=== PATIENT | male | born 1945 | race Caucasian/White ===

== ENCOUNTER → 2023-02-01 13:41 | Outpatient (REF) | payer MEDICARE, OTHER, SELFPAY | LOC: WOUND 13:41 | PROVIDERS: ATTENDING PHYSICIAN Surgery; REFERRING PHYSICIAN Family Medicine | DX: S81.812A Laceration without foreign body, left lower leg, initial encounter (principal); L97.222 Non-pressure chronic ulcer of left calf with fat layer exposed; D72.119 Hypereosinophilic syndrome [HES], unspecified; Z79.52 Long term (current) use of systemic steroids; I87.2 Venous insufficiency (chronic) (peripheral); I73.9 Peripheral vascular disease, unspecified; I42.9 Cardiomyopathy, unspecified; M30.1 Polyarteritis with lung involvement [Churg-Strauss]; Z95.810 Presence of automatic (implantable) cardiac defibrillator; Z86.79 Personal history of other diseases of the circulatory system; X58.XXXA Exposure to other specified factors, initial encounter | CPT/HCPCS: 11042; 99204 ==

== ENCOUNTER → 2023-03-16 14:41 | Outpatient (REF) | payer MEDICARE, OTHER, SELFPAY | LOC: WOUND 14:41 | PROVIDERS: ATTENDING PHYSICIAN Surgery; REFERRING PHYSICIAN Family Medicine | DX: L97.222 Non-pressure chronic ulcer of left calf with fat layer exposed (principal); I87.2 Venous insufficiency (chronic) (peripheral); I73.9 Peripheral vascular disease, unspecified; S81.812S Laceration without foreign body, left lower leg, sequela; X58.XXXS Exposure to other specified factors, sequela | CPT/HCPCS: 11042 ==

== ENCOUNTER → 2024-07-17 11:00 | Outpatient (REF) | payer MEDICARE, OTHER, SELFPAY | LOC: RCS 11:00 | PROVIDERS: ATTENDING PHYSICIAN Internal Medicine Interventional Cardiology; FAMILY PHYSICIAN Family Medicine | DX: I42.9 Cardiomyopathy, unspecified (principal) | CPT/HCPCS: 93306 ==

== ENCOUNTER → 2024-10-22 12:07 | Outpatient (REF) | payer MEDICARE, OTHER, SELFPAY | LOC: HWRAD 12:07 | PROVIDERS: ATTENDING PHYSICIAN Physician Assistant | DX: R05.1 Acute cough (principal); R06.02 Shortness of breath | CPT/HCPCS: 71046 ==

== ENCOUNTER 2024-10-24 20:45 | Emergency (ER) | payer MEDICARE, OTHER, SELFPAY ==
[2024-10-24 20:48] VITALS: BP 154/99
[2024-10-24 22:51] VITALS: BP 144/78; BMI 22.0
--- NOTE | 2024-10-24 23:59 | ED.GENMED ---
History of Present Illness
General
Chief Complaint: Head Injury
Source: patient
Time Seen by Provider: 10/24/24 23:48
History of Present Illness
History of Present Illness:
Note:
CHIEF COMPLAINT(S)
Fall with subsequent head laceration.
HISTORY OF PRESENT ILLNESS
The patient is a 79-year-old male who presented after a fall. The incident occurred when the patient stood up from a dinner table at a social gathering and began to move his chair. He reports feeling his right leg start to give way, which led to the
fall. He did not experience any loss of consciousness but describes the event as happening very quickly, causing him to fall backwards and sustain a head laceration. The patient consumed a small amount of wine two hours prior to the incident but
reports no other similar episodes or persistent leg weakness. After the fall, the patient noted that his legs, particularly the right one, were momentarily not functioning properly.
There was no significant previous history of leg weakness or neurological symptoms that the patient associates with this event.
SOCIAL HISTORY
The patient consumed a small amount of wine approximately two hours before the fall at a social gathering.
REVIEW OF SYSTEMS
- Neurological: No loss of consciousness, temporary weakness of the right leg post-fall.
Past History
Past History
ED Past Medical History: Asthma, HTN, Hyperthyroidism and Other (Pneumonia, Hypereosinophilia)
ED Past Surgical History: Cardiac, Tonsilectomy and Other
Social History
Tobacco: Non-smoker
Alcohol: Occasional
Drug: None
Personal:
Living: with family
Phy Exam
Physical Exam
Physical Exam:
GENERAL: Alert , in no apparent distress
EYE: conjunctiva clear
NECK: Supple, no significant adenopathy.
ENT: o/p clr, mmm.
CARDIAC: Regular rate and rhythm
LUNGS: Clear breath sounds bilaterally, no acute respiratory distress, no wheezes/rales/rhonchi
NEUROLOGICAL: Alert and oriented
SKIN: Warm and dry, 8 mm superficial laceration to the left parietal scalp without any active bleeding
MUSCULOSKELETAL: well perfused.
PSYCH: Normal and appropriate interaction.
Scores
Heart Failure Risk
Heart Failure Risk Score: Not Applicable
Heart Score for Chest Pain Patients
STEMI patient?: Not applicable
Withdrawal Assessment of Alcohol
Withdrawal Assessment Completed?: Not applicable
Course
Orders/Labs/Results
Orders:
Orders
10/24/24 20:50
CT Cervical Spine W/o Iv Contr Urgent
Comment:
Reason For Exam: fall
CT Head W/o Iv Contrast Urgent
Comment:
Reason For Exam: fall
Vital Signs
Initial and Last Documented VS:
Initial Vital Signs
Temp Pulse Resp BP Pulse Ox
98.1 F 78 20 154/99 98
10/24/24 20:48 10/24/24 20:48 10/24/24 20:48 10/24/24 20:48 10/24/24 20:48
Last Documented Vital Signs
Temp Pulse Resp BP Pulse Ox
98 F 80 18 148/88 98
10/24/24 22:51 10/25/24 00:45 10/25/24 00:45 10/25/24 00:45 10/25/24 00:45
Procedures
Laceration Closure
Left Scalp:
Status of Wound: clean
Size of Wound in cm: 0.8
Description of Wound Edges: sharp
Preparation: cleaned with saline
Type of Closure: single layer closure
Skin Closure Material: skin corinna
Number of sutures: 1
MDM/Problems Addressed
Differential Diagnosis Includes:
The Differential Diagnosis includes, in no particular order, and is not limited to:
- Orthostatic hypotension
- Simple mechanical fall
- Peripheral neuropathy
- Alcohol-related imbalance
- Muscle weakness or fatigue
MDM/Problems Addressed:
Patient presenting the ER following mechanical slip and fall resulting in head injury, alcohol consumed prior to the fall. CT of the head and cervical spine ordered and ultimately negative for any acute pathologies. Laceration was repaired as
above. Staple removal in 5 days. Patient aware of return precautions but otherwise stable for discharge home.
*Radiology
Radiology exam reviewed: radiology read reviewed
*Pulse Oximetry
SaO2: 98
Oxygen Mode of Delivery: Room air
*Critical Care Note
Total Time (30-74mins, 75-104mins- exclusive of procedures): Not Applicable
ED Attending Note
-
Portions of this chart may have been created with voice recognition software.� Occasional wrong word or��sound alike� substitutions may have occurred due to the inherent limitations of voice recognition software.
Discharge Plan
Departure
Patient Disposition: Home (Routine Discharge)
Date of Disposition: 10/24/24
Time of Disposition: 23:59
Patient with high blood pressure during this ER visit?: Yes
Discharge Problem:
Accidental fall, Laceration of scalp
Instructions: Laceration Repair With [facility] (DC)
Prescriptions:
No Action
aspirin 81 MG tablet,delayed release (DR/EC)
1 tab PO DAILY
prednisone 5 MG tablet
5 mg PO DAILY
methotrexate sodium 2.5 MG tablet
22.5 mg PO WE
losartan 25 MG tablet
12.5 mg PO HS
folic acid 1 MG tablet
1 mg PO SUMOTUTHFRSA
Patient Comments:
EVERY DAY EXCEPT TUESDAY
montelukast 10 MG tablet
10 mg PO QPM
metoprolol succinate 25 MG tablet extended release 24 hr
25 mg PO HS
budesonide-formoterol [Symbicort] 1 PUFF HFA aerosol inhaler
2 puff inhalation R BID
atorvastatin 10 mg Tablet
10 mg PO DAILY
multivitamin
1 tab PO DAILY
calcium 600 mg Capsule
600 mg PO DAILY
cholecalciferol (vitamin D3) [Vitamin D3] 50 mcg (2,000 unit) Tablet
50 mcg PO DAILY
Referrals:
Rosalio Lugo PA [Family Provider, Family Practice]
Activity Restrictions/Additional Instructions:
Staple removal in 5 days
Interventions
Interventions:
*Risk Screen - Suicide Last Done: 10/25/24 00:46
*General Assessment Last Done: 10/25/24 00:46
*Neglect/Abuse Screening Last Done: 10/24/24 20:48
*ED- Fall Risk Assessment Last Done: 10/25/24 00:46
*ED COVID-19 Vaccine History Last Done: 10/25/24 00:46
*Nursing Disposition Last Done: 10/25/24 00:46
ED- Neurological Assessment Last Done: 10/24/24 22:51
ED-Skin Assessment Last Done: 10/24/24 22:51
Discharge Date and Time
Discharge Date/Time: 10/25/24 00:47
Print Language: ITALIAN
[2024-10-25 00:45] VITALS: BP 148/88
== END 2024-10-25 00:47 | disposition home or self-care (01) ==
LOC: EMR 20:45
PROVIDERS: EMERGENCY PHYSICIAN Emergency Medicine; FAMILY PHYSICIAN Physician Assistant
DX: S01.01XA Laceration without foreign body of scalp, initial encounter (principal); W01.0XXA Fall on same level from slipping, tripping and stumbling without subsequent striking against object, initial encounter; J45.909 Unspecified asthma, uncomplicated; I10 Essential (primary) hypertension; E05.90 Thyrotoxicosis, unspecified without thyrotoxic crisis or storm
CPT/HCPCS: 99284; 12001; 70450; 72125

== ENCOUNTER → 2024-10-30 17:31 | Outpatient (REF) | payer MEDICARE, OTHER, SELFPAY | LOC: RAD 17:31 | PROVIDERS: ATTENDING PHYSICIAN Family Medicine | DX: R29.898 Other symptoms and signs involving the musculoskeletal system (principal) | CPT/HCPCS: 72131 ==

== ENCOUNTER → 2025-01-15 12:45 | Outpatient (REF) | payer MEDICARE, OTHER, SELFPAY ==
--- NOTE | 2025-01-15 13:52 | CARDSERVLU ---
Echocardiogram with [facility] completed after protocol screening completed. Allergies verified.
Patent IV site: __new start 1st attempt 22P RAC___
IV site flushed with 0.9% NaCl pre and post administration.
Diluted bolus method utilized to enhance visualization of ventricular mckeon.
Total volume given: _5.5___ mL
site dcd at completion of test.
Patient tolerated all procedures well without complications.
== END ==
LOC: RCS 12:45
PROVIDERS: ATTENDING PHYSICIAN Internal Medicine Interventional Cardiology; FAMILY PHYSICIAN Family Medicine
DX: I42.9 Cardiomyopathy, unspecified (principal)
CPT/HCPCS: 93306; Q9950

== ENCOUNTER 2025-03-04 04:22 | Inpatient (IN) | payer MEDICARE, OTHER, SELFPAY ==
[2025-03-04] VITALS (19 sets, daily range): BP systolic 85–149; BP diastolic 58–135; BMI 23.5; BMI 23.2
--- NOTE | 2025-03-04 01:50 | EDRN ---
Pt has burning under his sternum on both sides which started after covid/flu vaccines on February 11 described as mild and only side effect he had. Three days later pt had an echo with contrast and says he was not supposed to feel anything when
contrast was administered. 36 hours later pt woke with stronger burning in his chest than he has ever felt before. Pt saw Dr Stephens after his echo and he did not feel pt was having a raction to the iv contrast. Pt works out at the [employer] 4 days per
week. Burning increased after spinning or lifting for few weeks. Pt says he was taking his ballot to the drop box and he parked down the hill about 3 blocks and while walking up the hill, the burning got worse. By third block, pt had to stop for
few minutes and lean on a car. This happened a week ago Tuesday. Pt saw Dr Valdez the day before and discussed burning in his chest. Pt sat on a bench for 20 minutes and sensation went away. Pt called Dr Mahajan office thinking it was a problem
with his lungs. Dr Mahajan told pt on Tuesday that it is most likely angina, not his lungs. Dr Stephens was texted on and a nurse called pt back on Tuesday after speaking with Dr Stephens. Pt informed he has an appt with a PA this coming
Tuesday. A Rx was sent in for metoprolol 50mg BID rather than 25mg BID as well as sl ntg tablets. Pt was putting away dishes around [id number] and he felt the burning in his chest more so he sat down and it took awhile to go away. Pt took 1st
ntg and it calmed the pain within minutes. Pt went upstairs and went to sleep for about 1.5 hours. One hour ago, pt went into the bathroom to urinate and on his way back to bed 'it kicked it off again.' Pt took another ntg which eased the burning
and pt decided to come to the ED for evaluation. Pt can feel 'a very low level' burning in his chest while talking with this RN. 'I can ignore it for the most part. It's there, waiting to happen again.' No sob now, pt had sob with burning. No
n/v, fever/chills/cough, weakness, dizziness, headache. Burning sometimes radiates across upper back between shoulder blades and b/l upper arms.
[2025-03-04 02:06] LABS: Hematocrit 39.0 % (39.0-52.0); Hemoglobin 12.6 g/dL (13.0-18.0); Mean Corp Hgb Conc. 32.3 g/dL (33.0-37.0); Mean Corpuscular Volume 105.1 fL (80.0-94.0); Nucleated Red Blood Cells % 0 % (-); Platelet Count 258 10^3/uL (130-400); Red Cell Dist. Width 13.8 % (11.5-14.5)
[2025-03-04 02:23] LABS: ALT (SGPT) 45 U/L (0-50); AST (SGOT) 47 U/L (17-59); Albumin 3.9 g/dl (3.5-5.0); Alkaline Phosphatase 44 U/L (38-126); Blood Urea Nitrogen 23 mg/dl (9-20); Calcium 9.0 mg/dl (8.4-10.2); Carbon Dioxide 25 mmol/L (22-30); Chloride 108 mmol/L (98-107); Estimated Creatinine Clearance 87 ml/min; Glucose 97 mg/dl (70-99); Potassium 4.7 mmol/L (3.5-5.1); Sodium 139 mmol/L (135-145); Total Protein 6.3 g/dl (6.3-8.2); eGFR > 60.00
--- NOTE | 2025-03-04 02:29 | EDRN ---
Pt clarified he was on metoprolol 25mg daily and the Rx that was sent to his pharmacy was for metoprolol 50mg BID. Pt has been monitoring his bp and HR and took 50mg daily for 2 days. Pt decreased it to 25mg because he felt his bp and HR were
going too low. Pt took 25mg metoprolol yesterday morning and a second one prior to coming to the ED this morning.
[2025-03-04 02:35] LABS: Troponin I 0.127 ng/ml
--- NOTE | 2025-03-04 02:36 | EDRN ---
Dr Mooney informed pt's troponin = 0.127 while at pt bedside
--- NOTE | 2025-03-04 02:56 | EDRN ---
Pharmacy called to verify heparin order.
[2025-03-04] MEDS: LOW STRENGTH ASPIRIN 324 MG PO (02:57)
[2025-03-04] MEDS: NITROSTAT (SUBLINGUAL) 0.4 MG SL ×5 (03:01→15:18)
[2025-03-04] MEDS: HEPARIN 4000 UNITS IV (03:02)
[2025-03-04] MEDS: HEPARIN 25000 UNITS/250 ML IV ×2 (03:03→21:27)
[2025-03-04 03:09] LABS: APTT 26.7 Sec (23.4-35.0)
--- NOTE | 2025-03-04 03:12 | EDRN ---
Pt is pain free after 1 sl ntg. Instructed pt to call if burning in his chest returns.
--- NOTE | 2025-03-04 03:27 | ED.GENMED ---
History of Present Illness
General
Chief Complaint: Cardiac Symptoms
Source: patient and spouse
Exam Limitations: none
Time Seen by Provider: 03/04/25 02:17
Nursing documentation reviewed up to this point in time: agreed with
History of Present Illness
History of Present Illness:
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 He presents tonight with complaints of a burning sensation in the chest. The burning is described as
symmetrical and located centrally underneath the sternum. The patient reports that it does not radiate to the sides, neck, or left arm but has occasionally radiated to the area between the shoulder blades.
The symptoms began around one month ago, primarily experiencing this sensation during physical exertion, such as working out at the [employer] or climbing hills, necessitating pauses due to the burning. Patient initially attributing it possibly to lung
issues due to absence of cough or other respiratory symptoms, the patient consulted with pulmonology specialists who was concern for cardiac issue. He did call his fretted instrument repairer, Dr. Stephens last week and has an appointment scheduled for this week.
After contact with fretted instrument repairer, metoprolol dose was increased from 25 mg once daily to 50 mg twice daily. Patient has been sporadically compliant with 50 mg metoprolol as his blood pressure has been running low 90s to low 100s over the past few
days.. He was also prescribed nitroglycerin sublingual tablets.
He developed an episode of substernal chest burning tonight after doing the dishes. He took a sublingual nitroglycerin and chest pain resolved within 3 to 4 minutes.
He had an additional episode of chest pain after getting up and going to the bathroom and then returning to bed. He took another dose of sublingual nitroglycerin with relief within 4 to 5 minutes.
Chest pain episodes have been recurring more frequently and now with only minimal activity prompting ED visit.
He does have history of cardiomyopathy, has AICD in place. EF reportedly 40 to 45%. He does not have prior history of CAD.
He denies associated symptoms such as sweating, nausea, or palpitations but admits to minor persistent soreness in the chest.
Past History
Past History
ED Past Medical History: Asthma, HTN, Hypercholesterolemia, Hyperthyroidism and Other (Pneumonia, Hypereosinophilia)
ED Past Surgical History: Cardiac (AICD), Tonsilectomy and Other
Social History
Tobacco: Non-smoker
Alcohol: Occasional
Drug: None
Personal:
Living: with family
Employment: Retired
Family History
Family History: Other (Noncontributory)
Phy Exam
Physical Exam
Physical Exam:
GENERAL: 80-year-old gentleman appears his stated age, bright and alert, pleasant, appears in no acute distress. is accompanying.
EYE: anicteric
NECK: Supple, nontender, no meningismus, no significant adenopathy.
ENT: oral mucosa is moist. No rhinorrhea.
CARDIAC: Regular rate and rhythm. no murmur.
LUNGS: Clear breath sounds bilaterally, no acute respiratory distress, no wheezes/rales/rhonchi
ABDOMEN: Soft, nondistended, without focal tenderness, normoactive BS.
NEUROLOGICAL: Alert and oriented x3, no focal neuro deficits.
SKIN: Warm and dry, normal color, skin intact. No rash.
MUSCULOSKELETAL: No clubbing or cyanosis. Trace edema bilateral ankles right greater than left. Patient states this is chronic and unchanged. Peripheral pulses are full and equal b/l. No palpable tenderness.
PSYCH: Normal and appropriate interaction.
Scores
Heart Score for Chest Pain Patients
STEMI patient?: No
History: Highly Suspicious
ECG: Significant ST-Depression
Age: >/= 65 years
Risk Factors: 1 or 2 Risk Factors
Troponin: >/= 3 x Normal Limit
Heart Score for Chest Pain Patients: 9
Heart Score Risk: 72.7 % MACE over next 6 weeks
Course
Orders/Labs/Results
Orders:
Orders
03/04/25 01:32
ECG [Electrocardiogram (*1)] Urgent
Reason for Study: Angina, Unstable
03/04/25 01:33
EKG- Treatment ONCE
03/04/25 01:45
PTT Urgent
03/04/25 01:47
Cardiac Monitoring- Treatment ONCE
IV Insert/Care/Rem.- Treatment PRN
O2 Therapy [RESP] Urgent
Titrate/Wean O2 to maintain O2 sat greater than (%): 90
Special Instructions: Maintain sats >/=90%
Pulse Ox/spot Check [RESP] Urgent
Quantity: 1
Special Instructions: ON ROOM AIR
03/04/25 01:49
Complete Blood Count/With Diff Urgent
Comprehensive Metabolic Panel Urgent
Troponin I Urgent
03/04/25 02:50
Aspirin Chewable [Low Strength Aspirin] 324 mg PO NOW STA
Heparin 4,000 units IV NOW STA
Nitroglycerin Sublingual [Nitrostat (Sublingual)] 0.4 mg SL NOW STA
Nitroglycerin Sublingual [Nitrostat (Sublingual)] 0.4 mg SL [id number] PRN
03/04/25 02:[address] Non Medication Order As Directed
Physician Order: PTT 6 hours after initial start of Heparin infusion
Above order entered?: Yes
03/04/25 02:54
Heparin 16231 Units/250 ml 25,000 units in 250 ml .ROUTE .STK-MED
03/04/25 03:00
Heparin 61778 Units/250 ml 25,000 units in 250 ml IV PER PROTOCOL
Weight to be used for heparin protocol in kilograms (kg):: 72
Protocol:: Cardiac Tx/Acute Coronary
PTT Goal Range to be used:: PTT 73 to 111 seconds
Order type:: Initial
INITIAL Infusion Dose (UNITS/KG/hr) & then follow protocol:: 12 units/kg/hr
Infusion Dose in UNITS/hr & then follow protocol (UNITS/hr):: 850
INFUSION RATE in mL/hr & then follow protocol (mL/hr):: 8.5
PTT less than or equal to 64 seconds:: Increase rate by 200 units/hr (+ 2 mL/hr)
PTT 64.1 to 72.9 seconds:: Increase rate by 100 units/hr (+ 1 mL/hr)
PTT 73 to 111 seconds:: Target Range. No change in rate.
PTT 111.1 to 130.9 seconds:: Decrease rate by 100 units/hr (- 1 mL/hr)
PTT 131 to 199.9 seconds:: HOLD for 1 hr. Then decrease rate by 200 units/hr (- 2 mL/hr)
PTT greater than or equal to 200 seconds:: HOLD for 2 hrs & Notify Provider. Then decrease by 200 units/hr (-
2 mL/hr)
Lab follow-up:: Each change, PTT q6h until 2 consecutive are therapeutic. Then PTT
daily.
03/04/25 03:46
Electrocardiogram (*1) Urgent
Reason for Study: Chest Pain
EKG- Treatment ONCE
03/04/25 03:56
Troponin I Urgent
03/04/25 03:59
Nitroglycerin Ointment [Nitro-Bid] 1 inch TOPICAL NOW STA
03/04/25 04:03
Admit/Transfer Patient As Directed
Co-Sign Provider:
Level of Care: Inpatient admission
Assign to:: Telemetry
Physician / Group: Jordan
Diagnosis: NSTEMI
Reason for Telemetry: Chest Pain syndromes
Date to Stop Telemetry: 03/06/25
Time to Stop Telemetry: 11:00
Reason for Hospitalization: NSTEMI
Expected length of stay greater than two midnights?: Yes
ELOS- Estimated Length of Stay in days: 2
I certify the patient meets the requirements for IP care: Yes
PRN Pain Medication Management As Directed
May give lesser potent ordered pain med per pt: Yes
preference::
Protocol:: Medication orders for pain may be administered in a
manner that supports deferring to patient preference
when the pt is:
- Requesting an ordered lesser potent pain medication.
Least to most potent pain medications are defined
as: acetaminophen < NSAID < tramadol < opioids
(morphine, oxycodone, hydromorphone).
- Requesting a lesser dose of the same medication IF
ORDERED.
- Requesting a less intrusive route of administration
if both routes are prescribed by the provider (PO <
IV).
03/04/25 04:05
Code Status As Directed
Resuscitation Status: Full Code
03/04/25 09:00
PTT Routine
03/06/25 11:00
DC Protocol for Telemetry ONCE
Abnormal Lab Results
03/04/25
01:49
RBC 3.71 L 10^6/uL
(4.70-6.10)
Hgb 12.6 L g/dL
(13.0-18.0)
MCV 105.1 H fL
(80.0-94.0)
MCH 34.0 H pg
(27.0-31.0)
MCHC 32.3 L g/dL
(33.0-37.0)
Absolute Monos (auto) 1.0 H 10^3/uL
(0.1-0.6)
Lymphocytes % 18.1 L %
(20.5-51.1)
Monocytes % 10.5 H %
(1.7-9.3)
Chloride 108 H mmol/L
(98-107)
BUN 23 H mg/dl
(9-20)
Troponin I 0.127 H* ng/ml
03/04/25 01:49
03/04/25 01:49
Vital Signs
Initial and Last Documented VS:
Initial Vital Signs
Pulse Resp BP Pulse Ox
86 19 130/81 98
03/04/25 02:00 03/04/25 02:00 03/04/25 02:00 03/04/25 02:00
Last Documented Vital Signs
Pulse Resp BP Pulse Ox
77 14 108/73 95
03/04/25 04:00 03/04/25 04:00 03/04/25 04:00 03/04/25 04:00
MDM/Problems Addressed
Differential Diagnosis Includes:
The Differential Diagnosis includes, in no particular order and is not limited to:
- Coronary artery disease
- Myocardial ischemia
- Gastroesophageal reflux disease
- Pulmonary embolism
- Aortic dissection
- Pericarditis
- Myocarditis
- Costochondritis
- Angina pectoris
- Churg-Lemuel syndrome-related cardiac involvement
MDM/Problems Addressed:
Intermittent exertional chest pain over the past month, worsening over the past week with onset of chest pain at rest tonight.
Initially reported chest pain-free but now notes perhaps very mild, questionable ache.
EKG shows normal sinus rhythm with deep T wave inversions anterolaterally which is new compared to previous EKG 2022.
Thus I have significant concern for unstable angina.
Will give 324 mg chewable aspirin. Will give a nitroglycerin sublingual here and will initiate IV heparin bolus and drip.
Will plan to admit to hospitalist service with consult to cardiology.
Chronic conditions affecting care:
Churg-Lemuel eosinophilia
Hypertension
Hyperlipidemia
Cardiomyopathy
Chronic conditions affecting care: Cardiomyopathy and Asthma (Churg-Lemuel)
*Pulse Oximetry
SaO2: 94
Oxygen Mode of Delivery: Room air
Patient hypoxic: no
*EKG
Interpreted by ED Provider?: Yes
Interpretation: abnormal
Comparison EKG: changes noted (Anterolateral ischemia new compared to previous EKG 2022)
Rate: normal
Rhythm: sinus and PVC's
[place]: left axis deviation
Interval: normal QT interval
QRS Pattern: normal QRS
Ischemia: ST depression (Flipped T waves anterolaterally, new compared to previous)
*Microscopist Interpretation
Rate: normal
Interpretation: normal
Rhythm: sinus
*Critical Care Note
Total Time (30-74mins, 75-104mins- exclusive of procedures): 30
comment:
Critical care statement: A total of 30 minutes of critical care time was provided for this patient. This includes management of unstable vital signs, evaluation of the patient at bedside, reviewing the patient's pertinent medical records, discussion
with consultants, review of old EKGs and review of pertinent medical records. This time with separate from time utilized to perform the aforementioned documented procedures
Update Note
Update Note:
04:00
Patient is chest pain-free after 1 sublingual nitroglycerin
Will initiate Nitropaste.
Repeat EKG overall similar to the first EKG. T wave inversions anterolaterally persist. He continues to have no ST segment elevation.
Repeat troponin is pending.
Plan as above
ED Attending Note
-
Portions of this chart may have been created with voice recognition software.� Occasional wrong word or��sound alike� substitutions may have occurred due to the inherent limitations of voice recognition software.
Discharge Plan
Departure
Patient Disposition: Admit
Date of Disposition: 03/04/25
Time of Disposition: 03:45
Admit to: IVU
Admit to doctor: Alina
Presentation/result/management discussed w/ accepting MD/DO: Hospitalist
Condition: Serious
Discharge Problem:
Angina pectoris, unstable, Non-ST elevated myocardial infarction (non-STEMI)
Interventions
Interventions:
*Risk Screen - Suicide Last Done: 03/04/25 01:35
*General Assessment Last Done: 03/04/25 01:47
*Neglect/Abuse Screening Last Done: 03/04/25 01:35
*ED- Fall Risk Assessment Last Done: 03/04/25 03:11
*ED COVID-19 Vaccine History Last Done: 03/04/25 01:47
*ED Influenza Vaccine History Last Done: 03/04/25 01:47
ED- Pulmonary Assessment Last Done: 03/04/25 02:24
ED- Cardiac Assessment Last Done: 03/04/25 02:24
--- NOTE | 2025-03-04 03:45 | HPS.HSE ---
Family Physician
-
Family Physician: Josh Valdez
Chief Complaint
-
Exertional chest pain
History of Present Illness
This is a 80-year-old male who has past medical history significant for hypereosinophilic syndrome, nonischemic cardiomyopathy (2 prior coronary angiogram several years ago without obstruction), ventricular tachycardia status post ICD, hypothyroid,
presented to the emergency department with worsening chest pain over the last 1 month.
Patient reports that he has been having intermittent chest pain for about a month. He stated that he exercise about 4 times a week and he has chest pain when he is on the exercise bike or at the end of [employer] [facility]. He started noticing
more frequent episodes that is interrupting his exercise set such that about 10 days ago until he stopped exercising due to this chest discomfort. He reports he had a burning sensation midsternally without any radiation and no associated nausea
vomiting or diaphoresis. He denies any shortness of breath. Initially thought this pain was from a pulmonary disease and he did see the associate professor of musicology recently. It was felt not to be pulmonary in etiology. Patient made an appointment with his
first breaker feeder. He also was supposed to start on increased dose of metoprolol as well as as needed nitroglycerin. Due to slightly lowering of his blood pressure the patient has not been consistent with the increased dose metoprolol. Today had
multiple episodes of exertional pain with mild activity. He states he felt substernal chest pain while doing the dishes in the evening. He took a dose of sublingual nitroglycerin and the pain resolved. He had another episode when he walked to the
bathroom and came back to sit down again he took a dose of nitroglycerin and the pain resolved. He states his pain is minimal at this time. He denies feeling dizzy or lightheaded. He denies any palpitations. He denies lightheadedness or
dizziness. No device/defibrillator activation. He denies any nausea or vomiting. He denies any recent episodes of diarrhea melena or hematochezia.
In the emergency department he was afebrile, blood pressure was 93/60 with a pulse rate of 83 and he was satting 94% on room air. ECG shows a sinus rhythm with rate of 91, occasional PVCs, T wave inversions in leads V3 through 6. Initial troponin
was 0.127. ICD interrogated without any abnormal findings.
CBC was unremarkable. Electrolytes BUN/creatinine were all in normal range.
Recent echocardiogram January: basal and mid inferior, distal septal, and mid anteroseptal akinesis. Mild left ventricular hypertrophy. Estimated ejection fraction 40-45% by Cardoza's Method of Disc.
Medical History
Past Medical History
Past Medical History: Reports Arrhythmia (Ventricular tachycardia status post ICD), CHF (Nonischemic cardiomyopathy suspect secondary to inflammatory process.) and Other (Hypereosinophilic syndrome, show Lemuel syndrome,)
Additional Past Medical History:
Migraine headaches
Past Surgical History: Reports Other (Inguinal hernia repair in childhood, cataract surgery bilaterally, ICD implantation.)
Social History
Tobacco: Non-smoker
Alcohol: None
Drug: None
Living: With Family
Family History
Family History: Not pertinent
Allergies / Home Medications
Allergies reflects when Allergies were last updated in [facility].
Home Medications with original date entered in [facility]
Allergy/Medication List:
Allergies
Allergy/AdvReac Type Severity Reaction Status Date / Time
amlodipine (From Norvas) Allergy edema Verified 10/24/24 20:47
levofloxacin Allergy Rash Verified 03/04/25 01:49
Penicillins Allergy GI upset, Verified 03/04/25 01:49
vomiting
Quinolones Allergy Rash Verified 03/04/25 01:49
Sulfa (Sulfonamide Allergy Hives, rash Verified 03/04/25 01:49
Antibiotics)
sulfasalazine Allergy Hives, rash Verified 03/04/25 01:49
Home Medications
aspirin 81 mg tablet,delayed release 1 tab PO DAILY 11/07/10
budesonide-formoterol HFA 80 mcg-4.5 mcg/actuation aerosol inhaler (Symbicort) 2 puff inhalation R BID 10/26/19
folic acid 1 mg tablet 1 mg PO SUMOTUTHFRSA 10/26/19
losartan 25 mg tablet 12.5 mg PO HS 10/26/19
methotrexate sodium 2.5 mg tablet 22.5 mg PO WE 10/26/19
metoprolol succinate 25 mg tablet,extended release 24 hr 25 mg PO DAILY 10/26/19
montelukast 10 mg tablet 10 mg PO QPM 10/26/19
prednisone 5 mg tablet 7 mg PO DAILY 10/26/19
atorvastatin 10 mg tablet 10 mg PO DAILY 04/18/23
calcium 600 mg capsule 600 mg PO DAILY 04/18/23
cholecalciferol (vitamin D3) 50 mcg (2,000 unit) tablet (Vitamin D3) 50 mcg PO DAILY 04/18/23
multivitamin 1 tab PO DAILY 04/18/23
Review of Systems
-
Constitutional: Reports No Symptoms
EENT: Reports No Symptoms
Respiratory: Reports No Symptoms
Cardiac: Reports Chest Pain
Abdomen/GI: Reports No Symptoms
: Reports No Symptoms
Musculoskeletal: Reports No Symptoms
Skin: Reports No Symptoms
Neurological: Reports No Symptoms
Endocrine: Reports No Symptoms
Hematologic/Lymphatic: Reports No Symptoms
Psych: Reports No Symptoms
Physical Exam
Vital Signs
Vital Signs
Pulse Resp BP Pulse Ox
83 15 95/63 94
03/04/25 03:05 03/04/25 03:05 03/04/25 03:06 03/04/25 03:29
Physical Exam
General: Well Developed, Well Nourished and No Apparent Distress
HEENT: NormoCephalic, Moist mucous membranes and Atraumatic
Respiratory: Clear
Cardiac: S1/S2 and Regular Rhythm; No Murmur or Rub
GI: Soft, Non Tender, Non Distended and Normal Bowel Sounds; No Organomegaly
Rectal: Deferred by Provider
Musculoskeletal: No Clubbing, No Cyanosis and No Edema
Skin: No Rash
Neuro: Nonfocal/grossly intact
Laboratory Results
-
03/04/25 01:49
03/04/25 01:49
Laboratory Results
APTT 26.7 Sec (23.4-35.0) 03/04/25 01:45
Total Bilirubin 0.5 mg/dl (0.2-1.3) 03/04/25 01:49
AST 47 U/L (17-59) 03/04/25 01:49
ALT 45 U/L (0-50) 03/04/25 01:49
Alkaline Phosphatase 44 U/L (38-126) 03/04/25 01:49
Troponin I 0.127 ng/ml H* 03/04/25 01:49
Data Reviewed
-
Medical Tests (Nuc Med, Echo, EKG etc): Image Personally Visualized and interpreted
Lab Data: Labs Reviewed by me
Old Records: Reviewed
Impression/Plan
-
IMPRESSION:
80-year-old history of nonischemic cardiomyopathy, hypereosinophilic syndrome presents to the emergency department with exertional chest pain over last 1 month and now having worsening chest pain with minimal exertion. ECG shows T wave inversions
in lateral leads, troponin was 0.127. Recent echo in January showing global hypokinesis and a EF of around 40% which is similar to prior. Patient mentioned that he may have had some additional findings on a echo with contrast report not
available here. No events on ICD.
PLAN:
NSTEMI -patient with exertional angina likely now has unstable angina. Currently without chest pain.
-Admit to telemetry
-Initial troponin 0.127, trend for now
-Status post aspirin 324
-Started on heparin drip
-sl-ntg as needed chest pain
-ECG with recurrent chest pain
-Antiemetics as needed
- Continue atorvastatin
- Continue metoprolol at 25 mg daily for now, increase as BP tolerates
- Losartan 12.5 with hold parameters
- Await and new crescendo angina and NSTEMI, will get echocardiogram
� Cardiology consulted to [facility]
Luisg-Lemuel
- Continue montelukast
- Continue prednisone
- Continue methotrexate per home regimen
- Continue Symbicort
DVT prophylaxis�on heparin drip
CODE STATUS�full code
[2025-03-04] MEDS: NITRO-BID 1 INCH TOPICAL (04:07)
[2025-03-04 04:32] LABS: Troponin I 0.127 ng/ml
--- NOTE | 2025-03-04 07:58 | W.PN.HOSP.TC ---
Today's Communication/Plan
-
LH cath with cardio
ivu
heparin drip
sl ntg
Assessment / Plan
Assessment / Plan
80-year-old male with past medical history of ventricular tachycardia status post ICD 2010, cardiomyopathy with mildly reduced EF, peripheral arterial disease (mid right SFA occlusion and probable high-grade distal SFA stenosis), hypereosinophilic
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 He presented in the ER with progressively worsening exertional chest burning for the past 4 weeks and noticed
episodes of chest pain at rest.
#Chest pain
# Elevated and uptrending troponin
- s/p aspirin 324 in er currently on heparin drip ; SL nitroglycerin as needed for pain; if continues to have pain might need nitro drip
- N.p.o. for left heart cath today and transfer to IVU per cardiology
- Continue aspirin 81 daily, statin, beta-ankit
- Goal LDL less than 55
- Echo today with ef of 25-30% and LV thrombus
# H/o nonsustained VT
- Status post ICD in 2010
- Continue beta-ankit
-goal k >4, mag >2
# h/o Cardiomyopathy
- Continue Toprol, losartan (with hold parameters)
- Appears euvolemic on exam
- Has not required diuretic
- uptitrate GDMT defer to cardio
# hypereosinophilic syndrome
#Churg�Lemuel
-chronically on methotrexate and prednisone.
#PAD
- Continue aspirin, statin.
DVT ppx: heparin drip
Full code
Anticipated Discharge: > 48 hours
Subjective/Interval History
-
Date of Service: March 04, 2025
afvss. Experienced 1 episode of chest pain 4/10, burning in nature, middle of the chest. Denies any radiation to the jaw or the arm or towards the abdomen. Denies any nausea or vomiting.
Objective Data
-
Labs:
Laboratory Results
03/04/25 03/04/25 03/04/25
01:45 01:49 09:00
WBC 9.1
Hgb 12.6 L
Hct 39.0
Plt Count 258
APTT 26.7 Pending
Sodium 139
Potassium 4.7
Chloride 108 H
Carbon Dioxide 25
BUN 23 H
Creatinine 0.7
Glucose 97
Calcium 9.0
Total Bilirubin 0.5
AST 47
ALT 45
Alkaline Phosphatase 44
Vital Signs:
Vital Signs
Temp Pulse Resp BP Pulse Ox
97.5 F 71 14 107/65 95
03/04/25 07:00 03/04/25 07:00 03/04/25 07:00 03/04/25 07:00 03/04/25 07:00
Review of Systems
-
History Source: Patient
Respiratory: Denies Trouble Breathing
Cardiac: Reports Chest Pain; Denies Palpitations or Syncope
Abdomen/GI: Denies Abdominal Pain
Physical Exam
-
General: No Apparent Distress and Conversant
HEENT: Normocephalic
Respiratory: Clear to Auscultation
Cardiac: Regular Rhythm and S1/S2; Negative Murmur, Rub, JVD or Carotid Bruits
GI: Soft and Nontender
Skin: Warm
Neuro: Awake, Alert and Oriented
Psych: Calm
Data Reviewed
-
Labs: Labs Reviewed by me, Discussed with Physician and Discussed with Patient
[2025-03-04] MEDS: SYMBICORT 80/4.5 MCG INHALER 2 PUFF INH ×2 (08:11→20:31)
[2025-03-04 08:12] LABS: Glucose - Point of Care 76 mg/dl (70-99)
[2025-03-04 09:21] LABS: APTT 65.0 Sec (23.4-35.0)
[2025-03-04 09:28] LABS: C-Reactive Protein 7.40 mg/L (0.0-10.00)
[2025-03-04 09:31] LABS: Troponin I 0.212 ng/ml
--- NOTE | 2025-03-04 09:32 | CON.CAR ---
Addendum entered and electronically signed by Kostas Wilkerson MD 03/04/25 18:25:
80-year-old man admitted with progressive exertional chest discomfort over the last few weeks, typically is fit and goes to the gym.
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
Current meds: IV heparin, aspirin 81 mg a day, atorvastatin 10 mg a day, folate, losartan 12.5 mg at bedtime, methotrexate 22.5 mg weekly, Toprol ER 25 mg a day, prednisone 5 mg a day and 2 mg a day
130/79, pulse 80, respiratory rate 14, afebrile -head neck exam unremarkable, lungs are clear, regular rate and rhythm without obvious murmurs or gallops, extremities without clubbing cyanosis or edema
Echo: 01/15/25: EF 40-45%, akinesis of the basal to mid inferior wall distal septal and mid anteroseptal, aortic sclerosis with trace AI, mild MR, trace TR
Echo today: EF 25-30%, 2.14 x 1.4 cm left ventricular apical thrombus
Cardiac catheterization April 2011: EF 42%, luminal irregularities only
ECG sinus rhythm, early transition anterolateral T wave inversions left atrial enlargement, possible septal AZ
Hemoglobin 12.6, platelets 258, BUN and creatinine 23 and 0.7, potassium 4.7, Troponin 2.12
Impression:
ACS
Suspected ischemic on nonischemic cardiomyopathy with drop in EF over the last month from 40-45% to 25-30%
Large left ventricular apical thrombus
History of VT/Medtronic single-chamber ICD 2010
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
History of spinal stenosis
History of hyperthyroidism
Other diagnoses as below. Reviewed in detail and agree, unless otherwise specified.
Plan:
Patient presents with evidence of acute coronary syndrome, new severe LV dysfunction with a drop in EF (hopefully hibernating myocardium) and a left ventricular apical thrombus.
Continue heparin for now.
Patient will need cardiac catheterization.
Discussed with patient and . Risks benefits reviewed. They agree to proceed.
Original Note:
Consultation
Consultation Request
Date/Time Consultation Requested: 03/04/2025, 06 15
Date/Time Consultation Performed: 03/04/2025, 09 55
Requesting Provider:
Performing Provider: CARLOS ALBERTO Stephens for Dr. Wilkerson
Reason for Consultation: Chest pain
Medical History
-
Chief Complaint: CP
History of Present Illness:
80-year-old male with past medical history of ventricular tachycardia status post ICD 2010, cardiomyopathy with mildly reduced EF, peripheral arterial disease (mid right SFA occlusion and probable high-grade distal SFA stenosis), hypereosinophilic
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 Piero Garcia at [facility] and chronically on methotrexate and prednisone.
He presents to the ER today with progressively worsening exertional chest burning for the past 2 to 3 weeks. He regularly exercises at the gym, doing weight training and spinning classes. At the end of his workout he began developing chest burning
which began occurring with less exertion. He has not gone to the gym in the past 10 days. A few days ago he was walking to the [employer] in [place] and had to stop multiple times on his walk due to chest burning. Burning resolved after 20
minutes. Burning is substernal but twice radiated to his shoulder blades and down his arms. He has associated dyspnea on exertion. He called the office last week reporting increasing symptoms and was advised to increase metoprolol from 25 mg
daily to 50 mg twice daily and was also given a prescription for sublingual nitroglycerin. He was scheduled for an appointment later this week. His blood pressure was in the 90s/ so he decided to only take metoprolol 25 mg twice daily. On day of
presentation having chest burning with minimal activity around house, walking room to room, pain relieved with 1 sublingual nitroglycerin.
In addition, he reports developing chest burning after getting the COVID and flu vaccine on 01/12/2025. Symptoms resolved but reoccurred on 01/15/2025 after he had an echocardiogram done. Burning subsequently reoccurred with exertion as above. Echo
01/15/2025 showed EF 40 to 45% with basal and mid inferior, distal septal, and mid anterior septal akinesis, no significant change compared to Echo 07/17/2024.
Past medical history:
History of mild cardiomyopathy
Ventricular tachycardia
ICD 2010, Medtronic single-chamber
Hyper eosinophilia syndrome
Churg-Lemuel syndrome
Spinal stenosis
Hyperthyroid storm
Migraines
ER workup:
Troponin 0.127�0 0.127�0.212
NA 139, K4.7, BUN/creatinine 23/0.7, LFTs within normal limits, hemoglobin 12.6
EKG: Normal sinus rhythm anterior lateral ST-T wave abnormalities, no change compared to last EKG at office visit 01/28/2025
ICD interrogated in ED, single-chamber Medtronic ICD VVI 40, 10 episodes nonsustained VT, most recent 02/10/2025, episodes less than 1 second
OptiVol fluid index low/stable
Patient was started on heparin drip.
He rec'd 1 SL NTG w/ relief of pain this am prior to going down for echo, and currently complaining of 3/10 chest pain with additional SL NTG administered.
Past Medical History
Past Medical History: Other (as above)
Past Surgical History: Other (ICD 04/18, inguinal hernia repair as a child, wisdom teeth age 29, bilateral cataract surgery with stents placed 2020)
Social History
Tobacco: Non-Smoker
Alcohol: Occasional (1 glass of wine daily)
Drug: None
Personal:
Living: With Family
Family History
Family History: Other (Father CAD, mother cancer)
Allergies / Home Medications
Allergy/AdvReac Type Severity Reaction Status Date / Time
amlodipine (From [facility]) Allergy edema Verified 10/24/24 20:47
levofloxacin Allergy Rash Verified 03/04/25 01:49
Penicillins Allergy GI upset, Verified 03/04/25 01:49
vomiting
Quinolones Allergy Rash Verified 03/04/25 01:49
Sulfa (Sulfonamide Allergy Hives, rash Verified 03/04/25 01:49
Antibiotics)
sulfasalazine Allergy Hives, rash Verified 03/04/25 01:49
�Medication �Instructions �Recorded �Confirmed �Type
aspirin 81 mg tablet,delayed 1 tab PO DAILY 11/07/10 03/04/25 History
release
budesonide-formoterol HFA 80 2 puff inhalation R BID 10/26/19 03/04/25 History
mcg-4.5 mcg/actuation aerosol
inhaler (Symbicort)
folic acid 1 mg tablet 1 mg PO SUMOTUTHFRSA 10/26/19 03/04/25 History
losartan 25 mg tablet 12.5 mg PO HS 10/26/19 03/04/25 History
methotrexate sodium 2.5 mg tablet 22.5 mg PO WE 10/26/19 03/04/25 History
metoprolol succinate 25 mg 25 mg PO DAILY 10/26/19 03/04/25 History
tablet,extended release 24 hr
montelukast 10 mg tablet 10 mg PO QPM 10/26/19 03/04/25 History
prednisone 5 mg tablet 7 mg PO DAILY 10/26/19 03/04/25 History
atorvastatin 10 mg tablet 10 mg PO DAILY 04/18/23 03/04/25 History
calcium 600 mg capsule 600 mg PO DAILY 04/18/23 03/04/25 History
cholecalciferol (vitamin D3) 50 50 mcg PO DAILY 04/18/23 03/04/25 History
mcg (2,000 unit) tablet (Vitamin
D3)
multivitamin 1 tab PO DAILY 04/18/23 03/04/25 History
Review of Systems
-
History Source: Patient
All other systems: Negative unless noted
Physical Exam
Vital Signs
Temp Pulse Resp BP Pulse Ox
97.5 F 70 14 107/65 96
03/04/25 07:00 03/04/25 08:18 03/04/25 08:18 03/04/25 09:06 03/04/25 08:18
Lab Results
03/04/25 01:49
03/04/25 01:49
Troponin I Cancelled 03/04/25 09:15
GEN: No distress, awake, Ox3
HEENT: supple, anicteric, mmm
LUNGS: CTA, no wheezes/rales
CV: RRR, no murmur, no rub
ABD: soft, BS+, NT/ND
EXT: No edema
NEURO: Gross non-focal
SKIN: No rash
Impression / Plan
-
PCP: Josh Valdez
Primary computer typesetter: Dr. Stephens
Impression:
Exertional chest burning
Elevated troponin
History of mild cardiomyopathy
Ventricular tachycardia
ICD 2010, Medtronic single-chamber
PAD, mid right SFA occlusion and probable high-grade distal SFA stenosis
Hyper eosinophilia syndrome
Churg-Lemuel syndrome
Spinal stenosis
Hyperthyroid storm
Migraines
Pancreatic cysts
Previous cardiovascular studies:
TTE: 01/15/2025: EF 40 to 45%, stage II diastolic dysfunction, basal and mid inferior, distal septal, and mid anterior septal akinesis, RV normal size and function
TTE 07/17/2024: EF 38% by Cardoza's method, 45% by visual estimation, global hypokinesis, normal RV size and function
Cardiac cath 04/16/2011: Luminal irregularities in LAD, circumflex, RCA. LAD has some calcium, EF 42%
Plan:
80-year-old male with PMH VT s/p ICD 2010, cardiomyopathy with mildly reduced EF, peripheral arterial disease (mid right SFA occlusion and probable high-grade distal SFA stenosis), hypereosinophilic syndrome most consistent with
Churg�Lemuel/eosinophilic granulomatosis with polyangeitis, presents with 2 to 3-week history of worsening exertional chest burning during exercise at gym, causing him to stop exercise and limit activity, now getting chest burning with minimal
activity, walking room to room in house, relieved with 1 sublingual nitro. Outpatient metoprolol recently uptitrated with no improvement in symptoms. Presents to ED today after needing to take sublingual nitroglycerin multiple times at home.
Troponin mildly elevated and uptrending 0.127�0 0.127�0.212. EKG with anterior lateral ST-T wave abnormality, unchanged from recent outpatient EKG. ICD interrogated and no recent arrhythmias. Patient started on heparin drip and administered
aspirin. Has received 2 doses of sublingual nitroglycerin this morning with relief of symptoms.
1. Chest burning
-Troponin mildly elevated and uptrending
-N.p.o. for left heart cath today
- Continue heparin drip
- May need nitro drip if symptoms not relieved with sublingual NTG
-transfer to IVU
-Status post aspirin 324 mg
- Continue aspirin 81 daily, statin, beta-ankit
- Goal LDL less than 55
- Echo today,concerning for LV thrombus, continue heparin drip
- Telemetry personally reviewed: Normal sinus rhythm 60s to 70s, occasional PVC
2. h/o Cardiomyopathy
- Continue Toprol, losartan (with hold parameters)
- Appears euvolemic on exam
-Has not required diuretic
-I/O, daily wts
-echo repeated today
- consider uptitrate GDMT
3. History of nonsustained VT
- Status post ICD in 2010
- Short runs of NSVT detected on remote ICD interrogation, episodes less than 1 second
- Continue beta-ankit
- Keep K greater than 4, mag greater than 2
4. 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
- followed by Dr. Piero Garcia at [facility]
-chronically on methotrexate and prednisone.
5. PAD
- Peripheral vascular study in 2022 concern for mid right SFA occlusion and probable high-grade distal SFA stenosis.
- Patient had been exercising in outpatient setting without significant claudication symptoms, no calf pain limiting his functional capacity
- Previously saw Dr. Rosas
- Continue aspirin, statin.
discussed with nursing
Data Reviewed
-
EKG: Tracing Personally Visualized and interpreted
Labs: Labs Reviewed by me
Old Records: Reviewed
[2025-03-04 10:12] LABS: Hepatitis C Antibody Negative (Negative)
[2025-03-04] MEDS: DELTASONE 5 MG PO (10:12)
[2025-03-04] MEDS: LIPITOR 10 MG PO (10:12)
[2025-03-04] MEDS: DELTASONE 2 MG PO (10:12)
[2025-03-04] MEDS: TOPROL XL 25 MG PO (10:12)
[2025-03-04] MEDS: FOLVITE 1 MG PO (10:17)
[2025-03-04 13:23] LABS: Troponin I 0.225 ng/ml
--- NOTE | 2025-03-04 15:52 | PTCARENOTE ---
Report given to [employer]. Heparin gtt stopped. Patient sent to [facility] [employer] via stretcher. Patient will not return to this room. All personal belongings sent with patient's .
--- NOTE | 2025-03-04 15:57 | CM ---
poolroom/poolhall manager reviewed patient's chart and met with patient and patient lives with spouse in a 2 story home with 2 steps to enter, patient is independent with adl's and ambulation, no dme, home with spouse when stable, no needs.
PCP: Dr. Valdez
Pharmacy: [facility] in [place]
--- NOTE | 2025-03-04 16:22 | ITS.CL.CATH ---
Outpatient Coding Specialist - Catheterization
Cardiac Catheterization
Procedure Report:
LEFT HEART CATHETERIZATION
Date of Procedure: March 04, 2025
Referring: Dr. Kostas Stephens
PROCEDURES:
1. Coronary angiography (An LV apical thrombus could not be excluded on recent echocardiogram. No left ventricular gram was performed)
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 He is chronically followed by
Dr. Piero Garcia at the [facility] and is chronically maintained on oral prednisone and methotrexate. His prednisone was decreased but his eosinophilic count spiked and his prednisone was increased back to 10 mg. He has a
history of ventricular tachycardia and underwent ICD placement in October 2019. He is physically quite active at baseline going to the [facility] at least 4 times per week and doing spinning classes for 25 minutes. Over the past several weeks he
experienced exertional dyspnea and chest tightness which he attributed to underlying pulmonary issues. His symptoms progressed and he was admitted and subsequently ruled in for small non-ST segment elevation myocardial infarction. He is now
referred for coronary angiography
ACCESS: Right radial artery, 6 Algerian sheath
HEMODYNAMICS : (mmHg)
AO (s/d) : 108/61, 79
LV (s/d) : Not done
CORONARY FINDINGS
DOMINANCE: Right
LEFT MAIN: There is a ruptured plaque in the distal left main extending to the ostium of the circumflex and LAD. 90% distal left main stenosis.
LEFT ANTERIOR DESCENDING: Hazy eccentric 90% ostial LAD stenosis. The LAD is heavily calcified and the remainder of the vessel has luminal irregularities but no focal obstructive high-grade stenosis.
CIRCUMFLEX: The circumflex has a 90% ostial stenosis and supplies a moderate size OM1 and small OM 2
RIGHT CORONARY ARTERY: The right coronary artery is a medium caliber dominant vessel with mild noncritical ostial narrowing and diffuse luminal irregularities but no focal obstructive stenosis
VENTRICULOGRAPHY: Not done given possible apical thrombus
SEDATION: 19 minutes of procedural sedation was utilized. An independent medical health researcher was present to assist with and help manage the patient's level of consciousness and physiologic status.
RADIATION SUMMARY: Fluoro Time (min): 2.1, Dose (mGy): 223.5, DAP (Gy.cm2) : 13.6
Closure Device: TR band
CONCLUSIONS
1. Ruptured plaque in the distal left main extending to involve the ostium of the LAD and circumflex
2. LV dysfunction by echocardiogram
RECOMMENDATIONS
1. Consult CT surgery to consider CABG
2. Will need to discuss immunosuppression plan with Dr. Garcia at [facility]
Copy to: Dr. Kostas Stephens, Dr. Piero Garcia, [facility]
--- NOTE | 2025-03-04 17:26 | CONSULT.CT ---
Addendum entered and electronically signed by Kristian Wallace MD 03/05/25 09:33:
CARDIAC SURGERY ATTENDING:
It was my pleasure to meet with Mr. Ortega Hunter at his bedside this morning. His son, Maximiliano Hunter, who is a nurse practitioner was present via telephone during our conversations. I have reviewed his medical history and available imaging.
Given his significant left main and ostial LAD/LCx disease, he will benefit from surgical coronary revascularization. I anticipate ALEXIS to LAD, GSV to OM, and potential GSV to diagonal. I recommended concurrent exclusion of his left atrial
appendage. Complicating his procedure are his history of eosinophilic granulomatosis with polyangiitis on chronic steroid and immunosuppressive therapy, his significantly reduced LVEF at 25 to 30%, and his LV thrombus. This LV thrombus precludes
use of periprocedural VAD therapy with exception of IABP. Fortunately, he has no significant valvular heart disease.
I had a long conversation with Mr. Hunter and his son. We reviewed his pathology, discussed the proposed operative interventions, reviewed the periprocedural risks (including, but not limited to, , stroke, ND, arrhythmia, PNA, LARA/F,
bleeding, infection, and wound healing issues; elevated risk of stroke given LV thrombus and elevated risk of healing difficulties given chronic steroid use), discussed the expected in-hospital postprocedural course, and reviewed the expected
outpatient recovery. All questions were answered to the best of my abilities. The patient is agreeable to proceed. I have tentatively scheduled him for surgery tomorrow 03/06/2025.
The patient was told to call if he had any further questions or concerns.
Thank you for the opportunity to participate in the care of this kind patient.
Kristian Wallace MD
[phone]
Original Note:
Consultation
-
Date/Time Consultation Requested: 03/04/25
Date/Time Consultation Performed: 03/04/25
Requesting Provider: Kostas Stephens MD
Performing Provider: Paula CARCAMO for Kristian Wallace MD
Reason for Consultation: CABG evaluation
Patient History
Physicians
Family Physician: Josh Valdez
Outpatient Nursing Clinical Director: Kostas Stephens
Inpatient Nursing Clinical Director: [facility]
History of Present Illness
80-year-old male with complex past medical history including Churg�Lemuel/eosinophilic granulomatosis with polyangeitis, followed by Dr. Piero Garcia at [facility] (methotrexate and prednisone), ventricular tachycardia status post MDT ICD (2010)-never
shocked, non-ischemic cardiomyopathy (EF 40-45%), peripheral arterial disease (mid right SFA occlusion and probable high-grade distal SFA stenosis). Patient was admitted to [facility] ER 03/04/25 with progressively worsening exertional midsternal chest
burning for the past 2 to 3 weeks that progressed further last night to occurring after washing dishes. Took a NTG with relief. Chest burning occurred again after going to the bathroom and patient decided to seek further medical attention. He
reported symptoms to cardiology office last week and was advised to increase metoprolol from 25 mg daily to 50 mg twice daily and was also given a prescription for sublingual nitroglycerin. He was scheduled for an appointment later this week.
Patient ruled in for NSTEMI (troponin I 0.225) and was taken to the catheterization lab. Left main/multivessel coronary disease was identified. A TTE reported a decrease in LV function to 25-30% with LV thrombus. CT surgery was consulted for CABG
evaluation. Patient is currently pain-free sitting in bed.
Past Medical History
Past Medical History: Arrhythmias (VT s/p MDT ICD (2010)), HTN, Hypercholesterolemia, Hyperthyroidism and Other (Churg-Lemuel syndrome eosinophilic granulomatosis w/ polyangeitis f/b Dr Garcia @ [facility]) on MXT/steroid, NICM, PAD (mid R SFA occ & prob
high grade dSFA stenosis), spinal stenosis, amaurosis fugax (remote), ocular migraine )
Past Surgical History
Past Surgical History: Other (B/L cat ext, inguinal hernia repair, basal skin cancer removal)
Family History
Family Medical History: Other (son s/p aortic root replacement d/t genetic conditon)
Social History
Alcohol: Daily (1 glass wine daily)
Drug: None
Tobacco: Non-Smoker
Personal:
Living: With Spouse
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
Allergies
Allergy/AdvReac Type Severity Reaction Status Date / Time
amlodipine (From [facility]) Allergy edema Verified 10/24/24 20:47
levofloxacin Allergy Rash Verified 03/04/25 01:49
Penicillins Allergy GI upset, Verified 03/04/25 01:49
vomiting
Quinolones Allergy Rash Verified 03/04/25 01:49
Sulfa (Sulfonamide Allergy Hives, rash Verified 03/04/25 01:49
Antibiotics)
sulfasalazine Allergy Hives, rash Verified 03/04/25 01:49
Home Medications
�Medication �Instructions �Recorded �Confirmed �Type
aspirin 81 mg tablet,delayed 1 tab PO DAILY 11/07/10 03/04/25 History
release
budesonide-formoterol HFA 80 2 puff inhalation R BID 10/26/19 03/04/25 History
mcg-4.5 mcg/actuation aerosol
inhaler (Symbicort)
folic acid 1 mg tablet 1 mg PO SUMOTUTHFRSA 10/26/19 03/04/25 History
losartan 25 mg tablet 12.5 mg PO HS 10/26/19 03/04/25 History
methotrexate sodium 2.5 mg tablet 22.5 mg PO WE 10/26/19 03/04/25 History
metoprolol succinate 25 mg 25 mg PO DAILY 10/26/19 03/04/25 History
tablet,extended release 24 hr
montelukast 10 mg tablet 10 mg PO QPM 10/26/19 03/04/25 History
prednisone 5 mg tablet 7 mg PO DAILY 10/26/19 03/04/25 History
atorvastatin 10 mg tablet 10 mg PO DAILY 04/18/23 03/04/25 History
calcium 600 mg capsule 600 mg PO DAILY 04/18/23 03/04/25 History
cholecalciferol (vitamin D3) 50 50 mcg PO DAILY 04/18/23 03/04/25 History
mcg (2,000 unit) tablet (Vitamin
D3)
multivitamin 1 tab PO DAILY 04/18/23 03/04/25 History
Review of Systems
-
History Source: Patient
General: Reports No Symptoms
HEENT: Reports No Symptoms
Respiratory: Reports No Symptoms
Cardiac: Reports No Symptoms
Abdomen/GI: Reports No Symptoms
: Reports No Symptoms
Musculoskeletal: Reports No Symptoms
Skin: Reports No Symptoms
Neurological: Reports No Symptoms
Vascular: Reports No Symptoms
Physical Exam
Vital Signs
Temp 97.9 F 03/04/25 15:17
Temp route: Oral 03/04/25 15:17
Pulse 71 03/04/25 16:33
Rhythm: Normal sinus rhythm 03/04/25 08:00
With- Bundle Branch Block Confi 03/04/25 08:00
Resp Rate 12 03/04/25 15:17
Blood pressure 124/78 03/04/25 15:23
Blood pressure extremity used: Left upper arm 03/04/25 15:17
Position: Lying 03/04/25 15:17
MAP (cuff-Estevan Monitor) 79 03/04/25 06:01
SaO2 98 03/04/25 15:17
Oxygen Mode of Delivery Room air 03/04/25 15:17
Acceptable pain level during hospitalization? 0 03/04/25 01:35
Can the patient verbally communicate their pain? Yes 03/04/25 16:37
Pain scale ratin 03/04/25 16:37
Actual Weight 71.214 kg 03/04/25 16:37
Body Mass Index (BMI) 23.2 03/04/25 16:37
Labs
03/04/25 01:49
03/04/25 01:49
APTT 65.0 Sec (23.4-35.0) H 03/04/25 08:56
Troponin I 0.225 ng/ml H* 03/04/25 12:44
Kiy-I-Objrjdohctk Pept 3830 pg/ml 03/04/25 08:14
Diagnostic Studies
Left Heart Cath 03/04/25 Dr. Stephens (R radial):
LEFT MAIN: There is a ruptured plaque in the distal left main extending to the ostium of the circumflex and LAD. 90% distal left main stenosis.
LEFT ANTERIOR DESCENDING: Hazy eccentric 90% ostial LAD stenosis. The LAD is heavily calcified and the remainder of the vessel has luminal irregularities but no focal obstructive high-grade stenosis.
CIRCUMFLEX: The circumflex has a 90% ostial stenosis and supplies a moderate size OM1 and small OM 2
RIGHT CORONARY ARTERY: The right coronary artery is a medium caliber dominant vessel with mild noncritical ostial narrowing and diffuse luminal irregularities but no focal obstructive stenosis
TTE 03/04/25:
1. Dilated left ventricle with LAD distribution akinesis and hypokinesis of the remaining mckeon, ejection fraction 25-30% by visual estimate and 29% by Cardoza's method. 2.14 x 1.4 cm inferoapical LV thrombus present.
2. Mitral annular calcification with mitral leaflet thickening.
3. Aortic sclerosis without stenosis.
4. Normal right heart, pulmonary artery systolic pressure is 44 mmHg.
5. An echo in January 2025 was notable for an EF of 40-45% with akinesis in the LAD distribution. No left ventricular apical thrombus was seen. The RV was normal, the atria were normal, there was aortic sclerosis with trace aortic regurgitation.
There was MAC with mild mitral regurgitation, the pulmonary artery systolic pressure was 26 mmHg.
Exam
General: Well Developed, Well Nourished and No Apparent Distress
HEENT: Normocephalic, Moist Mucous Membranes and PERRLA
Neck: Trachea Midline
Respiratory: Clear
Cardiac: S1/S2 and Regular Rhythm
GI: Soft, Non Tender, Non Distended and Normal Bowel Sounds
Rectal: Deferred by Provider
Skin: Warm and Dry
Neuro: AO x 3, No Motor Deficits and Nonfocal/Grossly Intact
Extremities: Pulses (+1/4 DP B/L) and Other (R radial TR band intact-no bleeding/hematoma)
Lymph: No Lymphadenopathy
Psych: Calm
Assessment / Plan
-
72-year-old male admitted with NSTEMI and left main/ multivessel coronary disease with acute HF R EF (25-30%) and LV thrombus
- Preop diagnostic testing ordered
- STS risk score to be calculated after testing completed
- Losartan placed on hold in preparation for surgery
- Need to notify [employer] rep to deactivate defibrillator function during surgery
- chronic steroid therapy>discuss need for yris-op stress dose steroid
Data Reviewed
-
EKG: Report Reviewed by me and Discussed with Physician
Exchange Floor Manager: Report Reviewed by me and Discussed with Physician
Echo: Report Reviewed by me and Discussed with Physician
Radiology: Report Reviewed by me and Discussed with Physician
Labs: Labs Reviewed by me and Discussed with Physician
[2025-03-04] MEDS: SINGULAIR 10 MG PO (18:07)
--- NOTE | 2025-03-04 19:51 | PTCARENOTE ---
~[id number]: Received patient from CCL. R radial TR band in place, site CDI. IAOx4, NSR PVCs on tele 70s, SBP 120s-130s, RA satting 93-97%. Patient c/o 05/18 substernal burning CP, providers are aware. Air taken out of band per protocol. TR band
removed by 1830, site CDI and dressed with 2x2 and tegaderm. All needs met at this time, call gutierrez within reach. Handoff report given to nightshift RN.
[2025-03-05] VITALS (25 sets, daily range): BP systolic 83–145; BP diastolic 52–94; BMI 22.7
[2025-03-05] MEDS: NITROSTAT (SUBLINGUAL) 0.4 MG SL ×3 (00:10→09:27)
[2025-03-05] MEDS: TYLENOL 650 MG PO ×2 (01:56→23:54)
--- NOTE | 2025-03-05 02:26 | PTCARENOTE ---
Addendum entered by Rafaela Steinberg RN 03/05/25 03:49:
pt converted back to NSR with HR 70
Addendum entered by Rafaela Steinberg RN 03/05/25 02:35:
Pt alarming AFib on monitor with HR 110-140 BPM. EKG confirmed AFIB. FOOD MOBILE DRIVER made aware. Labs ordered
Original Note:
Pt c/o mid CP 07/16. Nitro SL x 1 given. Pain reduced to 05/18.
[2025-03-05 04:11] LABS: Hematocrit 35.0 % (39.0-52.0); Hemoglobin 11.7 g/dL (13.0-18.0); Mean Corp Hgb Conc. 33.4 g/dL (33.0-37.0); Mean Corpuscular Volume 102.9 fL (80.0-94.0); Platelet Count 241 10^3/uL (130-400); Red Cell Dist. Width 14.0 % (11.5-14.5)
[2025-03-05 04:22] LABS: INR 1.04; PT 13.9 Sec (11.4-14.6)
[2025-03-05 04:23] LABS: APTT 41.3 Sec (23.4-35.0)
[2025-03-05 04:29] LABS: Magnesium 2.1 mg/dl (1.6-2.3)
[2025-03-05 04:31] LABS: ALT (SGPT) 36 U/L (0-50); AST (SGOT) 31 U/L (17-59); Albumin 3.2 g/dl (3.5-5.0); Alkaline Phosphatase 40 U/L (38-126); Blood Urea Nitrogen 18 mg/dl (9-20); Calcium 8.2 mg/dl (8.4-10.2); Carbon Dioxide 22 mmol/L (22-30); Chloride 108 mmol/L (98-107); Estimated Creatinine Clearance 86 ml/min; Glucose 79 mg/dl (70-99); HDL Cholesterol 66 mg/dl; LDL Cholesterol, Calculated 42 mg/dl; Potassium 4.1 mmol/L (3.5-5.1); Sodium 137 mmol/L (135-145); Total Protein 5.4 g/dl (6.3-8.2); Very Low Density Lipoprotein 7 mg/dl (0-30); eGFR > 60.00
[2025-03-05] MEDS: SYMBICORT 80/4.5 MCG INHALER INH (08:13)
[2025-03-05] MEDS: DELTASONE 2 MG PO (09:01)
[2025-03-05] MEDS: TOPROL XL 25 MG PO (09:02)
[2025-03-05] MEDS: DELTASONE 5 MG PO (09:02)
[2025-03-05] MEDS: LIPITOR 10 MG PO (09:02)
[2025-03-05] MEDS: ASPIR LOW (ENTERIC COATED) 81 MG PO (09:02)
[2025-03-05 09:04] LABS: Glycohemoglobin (HgbA1c) 5.5 % (4.0-5.9)
[2025-03-05] MEDS: FOLVITE 1 MG PO (09:04)
--- NOTE | 2025-03-05 09:48 | W.PN.CARDCBS ---
Addendum entered and electronically signed by Abhinav Samuels DO 03/05/25 10:46:
I saw and examined the patient.
The Coordinator Cardiopulmonary Services's note was reviewed and I agree with the note.
Comment:
Plan:
Cp improved with SL nitro and pt transitioned to IV Nitro titrate for pain control
Cont ASA
Cont IV Heparin
Cont Toprol and statin
CT surgical input appreciated.
Reviewed cath with pt
Pt is for CABG in AM
Eventual consideration for transition to oral anticoagulation with thrombus and brief AFib
Discussed with family at bedside.
Original Note:
Today's Communication / Plan
-
Chest pain improved status post sublingual nitro x 1
Initiate IV nitro at 10
Continue aspirin, IV heparin, statin, Toprol
CABG in a.m.
Eventual transition to DOAC given PAF and LV thrombus
Eventual GDMT
Impression / Plan
-
PCP: Josh Valdez
Primary copy operator: Dr. Stephens
Impression:
Exertional chest burning
NSTEMI
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
Inferoapical LV thrombus by echo 03/04
Ischemic cardiomyopathy, EF 25 to 30%
History of mild cardiomyopathy
Ventricular tachycardia
ICD 2010, [employer] single-chamber
Paroxysmal atrial fibrillation, new diagnosis this admission
PAD, mid right SFA occlusion and probable high-grade distal SFA stenosis
Hyper eosinophilia syndrome, on chronic steroid therapy
Churg-Lemuel syndrome
Spinal stenosis
Hyperthyroid storm
Migraines
Pancreatic cysts
Previous cardiovascular studies:
TTE: 01/15/2025: EF 40 to 45%, stage II diastolic dysfunction, basal and mid inferior, distal septal, and mid anterior septal akinesis, RV normal size and function
TTE 07/17/2024: EF 38% by Cardoza's method, 45% by visual estimation, global hypokinesis, normal RV size and function
Cardiac cath 04/16/2011: Luminal irregularities in LAD, circumflex, RCA. LAD has some calcium, EF 42%
Echo 03/04/2025: EF 25 to 30%, dilated LV with LAD distribution akinesis and hypokinesis of remaining mckeon, inferoapical LV thrombus present, MAC, aortic sclerosis, normal right heart
Plan:
-patient presented with Chest burning and ruled in for NSTEMI with peak trop 0.225.
-s/p cardiac cath 03/04 with ruptured plaque in distal left main extending to ostium of LAD and circumflex
-with CP intermittently overnight and this AM. Received sublingual nitro with some resultant transient hypotension. Complained of 4 out of 10 chest pain/burning this a.m. urgent EKG completed and reviewed by me at bedside: stable with
anterolateral ST inversions/depressions. Improved with sublingual nitro x 1. Blood pressure stable
-Will start low-dose IV nitro @10 and uptitrate as able
-Continue IV heparin
-plan for CABG in AM. CT surgery following
-chest CT with mild COPD.
-continue asa, statin, toprol.
-Echo with EF 25 to 30% and evidence of LV thrombus. will need eventual OAC
-Eventual GDMT as able
-proBNP 3830. LVEDP/RHC not completed on cath 03/04. will likely require post op diuresis
-also with ~1 hour of afib on review of tele overnight. spontaneously converted to SR and remains in SR at this time. if with recurrence, would initiate amio pre op. will need eventual OAC
-He also has history of NSVT status post ICD in 2010. With occasional PVCs and ventricular bigeminy on review of telemetry overnight. Follow electrolytes
-He is chronically on methotrexate and prednisone for hypereosinophilic syndrome followed by Dr. Piero Garcia at [facility]
-Peripheral vascular study in 2022 concern for mid right SFA occlusion and probable high-grade distal SFA stenosis. Previously saw Dr. Rosas
-d/w nursing
PREADMIT DATA:
80-year-old male with PMH VT s/p ICD 2010, cardiomyopathy with mildly reduced EF, peripheral arterial disease (mid right SFA occlusion and probable high-grade distal SFA stenosis), hypereosinophilic syndrome most consistent with
Churg�Lemuel/eosinophilic granulomatosis with polyangeitis, presents with 2 to 3-week history of worsening exertional chest burning during exercise at gym, causing him to stop exercise and limit activity, now getting chest burning with minimal
activity, walking room to room in house, relieved with 1 sublingual nitro. Outpatient metoprolol recently uptitrated with no improvement in symptoms. Presents to ED today after needing to take sublingual nitroglycerin multiple times at home.
Troponin mildly elevated and uptrending 0.127�0 0.127�0.212. EKG with anterior lateral ST-T wave abnormality, unchanged from recent outpatient EKG. ICD interrogated and no recent arrhythmias. Patient started on heparin drip and administered
aspirin. Has received 2 doses of sublingual nitroglycerin this morning with relief of symptoms.
Progress Note - Cooky Machine Operator
Subjective
Date of Service: March 05, 2025
reports 08/16 CP. improved s/p SL nitro x1
Objective
Labs:
03/05/25 03:34
03/05/25 03:34
Labs
Hgb 11.7 g/dL (13.0-18.0) L 03/05/25 03:34
Hct 35.0 % (39.0-52.0) L 03/05/25 03:34
Plt Count 241 10^3/uL (130-400) 03/05/25 03:34
PT 13.9 Sec (11.4-14.6) 03/05/25 03:34
PT Cancelled 03/05/25 03:34
INR 1.04 03/05/25 03:34
INR Cancelled 03/05/25 03:34
APTT 41.3 Sec (23.4-35.0) H 03/05/25 03:34
Sodium 137 mmol/L (135-145) 03/05/25 03:34
Potassium 4.1 mmol/L (3.5-5.1) 03/05/25 03:34
BUN 18 mg/dl (9-20) 03/05/25 03:34
Creatinine 0.7 mg/dL (0.7-1.3) 03/05/25 03:34
Glucose 79 mg/dl (70-99) 03/05/25 03:34
Troponins
03/04/25 03/04/25 03/04/25
01:49 03:56 08:14
Troponin I 0.127 H* 0.127 H* 0.212 H* D
03/04/25 03/04/25 03/04/25
09:15 12:44 15:15
Troponin I Cancelled 0.225 H* Cancelled
03/04/25
18:15
Troponin I Cancelled
Vital Signs and I&O:
Vital Signs
Temp Pulse Resp BP Pulse Ox
97.7 F 85 18 125/84 95
03/05/25 07:57 03/05/25 09:02 03/05/25 07:57 03/05/25 09:32 03/05/25 08:30
Vital Signs
Temp Pulse Resp BP Pulse Ox
97.7 F 85 18 125/84 95
03/05/25 07:57 03/05/25 09:02 03/05/25 07:57 03/05/25 09:32 03/05/25 08:30
Physical Exam
Physical Exam
GEN: No distress, awake, alert, oriented x3
HEENT: supple, anicteric, mmm, EOMI
LUNGS: CTA bilaterally, no wheezes/rales
CV: Reg, S1/S2, no murmur
ABD: soft, BS+, NT/ND
EXT: No cyanosis, clubbing, edema
NEURO: Gross non-focal
SKIN: Warm, pink, dry. No rash. Right wrist site clean dry and intact
--- NOTE | 2025-03-05 10:17 | W.PN.HOSP.TC ---
Today's Communication/Plan
-
N.p.o. at midnight for CABG
Continue heparin drip, aspirin, statin, beta-ankit
Hold ARB perioperatively
Consider stress dose steroids
Telemetry
Assessment / Plan
Assessment / Plan
#NSTEMI
#Obstructive CAD
#Dyslipidemia
-[facility] on 03/04 with ruptured plaque of the LM and ostial LAD; CT surgery consulted and planning for CABG
-Status post full dose aspirin and initiation of heparin drip; started on IV nitroglycerin drip for anginal symptoms
-Atorvastatin dose was increased to high intensity upon discovery of obstructive CAD; reduced LVEF as below on TTE
-Has remained hemodynamically adequate, no signs of circulatory shock; stable on low-level O2 for comfort
Plan
-Continue aspirin 81 mg daily and heparin drip
-Continue with high intensity statin with LDL goal <70
-Continue with beta-ankit with goal heart rate near 70/min
-Continue with nitroglycerin drip supportively for angina
-N.p.o. at midnight for CABG on 03/06/2025
-Consider stress dose steroids perioperatively
-Holding ARB postoperatively for prevention of vasoplegia
-Continue on telemetry
#Cardiomyopathy
-Multifactorial; has history of NICM likely associated with inflammatory disease though new LM/LAD lesion here
-Likely initially nonischemic however has developed ischemic component due to findings above
-Echocardiogram yesterday with LVEF 25 to 30%; CABG being planned as above for ischemic disease
-Current GDMT: Metoprolol XL, losartan (on hold); not on standing loop diuretic
Plan
-Continue GDMT, plan to resume losartan postoperatively, consider SGLT2i
-Monitor I's and O's and daily weights
-Consider Lasix if needed
#LV thrombus
-Likely associated with dilated CM and LV stasis
-TTE yesterday showed significantly sized LV thrombus
-Remains on IV heparin drip as above, plan DOAC after surgical procedure
-Monitor neurologic status
#H/O nonsustained VT s/p AICD
-Status post ICD in 2010; remains on beta-blockade
-Electrolyte goals k >4, mag >2
#Hypereosinophilic syndrome
#Churg�Lemuel
-Suspect complicated by pulmonary processes associated with eosinophilia; Home regimen includes Symbicort
-Also on chronic immunosuppressive regimen including MTX 22.5 mg every Tuesday and prednisone 7 mg daily
-Consideration for stress dose steroid perioperatively
#PAD
-No known obstructive lesions, no history of stents or angioplasty
-Home regimen includes aspirin and now high intensity statin
Diet: Low-cholesterol, n.p.o. at midnight
DVT ppx: heparin drip
Full code
Discussed with CT surgery and cardiology
Anticipated Discharge: > 48 hours
Subjective/Interval History
-
Date of Service: March 05, 2025
Seen and examined at the bedside. No acute events reported overnight. AFVSS this morning
Left heart cath yesterday showed left main/ostial LAD plaque rupture. Assessed by CT surgery who is planning for CABG x 2 on 03/06. Was started on nitroglycerin drip due to anginal symptoms
Feels better this morning. Labs are stable at this time.
Objective Data
-
Labs:
Laboratory Results
03/04/25 03/05/25 03/05/25
21:56 03:34 03:34
WBC 10.5
Hgb 11.7 L
Hct 35.0 L
Plt Count 241
PT Cancelled 13.9
INR Cancelled
APTT Cancelled
Sodium
Potassium
Chloride
Carbon Dioxide
BUN
Creatinine
Glucose
Calcium
Total Bilirubin
AST
ALT
Alkaline Phosphatase
03/05/25 03/05/25
03:34 10:30
WBC
Hgb
Hct
Plt Count
PT
INR 1.04
APTT 41.3 H Pending
Sodium 137
Potassium 4.1
Chloride 108 H
Carbon Dioxide 22
BUN 18
Creatinine 0.7
Glucose 79
Calcium 8.2 L
Total Bilirubin 0.6
AST 31
ALT 36
Alkaline Phosphatase 40
Vital Signs:
Vital Signs
Temp Pulse Resp BP Pulse Ox
97.7 F 85 18 125/84 95
03/05/25 07:57 03/05/25 09:02 03/05/25 07:57 03/05/25 09:32 03/05/25 08:30
Review of Systems
-
History Source: Patient
All other systems: Reviewed and negative
Physical Exam
-
General: Well Developed, Well Nourished and No Apparent Distress
HEENT: Normocephalic, Atraumatic, Moist Mucous Membranes and Anicteric
Respiratory: Clear to Auscultation and Non Labored Respirations; Negative Accessory Resp Muscle Use
Cardiac: Regular Rhythm and S1/S2; Negative Murmur, Rub, JVD or Gallop
GI: Soft, Nontender, Nondistended and Normal Bowel Sounds
Musculoskeletal: No Clubbing, No Cyanosis and No Edema
Skin: Warm and Dry; Negative Rash
Neuro: AO x 3, Nonfocal/Grossly Intact and Central Nerve's Intact; Negative Tremors
Psych: Calm
Data Reviewed
-
Labs: Labs Reviewed by me, Discussed with Physician, Discussed with Nurse and Discussed with Patient
--- NOTE | 2025-03-05 12:09 | W.PN.UPDATE ---
Update Note
Progress Note Update
Procedure Type:�Isolated CABG
Perioperative Outcome Estimate %
Operative Mortality 10%
Morbidity & Mortality 19.3%
Stroke 1.47%
Renal Failure 3.3%
Reoperation 4.52%
Prolonged Ventilation 12.2%
Deep Sternal Wound Infection 0.204%
Long Hospital Stay (>14 days) 20.9%
Short Hospital Stay (<6 days)* 14.6%
Clinical Summary
Planned Surgery: Isolated CABG, Urgent, First cardiovascular surgery
Demographics: 80 year old, male, 69.6kg, 175cm, BMI: 22.7 kg/m�
Lab Values: Creatinine: 0.7 mg/dL, Hematocrit: 35%, WBC Count: 10.5 10�/�L, Platelet Count: 543260 cells/�L
PreOp Medications: Steroids <=24 hrs
Substance Abuse: Never smoker, Alcohol use: <=1 drink/week
Risk Factors / Comorbidities: Immunocompromised
Vascular RF: Peripheral Artery Disease
Cardiac Status: Chronic heart failure, NYHA Class I, Ejection Fraction = 25%
Coronary Artery Disease: 3 vessels diseased, Left Main Stenosis >=50%, Proximal LAD Stenosis >=70%, Non-ST Elevation UT, UT: 1 to 7 Days
Valve Disease: Trivial/Trace AR, Mild MR, Trivial/Trace TR
Arrhythmia: Recent A-fib, Paroxysmal, Remote V. Tach / V. Fib
[2025-03-05 12:32] LABS: APTT 71.8 Sec (23.4-35.0)
--- NOTE | 2025-03-05 12:40 | PTCARENOTE ---
received patient this am at change of shift. monitor shows NSR with PVC's. IV heparin @ 1150 units/hr without difficulties. right radial dsg. D/I, distal pulse palpable. Dr. Wallace in talking to patient for OHS in am.
after Dr. Wallace left around 926, patient called out and c/o chest pain 4 out of 10 center of chest, nonradiating. 1 SLNTG given with a BP 122/84, HR 87. EKG was also obtained and Gail CHILD was in room and aware of EKG and chest pain. at
that time I started IV nitroglycerin drip at 5mcg/min or 0.8cc/hr. BP has remained in 125/84, chest pain free. patient c/o feeling very tired and worn out. patients color is ashen samano. at bedside. U/S of carotids and U/S mapping completed.
CVPA aware.
--- NOTE | 2025-03-05 12:46 | PTCARENOTE ---
patient had to have BM, bed sood given in bed, successful.
[2025-03-05] MEDS: HEPARIN 25000 UNITS/250 ML IV (15:56)
--- NOTE | 2025-03-05 16:43 | CM ---
spoke to pt and in room, we discussed preop CABG teaching including sternal and driving restrictions. he is prev indep, lives with his in a 2 story home with 2 steps to enter. no dme's. he has the ct surgery book. he is agreeable to a f/u
visit from the ct transitional care nurse after dc. plan is for CABG tomorrow am. cm role explained and all questions answered.
--- NOTE | 2025-03-05 16:51 | PTCARENOTE ---
I thought patient moved bowels when I walked into the room but just gas. patient would like to have BM before surgery tomorrow, TT Vanita MEIER and she ordered Dulcolax for patient.
[2025-03-05] MEDS: SINGULAIR 10 MG PO (17:01)
[2025-03-05] MEDS: DULCOLAX 5 MG PO (17:01)
--- NOTE | 2025-03-05 17:21 | PTCARENOTE ---
[employer] rep just turned off ICD.
[2025-03-05 18:22] LABS: APTT 87.9 Sec (23.4-35.0)
--- NOTE | 2025-03-05 19:18 | PTCARENOTE ---
transfer to CVICU, report given
--- NOTE | 2025-03-05 19:30 | PTCARENOTE ---
assumed care of patient @ 1900. received pt laying in bed, Aox3. VSS on 2L o2. Heparin and nitro infusing per orders. Family at bedside. will clip and wash later tonight. call gutierrez within reach .
[2025-03-05] MEDS: SYMBICORT 80/4.5 MCG INHALER 2 PUFF INH (19:34)
--- NOTE | 2025-03-05 21:00 | PTCARENOTE ---
pt washed with CHG soap and water, surgically clipped.
[2025-03-06] VITALS (18 sets, daily range): BP systolic 86–168; BP diastolic 54–109; BMI 22.6
[2025-03-06 01:54] LABS: Hematocrit 37.3 % (39.0-52.0); Hemoglobin 12.6 g/dL (13.0-18.0); Mean Corp Hgb Conc. 33.8 g/dL (33.0-37.0); Mean Corpuscular Volume 102.8 fL (80.0-94.0); Nucleated Red Blood Cells % 0 % (-); Platelet Count 240 10^3/uL (130-400); Red Cell Dist. Width 13.9 % (11.5-14.5)
[2025-03-06 02:01] LABS: APTT 87.5 Sec (23.4-35.0)
[2025-03-06 02:16] LABS: Blood Urea Nitrogen 19 mg/dl (9-20); Calcium 8.7 mg/dl (8.4-10.2); Carbon Dioxide 25 mmol/L (22-30); Chloride 105 mmol/L (98-107); Estimated Creatinine Clearance 75 ml/min; Glucose 98 mg/dl (70-99); Magnesium 2.1 mg/dl (1.6-2.3); Potassium 4.1 mmol/L (3.5-5.1); Sodium 133 mmol/L (135-145); eGFR > 60.00
[2025-03-06 02:24] LABS: Troponin I 0.162 ng/ml
[2025-03-06] MEDS: LOPRESSOR 25 MG PO (05:37)
[2025-03-06] MEDS: PROTONIX 40 MG PO (05:37)
[2025-03-06] MEDS: MAGNESIUM OXIDE 400 MG PO (05:38)
[2025-03-06] MEDS: BACTROBAN 2% OINTMENT 1 APPLIC NASAL ×2 (05:39→20:13)
--- NOTE | 2025-03-06 05:55 | PTCARENOTE ---
pt has been npo since midnight. washed with CHG wipes, preop meds and teaching given. awaiting CVOR
--- NOTE | 2025-03-06 06:57 | W.CVOR.SURPR ---
CVOR Surgeon Immed Pre Op
-
I have examined this patient prior to performance of the scheduled procedure.
The patient's condition is unchanged from the time of the dictated/written History and
Physical and the patient is able to undergo the scheduled procedure.
[2025-03-06] MEDS: SYMBICORT 80/4.5 MCG INHALER INH (07:38)
[2025-03-06 08:12] LABS: ACT+ - POC 140 Seconds (82-134)
[2025-03-06 08:17] LABS: Urine Character Clear (Clear)
[2025-03-06 09:35] LABS: B.E. - POC -2.0 mmol/L; Glucose - POC 84 mg/dl (70-99); HCO3 - POC 23 mmol/L (21-28); Hematocrit - POC 29 % PCV (42-52); Hemodilution- POC No; Hemoglobin Calculated - POC 9.7; Ionized Calcium - POC 1.12 mmol/L (1.15-1.33); Lactate - POC 0.75 mmol/L (0.36-0.75); O2 Saturation %Calculated-POC 99.8 % (94-98); PCO2 - POC 37 mmHg (35-48); PO2 - POC 212 mmHg (83-108); Potassium - POC 3.3 mmol/L (3.5-5.1); Sodium - POC 140 mmol/L (136-145); Specimen Type - POC Arterial; pH - POC 7.39 (7.35-7.45)
[2025-03-06 10:12] LABS: ACT+ - POC 458 Seconds (82-134)
[2025-03-06 10:38] LABS: ACT+ - POC 536 Seconds (82-134)
[2025-03-06] MEDS: DELTASONE PO ×2 (10:47)
[2025-03-06] MEDS: LIPITOR PO (10:47)
[2025-03-06] MEDS: ASPIR LOW (ENTERIC COATED) PO (10:47)
[2025-03-06] MEDS: TOPROL XL PO (10:47)
[2025-03-06 11:00] LABS: B.E. - POC -0.2 mmol/L; Glucose - POC 91 mg/dl (70-99); HCO3 - POC 26 mmol/L (21-28); Hematocrit - POC 29 % PCV (42-52); Hemodilution- POC Yes; Hemoglobin Calculated - POC 10.0; Ionized Calcium - POC 1.00 mmol/L (1.15-1.33); Lactate - POC 0.53 mmol/L (0.36-0.75); O2 Saturation %Calculated-POC 100.0 % (94-98); PCO2 - POC 47 mmHg (35-48); PO2 - POC 409 mmHg (83-108); Potassium - POC 4.8 mmol/L (3.5-5.1); Sodium - POC 139 mmol/L (136-145); Specimen Type - POC Arterial; pH - POC 7.35 (7.35-7.45)
[2025-03-06 11:24] LABS: ACT+ - POC 702 Seconds (82-134)
[2025-03-06 11:44] LABS: B.E. - POC -0.4 mmol/L; Glucose - POC 120 mg/dl (70-99); HCO3 - POC 25 mmol/L (21-28); Hematocrit - POC 30 % PCV (42-52); Hemodilution- POC Yes; Hemoglobin Calculated - POC 10.3; Ionized Calcium - POC 1.03 mmol/L (1.15-1.33); Lactate - POC 0.76 mmol/L (0.36-0.75); O2 Saturation %Calculated-POC 99.9 % (94-98); PCO2 - POC 41 mmHg (35-48); PO2 - POC 335 mmHg (83-108); Potassium - POC 4.8 mmol/L (3.5-5.1); Sodium - POC 138 mmol/L (136-145); Specimen Type - POC Arterial; pH - POC 7.38 (7.35-7.45)
[2025-03-06] MEDS: ANCEF 10 IV ×2 (11:45)
[2025-03-06 11:54] LABS: ACT+ - POC 533 Seconds (82-134)
[2025-03-06 12:26] LABS: B.E. - POC -1.3 mmol/L; Glucose - POC 127 mg/dl (70-99); HCO3 - POC 24 mmol/L (21-28); Hematocrit - POC 30 % PCV (42-52); Hemodilution- POC Yes; Hemoglobin Calculated - POC 10.1; Ionized Calcium - POC 1.05 mmol/L (1.15-1.33); Lactate - POC 1.39 mmol/L (0.36-0.75); O2 Saturation %Calculated-POC 99.9 % (94-98); PCO2 - POC 42 mmHg (35-48); PO2 - POC 358 mmHg (83-108); Potassium - POC 4.6 mmol/L (3.5-5.1); Sodium - POC 141 mmol/L (136-145); Specimen Type - POC Arterial; pH - POC 7.37 (7.35-7.45)
[2025-03-06 12:31] LABS: ACT+ - POC 126 Seconds (82-134)
[2025-03-06 13:06] LABS: B.E. - POC -1.4 mmol/L; Glucose - POC 112 mg/dl (70-99); HCO3 - POC 23 mmol/L (21-28); Hematocrit - POC 25 % PCV (42-52); Hemodilution- POC Yes; Hemoglobin Calculated - POC 8.5; Ionized Calcium - POC 1.24 mmol/L (1.15-1.33); Lactate - POC 1.10 mmol/L (0.36-0.75); O2 Saturation %Calculated-POC 99.9 % (94-98); PCO2 - POC 37 mmHg (35-48); PO2 - POC 295 mmHg (83-108); Potassium - POC 3.8 mmol/L (3.5-5.1); Sodium - POC 140 mmol/L (136-145); Specimen Type - POC Arterial; pH - POC 7.40 (7.35-7.45)
--- NOTE | 2025-03-06 13:13 | W.IMMPOSTOP ---
Surgical Immed Post Op Note
-
CARDIAC SURGERY OPERATIVE NOTE:
Preoperative Dx:
LM & MVCAD
Reduced LVEF (25-30%)
Moderate MR under intraoperative JOHN assessment
LV apical thrombus
Postoperative Dx:
Same
MR improved to [id number]
Procedure:
1) Median sternotomy
2) Takedown of ALEXIS
3) Endoscopic harvest/prep of RLE GSV
4) CABG x 3 (ALEXIS to LAD, GSV to D2, GSV to OM)
5) ELAA (40mm AtriClip)
Surgeon:
Kristian Wallace M.D.
Assistants:
Rosana Armstrong P.A.-C; first calender worker throughout, cdbxoc-uquv-farm sternotomy closure.
Nettie Whalen.Maggie.; endoscopic harvest/prep of RLE GSV, exposure of OM graft, [id number]-mtsl-[id number] sternotomy closure
Anesthesia:
Emile Durbin M.D. and Preeti JamesN.A.
Perfusion:
Levy DaleC.P.; XC: 71min, CPB: 112min
Findings:
ALEXIS was healthy conduit w/ slightly high bifurcation w/ similar and reasonable sized bifurcation branches, very brisk blood flow; ELD 2.25mm
GSV was healthy conduit w/ normal mckeon and ELD 3.5mm
LAD was visible on the epicardial surface. It was profoundly calcified throughout its mid-segment. Spot amenable to bypass at proximal apical segment; ELD 2.50mm
D2 was visible on the epicardial surface. Scattered calcifications. ELD 2.50mm
OM was visible on the epicardial surface. Scant calcifications. ELD 2.75mm
SHERRY w/ 'chicken-wing' morphology - successfully occluded at base w/ 40mm AtriClip
MR improved to [id number]-uk-vrbo postoperatively, apical thrombus unchanged postoperatively, SHERRY confirmed exclused, LVEF 30-35%
Implants:
40mm AtriClip; LOT [id number]
Bipolar V-wire x 1; monopolar A-wires x 2
CT x 4 (B/L pleural, inferior mediastinal, superior mediastinal)
Sternal wires x 8
Sternal 'X' plate w/ 8 - 14mm screws
Sternal 'Square' plate w/ 4 - 10mm screws
Transfusions:
None
Complications:
None
Condition:
73 sinus (-0.2/0.0); 93/58, 39/22, CVP 14, 100%; CO/CI: 3.2/1.8
GTTS: levophed 8, dobutamine 5, precedex 0.5, insulin 0.5
Stable/guarded to CVICU
[2025-03-06] MEDS: TYLENOL PO ×2 (13:25→23:08)
[2025-03-06] MEDS: NSS 500 IV (13:25)
--- NOTE | 2025-03-06 13:43 | W.PN.CARDCBS ---
Addendum entered and electronically signed by Abhinav Samuels DO 03/07/25 01:40:
I saw and examined the patient 03/06/2025 at 14:45.
The Road Supervisor Of [employer]'s note was reviewed and I agree with the note.
Comment:
Plan:
Cont post op care
Wean vent per protocol
Wean IV pressors as bp will allow
Remains in sinus
Eventual transition to anticoagulation given prior AFib and LV thrombus
Discussed with nursing
Original Note:
Today's Communication / Plan
-
continue post op care
in SR
Impression / Plan
-
PCP: Josh Valdez
Primary complaint adjuster: Dr. Stephens
Impression:
Exertional chest burning
NSTEMI
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
s/p CABG x3 ALEXIS to LAD, GSV to D2, GSV to OM, ELAA 03/06/25
Inferoapical LV thrombus by echo 03/04
Ischemic cardiomyopathy, EF 25 to 30%
History of mild cardiomyopathy
Ventricular tachycardia
ICD 2010, Medtronic single-chamber
Paroxysmal atrial fibrillation, new diagnosis this admission
PAD, mid right SFA occlusion and probable high-grade distal SFA stenosis
Hyper eosinophilia syndrome, on chronic steroid therapy
Churg-Lemuel syndrome
Spinal stenosis
Hyperthyroid storm
Migraines
Pancreatic cysts
Previous cardiovascular studies:
TTE: 01/15/2025: EF 40 to 45%, stage II diastolic dysfunction, basal and mid inferior, distal septal, and mid anterior septal akinesis, RV normal size and function
TTE 07/17/2024: EF 38% by Cardoza's method, 45% by visual estimation, global hypokinesis, normal RV size and function
Cardiac cath 04/16/2011: Luminal irregularities in LAD, circumflex, RCA. LAD has some calcium, EF 42%
Echo 03/04/2025: EF 25 to 30%, dilated LV with LAD distribution akinesis and hypokinesis of remaining mckeon, inferoapical LV thrombus present, MAC, aortic sclerosis, normal right heart
Plan:
-patient presented with Chest burning and ruled in for NSTEMI with peak trop 0.225. s/p cardiac cath 03/04 with ruptured plaque in distal left main extending to ostium of LAD and circumflex
-s/p CABG x3 ALEXIS to LAD, GSV to D2, GSV to OM, ELAA 03/06/25
-intubated, sedated
-on levo@9, dobut@5. wean as able
-SR with PVCs and anterolateral T wave inversion, stable/improving compared to prior
-He also has history of NSVT status post ICD in 2010. Follow electrolytes post op
-for asa, plavix at this time. would transition to mono-antiplatelet with DOAC given LV thrombus and PAF noted preop.
-echo this admission with EF 25-30%. EF slightly improved to 30-35% with improvement in MR to trace-mild. GDMT of ICM as able. will need 90 day post op echo to reeval EF.
-proBNP 3830. LVEDP/RHC not completed on cath 03/04. will likely require post op diuresis
-He is chronically on methotrexate and prednisone for hypereosinophilic syndrome followed by Dr. Piero Garcia at [facility]
-Peripheral vascular study in 2022 concern for mid right SFA occlusion and probable high-grade distal SFA stenosis. Previously saw Dr. Rosas
-d/w nursing
PREADMIT DATA:
80-year-old male with PMH VT s/p ICD 2010, cardiomyopathy with mildly reduced EF, peripheral arterial disease (mid right SFA occlusion and probable high-grade distal SFA stenosis), hypereosinophilic syndrome most consistent with
Churg�Lemuel/eosinophilic granulomatosis with polyangeitis, presents with 2 to 3-week history of worsening exertional chest burning during exercise at gym, causing him to stop exercise and limit activity, now getting chest burning with minimal
activity, walking room to room in house, relieved with 1 sublingual nitro. Outpatient metoprolol recently uptitrated with no improvement in symptoms. Presents to ED today after needing to take sublingual nitroglycerin multiple times at home.
Troponin mildly elevated and uptrending 0.127�0 0.127�0.212. EKG with anterior lateral ST-T wave abnormality, unchanged from recent outpatient EKG. ICD interrogated and no recent arrhythmias. Patient started on heparin drip and administered
aspirin. Has received 2 doses of sublingual nitroglycerin this morning with relief of symptoms.
Progress Note - Data Governance Consultant
Subjective
Date of Service: March 06, 2025
intubated, sedated
Objective
Labs:
Labs
Hgb 12.6 g/dL (13.0-18.0) L 03/06/25 01:37
Hct 37.3 % (39.0-52.0) L 03/06/25 01:37
Plt Count 240 10^3/uL (130-400) 03/06/25 01:37
PT 13.9 Sec (11.4-14.6) 03/05/25 03:34
PT Cancelled 03/05/25 03:34
INR 1.04 03/05/25 03:34
INR Cancelled 03/05/25 03:34
APTT 87.5 Sec (23.4-35.0) H 03/06/25 01:37
Sodium 133 mmol/L (135-145) L 03/06/25 01:37
Potassium 4.1 mmol/L (3.5-5.1) 03/06/25 01:37
BUN 19 mg/dl (9-20) 03/06/25 01:37
Creatinine 0.8 mg/dL (0.7-1.3) 03/06/25 01:37
Glucose 98 mg/dl (70-99) 03/06/25 01:37
Troponins
03/04/25 03/04/25 03/04/25
01:49 03:56 08:14
Troponin I 0.127 H* 0.127 H* 0.212 H* D
03/04/25 03/04/25 03/04/25
09:15 12:44 15:15
Troponin I Cancelled 0.225 H* Cancelled
03/04/25 03/06/25
18:15 01:37
Troponin I Cancelled 0.162 H*
Vital Signs and I&O:
Vital Signs
Temp Pulse Resp BP Pulse Ox
97.6 F 73 16 134/79 96
03/06/25 05:53 03/06/25 05:53 03/06/25 05:53 03/05/25 22:00 03/06/25 05:53
Vital Signs
Temp Pulse Resp BP Pulse Ox
97.6 F 73 16 134/79 96
03/06/25 05:53 03/06/25 05:53 03/06/25 05:53 03/05/25 22:00 03/06/25 05:53
Intake & Output
03/04/25 03/05/25 03/06/25 03/07/25
07:59 07:59 07:59 07:59
Intake Total 1107.6 / 1107.6
Output Total 800 / 800
Balance 307.6 / 307.6
Physical Exam
Physical Exam
GEN: No distress, intubated. on robinson hugger
HEENT: supple, mmm
LUNGS: CTA B/L, no wheezes
CV: Reg, S1/S2, no murmur
ABD: soft, NT/ND
EXT: No cyanosis, clubbing, edema
NEURO: Gross non-focal
SKIN: Warm, pink, dry. No rash. Sternotomy dressing c/d/i. CTs in place.
--- NOTE | 2025-03-06 13:52 | CON.INTV ---
Consultation
Consultation Request
Date/Time Consultation Requested: 03/06
Date/Time Consultation Performed: 03/06
Reason for Consultation: Critical care
Medical History
-
History of Present Illness:
History obtained from the chart and reviewing inpatient outpatient records as patient is currently intubated and sedated. 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
asthma, cardiomyopathy with ICD. Per outpatient records, patient had been complaining of burning in the chest recently that resolves with rest. He had stopped exercising for this reason and started noticing burning with simple ambulation. He does
have a history of cardiomyopathy, EF 40% per echocardiogram January 2025. He was also supposed to undergo endoscopic pancreatic ultrasound at [facility] which was delayed for cardiac workup. He was found to have left main disease and currently is
status post CABG 03/06/2025. We are asked to help from critical care standpoint
.
PMH: Churg-Lemuel versus hypereosinophilic syndrome on chronic immunosuppression methotrexate/steroids followed at [facility] ([facility]), asthma, nonischemic cardiomyopathy with ventricular tachycardia, ICD, history of hyperthyroid storm, history of
pneumonia. History of sinus surgery, cataract surgery, inguinal hernia repair, ICD implant
Past Medical History
Past Medical History: None (See above)
Past Surgical History: None ( see above)
Social History
Tobacco: Non-smoker
Alcohol: Occasional
Drug: None
Living: With Family
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
Family History
Family History: Other (Son with history of rare genetic immunodeficiency syndrome called APDS type II followed at [facility]. Father from coronary disease/heart disease. Mother from breast cancer. 1 sister healthy)
Allergies / Home Medications
Allergies
Allergy/AdvReac Type Severity Reaction Status Date / Time
amlodipine (From [facility]) Allergy edema Verified 10/24/24 20:47
levofloxacin Allergy Rash Verified 03/04/25 01:49
Penicillins Allergy GI upset, Verified 03/04/25 01:49
vomiting
Quinolones Allergy Rash Verified 03/04/25 01:49
Sulfa (Sulfonamide Allergy Hives, rash Verified 03/04/25 01:49
Antibiotics)
sulfasalazine Allergy Hives, rash Verified 03/04/25 01:49
Home Medications
�Medication �Instructions �Recorded �Confirmed �Last Taken �Type
aspirin 81 mg tablet,delayed 1 tab PO DAILY Blood Clot 11/07/10 03/04/25 03/03/25 History
release Prevention/Tx
budesonide-formoterol HFA 80 2 puff inhalation R BID 10/26/19 03/04/25 03/03/25 History
mcg-4.5 mcg/actuation aerosol Lung/Breathing Issues
inhaler (Symbicort)
folic acid 1 mg tablet 1 mg PO SUMOTUTHFRSA Supplement 10/26/19 03/04/25 03/03/25 History
losartan 25 mg tablet 12.5 mg PO HS Blood Pressure 10/26/19 03/04/25 03/03/25 History
methotrexate sodium 2.5 mg tablet 22.5 mg PO WE Autoimmune Disorder 10/26/19 03/04/25 03/03/25 History
metoprolol succinate 25 mg 25 mg PO DAILY Heart 10/26/19 03/04/25 03/03/25 History
tablet,extended release 24 hr Disease/Condition
montelukast 10 mg tablet 10 mg PO QPM Allergies 10/26/19 03/04/25 03/03/25 History
prednisone 5 mg tablet 7 mg PO DAILY Anti-Inflammatory 10/26/19 03/04/25 03/03/25 History
atorvastatin 10 mg tablet 10 mg PO DAILY High Cholesterol 04/18/23 03/04/25 03/03/25 History
calcium 600 mg capsule 600 mg PO DAILY Supplement 04/18/23 03/04/25 03/03/25 History
cholecalciferol (vitamin D3) 50 50 mcg PO DAILY Supplement 04/18/23 03/04/25 03/03/25 History
mcg (2,000 unit) tablet (Vitamin
D3)
multivitamin 1 tab PO DAILY 04/18/23 03/04/25 03/03/25 History
Review of Systems
-
All other systems: Negative unless noted
Vitals / Labs / Diagnostic Testing
Vital Signs
Temp Pulse Resp BP Pulse Ox
97.6 F 73 16 134/79 96
03/06/25 05:53 03/06/25 05:53 03/06/25 05:53 03/05/25 22:00 03/06/25 05:53
Laboratory Results
03/05/25 03/06/25
18:01 01:37
APTT 87.9 H 87.5 H
Diagnostic Testing:
Physical Exam
-
HEENT: Normocephalic and Other (Right IJ, A-line, chest tube)
Cardiovascular: S1/S2, Regular Rhythm, Murmur (n), Rub (n), Peripheral Edema (n) and Other (Right lower extremity bandage)
Respiratory: Wheeze (n), Rales (n), Rhonchi (n) and Non-Labored Respirations
GI: Soft and Non Distended
Neurology: Other (Sedated, intubated)
Skin: Good Color
General: Comfortable
Assessment
-
80-year-old male with history of not on ischemic cardiomyopathy, ventricular tachycardia with ICD in place presents with chest burning which has been progressive, found to have left main disease per cardiac catheterization, EF 40% on recent
echocardiogram, now status post CABG 03/06/2025
S/p CABG x 3, 03/06/25
Multivessel coronary disease with left main involvement per catheterization 03/04/2025
Ischemic cardiomyopathy, EF 25%
History of cardiomyopathy in the past
Postoperative anemia
History of VT, ICD 2010
Atrial fibrillation, new onset February 2025
Conditions present prior to admission
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
Chronic immunosuppression (steroids/methotrexate), followed at [facility]
Moderate persistent asthma
FEV1 65%, DLCO 62%
History of vascular disease, SFA occlusion
History of hyperthyroid storm
History of pancreatic cyst, awaiting ERCP at [facility]
Plan/recommendations
At this time, patient is critically ill but stable
Has not required blood products, currently on norepinephrine at 6
Remains on volume-cycled ventilation, airway pressures adequate
Awaiting postoperative chest x-ray
CT chest from 03/04 reviewed reveals mild chronic airways disease per my review
Moving forward
Continue with management per CT surgery
Anticipate extubation later today
No wheezing on exam. Airway pressures adequate
Once extubated, will empirically start nebulized budesonide and albuterol/ipratropium
Can resume outpatient Symbicort at time of discharge
Patient on chronic methotrexate at 22.5 mg a week, prednisone 7 mg a day
Okay to resume prednisone at discretion of CT surgery
Would hold methotrexate for now, unless discussion with [facility] physician as requested otherwise
I do not think 1 week of being off methotrexate with steroids on board will have any deleterious effect
Worried about healing process at this time
This will be reviewed with CT surgery
Follow hemoglobin
Chest tube output minimal at this time
Follow blood sugars
It is noted that EF is 25%, was 40% earlier this year
Cardiology following
Reviewed with critical care nursing
TCCT 35 min
[2025-03-06 13:57] LABS: Glucose - Point of Care 136 mg/dl (70-99)
[2025-03-06 14:06] LABS: B.E. -2.9 mmol/L; HCO3 23.2 mmol/L (21-28); O2 Saturation % 97.9 % (94-98); PCO2 45 mmHg (35-48); PO2 89 mmHg (83-108); Potassium 4.0 mMOL/L (3.5-5.1); Sodium 137 mMOL/L (136-145)
[2025-03-06 14:14] LABS: Hematocrit 29.9 % (39.0-52.0); Hemoglobin 9.9 g/dL (13.0-18.0); Platelet Count 135 10^3/uL (130-400)
[2025-03-06] MEDS: LR 250 ML IV ×2 (14:15→16:30)
[2025-03-06 14:16] LABS: INR 1.36; PT 17.3 Sec (11.4-14.6)
[2025-03-06 14:17] LABS: APTT 33.2 Sec (23.4-35.0)
[2025-03-06 14:19] LABS: Blood Urea Nitrogen 17 mg/dl (9-20); Estimated Creatinine Clearance 85 ml/min; Glucose 136 mg/dl (70-99); Magnesium 2.7 mg/dl (1.6-2.3)
--- NOTE | 2025-03-06 14:32 | PTCARENOTE ---
Pt arrived to CVICU at 1345. Pt is intubated and sedated with #8 ET tube at 23cm. Vent set to SIMV FiO2 40%, rate 12, pressure support 5, PEEP 5, TV 560. Pulse oximetry 98%. Pt currently SR with PVC's. HR 74. BP 100/56 MAP 71, PA 37/18, CVP 7, CO
3.12, CI 1.70, SVR 1589. Epicardial AV wires in place, currently off. Mediastinal chest tubes x2 and left/right pleural chest tubes in place to -20 suctions, no sign of air leak or crepitus. Bowel sounds hypoactive. Rosas catheter in place draining
yellow urine, Rosas care completed. Midsternal incision with post-surgical dressing in place. Right groin puncture intact, JUAQUIN. Right leg with GEMA wrap in place bloody drainage noted reinforced with gauze CT SERGEI, Vanita, lisa. Right IJ cordis in
place with swan at 41cm. Left radial [place] intact. Pt currently on Levo 6mcg/min, Dobutamine 5mcg/kg/min, Precedex 0.5mcg/kg/hr, and Insulin 3 units/hr. Pt received 250mL LR bolus shortly after arrival to CVICU, initially SBP 88, CVP 2, arrived with
Levo at 9mcg/min.
--- NOTE | 2025-03-06 15:00 | PTCARENOTE ---
Reviewed ABG with CT SERGEI, Vanita. Respiratory increased RR on vent from 12 to 16. iCal 1.13, calcium replaced.
[2025-03-06] MEDS: CALCIUM GLUCONATE 100 IV (15:02)
[2025-03-06] MEDS: NEURONTIN PO (15:05)
[2025-03-06] MEDS: PACERONE PO (15:05)
[2025-03-06 15:16] LABS: Glucose - Point of Care 126 mg/dl (70-99)
[2025-03-06 16:07] LABS: Glucose - Point of Care 146 mg/dl (70-99)
[2025-03-06 16:26] LABS: B.E. -4.9 mmol/L; HCO3 19.5 mmol/L (21-28); O2 Saturation % 99.7 % (94-98); PCO2 33 mmHg (35-48); PO2 128 mmHg (83-108)
[2025-03-06] MEDS: SODIUM BICARBONATE 50 MEQ IV (16:53)
[2025-03-06] MEDS: CALCIUM CHLORIDE 10% SYRINGE 500 MG IV (16:57)
--- NOTE | 2025-03-06 17:00 | PTCARENOTE ---
Levo gtt continues to be titrated up as high as 11mcg/min. Additional 250mL LR bolus given. Repeat ABG reviewed with CT SERGEI, Vanita. 1amp sodium bicarb administered. Following bicarb SBP 50's, half amp calcium push given. BP recovered to 124/62 MAP
81.
[2025-03-06 17:05] LABS: Glucose - Point of Care 129 mg/dl (70-99)
[2025-03-06] MEDS: LEVOPHED 250 IV (17:13)
[2025-03-06] MEDS: SINGULAIR PO (17:17)
[2025-03-06 17:41] LABS: Hematocrit 29.0 % (39.0-52.0); Hemoglobin 9.9 g/dL (13.0-18.0); Platelet Count 150 10^3/uL (130-400)
[2025-03-06] MEDS: ASPIRIN 300 MG RECTAL (17:53)
[2025-03-06 18:09] LABS: Glucose - Point of Care 97 mg/dl (70-99)
--- NOTE | 2025-03-06 18:35 | PTCARENOTE ---
Pt placed on CPAP at 1830, tolerating well at this time. Pulse oximetry 99%. Pt currently SR with PVCs, HR 84. BP 113/59 MAP 74, PA 34/18, CVP 10, CO 3.29, CI 1.79, SVR 1483. Pt remains on Levo 7mcg/min, Dobutamine 5mcg/kg/min, and Insulin. Rectal
aspirin given per order. Pt turned, no dumping noted in chest tubes.
[2025-03-06 19:07] LABS: B.E. 0 mmol/L; HCO3 23.6 mmol/L (21-28); O2 Saturation % 99.9 % (94-98); PCO2 34 mmHg (35-48); PO2 152 mmHg (83-108)
--- NOTE | 2025-03-06 19:25 | PTCARENOTE ---
Assumed care of patient at 1900. Patient found resting in bed and intubated at time of assessment. Patient alert, responds appropriately to questions, and moves all extremities. Lung sounds are loud and clear bilaterally. Patient has 8.0 ETT sitting
23cm on the lip currently on CPAP. saO2 98% on 40% FiO2. Patient has CTx4: 2xmeds draining to one atrium and R/L pleural draining to another. Heart sounds are audible, there is a slight rub present on auscultation, patient is SR BBB PACS and PVCs on
the monitor. Patient has A+V wires not currently on. Normal palpable radial pulses, R DP and L PT present with doppler. No observable edema. Hypoactive BS and Rosas draining clear yellow. There is a sternal incision with aquacell dressing CDI, R
groin approx with surg adhesive JUAQUIN and RLE incision with GEMA wrap and pressure dressing. R IJ cordis with swan @41cm R FA 20G, and L AC 20G, and L kimmie. Patient on the following gtts: Dobut@5, Levo@6, Cordis/VIP KVO.
[2025-03-06] MEDS: SYMBICORT 80/4.5 MCG INHALER 2 PUFF INH (19:31)
[2025-03-06] MEDS: OFIRMEV 100 IV (19:32)
--- NOTE | 2025-03-06 19:35 | RESPNOTE ---
pt extubated @ 1927 per MD order, pt suctioned prior to extubation, pt extubated without incident, placed on 6LNC, pt able to vocalize, no stridor present
--- NOTE | 2025-03-06 20:00 | PTCARENOTE ---
Patient's ABG post CPAP trial good. CT PA affirmed extubation. Patient extubated without complication at 1927 and placed on 6L via NC saO2 99%. Patient answers all orientation questions appropriately. Call gutierrez within reach.
[2025-03-06 20:08] LABS: Glucose - Point of Care 74 mg/dl (70-99)
[2025-03-06] MEDS: ANCEF 5 IV (20:12)
[2025-03-06] MEDS: SENOKOT PO (20:13)
[2025-03-06 20:14] LABS: B.E. 0 mmol/L; HCO3 23.6 mmol/L (21-28); O2 Saturation % 99.9 % (94-98); PCO2 34 mmHg (35-48); PO2 152 mmHg (83-108); Potassium 4.2 mMOL/L (3.5-5.1); Sodium 137 mMOL/L (136-145)
[2025-03-06] MEDS: DILAUDID 0.5 MG IV (20:37)
[2025-03-06 21:07] LABS: Glucose - Point of Care 108 mg/dl (70-99)
[2025-03-06 22:05] LABS: Glucose - Point of Care 121 mg/dl (70-99)
[2025-03-06 23:07] LABS: Glucose - Point of Care 108 mg/dl (70-99)
[2025-03-06] MEDS: NEURONTIN 100 MG PO (23:08)
[2025-03-06] MEDS: PACERONE 200 MG PO (23:08)
[2025-03-07] VITALS (39 sets, daily range): BP systolic 78–125; BP diastolic 53–79; BMI 23.4
--- NOTE | 2025-03-07 | PTCARENOTE ---
Patient reassessed. Remains SR with BBB PVCs, PACs. Pain management with Ofirmev and later dilaudid 0.5. Levo tapered to 2mcg as patient's blood pressure has improved. Call gutierrez within reach.
[2025-03-07 00:03] LABS: Glucose - Point of Care 110 mg/dl (70-99)
[2025-03-07] MEDS: CARDENE 200 IV (01:16)
[2025-03-07] MEDS: LR 250 ML IV ×2 (02:00→18:47)
[2025-03-07 02:11] LABS: Glucose - Point of Care 94 mg/dl (70-99)
[2025-03-07] MEDS: ROXICODONE 5 MG PO ×3 (03:16→15:40)
[2025-03-07] MEDS: ANCEF 5 IV ×2 (03:31→12:02)
[2025-03-07 03:39] LABS: Hematocrit 28.6 % (39.0-52.0); Hemoglobin 9.3 g/dL (13.0-18.0); Mean Corp Hgb Conc. 32.5 g/dL (33.0-37.0); Mean Corpuscular Volume 102.9 fL (80.0-94.0); Platelet Count 147 10^3/uL (130-400); Red Cell Dist. Width 13.8 % (11.5-14.5)
--- NOTE | 2025-03-07 04:05 | W.PN.CT ---
Today's Communication / Plan
-
-pod #1
-no significant issues overnight
-CI 2.23, mVO2 59.2. Drips: Dobut 5, Insulin
-CT outputs: 2 meds 80/160, 2 pleur 70/190 in 12/24 hrs
-sbp <110 overnight - liberate today to 90-130
-wean off Dobut as tolerated
-repleted Ca
-got 750 LR postop
-hold BB while on Dobutamine
-restart chronic Prednisone
-? iv Heparin for LV thrombus
-encourage IS, OOB
Assessment / Plan
-
- LM & MVCAD- s/p CABG x 3 (ALEXIS to LAD, GSV to D2, GSV to OM); ELAA (40mm AtriClip) by Dr. Wallace on 03/06/25, pod #1
- Moderate MR under intraoperative JOHN assessment--MR improved to [id number] postop
- LV apical thrombus
- NSTEMI
- Ischemic cardiomyopathy, Reduced LVEF (25-30%)
- Hx of VT - s/p MDT ICD 2010
- HTN/HLD
- PAD (mid R SFA occ and prob high grade distal SFA stenosis
- Churg-Lemuel syndrome
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
- Spinal stenosis
- Hyperthyroidism
- Hx inguinal hernia repair
- Hx amauroses fugax
- b/l cataract repair
- Acute postop blood loss anemia
- Acute postop atelectasis
- Acute postop hypovolemia with subsequent hypervolemia
- Suspected acute postop pericarditis/+ rub
Discussed patient care with: Nursing and Care Team
Subjective
-
Date of Service: March 07, 2025
Objective Data
-
Lab Results
03/07/25 03:29
PT 17.3 Sec (11.4-14.6) H 03/06/25 13:53
INR 1.36 03/06/25 13:53
APTT 33.2 Sec (23.4-35.0) 03/06/25 13:53
Vital Signs
Vital Signs
Temp Pulse Resp BP Pulse Ox
98.4 F 79 21 85/53 96
03/07/25 03:00 03/07/25 03:30 03/07/25 03:30 03/07/25 03:00 03/07/25 03:30
CT Intake/Output/Weight
03/06/25 03/06/25 03/07/25
06:59 18:59 06:59
Intake Total 480 / 1107.6 883.3 / 1748.3 865.0 / 1748.3
Output Total 510 / 950 440 / 950
Balance 480 / 307.6 373.3 / 798.3 425.0 / 798.3
SaO2: 96
Physical Exam
-
General: Awake and AOx3
Cardiovascular: Regular rate & rhythm, No Murmurs and Rub
Respiratory: Decreased Breath Sounds
Sternum: Stable
Incision: Clean, Dry and Intact
Extremities: No Edema (R DP is Dopplerable, R PT is not Dopplerable; L DP )
Abdomen: soft, nontender, nondistended, + decreased bowel sounds
Data Reviewed
-
Lab Results: Results Reviewed
Medications: Active Meds Reviewed
Chest X-Ray: Report Reviewed and Image Reviewed
ECG: Report Reviewed and Image Reviewed
[2025-03-07 04:08] LABS: Blood Urea Nitrogen 22 mg/dl (9-20); Calcium 8.3 mg/dl (8.4-10.2); Carbon Dioxide 22 mmol/L (22-30); Chloride 109 mmol/L (98-107); Estimated Creatinine Clearance 75 ml/min; Glucose 98 mg/dl (70-99); Magnesium 2.3 mg/dl (1.6-2.3); Potassium 4.3 mmol/L (3.5-5.1); Sodium 135 mmol/L (135-145); eGFR > 60.00
[2025-03-07 04:15] LABS: Glucose - Point of Care 104 mg/dl (70-99)
[2025-03-07] MEDS: CALCIUM GLUCONATE 100 IV (04:22)
[2025-03-07] MEDS: DILAUDID 0.25 MG IV (05:02)
--- NOTE | 2025-03-07 05:33 | PTCARENOTE ---
Patient reassessed. AM labs obtained. Ca repleted. Started on cardene as SBP became greater than 110. Currently on 5 mcg. O2 tapered to 2L but decreasing sats following increase in cardene O2 increased again to 4L currently saO2 96%. AM hygiene care
provided. Per CT PA patient to remain in bed and lined. Given Marilyn and 0.25 dilaudid for pain. Remains SR on the monitor less ectopi observed this morning. Call gutierrez within reach.
[2025-03-07] MEDS: TYLENOL 975 MG PO ×3 (06:09→22:05)
[2025-03-07 06:24] LABS: Glucose - Point of Care 120 mg/dl (70-99)
--- NOTE | 2025-03-07 08:05 | W.PN.INTV ---
Today's Communication / Plan
Recommendations
Start DuoNebs, budesonide in place of Symbicort
Continue prednisone 7 mg
Would hold methotrexate, consider not getting until 03/20, to optimize healing
Heparin therapy noted
Assessment
-
80-year-old male with history of not on ischemic cardiomyopathy, ventricular tachycardia with ICD in place presents with chest burning which has been progressive, found to have left main disease per cardiac catheterization, EF 40% on recent
echocardiogram, now status post CABG 03/06/2025
S/p CABG x 3, 03/06/25
Multivessel coronary disease with left main involvement per catheterization 03/04/2025
Ischemic cardiomyopathy, EF 25%
History of cardiomyopathy in the past
Postoperative anemia
History of VT, ICD 2010
Atrial fibrillation, new onset February 2025
Conditions present prior to admission
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
Chronic immunosuppression (steroids/methotrexate), followed at [facility]
Moderate persistent asthma
FEV1 65%, DLCO 62%
History of vascular disease, SFA occlusion
History of hyperthyroid storm
History of pancreatic cyst, awaiting ERCP at [facility]
Plan/recommendations
At this time, patient appears to be comfortable
He is without respiratory complaints
Remains on dobutamine and insulin drip
Chest x-ray with decreased lung volumes right side, chronic appearing
Moving forward
Continue with management per CT surgery
No wheezing on exam.
Start nebulized budesonide and albuterol/ipratropium
Can resume outpatient Symbicort at time of discharge
Patient on chronic methotrexate at 22.5 mg a week, prednisone 7 mg a day
Okay to resume prednisone at discretion of CT surgery
Would hold methotrexate for now, unless discussion with [facility] physician as requested otherwise
Next pending dose 03/13. Would consider holding this dose and not restarting methotrexate till 03/20
Symptoms primarily are sinus
Worried about optimal healing process at this time
This will be reviewed with CT surgery
Follow hemoglobin
Chest tube output minimal at this time
Follow blood sugars
It is noted that EF is 25%, was 40% earlier this year
Heparin therapy for possible thrombus
Cardiology following
Reviewed with critical care nursing
Updated at bedside
TCCT 31 min
Subjective Dataa
Subjective Data
Date of Service:
Date of Service: March 07, 2025
Subjective:
Patient overall doing well. Appears to be in very good spirits. Denies shortness of breath, nausea, abdominal pain. is at bedside
Objective Data
Data Reviewed
Vital Signs / I&O / Oxygen:
Vital Signs
Temp Pulse Resp BP Pulse Ox
98.7 F 84 20 96/59 97
03/07/25 07:00 03/07/25 07:00 03/07/25 07:00 03/07/25 07:00 03/07/25 07:00
Intake and Output
03/06/25 03/07/25 03/08/25
06:59 06:59 06:59
Intake Total 1107.6 / 1107.6 1948.5 / 1975.0 26.5 / 26.5
Output Total 800 / 800 1140 / 1230 90 / 90
Balance 307.6 / 307.6 808.5 / 745.0 -63.5 / -63.5
SaO2 [CPAP] 99
SaO2 [SIMV] 98
SaO2 97
Nasal Cannula flow liters per 4
minute
Physical Exam
General: Comfortable and Other (IJ, chest tube)
HEENT: Normocephalic and Anicteric
Cardiovascular: S1-S2, Regular Rhythm, Murmur (n), Rub (n) and Peripheral Edema (Lower extremity bandage)
Respiratory: Wheeze (n), Crackles (n), Rhonchi (n) and Non-Labored Respirations
GI: Soft, Non Distended and Non Tender
Neurology: Awake, Alert and No Motor Deficits (Moves all extremities)
Skin: Cyanosis (n) and Rash (n)
Labs/Micro/Reports
Lab Data
03/07/25 03:29
03/07/25 03:29
Laboratory Results
03/06/25 03/06/25 03/06/25
13:53 16:20 19:02
PT 17.3 H
INR 1.36
APTT 33.2
pH 7.32 L 7.38 7.45
pCO2 45 33 L
pO2 89 128 H
HCO3 23.2 19.5 L
O2 Delivery Level
03/06/25 03/06/25 03/06/25
19:02 19:02 19:02
PT
INR
APTT
pH 7.45
pCO2 34 L 34 L
pO2 152 H 152 H
HCO3 23.6
O2 Delivery Level
03/06/25 03/06/25
19:02 19:02
PT
INR
APTT
pH
pCO2
pO2
HCO3 23.6
O2 Delivery Level Not Reportable
[2025-03-07 08:14] LABS: Glucose - Point of Care 96 mg/dl (70-99)
[2025-03-07] MEDS: SYMBICORT 80/4.5 MCG INHALER 2 PUFF INH (08:16)
[2025-03-07] MEDS: NEURONTIN 100 MG PO ×3 (08:24→22:05)
[2025-03-07] MEDS: PLAVIX 75 MG PO (08:24)
[2025-03-07] MEDS: MUCINEX 600 MG PO ×2 (08:25→20:06)
[2025-03-07] MEDS: DELTASONE 2 MG PO (08:25)
[2025-03-07] MEDS: DELTASONE 5 MG PO (08:25)
[2025-03-07] MEDS: MAGNESIUM OXIDE 400 MG PO ×2 (08:25→20:06)
[2025-03-07] MEDS: VITAMIN C 500 MG PO (08:25)
[2025-03-07] MEDS: PACERONE 200 MG PO ×3 (08:25→22:05)
[2025-03-07] MEDS: LIPITOR 40 MG PO (08:25)
[2025-03-07] MEDS: PROTONIX 40 MG PO (08:25)
[2025-03-07] MEDS: LOW STRENGTH ASPIRIN 81 MG PO (08:25)
[2025-03-07] MEDS: SENOKOT 8.6 MG PO ×2 (08:25→20:06)
[2025-03-07] MEDS: FEOSOL 325 MG PO (08:25)
--- NOTE | 2025-03-07 08:25 | W.PN.ANS.POP ---
Anesthesia Post Operative
- Anesthesia Post Op Note
Vital Signs Stable-See Nursing Note: Yes (dobutamine gtt maintained)
Airway Patent: Yes
Adequate Pain Control: Yes
Change in Mental Status: No
Current Postoperative Nausea & Vomiting: No
Anesthesia Complications: No
General Anesthetic Recall: No
Unplanned Admission: No
Post Op Hydration Adequate: Yes
[2025-03-07] MEDS: BACTROBAN 2% OINTMENT 1 APPLIC NASAL ×2 (08:26→20:07)
[2025-03-07] MEDS: FLEXERIL 5 MG PO (08:38)
[2025-03-07] MEDS: FOLVITE 1 MG PO (08:38)
--- NOTE | 2025-03-07 08:45 | PTCARENOTE ---
Assumed care of patient at 0700. Pt is awake, alert, and oriented. Pt with complaints of midsternal incision pain, PRN Roxicodone and Flexeril administered per order. Pt remains SR with HR 91. BP 117/51 MAP 69. PA 38/16, CVP 8, CO 5.32, CI 2.89, SVR
977. Epicardial AV wires in place. Pulse oximetry 96% on 2L nasal cannula. Mediastinal chest tubes x2 and left/right pleural chest tubes in place to -20, no sign of air leak or crepitus. Bowel sounds hypoactive, tolerating PO medications. Rosas
catheter remains in place draining yellow urine, Rosas care completed. Midsternal incision post-surgical dressing in place. Right groin puncture approximated and CASING SPLITTER. Right leg incision with GEMA wrap in place. Right IJ cordis in place with [place]
catheter at 41cm. Left radial Dona intact. Pt remains on Dobutamine at 5mcg/kg/min. Insulin gtt continues per glycemic protocol. Pt currently resting comfortably in bed with at bedside.
[2025-03-07] MEDS: CORDARONE 103 MG IV ×2 (09:30→10:48)
[2025-03-07] MEDS: CORDARONE 259 MG IV ×2 (09:30→17:13)
[2025-03-07 10:01] LABS: Glucose - Point of Care 131 mg/dl (70-99)
--- NOTE | 2025-03-07 10:51 | W.PN.UPDATE ---
Update Note
Progress Note Update
Large JOSE dressing applied to right leg for wound healing.
No issues, seal check confirmed.
Patients present at bedside for application and understands how to check device.
[2025-03-07] MEDS: ZOFRAN 4 MG IV (11:58)
[2025-03-07 12:17] LABS: Glucose - Point of Care 156 mg/dl (70-99)
--- NOTE | 2025-03-07 12:30 | PTCARENOTE ---
0902 pt in Afib with HR 140's-160's. CT SERGEI,Vanita, aware. Amio bolus x2 given and Amio gtt started per order. SBP 80's, Levo gtt restarted. Attempted to get pt OOB with PT/OT. Assisted pt to side of bed, pt became dizzy BP 74/46 MAP 55. Pt assisted
back to laying in bed. Pt now back in bed. Remains on Levo, currently at 5mcg/min. Dobutamine 3mcg/kg/min. BP 107/50 MAP 63. PA 37/16, CVP 9, CO 4.27, CI 2.32, SVR 974.
--- NOTE | 2025-03-07 12:40 | W.PN.CARDCBS ---
Addendum entered and electronically signed by Piero Esquivel MD 03/07/25 16:16:
I saw and examined the patient.
The [employer]'s note was reviewed and I agree with the note.
Comment: Briefly, 80-year-old man who presented with NSTEMI and found to have multivessel CAD by cath 03/04/2025 and subsequently underwent CABGx3 and SHERRY clip 03/06/25. IntraOp JOHN with severely reduced left ventricular systolic function, EF
20-25% and LV thrombus.
Patient seen on morning rounds and was resting comfortably in the CVICU, no cardiac complaints at the time of my evaluation
Currently requiring Levophed and dobutamine for inotrope and pressor support which limits guideline directed medical therapy
Would eventually add back home metoprolol and losartan when able
Appears euvolemic on exam and filling pressures are reasonable based on invasive hemodynamics
Unfortunately went into rapid atrial fibrillation this morning around 9 AM
Agree with continuing amiodarone drip for rate control of A-fib
Currently on IV heparin. Would favor Eliquis/Plavix at the time of discharge.
Discussed with nursing and family at bedside
Original Note:
Today's Communication / Plan
-
in afib. continue IV amio per protocol in addition to po amio/BB
start IV heparin when ok per CT surgery. eventual antiplatelet+DOAC
wean supp O2
wean pressors
continue post op care
Impression / Plan
-
PCP: Josh Valdez
Primary composition roofer: Dr. Stephens
Impression:
Exertional chest burning
NSTEMI
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
s/p CABG x3 ALEXIS to LAD, GSV to D2, GSV to OM, ELAA 03/06/25
Inferoapical LV thrombus by echo 03/04
Ischemic cardiomyopathy, EF 25 to 30%
History of mild cardiomyopathy
Ventricular tachycardia
ICD 2010, Med[employer]onic single-chamber
Paroxysmal atrial fibrillation, new diagnosis this admission
PAD, mid right SFA occlusion and probable high-grade distal SFA stenosis
Hyper eosinophilia syndrome, on chronic steroid therapy
Churg-Lemuel syndrome
Spinal stenosis
Hyperthyroid storm
Migraines
Pancreatic cysts
Previous cardiovascular studies:
TTE: 01/15/2025: EF 40 to 45%, stage II diastolic dysfunction, basal and mid inferior, distal septal, and mid anterior septal akinesis, RV normal size and function
TTE 07/17/2024: EF 38% by Cardoza's method, 45% by visual estimation, global hypokinesis, normal RV size and function
Cardiac cath 04/16/2011: Luminal irregularities in LAD, circumflex, RCA. LAD has some calcium, EF 42%
Echo 03/04/2025: EF 25 to 30%, dilated LV with LAD distribution akinesis and hypokinesis of remaining mckeon, inferoapical LV thrombus present, MAC, aortic sclerosis, normal right heart
Plan:
-patient presented with Chest burning and ruled in for NSTEMI with peak trop 0.225. s/p cardiac cath 03/04 with ruptured plaque in distal left main extending to ostium of LAD and circumflex
-s/p CABG x3 ALEXIS to LAD, GSV to D2, GSV to OM, ELAA 03/06/25
-in afib. currently on IV amio @1.
-given LV thrombus and PAF, start IV heparin with eventual transition to DOAC when ok per CT surgery. currently on asa, plavix
-He also has history of NSVT status post ICD in 2010. Follow electrolytes post op
-currently on levo@5, dobut@3. wean as able
-echo this admission with EF 25-30%. EF slightly improved to 30-35% with improvement in MR to trace-mild. GDMT of ICM as able. will need 90 day post op echo to reeval EF and presence of LV thrombus.
-proBNP 3830. LVEDP/RHC not completed on cath 03/04. post op diuresis as per CT surgery
-continue post op care, OOB/IS
-He is chronically on methotrexate and prednisone for hypereosinophilic syndrome followed by Dr. Piero Garcia at [facility]
-Peripheral vascular study in 2022 concern for mid right SFA occlusion and probable high-grade distal SFA stenosis. Previously saw Dr. Rosas
-d/w nursing, CT surgery DIRECTOR OF SCIENCE
PREADMIT DATA:
80-year-old male with PMH VT s/p ICD 2010, cardiomyopathy with mildly reduced EF, peripheral arterial disease (mid right SFA occlusion and probable high-grade distal SFA stenosis), hypereosinophilic syndrome most consistent with
Churg�Lemuel/eosinophilic granulomatosis with polyangeitis, presents with 2 to 3-week history of worsening exertional chest burning during exercise at gym, causing him to stop exercise and limit activity, now getting chest burning with minimal
activity, walking room to room in house, relieved with 1 sublingual nitro. Outpatient metoprolol recently uptitrated with no improvement in symptoms. Presents to ED today after needing to take sublingual nitroglycerin multiple times at home.
Troponin mildly elevated and uptrending 0.127�0 0.127�0.212. EKG with anterior lateral ST-T wave abnormality, unchanged from recent outpatient EKG. ICD interrogated and no recent arrhythmias. Patient started on heparin drip and administered
aspirin. Has received 2 doses of sublingual nitroglycerin this morning with relief of symptoms.
Progress Note - Manager Unit
Subjective
Date of Service: March 07, 2025
reports feeling worn out and with some post op pain. reports breathing stable and no feelings of palpitations
Objective
Labs:
03/07/25 03:29
03/07/25 03:29
Labs
Hgb 9.3 g/dL (13.0-18.0) L 03/07/25 03:29
Hct 28.6 % (39.0-52.0) L 03/07/25 03:29
Plt Count 147 10^3/uL (130-400) 03/07/25 03:29
PT 17.3 Sec (11.4-14.6) H 03/06/25 13:53
INR 1.36 03/06/25 13:53
APTT 33.2 Sec (23.4-35.0) 03/06/25 13:53
Sodium 135 mmol/L (135-145) 03/07/25 03:29
Potassium 4.3 mmol/L (3.5-5.1) 03/07/25 03:29
BUN 22 mg/dl (9-20) H 03/07/25 03:29
Creatinine 0.8 mg/dL (0.7-1.3) 03/07/25 03:29
Glucose 98 mg/dl (70-99) 03/07/25 03:29
Troponins
03/04/25 03/04/25 03/04/25
12:44 15:15 18:15
Troponin I 0.225 H* Cancelled Cancelled
03/06/25
01:37
Troponin I 0.162 H*
Vital Signs and I&O:
Vital Signs
Temp Pulse Resp BP Pulse Ox
98.3 F 133 20 97/68 95
03/07/25 12:00 03/07/25 12:09 03/07/25 12:09 03/07/25 12:00 03/07/25 12:09
Vital Signs
Temp Pulse Resp BP Pulse Ox
98.3 F 133 20 97/68 95
03/07/25 12:00 03/07/25 12:09 03/07/25 12:09 03/07/25 12:00 03/07/25 12:09
Intake & Output
03/05/25 03/06/25 03/07/25 03/08/25
07:59 07:59 07:59 07:59
Intake Total 1107.6 / 1107.6 1975.0 / 2030.8 518.8 / 518.8
Output Total 800 / 800 1230 / 1270 245 / 245
Balance 307.6 / 307.6 745.0 / 760.8 273.8 / 273.8
Physical Exam
Physical Exam
GEN: No distress, awake, alert, oriented x3. on supp O2
HEENT: supple, anicteric, mmm, eomi
LUNGS: CTA anterolaterally, no wheezes
CV: Irreg irreg, S1/S2, no murmur
ABD: soft, BS+, NT/ND
EXT: No cyanosis, clubbing. trace edema of B/L LE
NEURO: Gross non-focal
SKIN: Warm, pink, dry. No rash. Sternotomy dressing c/d/i. CTs in place
[2025-03-07] MEDS: NSS IV (14:04)
[2025-03-07 14:31] LABS: Glucose - Point of Care 151 mg/dl (70-99)
[2025-03-07] MEDS: LEVOPHED 250 IV (15:24)
[2025-03-07] MEDS: DUONEB 3 ML INH ×2 (15:31→19:25)
[2025-03-07 16:20] LABS: Glucose - Point of Care 158 mg/dl (70-99)
[2025-03-07] MEDS: NOVOLOG FLEXPEN-MODERATE RESISTANCE 1 UNITS SC (16:20)
--- NOTE | 2025-03-07 16:49 | PTCARENOTE ---
Pt remains in Afib with HR 118. BP 107/48 MAP 64. PA 36/16, CVP 7, CO 4.18, CI 2.27, SVR 1148. Levo currently off. Remains on Dobutamine 3mcg/kg/min and Amio 0.5mg/min.
[2025-03-07] MEDS: SINGULAIR 10 MG PO (17:13)
[2025-03-07] MEDS: HEPARIN 25000 UNITS/250 ML IV (17:32)
[2025-03-07 17:47] LABS: APTT 31.6 Sec (23.4-35.0)
[2025-03-07] MEDS: PULMICORT 0.5 MG INH (19:24)
--- NOTE | 2025-03-07 20:00 | PTCARENOTE ---
Assumed care of patient at 1900. Patient found resting in bed at time of assessment. Patient is AOx4, follows commands appropriately, moves all extremities. Lung sounds are diminished in the bases, respirations are shallow, saO2 93% on 2L. Patient
has CTx4: 2xmeds draining to one atrium and R/L pleural draining to another red sanguineous. Heart sounds are audible, irregular apical rate, patient is afib on the monitor, A+V wires are present, but not currently on. Patient has normal palpable
radial pulses, R DP present with doppler, and L PT present with doppler. There is trace R pedal edema present. Patient has active BS throughout all four quadrants and moore draining clear yellow urine. Patient has sternal incision with aquacell
dressing CDI, R groin puncture approx with surg adhesive JUAQUIN, RLE incision with JOSE drain and GEMA wrap CDI. Patient has R IJ cordis with swan@41cm and R FA 20G PIV as well as L AC PIV. Patient is on dobut@3, Cordis/VIP KVO, heparin@500 units, and
amio@0.5. VSS. Call gutierrez within reach.
[2025-03-08] VITALS (32 sets, daily range): BP systolic 80–141; BP diastolic 42–91; PULSE 115–120; O2SAT 93; BMI 24.3
--- NOTE | 2025-03-08 | PTCARENOTE ---
Patient reassessed. Remains in afib on the monitor HR 110s. Restarted on Levo@2 due to hypotension. Otherwise patient's VSS. Call gutierrez within reach.
[2025-03-08 00:33] LABS: APTT 40.1 Sec (23.4-35.0)
[2025-03-08] MEDS: CORDARONE 103 MG IV ×2 (03:41→14:03)
[2025-03-08 03:50] LABS: Hematocrit 26.4 % (39.0-52.0); Hemoglobin 8.8 g/dL (13.0-18.0); Mean Corp Hgb Conc. 33.3 g/dL (33.0-37.0); Mean Corpuscular Volume 101.5 fL (80.0-94.0); Platelet Count 151 10^3/uL (130-400); Red Cell Dist. Width 14.3 % (11.5-14.5)
[2025-03-08 04:14] LABS: Blood Urea Nitrogen 28 mg/dl (9-20); Calcium 8.3 mg/dl (8.4-10.2); Carbon Dioxide 23 mmol/L (22-30); Chloride 104 mmol/L (98-107); Estimated Creatinine Clearance 68 ml/min; Glucose 151 mg/dl (70-99); Magnesium 2.4 mg/dl (1.6-2.3); Potassium 4.7 mmol/L (3.5-5.1); Sodium 130 mmol/L (135-145); eGFR > 60.00
[2025-03-08] MEDS: TYLENOL 975 MG PO ×3 (06:04→22:33)
[2025-03-08] MEDS: ROXICODONE 5 MG PO (06:43)
--- NOTE | 2025-03-08 07:07 | PTCARENOTE ---
Patient reassessed. Remains Afib on the monitor. Additional amio bolus administered. AM hygiene care provided. AM labs obtained. Low MVO2 CT PA aware CI>2. Attempted to get patient oob while sitting on side of bed patient became lightheaded, dizzy
low BP returned to bed for now. Marilyn 5 administered for pain.
[2025-03-08] MEDS: PULMICORT 0.5 MG INH ×2 (07:18→20:22)
[2025-03-08] MEDS: DUONEB 3 ML INH (07:18)
--- NOTE | 2025-03-08 07:30 | PTCARENOTE ---
Assumed care of patient from shift boss RN. AAO x 3. A fib on monitor. Epicardial wires insulated per order. RT IJ cordis with swan at 47 cm. Lt radial A line transducing. Lines leveled, recalibrated and flushed. Medications infusing on
handoff as follows: Dobutamine, Heparin, Amiodarone. See flow sheet for totals/titrations. 2 L NC 97%. IS to 750 . Chest tubes x 4 to - 20 cm suction. No air leak or crepitus noted. Abdomen soft and non tender. Rosas draining clear yellow
urine. Trace pedal edema appreciated. Rt Leg Claudia drain intact with Lam wrap present. Doppler pulses audible. Plan for day discussed.
[2025-03-08 07:38] LABS: APTT 37.6 Sec (23.4-35.0)
--- NOTE | 2025-03-08 07:45 | W.PN.INTV ---
Today's Communication / Plan
Recommendations
Continue with weaning dobutamine as able. Cardiac index 4.51
Orthostasis noted with transfer to chair
If orthostasis continues, consider stress dose steroids
Incentive spirometry, pain control
Assessment
-
80-year-old male with history of not on ischemic cardiomyopathy, ventricular tachycardia with ICD in place presents with chest burning which has been progressive, found to have left main disease per cardiac catheterization, EF 40% on recent
echocardiogram, now status post CABG 03/06/2025
S/p CABG x 3, 03/06/25
Multivessel coronary disease with left main involvement per catheterization 03/04/2025
Ischemic cardiomyopathy, EF 25%
History of cardiomyopathy in the past
Postoperative anemia
History of VT, ICD 2010
Atrial fibrillation, new onset February 2025
Conditions present prior to admission
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
Chronic immunosuppression (steroids/methotrexate), followed at [facility]
Moderate persistent asthma
FEV1 65%, DLCO 62%
History of vascular disease, SFA occlusion
History of hyperthyroid storm
History of pancreatic cyst, awaiting ERCP at [facility]
Plan/recommendations
At this time, patient appears to be comfortable
He is without respiratory complaints
Remains on dobutamine, heparin, norepinephrine, amiodarone
Chest x-ray with decreased lung volumes right side, chronic appearing
Mild orthostasis upon transfer to chair
Moving forward
Continue with management per CT surgery
No wheezing on exam.
Start nebulized budesonide and albuterol/ipratropium
Can resume outpatient Symbicort at time of discharge
Patient on chronic methotrexate at 22.5 mg a week, prednisone 7 mg a day
Keep an eye on orthostasis as may require short course of stress dose steroids. Follow
Would hold methotrexate for now, unless discussion with [facility] physician as requested otherwise
Next pending dose 03/13. Would consider holding this dose and not restarting methotrexate till 03/20
Symptoms primarily are sinus
Worried about optimal healing process at this time
This will be reviewed with CT surgery
Follow hemoglobin
Chest tube output minimal at this time
Follow blood sugars
It is noted that EF is 25%, was 40% earlier this year
Heparin therapy for possible thrombus
Cardiology following
Reviewed with critical care nursing
TCCT 31 min
Subjective Dataa
Subjective Data
Date of Service:
Date of Service: March 08, 2025
Subjective:
Observed patient's transfer from bed to chair, presyncopal with low blood pressure. Complaining of dyspnea but tolerated well. Denies cough, significant pain, denies nausea. Conversant. Remains critically ill on dobutamine, heparin and
norepinephrine, amiodarone. Persistent atrial fibrillation with tachycardia noted
Objective Data
Data Reviewed
Vital Signs / I&O / Oxygen:
Vital Signs
Temp Pulse Resp BP Pulse Ox
97.7 F 108 15 105/69 92
03/08/25 06:00 03/08/25 07:21 03/08/25 07:21 03/08/25 06:34 03/08/25 07:21
Intake and Output
03/07/25 03/08/25 03/09/25
06:59 06:59 06:59
Intake Total 1948.5 / 1975.0 1824.8 / 1824.8
Output Total 1140 / 1230 930 / 930
Balance 808.5 / 745.0 894.8 / 894.8
SaO2 [CPAP] 99
SaO2 [SIMV] 98
SaO2 92
Nasal Cannula flow liters per 2
minute
Physical Exam
General: Comfortable and Other (IJ, chest tube)
HEENT: Normocephalic and Anicteric
Cardiovascular: S1-S2, Regular Rhythm, Murmur (n), Rub (n) and Peripheral Edema (Lower extremity bandage)
Respiratory: Wheeze (n), Crackles (n), Rhonchi (n) and Non-Labored Respirations
GI: Soft, Non Distended and Non Tender
Neurology: Awake, Alert and No Motor Deficits (Moves all extremities)
Skin: Cyanosis (n) and Rash (n)
Labs/Micro/Reports
Lab Data
03/08/25 03:22
03/08/25 03:22
Laboratory Results
03/07/25 03/08/25
17:28 00:11
APTT 31.6 40.1 H
--- NOTE | 2025-03-08 08:24 | W.PN.CT ---
Today's Communication / Plan
-
-pod #2
-was hypotensive, symptomatic this am while trying to get out of bed
-drips Dobut 3, Heparin 500 units/hr for LV thrombus, Levo between off and 2, Amio 0.5
-CI 2.45, CO 4.51, SVR 1046. mVO2 was 41.9 (? accuracy)
-CT outputs: 2 meds 65/155, 2 pleur / in 12/24 hrs
-remains in a-fib with RVR since yesterday 03/07 despite multiple Amio boluses and drip
-wean Dobut as tolerated
-? Midodrine for orthostasis and gentle diuresis
-Na trended down - 130 today
-Hg trended down from 9.3 to 8.8 today - follow
-maintain pw, Cordis
-encourage IS, OOB
Assessment / Plan
-
- LM & MVCAD- s/p CABG x 3 (ALEXIS to LAD, GSV to D2, GSV to OM); ELAA (40mm AtriClip) by Dr. Wallace on 03/06/25, pod #2
- Moderate MR under intraoperative JOHN assessment--MR improved to [id number] postop
- LV apical thrombus
- NSTEMI
- Ischemic cardiomyopathy, Reduced LVEF (25-30%)
- Hx of VT - s/p MDT ICD 2010
- HTN/HLD
- PAD (mid R SFA occ and prob high grade distal SFA stenosis
- Churg-Lemuel syndrome
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
- Spinal stenosis
- Hyperthyroidism
- Hx inguinal hernia repair
- Hx amauroses fugax
- b/l cataract repair
- Acute postop blood loss anemia
- Acute postop atelectasis
- Acute postop hypovolemia with subsequent hypervolemia
- Suspected acute postop pericarditis/+ rub
- Acute postop a-fib with RVR 03/07
Discussed patient care with: Nursing and Care Team
Subjective
-
Date of Service: March 08, 2025
Objective Data
-
Lab Results
03/08/25 03:22
03/08/25 03:22
PT 17.3 Sec (11.4-14.6) H 03/06/25 13:53
INR 1.36 03/06/25 13:53
APTT 37.6 Sec (23.4-35.0) H 03/08/25 06:48
Vital Signs
Vital Signs
Temp Pulse Resp BP Pulse Ox
97.7 F 119 15 105/69 98
03/08/25 07:00 03/08/25 07:45 03/08/25 07:21 03/08/25 06:34 03/08/25 07:45
CT Intake/Output/Weight
03/07/25 03/08/25 03/08/25
18:59 06:59 18:59
Intake Total 991.0 / 1824.8 833.8 / 1824.8
Output Total 540 / 930 390 / 930
Balance 451.0 / 894.8 443.8 / 894.8
SaO2: 98
Physical Exam
-
General: Awake and AOx3
Cardiovascular: Regular rate & rhythm, No Murmurs and Rub
Respiratory: Decreased Breath Sounds
Sternum: Stable
Incision: Clean, Dry and Intact
Abdomen: soft, nontender, nondistended, + decreased bowel sounds
Extremities: No Edema (R DP is Dopplerable, R PT is not Dopplerable; L DP is Dopplerable, L DP is not Dopplerable)
Data Reviewed
-
Lab Results: Results Reviewed
Medications: Active Meds Reviewed
Chest X-Ray: Report Reviewed and Image Reviewed
ECG: Report Reviewed and Image Reviewed
[2025-03-08] MEDS: MUCINEX 600 MG PO ×2 (08:29→20:48)
[2025-03-08] MEDS: PLAVIX 75 MG PO (08:29)
[2025-03-08] MEDS: DELTASONE 2 MG PO (08:30)
[2025-03-08] MEDS: PACERONE 200 MG PO (08:30)
[2025-03-08] MEDS: PROTONIX 40 MG PO (08:30)
[2025-03-08] MEDS: MAGNESIUM OXIDE 400 MG PO (08:30)
[2025-03-08] MEDS: BACTROBAN 2% OINTMENT 1 APPLIC NASAL ×2 (08:30→20:48)
[2025-03-08] MEDS: NEURONTIN 100 MG PO ×2 (08:30→22:33)
[2025-03-08] MEDS: VITAMIN C 500 MG PO (08:30)
[2025-03-08] MEDS: LOW STRENGTH ASPIRIN 81 MG PO (08:30)
[2025-03-08] MEDS: FEOSOL 325 MG PO (08:30)
[2025-03-08] MEDS: FOLVITE 1 MG PO (08:30)
[2025-03-08] MEDS: LIPITOR 40 MG PO (08:30)
[2025-03-08] MEDS: DELTASONE 5 MG PO (08:30)
[2025-03-08] MEDS: SENOKOT PO (08:31)
[2025-03-08] MEDS: NOVOLOG FLEXPEN-MODERATE RESISTANCE SC ×3 (10:01→16:29)
--- NOTE | 2025-03-08 10:02 | PTCARENOTE ---
Chest tubes x 4 removed per order. Pt tolerated w/o issue. Epicardial wires insulated. Assist x 2 oob to chair. Initial dizziness subsided w/o intervention. VSS in chair.
[2025-03-08] MEDS: DUONEB INH (11:01)
[2025-03-08] MEDS: ZOFRAN 4 MG IV (11:21)
--- NOTE | 2025-03-08 11:48 | W.PN.CARDCBS ---
Addendum entered and electronically signed by Pepe Vasquez MD 03/08/25 12:22:
I saw and examined the patient.
The Industrial Chemist's note was reviewed and I agree with the note.
Comment:
GEN: No distress, awake, Ox3
HEENT: supple, anicteric, mmm
LUNGS: bilat rhonchi
CV: Irreg, S1/S2, no murmur
ABD: soft, BS+, NT/ND
EXT: No edema
NEURO: Gross non-focal
SKIN: No rash
plan:
Remains in A-fib with modestly elevated rates. Continue IV amiodarone and IV heparin. He also has a known LV thrombus.
Would increase oral amiodarone to 400 mg p.o. 3 times daily.
Remains on dobutamine. Continue to slowly wean. Follow-up PA pressure and cardiac index
Agree with Lasix x 1 today and reassess
Hemoglobin at 8.8
Creatinine 0.9
Original Note:
Today's Communication / Plan
-
Continue postop care
Continue IV heparin, IV Amio
Eventual GDMT of cardiomyopathy as able
Impression / Plan
-
PCP: Josh Valdez
Primary mail opener: Dr. Stephens
Impression:
Exertional chest burning
NSTEMI
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
s/p CABG x3 ALEXIS to LAD, GSV to D2, GSV to OM, ELAA 03/06/25
Inferoapical LV thrombus by echo 03/04
Ischemic cardiomyopathy, EF 25 to 30%
History of mild cardiomyopathy
Ventricular tachycardia
ICD 2010, Med[employer]onic single-chamber
Paroxysmal atrial fibrillation, new diagnosis this admission
PAD, mid right SFA occlusion and probable high-grade distal SFA stenosis
Hyper eosinophilia syndrome, on chronic steroid therapy
Churg-Lemuel syndrome
Spinal stenosis
Hyperthyroid storm
Migraines
Pancreatic cysts
Previous cardiovascular studies:
TTE: 01/15/2025: EF 40 to 45%, stage II diastolic dysfunction, basal and mid inferior, distal septal, and mid anterior septal akinesis, RV normal size and function
TTE 07/17/2024: EF 38% by Cadroza's method, 45% by visual estimation, global hypokinesis, normal RV size and function
Cardiac cath 04/16/2011: Luminal irregularities in LAD, circumflex, RCA. LAD has some calcium, EF 42%
Echo 03/04/2025: EF 25 to 30%, dilated LV with LAD distribution akinesis and hypokinesis of remaining mckeon, inferoapical LV thrombus present, MAC, aortic sclerosis, normal right heart
Plan:
-patient presented with Chest burning and ruled in for NSTEMI with peak trop 0.225. s/p cardiac cath 03/04 with ruptured plaque in distal left main extending to ostium of LAD and circumflex
-s/p CABG x3 ALEXIS to LAD, GSV to D2, GSV to OM, ELAA 03/06/25
- Remains in A-fib with heart rates in 110s. Currently on IV Amio at 0.5.
- Given LV thrombus and PAF, presently on aspirin, Plavix, IV heparin. Eventual transition to mono antiplatelet + DOAC when okay per CT surgery
-He also has history of NSVT status post right sided ICD in 2010. Follow electrolytes post op
-currently on dobut@2. wean as able
-echo this admission with EF 25-30%. EF slightly improved to 30-35% with improvement in MR to trace-mild. GDMT of ICM as able. will need 90 day post op echo to reeval EF and presence of LV thrombus.
-proBNP 3830. LVEDP/RHC not completed on cath 03/04. post op diuresis as per CT surgery
-continue post op care, OOB/IS
-He is chronically on methotrexate and prednisone for hypereosinophilic syndrome followed by Dr. Piero Garcia at [facility]
-Peripheral vascular study in 2022 concern for mid right SFA occlusion and probable high-grade distal SFA stenosis. Previously saw Dr. Rosas
-d/w nursing, CT surgery DENTAL THERAPIST
PREADMIT DATA:
80-year-old male with PMH VT s/p ICD 2010, cardiomyopathy with mildly reduced EF, peripheral arterial disease (mid right SFA occlusion and probable high-grade distal SFA stenosis), hypereosinophilic syndrome most consistent with
Churg�Lemuel/eosinophilic granulomatosis with polyangeitis, presents with 2 to 3-week history of worsening exertional chest burning during exercise at gym, causing him to stop exercise and limit activity, now getting chest burning with minimal
activity, walking room to room in house, relieved with 1 sublingual nitro. Outpatient metoprolol recently uptitrated with no improvement in symptoms. Presents to ED today after needing to take sublingual nitroglycerin multiple times at home.
Troponin mildly elevated and uptrending 0.127�0 0.127�0.212. EKG with anterior lateral ST-T wave abnormality, unchanged from recent outpatient EKG. ICD interrogated and no recent arrhythmias. Patient started on heparin drip and administered
aspirin. Has received 2 doses of sublingual nitroglycerin this morning with relief of symptoms.
Progress Note - Tool And Die Repairer
Subjective
Date of Service: March 08, 2025
Reports some nausea limiting his appetite, however otherwise feels he is doing well
Objective
Labs:
03/08/25 03:22
03/08/25 03:22
Labs
Hgb 8.8 g/dL (13.0-18.0) L 03/08/25 03:22
Hct 26.4 % (39.0-52.0) L 03/08/25 03:22
Plt Count 151 10^3/uL (130-400) 03/08/25 03:22
PT 17.3 Sec (11.4-14.6) H 03/06/25 13:53
INR 1.36 03/06/25 13:53
APTT 37.6 Sec (23.4-35.0) H 03/08/25 06:48
Sodium 130 mmol/L (135-145) L 03/08/25 03:22
Potassium 4.7 mmol/L (3.5-5.1) 03/08/25 03:22
BUN 28 mg/dl (9-20) H 03/08/25 03:22
Creatinine 0.9 mg/dL (0.7-1.3) 03/08/25 03:22
Glucose 151 mg/dl (70-99) H 03/08/25 03:22
Troponins
03/06/25
01:37
Troponin I 0.162 H*
Vital Signs and I&O:
Vital Signs
Temp Pulse Resp BP Pulse Ox
98.0 F 116 18 110/72 94
03/08/25 11:11 03/08/25 11:11 03/08/25 11:11 03/08/25 09:00 03/08/25 11:11
Vital Signs
Temp Pulse Resp BP Pulse Ox
98.0 F 116 18 110/72 94
03/08/25 11:11 03/08/25 11:11 03/08/25 11:11 03/08/25 09:00 03/08/25 11:11
Intake & Output
03/06/25 03/07/25 03/08/25 03/09/25
07:59 07:59 07:59 07:59
Intake Total 1107.6 / 1107.6 1975.0 / 2030.8 1798.3 / 1873.2 674.4 / 674.4
Output Total 800 / 800 1230 / 1270 840 / 890 150 / 150
Balance 307.6 / 307.6 745.0 / 760.8 958.3 / 983.2 524.4 / 524.4
Physical Exam
Physical Exam
GEN: No distress, awake, alert, oriented x3. on supp O2. sitting in chair
HEENT: supple, anicteric, mmm, eomi
LUNGS: CTA B/L, no wheezes
CV: Irreg irreg, S1/S2, no murmur
ABD: soft, BS+, NT/ND
EXT: No cyanosis, clubbing. trace edema of B/L LE
NEURO: Gross non-focal
SKIN: Warm, pink, dry. No rash. Sternotomy dressing c/d/i.
--- NOTE | 2025-03-08 12:12 | PTCARENOTE ---
Tolerating sitting up in the chair. VSS. C/o intermittent nausea. Zofran administered. Weaned to Room air 94%. Assessment otherwise unchanged from prior.
[2025-03-08] MEDS: LASIX 40 MG IV (12:45)
[2025-03-08] MEDS: CORDARONE 259 MG IV (12:46)
[2025-03-08] MEDS: NSS 500 IV (14:03)
[2025-03-08] MEDS: FLEXERIL 5 MG PO (14:23)
[2025-03-08 14:38] LABS: APTT 37.5 Sec (23.4-35.0)
--- NOTE | 2025-03-08 16:09 | PTCARENOTE ---
While RN in drawling labs pt with multiple complaints/questions. Pt with increased gas pains, simethecone ordered. and administered. Pt states also at 4 am this morning that he heard his AICD make the '[facility] siren ' noise. CT SECURITY OPERATIONS CENTER ANALYST in to
talk to patient, and pt informed that device liability claims representative had been in post op to turn device back on. Pt settled into bed. Meds administered. VSS. Assessment otherwise unchanged from prior.
[2025-03-08] MEDS: NEURONTIN PO (16:29)
[2025-03-08] MEDS: PACERONE 400 MG PO ×2 (17:26→22:33)
[2025-03-08] MEDS: SINGULAIR 10 MG PO (17:27)
--- NOTE | 2025-03-08 20:00 | PTCARENOTE ---
Assumed care of patient at 1900. Oriented, neuro intact, moving all extremities, [place]. Afib with PVC's on CM, rates 100's-110's, epicardial wires insulated, pulses via Doppler, +1-2 R pedal edema and + edema to LEs, heart tones audible, irregular.
Lungs dim at the bases, RA, difficult to obtain SpO2. Abdomen SNT, gas pain, passing flatus/belching encouraged to alleviate discomfort, simethicone administered, pt given Zofran. Rosas draining small amounts of clear yellow urine. All surgical
sites stable as listed in the work list. RIJ Cordis with Jermaine @ 41, L radial art line, PIVx2; all applicable lines leveled, zeroed, and calibrated. On Dobut, Amio, and Heparin. Pt transferred BIB with asst x2, no dizziness noted. New PIV placed and
leaking line removed. POC discussed with patient, in agreement, assessment of needs ongoing.
[2025-03-08] MEDS: MAGNESIUM OXIDE PO (20:45)
[2025-03-08] MEDS: SENOKOT 8.6 MG PO (20:48)
[2025-03-08] MEDS: MYLICON 80 MG PO (20:48)
[2025-03-08] MEDS: REGLAN 10 MG IV (20:55)
[2025-03-08 22:24] LABS: B.E. -1.9 mmol/L; HCO3 21.7 mmol/L (21-28); O2 Saturation % 98.0 % (94-98); PCO2 32 mmHg (35-48); PO2 88 mmHg (83-108); Potassium 4.4 mMOL/L (3.5-5.1)
[2025-03-08 22:39] LABS: APTT 56.5 Sec (23.4-35.0)
[2025-03-08] MEDS: CALCIUM GLUCONATE 100 IV (23:45)
[2025-03-09] VITALS (23 sets, daily range): BP systolic 88–132; BP diastolic 52–90; PULSE 93–118; O2SAT 97; BMI 23.9
--- NOTE | 2025-03-09 | PTCARENOTE ---
ABG and PTT drawn and sent. See work list. Calcium gluconate given, VSS, afebrile, attempting to sleep between care, no significant changes.
[2025-03-09] MEDS: DOBUTREX 250 IV (00:12)
[2025-03-09] MEDS: CORDARONE 259 MG IV (00:39)
[2025-03-09] MEDS: FLEXERIL 5 MG PO ×2 (00:41→10:42)
--- NOTE | 2025-03-09 04:30 | PTCARENOTE ---
Patient sleeping between care. Initially was c/o discomfort and when RN entered the room to administer pain medication, patient was asleep. Patient remained asleep. Upon awakening, discomfort was alleviated by repositioning. Assessment of needs
ongoing.
[2025-03-09 04:49] LABS: Hematocrit 25.0 % (39.0-52.0); Hemoglobin 8.1 g/dL (13.0-18.0); Mean Corp Hgb Conc. 32.4 g/dL (33.0-37.0); Mean Corpuscular Volume 103.7 fL (80.0-94.0); Platelet Count 143 10^3/uL (130-400); Red Cell Dist. Width 14.2 % (11.5-14.5)
[2025-03-09 04:59] LABS: APTT 64.2 Sec (23.4-35.0)
[2025-03-09 05:13] LABS: Blood Urea Nitrogen 30 mg/dl (9-20); Calcium 8.3 mg/dl (8.4-10.2); Carbon Dioxide 25 mmol/L (22-30); Chloride 102 mmol/L (98-107); Estimated Creatinine Clearance 68 ml/min; Glucose 118 mg/dl (70-99); Magnesium 2.2 mg/dl (1.6-2.3); Potassium 4.3 mmol/L (3.5-5.1); Sodium 128 mmol/L (135-145); eGFR > 60.00
--- NOTE | 2025-03-09 05:57 | W.PN.CT ---
Today's Communication / Plan
-
-pod #3
-c/o abdominal bloating and nausea. Decrease narcotics. Started Reglan. Check Abd XRY
-repleted Ca last night, BP improved
-drips Dobut 2, Heparin 650 units/hr for LV thrombus and afib, Amio 0.5
-CI 2.5, CO 4.6, mVO2 62.7
-remains in a-fib with RVR since yesterday 03/07 despite multiple Amio boluses and drip. po Amio was increased to 400 tid on 03/08 per Cardiology
-wean Dobut by 1 daily per AT
-Midodrine started 03/08 for orthostasis
-diuresed with 40 iv Lasix on 03/08- UO 800. Wt is up 11 lbs. Consider bid Lasix if BP tolerates
-Na trended down - 128 today (130 on 03/08)
-Hg trended down - 8.1 today - follow
-maintain pw, Cordis
-encourage IS, OOB
Assessment / Plan
-
- LM & MVCAD- s/p CABG x 3 (ALEXIS to LAD, GSV to D2, GSV to OM); ELAA (40mm AtriClip) by Dr. Wallace on 03/06/25, pod #3
- Moderate MR under intraoperative JOHN assessment--MR improved to [id number] postop
- LV apical thrombus
- NSTEMI
- Ischemic cardiomyopathy, Reduced LVEF (25-30%)
- Hx of VT - s/p MDT ICD 2010
- HTN/HLD
- PAD (mid R SFA occ and prob high grade distal SFA stenosis
- Churg-Lemuel syndrome
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
- Spinal stenosis
- Hyperthyroidism
- Hx inguinal hernia repair
- Hx amauroses fugax
- b/l cataract repair
- Acute postop blood loss anemia
- Acute postop atelectasis
- Acute postop hypovolemia with subsequent hypervolemia
- Suspected acute postop pericarditis/+ rub
- Acute postop a-fib with RVR 03/07
Discussed patient care with: Nursing and Care Team
Subjective
-
Date of Service: March 09, 2025
Objective Data
-
PT 17.3 Sec (11.4-14.6) H 03/06/25 13:53
INR 1.36 03/06/25 13:53
APTT 56.5 Sec (23.4-35.0) H 03/08/25 22:18
Vital Signs
Vital Signs
Temp Pulse Resp BP Pulse Ox
98.6 F 119 28 134/86 91
03/08/25 23:00 03/08/25 23:30 03/08/25 23:30 03/08/25 23:00 03/08/25 23:00
CT Intake/Output/Weight
03/08/25 03/08/25 03/09/25
06:59 18:59 06:59
Intake Total 833.8 / 1824.8 1198.2 / 1487.2 289.0 / 1487.2
Output Total 390 / 930 800 / 940 140 / 940
Balance 443.8 / 894.8 398.2 / 547.2 149.0 / 547.2
SaO2: 91
Physical Exam
-
General: Awake and AOx3
Cardiovascular: Irregular rate & rhythm, No Murmurs and No Rub
Respiratory: Rales (at bases. No wheeze) and Decreased Breath Sounds
Sternum: Stable
Incision: Clean, Dry and Intact
Extremities: No Edema
Abdomen: distended, soft, nontender, decreased bowel sounds
Data Reviewed
-
Lab Results: Results Reviewed
Medications: Active Meds Reviewed
Chest X-Ray: Report Reviewed and Image Reviewed
ECG: Report Reviewed and Image Reviewed
[2025-03-09] MEDS: TYLENOL 975 MG PO ×3 (06:21→21:25)
--- NOTE | 2025-03-09 07:07 | W.PN.INTV ---
Today's Communication / Plan
Recommendations
Dobutamine continues to be weaned
Maintain on prednisone
Hold methotrexate as below
Follow closely for need for stress dose steroids, improving overall
Assessment
-
80-year-old male with history of not on ischemic cardiomyopathy, ventricular tachycardia with ICD in place presents with chest burning which has been progressive, found to have left main disease per cardiac catheterization, EF 40% on recent
echocardiogram, now status post CABG 03/06/2025
S/p CABG x 3, 03/06/25
Multivessel coronary disease with left main involvement per catheterization 03/04/2025
Ischemic cardiomyopathy, EF 25%
History of cardiomyopathy in the past
Postoperative anemia
History of VT, ICD 2010
Atrial fibrillation, new onset February 2025
Conditions present prior to admission
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
Chronic immunosuppression (steroids/methotrexate), followed at [facility]
Moderate persistent asthma
FEV1 65%, DLCO 62%
History of vascular disease, SFA occlusion
History of hyperthyroid storm
History of pancreatic cyst, awaiting ERCP at [facility]
Plan/recommendations
At this time, patient appears to be comfortable
He is without respiratory complaints
Remains on dobutamine, heparin, amiodarone
Chest x-ray with decreased lung volumes right side, chronic appearing
Symptoms with transfer to chair improved
Abdominal imaging unremarkable
Mild bloating noted
Moving forward
Continue with management per CT surgery
No wheezing on exam.
Continue nebulized budesonide, DuoNebs can be pursued as needed
Can resume outpatient Symbicort at time of discharge
Patient on chronic methotrexate at 22.5 mg a week, prednisone 7 mg a day
Keep an eye on orthostasis as may require short course of stress dose steroids. Follow
Would hold methotrexate for now, unless discussion with [facility] physician as requested otherwise
Next pending dose 03/13. Would consider holding this dose and not restarting methotrexate till 03/20
Symptoms primarily are sinus
Worried about optimal healing process at this time
This will be reviewed with CT surgery
Follow hemoglobin
Follow blood sugars
It is noted that EF is 25%, was 40% earlier this year
Heparin therapy for possible thrombus
Cardiology following
Reviewed with critical care nursing
Subjective Dataa
Subjective Data
Date of Service:
Date of Service: March 09, 2025
Subjective:
Patient less symptomatic today upon transfer from bed to chair. Primary complaint is bloating, mild nausea but denies emesis. Denies cough
Objective Data
Data Reviewed
Vital Signs / I&O / Oxygen:
Vital Signs
Temp Pulse Resp BP Pulse Ox
98.8 F 115 24 99/72 90
03/09/25 07:00 03/09/25 07:02 03/09/25 07:02 03/09/25 07:02 03/09/25 04:00
Intake and Output
03/08/25 03/09/25 03/10/25
06:59 06:59 05:59
Intake Total 1824.8 / 1824.8 1877.8 / 2123.6 245.8 / 245.8
Output Total 930 / 930 1245 / 1265 20 / 20
Balance 894.8 / 894.8 632.8 / 858.6 225.8 / 225.8
SaO2 [CPAP] 99
SaO2 [SIMV] 98
SaO2 90
Nasal Cannula flow liters per 2
minute
Physical Exam
General: Comfortable and Other (IJ)
HEENT: Normocephalic and Anicteric
Cardiovascular: S1-S2, Regular Rhythm, Murmur (n), Rub (n) and Peripheral Edema (Lower extremity bandage)
Respiratory: Wheeze (n), Crackles (n), Rhonchi (n) and Non-Labored Respirations
GI: Soft, Non Distended and Non Tender
Neurology: Awake, Alert and No Motor Deficits (Moves all extremities)
Skin: Cyanosis (n) and Rash (n)
Labs/Micro/Reports
Lab Data
03/09/25 04:26
03/09/25 04:26
Laboratory Results
03/08/25 03/08/25 03/08/25
06:48 14:11 22:18
APTT 37.6 H 37.5 H 56.5 H
pH 7.44
pCO2 32 L
pO2 88
HCO3 21.7
O2 Delivery Level
03/09/25
04:26
APTT 64.2 H
pH
pCO2
pO2
HCO3
O2 Delivery Level
[2025-03-09] MEDS: DELTASONE 5 MG PO (07:53)
[2025-03-09] MEDS: PLAVIX 75 MG PO (07:53)
[2025-03-09] MEDS: DELTASONE 2 MG PO (07:53)
[2025-03-09] MEDS: SENOKOT 8.6 MG PO ×2 (07:53→20:09)
[2025-03-09] MEDS: FEOSOL 325 MG PO (07:53)
[2025-03-09] MEDS: BACTROBAN 2% OINTMENT 1 APPLIC NASAL ×2 (07:53→20:09)
[2025-03-09] MEDS: REGLAN 10 MG PO ×4 (07:53→21:25)
[2025-03-09] MEDS: VITAMIN C 500 MG PO (07:53)
[2025-03-09] MEDS: MAGNESIUM OXIDE 400 MG PO ×2 (07:53→20:09)
[2025-03-09] MEDS: PACERONE 400 MG PO ×3 (07:53→21:25)
[2025-03-09] MEDS: LOW STRENGTH ASPIRIN 81 MG PO (07:53)
[2025-03-09] MEDS: PROTONIX 40 MG PO (07:53)
[2025-03-09] MEDS: LIPITOR 40 MG PO (07:54)
[2025-03-09] MEDS: FOLVITE 1 MG PO (07:54)
[2025-03-09] MEDS: HEPARIN 25000 UNITS/250 ML IV (07:54)
[2025-03-09] MEDS: MUCINEX 600 MG PO ×2 (08:02→20:09)
[2025-03-09] MEDS: NEURONTIN PO ×3 (08:02→21:28)
--- NOTE | 2025-03-09 08:30 | PTCARENOTE ---
Assumed care of patient from concrete form setter and finisher RN. LULUO x 3, States he did not sleep well. A fib on monitor 120's. Rt IJ cordis with swan at 41cm. Lt radial A line transducing. Lines leveled, recalibrated, and flushed. 2 L NC 96%. IS 1000. Abdomen
round, non tender, passing flatus, bowel sounds hypoactive. Rosas maintained, yumiko urine appreciated. Surgical sites, c,d,i. Pulses via doppler. Drips infusing at handoff as follows: Heparin, dobutamine, Amiodarone. Plan for day discussed.
[2025-03-09] MEDS: PULMICORT 0.5 MG INH ×2 (08:38→19:09)
[2025-03-09] MEDS: NOVOLOG FLEXPEN-MODERATE RESISTANCE SC (08:40)
[2025-03-09 11:03] LABS: APTT 54.6 Sec (23.4-35.0)
[2025-03-09] MEDS: KLOR-CON 20 MEQ PO (11:54)
[2025-03-09] MEDS: LASIX 40 MG IV (11:54)
--- NOTE | 2025-03-09 12:57 | PTCARENOTE ---
tolerated sitting up in chair x 5 hours, attempted to have a BM on BSC and passed a lot of flatus. Attempting to nap. 40 IV lasix administered. VSS Assessment otherwise unchanged from prior
[2025-03-09] MEDS: NSS 500 IV (14:12)
--- NOTE | 2025-03-09 14:16 | W.PN.CARDCBS ---
Today's Communication / Plan
-
Continue amiodarone and anticoagulation
Continue hemodynamic support
Impression / Plan
-
PCP: Josh Valdez
Primary wood products manufacturer: Dr. Stephens
Impression:
Exertional chest burning
NSTEMI
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
s/p CABG x3 ALEXIS to LAD, GSV to D2, GSV to OM, ELAA 03/06/25
Inferoapical LV thrombus by echo 03/04
Ischemic cardiomyopathy, EF 25 to 30%
History of mild cardiomyopathy
Ventricular tachycardia
ICD 2010, Med[employer]onic single-chamber
Paroxysmal atrial fibrillation, new diagnosis this admission
PAD, mid right SFA occlusion and probable high-grade distal SFA stenosis
Hyper eosinophilia syndrome, on chronic steroid therapy
Churg-Lemuel syndrome
Spinal stenosis
Hyperthyroid storm
Migraines
Pancreatic cysts
Previous cardiovascular studies:
TTE: 01/15/2025: EF 40 to 45%, stage II diastolic dysfunction, basal and mid inferior, distal septal, and mid anterior septal akinesis, RV normal size and function
TTE 07/17/2024: EF 38% by Cardoza's method, 45% by visual estimation, global hypokinesis, normal RV size and function
Cardiac cath 04/16/2011: Luminal irregularities in LAD, circumflex, RCA. LAD has some calcium, EF 42%
Echo 03/04/2025: EF 25 to 30%, dilated LV with LAD distribution akinesis and hypokinesis of remaining mckeon, inferoapical LV thrombus present, MAC, aortic sclerosis, normal right heart
Plan:
Presented with NSTEMI with peak trop 0.225. s/p cardiac cath 03/04 with ruptured plaque in distal left main extending to ostium of LAD and circumflex
s/p CABG x3 ALEXIS to LAD, GSV to D2, GSV to OM, ELAA 03/06/25
Atrial fibrillation is a new diagnosis this admission.
Rates rapid at times
Maintain amiodarone, oral amiodarone increased on 3124 to 400 mg 3 times daily and also remains on IV amiodarone at present.
On IV heparin, continue
Known left ventricular thrombus.
Maintain IV heparin with eventual transition to a DOAC when okay with CT surgery
He did present with non-ST segment elevation myocardial infarction and in addition to this has known left ventricular thrombus as well as atrial fibrillation.
Maintain aspirin, Plavix, heparin. Eventual transition to mono antiplatelet + DOAC when okay per CT surgery
He has heart failure with reduced ejection fraction.
On low-dose dobutamine.
Echo this admission with EF 25-30%. EF slightly improved to 30-35% with improvement in MR to trace-mild.
GDMT of ICM as able. will need 90 day post op echo to reeval EF and presence of LV thrombus.
History of ventricular tachycardia. He does have ICD in place. There have been no sustained ventricular arrhythmias postop.
He is chronically immunocompromised, on methotrexate and prednisone for hypereosinophilic syndrome followed by Dr. Piero Garcia at [facility]
Peripheral vascular study in 2022 concern for mid right SFA occlusion and probable high-grade distal SFA stenosis. Previously saw Dr. Rosas
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
PREADMIT DATA:
80-year-old male with PMH VT s/p ICD 2010, cardiomyopathy with mildly reduced EF, peripheral arterial disease (mid right SFA occlusion and probable high-grade distal SFA stenosis), hypereosinophilic syndrome most consistent with
Churg�Lemuel/eosinophilic granulomatosis with polyangeitis, presents with 2 to 3-week history of worsening exertional chest burning during exercise at gym, causing him to stop exercise and limit activity, now getting chest burning with minimal
activity, walking room to room in house, relieved with 1 sublingual nitro. Outpatient metoprolol recently uptitrated with no improvement in symptoms. Presents to ED today after needing to take sublingual nitroglycerin multiple times at home.
Troponin mildly elevated and uptrending 0.127�0 0.127�0.212. EKG with anterior lateral ST-T wave abnormality, unchanged from recent outpatient EKG. ICD interrogated and no recent arrhythmias. Patient started on heparin drip and administered
aspirin. Has received 2 doses of sublingual nitroglycerin this morning with relief of symptoms.
Progress Note - Portable Machine Cutter
Subjective
Date of Service: March 09, 2025
He is up out of bed and into a chair. No chest pain or shortness of breath. No dizziness.
Objective
Labs:
03/09/25 04:26
03/09/25 04:26
Labs
Hgb 8.1 g/dL (13.0-18.0) L 03/09/25 04:26
Hct 25.0 % (39.0-52.0) L 03/09/25 04:26
Plt Count 143 10^3/uL (130-400) 03/09/25 04:26
PT 17.3 Sec (11.4-14.6) H 03/06/25 13:53
INR 1.36 03/06/25 13:53
APTT 54.6 Sec (23.4-35.0) H 03/09/25 10:39
Sodium 128 mmol/L (135-145) L 03/09/25 04:26
Potassium 4.3 mmol/L (3.5-5.1) 03/09/25 04:26
BUN 30 mg/dl (9-20) H 03/09/25 04:26
Creatinine 0.9 mg/dL (0.7-1.3) 03/09/25 04:26
Glucose 118 mg/dl (70-99) H 03/09/25 04:26
Vital Signs and I&O:
Vital Signs
Temp Pulse Resp BP Pulse Ox
98.3 F 116 21 119/77 92
03/09/25 13:59 03/09/25 13:59 03/09/25 13:59 03/09/25 12:00 03/09/25 13:59
Vital Signs
Temp Pulse Resp BP Pulse Ox
98.3 F 116 21 119/77 92
03/09/25 13:59 03/09/25 13:59 03/09/25 13:59 03/09/25 12:00 03/09/25 13:59
Intake & Output
03/07/25 03/08/25 03/09/25 03/10/25
06:59 06:59 06:59 05:59
Intake Total 1948.5 / 1975.0 1824.8 / 1824.8 1877.8 / 2123.6 1037.7 / 1037.7
Output Total 1140 / 1230 930 / 930 1245 / 1265 310 / 310
Balance 808.5 / 745.0 894.8 / 894.8 632.8 / 858.6 727.7 / 727.7
Physical Exam
Physical Exam
Elderly gentleman.
Sitting in a chair.
[place] catheter at right IJ
Heart is irregularly irregular and tachycardic with normal S1 and S2, no S3 no S4 there is a grad 1/6 apical holosystolic murmur, PMI is laterally and inferiorly displaced.
Lungs with decreased inspiratory effort, reduced breath sounds at both bases. No wheezes
Extremities with trace pretibial edema bilaterally
[2025-03-09] MEDS: ULTRAM 25 MG PO (14:18)
--- NOTE | 2025-03-09 14:36 | PTCARENOTE ---
Pt uncomfortable laying in bed. Attempt to reposition without benefit. Pts family at bedside Daughter 'who is a surgeon' requesting dilaudid. Daughter informed of units pain regimen and attempt to limit narcotic usage. This emphasised by pts
continued complaint of 'seeing writing when I close my eyes' Discussed options and then discussed with CT PA. Tramadol dose ordered, when in to administer it Pts daughter stated that she was opposed to tramadol d/t possible side effects....
Attempt to give education of usage of tramadol in cvicu and offered to have CT PA in to discuss pain management with her but she declined. Tylenol and tramadol administered and pt assisted to chair. Will monitor. Family encouraged to let patient
sleep
--- NOTE | 2025-03-09 16:25 | PTCARENOTE ---
States Tramadol helped with pain. Still remains unable to nap. Repositioned by RN, Lights dimmed. Will allow to rest for a while. VSS. Assessment othrwise unchanged from prior.
[2025-03-09] MEDS: SINGULAIR 10 MG PO (16:56)
[2025-03-09 18:07] LABS: APTT 36.6 Sec (23.4-35.0)
--- NOTE | 2025-03-09 20:00 | PTCARENOTE ---
Resumed care of patient at 1900. AOx3, moving all extremities, [place]. Afib with PVC's on CM, rates 110's-120's, epicardial AV wires insulated, pulses via Doppler, +1 R pedal edema, trace LE edema, heart tones audible, irregular apical pulse. Lungs dim
at the bases, 2LNC. Abdomen SNT, no nausea complaints at this time. Rosas draining clear yellow urine. All surgical sites stable as listed in the work list. RIApple Cordis with Jermaine @ 41, L radial art line, PIVx2; all applicable lines leveled, zeroed,
and calibrated. On Dobut and Heparin. Pt transferred BIB with asst x2. POC discussed with patient, in agreement, assessment of needs ongoing.
[2025-03-10] VITALS (23 sets, daily range): BP systolic 100–132; BP diastolic 69–103; PULSE 122; O2SAT 98; BMI 24.1
--- NOTE | 2025-03-10 00:05 | PTCARENOTE ---
Assessment unchanged. Patient having difficulty sleeping. Assisted to reposition. CO/CI/SVR improved with no intervention. Call gutierrez within reach, assessment of needs ongoing.
--- NOTE | 2025-03-10 01:05 | W.PN.CT ---
Today's Communication / Plan
-
-pod #4
-drips Dobutamine 1, Heparin gtt units/hr for LV thrombus and afib, Amio 0.5. Dobutamine now off this morning
-CI 2.48, CO 4.56, mVO2 pending (drawn on 1 mcg of dobutamine)
-remains in a-fib with RVR. PO amio increased
-midodrine held
-continue prednisone, atorvastatin, asa, Plavix, iron supplement, PPI, amio, heparin gtt
-maintain pw, Cordis
-encourage IS, OOB
Assessment / Plan
-
- LM & MVCAD- s/p CABG x 3 (ALEXIS to LAD, GSV to D2, GSV to OM); ELAA (40mm AtriClip) by Dr. Wallace on 03/06/25, pod #4
- Moderate MR under intraoperative JOHN assessment--MR improved to [id number] postop
- LV apical thrombus
- NSTEMI
- Ischemic cardiomyopathy, Reduced LVEF (25-30%)
- Hx of VT - s/p MDT ICD 2010
- HTN/HLD
- PAD (mid R SFA occ and prob high grade distal SFA stenosis
- Churg-Lemuel syndrome
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
- Spinal stenosis
- Hyperthyroidism
- Hx inguinal hernia repair
- Hx amauroses fugax
- b/l cataract repair
- Acute postop blood loss anemia
- Acute postop atelectasis
- Acute postop hypovolemia with subsequent hypervolemia
- Suspected acute postop pericarditis/+ rub
- Acute postop a-fib with RVR 03/07
Subjective
-
Date of Service: March 10, 2025
Objective Data
-
PT 17.3 Sec (11.4-14.6) H 03/06/25 13:53
INR 1.36 03/06/25 13:53
APTT 36.6 Sec (23.4-35.0) H 03/09/25 17:36
Vital Signs
Vital Signs
Temp Pulse Resp BP Pulse Ox
98.2 F 116 32 108/70 97
03/10/25 00:00 03/10/25 00:00 03/10/25 00:00 03/10/25 00:00 03/10/25 00:00
CT Intake/Output/Weight
03/09/25 03/09/25 03/10/25
06:59 18:59 05:59
Intake Total 679.6 / 2123.6 1530.5 / 1851.1 320.6 / 1851.1
Output Total 445 / 1265 1120 / 1365 245 / 1365
Balance 234.6 / 858.6 410.5 / 486.1 75.6 / 486.1
SaO2: 97
Physical Exam
-
General: Awake and Oriented
Cardiovascular: Irregular rate & rhythm, No Murmurs and No Rub
Respiratory: Clear, Equal and Decreased Breath Sounds
Sternum: Stable
Incision: Clean, Dry and Intact
Extremities: Edema +1
Data Reviewed
-
Lab Results: Results Reviewed
Medications: Active Meds Reviewed
Chest X-Ray: Report Reviewed
ECG: Report Reviewed
[2025-03-10] MEDS: MELATONIN 5 MG PO (01:50)
[2025-03-10 01:51] LABS: APTT 50.8 Sec (23.4-35.0)
--- NOTE | 2025-03-10 04:17 | PTCARENOTE ---
Patient unable to sleep throughout the night. Melatonin administered, repositioning, temperature adjusted, therapeutic communication; pt requested to get OOB to the chair. Assisted x2 to the chair without issue. Patient's own reading material placed
within reach. Call gutierrez within reach. Assessment of needs ongoing.
[2025-03-10 06:01] LABS: Hematocrit 26.4 % (39.0-52.0); Hemoglobin 8.7 g/dL (13.0-18.0); Mean Corp Hgb Conc. 33.0 g/dL (33.0-37.0); Mean Corpuscular Volume 102.7 fL (80.0-94.0); Platelet Count 163 10^3/uL (130-400); Red Cell Dist. Width 14.1 % (11.5-14.5)
[2025-03-10] MEDS: TYLENOL 975 MG PO ×2 (06:24→21:10)
[2025-03-10 06:27] LABS: APTT 54.1 Sec (23.4-35.0)
[2025-03-10 06:31] LABS: Blood Urea Nitrogen 30 mg/dl (9-20); Calcium 8.3 mg/dl (8.4-10.2); Carbon Dioxide 25 mmol/L (22-30); Chloride 101 mmol/L (98-107); Estimated Creatinine Clearance 87 ml/min; Glucose 101 mg/dl (70-99); Magnesium 2.2 mg/dl (1.6-2.3); Potassium 4.2 mmol/L (3.5-5.1); Sodium 128 mmol/L (135-145); eGFR > 60.00
--- NOTE | 2025-03-10 06:38 | W.PN.INTV ---
Today's Communication / Plan
Recommendations
Dobutamine has been weaned off
Remains on heparin for thrombus and amiodarone
Remains on prednisone 7 mg
Once transferred to telemetry, we will sign off. Please call with questions
Assessment
-
80-year-old male with history of not on ischemic cardiomyopathy, ventricular tachycardia with ICD in place presents with chest burning which has been progressive, found to have left main disease per cardiac catheterization, EF 40% on recent
echocardiogram, now status post CABG 03/06/2025
S/p CABG x 3, 03/06/25
Multivessel coronary disease with left main involvement per catheterization 03/04/2025
Ischemic cardiomyopathy, EF 25%
History of cardiomyopathy in the past
Postoperative anemia
History of VT, ICD 2010
Atrial fibrillation, new onset February 2025
Insomnia
Conditions present prior to admission
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
Chronic immunosuppression (steroids/methotrexate), followed at [facility]
Moderate persistent asthma
FEV1 65%, DLCO 62%
History of vascular disease, SFA occlusion
History of hyperthyroid storm
History of pancreatic cyst, awaiting ERCP at [facility]
Plan/recommendations
At this time, patient appears to be comfortable
He is without respiratory complaints
Remains on heparin, amiodarone. Dobutamine has been weaned off
Chest x-ray with decreased lung volumes right side, chronic appearing as of 03/09
Symptoms with transfer to chair improved
Abdominal imaging unremarkable
Denies abdominal symptoms at this time
Primary complaint is insomnia
Moving forward
Continue with management per CT surgery
No wheezing on exam.
Continue nebulized budesonide, DuoNebs can be pursued as needed
Can resume outpatient Symbicort at time of discharge
Patient on chronic methotrexate at 22.5 mg a week, prednisone 7 mg a day
Keep an eye on orthostasis as may require short course of stress dose steroids. Follow
Would hold methotrexate for now, unless discussion with [facility] physician as requested otherwise
Next pending dose 03/13. Would consider holding this dose and not restarting methotrexate till 03/20
Symptoms primarily are sinus
Worried about optimal healing process at this time
This was reviewed with CT surgery
Follow hemoglobin
Follow blood sugars
It is noted that EF is 25%, was 40% earlier this year
Heparin therapy for possible thrombus
Cardiology following
Reviewed with critical care nursing
Once transferred to telemetry, we will sign off. Please call with questions
Subjective Dataa
Subjective Data
Date of Service:
Date of Service: March 10, 2025
Subjective:
Primary complaint is insomnia, fatigue. Denies shortness of breath. Has mild cough. Denies sinus issues. at bedside. Patient feels better when sitting in the chair
Objective Data
Data Reviewed
Vital Signs / I&O / Oxygen:
Vital Signs
Temp Pulse Resp BP Pulse Ox
97.9 F 124 33 120/83 93
03/10/25 05:00 03/10/25 05:45 03/10/25 05:45 03/10/25 05:00 03/10/25 02:00
Intake and Output
03/08/25 03/09/25 03/10/25
06:59 06:59 05:59
Intake Total 1824.8 / 1824.8 1877.8 / 2123.6 2062.7 / 2062.7
Output Total 930 / 930 1245 / 1265 1575 / 1575
Balance 894.8 / 894.8 632.8 / 858.6 487.7 / 487.7
SaO2 [CPAP] 99
SaO2 [SIMV] 98
SaO2 93
Nasal Cannula flow liters per 2
minute
Physical Exam
General: Comfortable and Other (IJ)
HEENT: Normocephalic and Anicteric
Cardiovascular: S1-S2, Regular Rhythm, Murmur (n), Rub (n) and Peripheral Edema (Lower extremity bandage)
Respiratory: Wheeze (n), Crackles (n), Rhonchi (n) and Non-Labored Respirations
GI: Soft, Non Distended and Non Tender
Neurology: Awake, Alert and No Motor Deficits (Moves all extremities)
Skin: Cyanosis (n) and Rash (n)
Labs/Micro/Reports
Lab Data
03/10/25 05:50
03/10/25 05:50
Laboratory Results
03/09/25 03/09/25 03/10/25
10:39 17:36 01:31 EST
APTT 54.6 H 36.6 H 50.8 H
[2025-03-10] MEDS: PULMICORT 0.5 MG INH ×2 (07:18→20:25)
[2025-03-10] MEDS: DUONEB 3 ML INH ×2 (07:19→20:25)
--- NOTE | 2025-03-10 08:00 | PTCARENOTE ---
Assumed care of patient from shift supervisor melting RN. Upon assessment during rounds Pts AICD started alarming audibly . Pt states that this happens when the device isnt working. CT PA notified. A fib on monitor. AV wires insulated. RT IJ with swan at
41 cm, LT radial A line transducing. Lines leveled, recalibrated and flushed. Heparin infusing per order. Abdomen soft and non tender, appetite good. Pt and expressing frustration with pt inability to sleep at night despite intervention per
staff. Will discuss with MD when rounding. Rt lower leg dressing with drainage noted. Will monitor and change if necessary. Plan for day discussed. Will follow
[2025-03-10] MEDS: PLAVIX 75 MG PO (08:05)
[2025-03-10] MEDS: PROTONIX 40 MG PO (08:05)
[2025-03-10] MEDS: SENOKOT 8.6 MG PO ×2 (08:05→20:18)
[2025-03-10] MEDS: BACTROBAN 2% OINTMENT 1 APPLIC NASAL (08:05)
[2025-03-10] MEDS: LOW STRENGTH ASPIRIN 81 MG PO (08:05)
[2025-03-10] MEDS: REGLAN 10 MG PO ×4 (08:06→21:10)
[2025-03-10] MEDS: MUCINEX 600 MG PO ×2 (08:06→20:18)
[2025-03-10] MEDS: VITAMIN C 500 MG PO (08:06)
[2025-03-10] MEDS: DELTASONE 2 MG PO (08:06)
[2025-03-10] MEDS: PACERONE 400 MG PO ×3 (08:06→21:09)
[2025-03-10] MEDS: DELTASONE 5 MG PO (08:06)
[2025-03-10] MEDS: FOLVITE 1 MG PO (08:06)
[2025-03-10] MEDS: MAGNESIUM OXIDE 400 MG PO ×2 (08:06→20:18)
[2025-03-10] MEDS: LIPITOR 40 MG PO (08:06)
[2025-03-10] MEDS: FEOSOL 325 MG PO (08:06)
[2025-03-10] MEDS: NEURONTIN PO ×2 (08:07→15:48)
[2025-03-10] MEDS: LIDOCAINE 4% PATCH 1 PATCH TOPICAL (08:10)
[2025-03-10] MEDS: LASIX 40 MG IV (11:20)
[2025-03-10] MEDS: KCL 20 MEQ PO (11:20)
--- NOTE | 2025-03-10 12:34 | PTCARENOTE ---
Rt IJ swan removed per PA order, Followed by LT radial A line. manual pressure held x 10 minutes, hemostasis achieved w/o issue. Rosas cath removed. instructed on time and amount. VSS. Ambulated with rolling walker to Bathroom, able to have a
small bm. and voided small amount in toilet.
[2025-03-10] MEDS: NSS IV (15:46)
[2025-03-10] MEDS: TYLENOL PO (15:47)
[2025-03-10] MEDS: SINGULAIR 10 MG PO (16:07)
[2025-03-10] MEDS: HEPARIN 25000 UNITS/250 ML IV (16:08)
--- NOTE | 2025-03-10 17:05 | PTCARENOTE ---
Ambulated using rolling walker with minimal assist x 3 to bathroom. Able to void w/o issue . Yellow urine. RT JOSE dressing intact. VSS. Sitting in chair. Napping intermittently.
[2025-03-10] MEDS: NSS 500 IV (20:18)
[2025-03-10] MEDS: TOPROL XL 12.5 MG PO (20:18)
--- NOTE | 2025-03-10 21:00 | PTCARENOTE ---
Assumed care of pt from ena AVERY. Pt AAOx4. CASH. 1x assist w/ rolling walker. A-fib on the tele monitor. HR 100-120s. A/V wires insulated. BP stable. B/L radial pulses palpable. B/L PT pulses present via doppler. +1 LE / pedal edema present. Pt
on 2L NC. POX 97%. Frequent, productive, harsh cough. Lung sounds diminished in the bases. Deep breathing and IS encouraged. Abdomen round. +BSx4. Pt denies nausea/belly pain at this time. Voiding w/o issue. All surgical sites stable. R LE w/ JOSE
dressing intact. Old drainage present. Right IJ cordis and PIVx2 intact. Pt denies pain at this time. Assisted from the bed to the chair. Heparin infusing as ordered. See worklist for full nursing assessment and interventions. Call gutierrez within
reach.
[2025-03-10] MEDS: DESYREL 25 MG PO (21:10)
[2025-03-10] MEDS: NEURONTIN 100 MG PO (21:10)
--- NOTE | 2025-03-10 23:33 | PTCARENOTE ---
No change in assessment. A-fib on the tele monitor. Occasionally sinus tach. HR 110's. BP stable. POX 92% on 2 L NC. All surgical sites stable. Repositioned in bed. No pain at this time. Heparin infusing. Call gutierrez within reach.
[2025-03-11] VITALS (11 sets, daily range): BP systolic 76–146; BP diastolic 41–97; PULSE 116; O2SAT 98; BMI 23.9
[2025-03-11 03:35] LABS: APTT 44.0 Sec (23.4-35.0)
--- NOTE | 2025-03-11 03:36 | PTCARENOTE ---
No acute changes in assessment. A-fib on tele monitor. HR 110's. BP stable. 97% on 2L NC. Productive cough. OOB w/ walker and assistx1 to chair. No c/o pain at this time. Labs drawn and sent. Heparin infusing. Call gutierrez within reach.
[2025-03-11 03:39] LABS: Hematocrit 25.1 % (39.0-52.0); Hemoglobin 8.5 g/dL (13.0-18.0); Mean Corp Hgb Conc. 33.9 g/dL (33.0-37.0); Mean Corpuscular Volume 100.4 fL (80.0-94.0); Platelet Count 208 10^3/uL (130-400); Red Cell Dist. Width 13.9 % (11.5-14.5)
[2025-03-11 03:46] LABS: Blood Urea Nitrogen 33 mg/dl (9-20); Calcium 7.7 mg/dl (8.4-10.2); Carbon Dioxide 26 mmol/L (22-30); Chloride 99 mmol/L (98-107); Estimated Creatinine Clearance 76 ml/min; Glucose 96 mg/dl (70-99); Magnesium 2.4 mg/dl (1.6-2.3); Potassium 4.4 mmol/L (3.5-5.1); Sodium 128 mmol/L (135-145); eGFR > 60.00
--- NOTE | 2025-03-11 05:33 | W.PN.CT ---
Today's Communication / Plan
-
-pod #5
-Dobutamine off yesterday, amio gtt stopped. Lopressor 12.5 mg started
-remains in a-fib with RVR. PO amio increased
-midodrine held
-continue prednisone, atorvastatin, asa, Plavix, iron supplement, PPI, amio, heparin gtt
-maintain pw, Cordis
-encourage IS, OOB
Assessment / Plan
-
- LM & MVCAD- s/p CABG x 3 (ALEXIS to LAD, GSV to D2, GSV to OM); ELAA (40mm AtriClip) by Dr. Wallace on 03/06/25, pod #5
- Moderate MR under intraoperative JOHN assessment--MR improved to [id number] postop
- LV apical thrombus
- NSTEMI
- Ischemic cardiomyopathy, Reduced LVEF (25-30%)
- Hx of VT - s/p MDT ICD 2010
- HTN/HLD
- PAD (mid R SFA occ and prob high grade distal SFA stenosis
- Churg-Lemuel syndrome
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
- Spinal stenosis
- Hyperthyroidism
- Hx inguinal hernia repair
- Hx amauroses fugax
- b/l cataract repair
- Acute postop blood loss anemia
- Acute postop atelectasis
- Acute postop hypovolemia with subsequent hypervolemia
- Suspected acute postop pericarditis/+ rub
- Acute postop a-fib with RVR 03/07
Subjective
-
Date of Service: March 11, 2025
Objective Data
-
Lab Results
03/11/25 03:10
03/11/25 03:10
PT 17.3 Sec (11.4-14.6) H 03/06/25 13:53
INR 1.36 03/06/25 13:53
APTT 44.0 Sec (23.4-35.0) H 03/11/25 03:10
Vital Signs
Vital Signs
Temp Pulse Resp BP Pulse Ox
97.9 F 120 20 111/76 97
03/11/25 03:01 03/11/25 04:00 03/11/25 03:01 03/11/25 03:01 03/11/25 03:01
CT Intake/Output/Weight
03/10/25 03/10/25 03/11/25
05:59 18:59 06:59
Intake Total 532.2 / 2062.7 472.5 / 1060.0 587.5 / 1060.0
Output Total 455 / 1575 175 / 325 150 / 325
Balance 77.2 / 487.7 297.5 / 735.0 437.5 / 735.0
SaO2: 97
Physical Exam
-
General: Awake and Oriented
Cardiovascular: Regular rate & rhythm and No Murmurs
Respiratory: Clear and Equal
Sternum: Stable
Incision: Clean, Dry and Intact
Extremities: No Edema
Data Reviewed
-
Lab Results: Results Reviewed
Medications: Active Meds Reviewed
Chest X-Ray: Report Reviewed
ECG: Report Reviewed
[2025-03-11] MEDS: TYLENOL 975 MG PO ×3 (06:21→22:50)
--- NOTE | 2025-03-11 07:36 | W.PN.INTV ---
Today's Communication / Plan
Recommendations
Inotropes weaned
Amiodarone stopped
Atrial fibrillation rate controlled
Heparin drip continues
Transfer to telemetry-salt maker will sign off-call pulmonary if respiratory issues arise
Outpatient pulmonary follow-up
Assessment
-
80-year-old male with history of not on ischemic cardiomyopathy, ventricular tachycardia with ICD in place presents with chest burning which has been progressive, found to have left main disease per cardiac catheterization, EF 40% on recent
echocardiogram, now status post CABG 03/06/2025
S/p CABG x 3, 03/06/25
Multivessel coronary disease with left main involvement per catheterization 03/04/2025
Ischemic cardiomyopathy, EF 25%
History of cardiomyopathy in the past
Postoperative anemia
History of VT, ICD 2010
Atrial fibrillation, new onset February 2025
Insomnia
Conditions present prior to admission:
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
Chronic immunosuppression (steroids/methotrexate), followed at [facility]
Moderate persistent asthma
FEV1 65%, DLCO 62%
History of vascular disease, SFA occlusion
History of hyperthyroid storm
History of pancreatic cyst, awaiting ERCP at [facility]
Plan
Respiratory status stable-tolerated extubation-wean FiO2
Incentive spirometry
Increase activity
Aspiration precautions
Continue nebulized budesonide, DuoNebs can be pursued as needed
Can resume outpatient Symbicort at time of discharge
Continue to monitor chest tube output
Follow hemoglobin
Continue to follow platelet count and coags
Transfuse blood product as needed
CT surgery following chest tubes as well
Patient on chronic methotrexate at 22.5 mg a week, prednisone 7 mg a day
Keep an eye on orthostasis as may require short course of stress dose steroids. Follow
Would hold methotrexate for now, unless discussion with [facility] physician as requested otherwise
Next pending dose 03/13/25.
Would consider holding this dose and not restarting methotrexate till 03/20
Follow hemoglobin
Follow blood sugars
It is noted that EF is 25%, was 40% earlier this year
Heparin therapy for possible thrombus
Cardiology following
Early nutrition
Early mobilization
DVT prophylaxis
Reviewed with critical care nursing
Dr. Mahajan updated at the bedside 03/11/2025
Outpatient pulmonary [id number]. Szekely
Patient will be transferred to telemetry-salt maker will sign off-call pulmonary with respiratory issues
Subjective Dataa
Subjective Data
Date of Service:
Date of Service: March 11, 2025
Chief Complaint: Wire Technician Follow Up and Pulmonary Follow Up
Subjective:
Feels better, has dyspnea on exertion, pain controlled, no shortness of breath, mucus, or abdominal pain, slept better
Review of Systems
General: Other (Per HPI)
Objective Data
Data Reviewed
Vital Signs / I&O / Oxygen:
Vital Signs
Temp Pulse Resp BP Pulse Ox
97.9 F 120 20 111/76 97
03/11/25 03:01 03/11/25 06:15 03/11/25 03:01 03/11/25 03:01 03/11/25 05:33
Intake and Output
03/10/25 03/11/25 03/12/25
05:59 06:59 06:59
Intake Total 2062.7 / 2062.7 1095.0 / 1095.0
Output Total 1575 / 1575 325 / 325
Balance 487.7 / 487.7 770.0 / 770.0
SaO2 [CPAP] 99
SaO2 [SIMV] 98
SaO2 97
Nasal Cannula flow liters per 2
minute
Physical Exam
General: Respiratory Distress (n), Comfortable and Other (IJ)
HEENT: Normocephalic and Anicteric
Cardiovascular: Regular Rhythm, Murmur (n), Rub (n) and Peripheral Edema (Lower extremity bandage)
Respiratory: Wheeze (n), Crackles (n), Rhonchi (n) and Non-Labored Respirations
GI: Soft, Non Distended and Non Tender
Neurology: Awake, Alert and No Motor Deficits (Moves all extremities)
Skin: Warm, Good Color, Cyanosis (n), Jaundice (n) and Rash (n)
Labs/Micro/Reports
Lab Data
03/11/25 03:10
03/11/25 03:10
Laboratory Results
03/11/25
03:10
APTT 44.0 H
[2025-03-11] MEDS: PULMICORT 0.5 MG INH ×2 (07:57→20:34)
[2025-03-11] MEDS: LIPITOR 40 MG PO (08:39)
[2025-03-11] MEDS: REGLAN 10 MG PO ×3 (08:39→22:51)
[2025-03-11] MEDS: NEURONTIN 100 MG PO ×3 (08:40→22:51)
[2025-03-11] MEDS: VITAMIN C 500 MG PO (08:40)
[2025-03-11] MEDS: DELTASONE 5 MG PO (08:40)
[2025-03-11] MEDS: LOW STRENGTH ASPIRIN 81 MG PO (08:40)
[2025-03-11] MEDS: MUCINEX 600 MG PO ×2 (08:40→20:05)
[2025-03-11] MEDS: PLAVIX 75 MG PO (08:40)
[2025-03-11] MEDS: SENOKOT 8.6 MG PO ×2 (08:40→20:05)
[2025-03-11] MEDS: TOPROL XL 12.5 MG PO ×2 (08:40→20:05)
[2025-03-11] MEDS: PROTONIX 40 MG PO (08:40)
[2025-03-11] MEDS: PACERONE 400 MG PO ×3 (08:40→22:50)
[2025-03-11] MEDS: FEOSOL 325 MG PO (08:40)
[2025-03-11] MEDS: DELTASONE 2 MG PO (08:40)
[2025-03-11] MEDS: LIDOCAINE 4% PATCH 1 PATCH TOPICAL (08:41)
[2025-03-11] MEDS: MAGNESIUM OXIDE PO (08:41)
[2025-03-11] MEDS: FOLVITE 1 MG PO (08:43)
--- NOTE | 2025-03-11 09:37 | PTCARENOTE ---
Patient received from power and recovery shift engineer RN; AAOx3, responds spontaneously to RN and follows commands; TAZLINA; VSS; Afib with PVC's on monitor; AICD present; Epicardial AV wires insulated; +1 B/L LE edema; B/L PT pulses present with doppler and +2 radial
pulses; Shallow respirations; Strong, harsh cough with garcia, thick sputum; Lungs diminished at B/L bases; SpO2 95-97% on RA; Poor appetite; Patient urinating in urinal and bathroom; Surgical incisions intact; RIJ Cordis with KVO and heparin infusing;
PIVx2 present; See nursing documentation for further information
[2025-03-11] MEDS: FARXIGA 10 MG PO (10:48)
[2025-03-11] MEDS: LASIX 40 MG IV ×2 (10:48→16:25)
[2025-03-11 10:50] LABS: APTT 56.1 Sec (23.4-35.0)
--- NOTE | 2025-03-11 11:25 | W.PN.CARDCBS ---
Today's Communication / Plan
-
Device rep to interrogate ICD
Rate control strategy plan for atrial fibrillation. Continue IV heparin with eventual transition to NOAC plus Plavix
Diuresis able
Goal-directed medical therapy as able; may need to resume midodrine
Impression / Plan
-
PCP: Josh Valdez
Primary tie inspector: Dr. Stephens
Impression:
Exertional chest burning
NSTEMI
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
s/p CABG x3 ALEXIS to LAD, GSV to D2, GSV to OM, ELAA 03/06/25
Inferoapical LV thrombus by echo 03/04
Ischemic cardiomyopathy, EF 25 to 30%
History of mild cardiomyopathy
Ventricular tachycardia
ICD 2010, Medtronic single-chamber
Paroxysmal atrial fibrillation, new diagnosis this admission
PAD, mid right SFA occlusion and probable high-grade distal SFA stenosis
Hyper eosinophilia syndrome, on chronic steroid therapy
Churg-Lemuel syndrome
Spinal stenosis
Hyperthyroid storm
Migraines
Pancreatic cysts
Previous cardiovascular studies:
TTE: 01/15/2025: EF 40 to 45%, stage II diastolic dysfunction, basal and mid inferior, distal septal, and mid anterior septal akinesis, RV normal size and function
TTE 07/17/2024: EF 38% by Cardoza's method, 45% by visual estimation, global hypokinesis, normal RV size and function
Cardiac cath 04/16/2011: Luminal irregularities in LAD, circumflex, RCA. LAD has some calcium, EF 42%
Echo 03/04/2025: EF 25 to 30%, dilated LV with LAD distribution akinesis and hypokinesis of remaining mckeon, inferoapical LV thrombus present, MAC, aortic sclerosis, normal right heart
Plan:
Presented with NSTEMI with peak trop 0.225 s/p cardiac cath 03/04 with ruptured plaque in distal left main extending to ostium of LAD and circumflex
s/p CABG x3 ALEXIS to LAD, GSV to D2, GSV to OM, ELAA 03/06/25
-Hemodynamically stable off inotropes and pressors
-Chest tubes discontinued per CT surgery
-Temporary pacer wire management per CT surgery. Per patient and nursing there has been audible alerts from patient's ICD; will have device rep interrogate patient signed.
- Aspirin/Plavix while on IV heparin. Eventually transitioning to Plavix with NOAC when okay with CT surgery
Atrial fibrillation is a new diagnosis this admission.
-Continue rate control strategy with amiodarone
-Continue IV heparin drip and eventual transition to NOAC when okay with CT surgery
Known left ventricular thrombus.
-Maintain IV heparin with eventual transition to a NOAC when okay with CT surgery
Heart failure with reduced ejection fraction.
-Echo this admission with EF 25-30%. EF slightly improved to 30-35% with improvement in MR to trace-mild.
-Inotropes weaned off
-GDMT of ICM as able. will need 90 day post op echo to reeval EF and presence of LV thrombus.
History of ventricular tachycardia.
-He does have ICD in place. There have been no sustained ventricular arrhythmias postop.
-Device rep to interrogate/check device
He is chronically immunocompromised, on methotrexate and prednisone for hypereosinophilic syndrome followed by Dr. Piero Garcia at [facility]
Peripheral vascular study in 2022 concern for mid right SFA occlusion and probable high-grade distal SFA stenosis. Previously saw Dr. Rosas
-d/w nursing, CT surgery CHILD DEVELOPMENT PROFESSOR
PREADMIT DATA:
80-year-old male with PMH VT s/p ICD 2010, cardiomyopathy with mildly reduced EF, peripheral arterial disease (mid right SFA occlusion and probable high-grade distal SFA stenosis), hypereosinophilic syndrome most consistent with
Churg�Lemuel/eosinophilic granulomatosis with polyangeitis, presents with 2 to 3-week history of worsening exertional chest burning during exercise at gym, causing him to stop exercise and limit activity, now getting chest burning with minimal
activity, walking room to room in house, relieved with 1 sublingual nitro. Outpatient metoprolol recently uptitrated with no improvement in symptoms. Presents to ED today after needing to take sublingual nitroglycerin multiple times at home.
Troponin mildly elevated and uptrending 0.127�0 0.127�0.212. EKG with anterior lateral ST-T wave abnormality, unchanged from recent outpatient EKG. ICD interrogated and no recent arrhythmias. Patient started on heparin drip and administered
aspirin. Has received 2 doses of sublingual nitroglycerin this morning with relief of symptoms.
Progress Note - Commercial Leasing Manager
Subjective
Date of Service: March 11, 2025
Patient seen and examined with nursing at bedside. Overnight events/chart reviewed.
Objective
Labs:
03/11/25 03:10
03/11/25 03:10
Labs
Hgb 8.5 g/dL (13.0-18.0) L 03/11/25 03:10
Hct 25.1 % (39.0-52.0) L 03/11/25 03:10
Plt Count 208 10^3/uL (130-400) D 03/11/25 03:10
PT 17.3 Sec (11.4-14.6) H 03/06/25 13:53
INR 1.36 03/06/25 13:53
APTT 56.1 Sec (23.4-35.0) H 03/11/25 10:17
Sodium 128 mmol/L (135-145) L 03/11/25 03:10
Potassium 4.4 mmol/L (3.5-5.1) 03/11/25 03:10
BUN 33 mg/dl (9-20) H 03/11/25 03:10
Creatinine 0.8 mg/dL (0.7-1.3) 03/11/25 03:10
Glucose 96 mg/dl (70-99) 03/11/25 03:10
Vital Signs and I&O:
Vital Signs
Temp Pulse Resp BP Pulse Ox
98.2 F 123 18 104/70 97
03/11/25 08:57 03/11/25 08:45 03/11/25 08:57 03/11/25 08:27 03/11/25 08:57
Vital Signs
Temp Pulse Resp BP Pulse Ox
98.2 F 123 18 104/70 97
03/11/25 08:57 03/11/25 08:45 03/11/25 08:57 03/11/25 08:27 03/11/25 08:57
Intake & Output
03/09/25 03/10/25 03/11/25 03/12/25
06:59 05:59 06:59 06:59
Intake Total 1877.8 / 2123.6 2062.7 / 2062.7 1095.0 / 1095.0 52.5 / 52.5
Output Total 1245 / 1265 1575 / 1575 325 / 325
Balance 632.8 / 858.6 487.7 / 487.7 770.0 / 770.0 52.5 / 52.5
Physical Exam
Physical Exam
80-year-old gentleman on 2 L nasal cannula.
Heart: Irregularly irregular and tachycardic with normal S1 and S2, no S3 no S4 there is a grad 1/6 apical holosystolic murmur, PMI is laterally and inferiorly displaced.
Lungs with decreased inspiratory effort, reduced breath sounds at both bases. No wheezes
Extremities: Trace edema bilaterally. Right leg with dressing and serosanguineous drainage.
[2025-03-11] MEDS: FLEXERIL 5 MG PO (11:40)
--- NOTE | 2025-03-11 12:00 | PTCARENOTE ---
IV Lasix 40 ordered and given; RIJ Cordis removed by RN at bedside; 2 view CXR completed; Patient resting comfortably in chair at this time
[2025-03-11] MEDS: REGLAN PO (14:44)
--- NOTE | 2025-03-11 15:22 | CM ---
priced meds with pts [facility] perscription plan ( ID#[id number])- he has no remaining deductible this year.
entresto $135/month--- Farxiga $114/mo---Jardiance $120/mo --- eliquis $116/mo
all are tier 3 meds.
--- NOTE | 2025-03-11 16:09 | PTCARENOTE ---
JOSE dressing changed at bedside by RENEA Mccallum due to large amount of pooled serous drainage at bottom of dressing and OJSE alarming - JOSE now working well; Patient ambulating in hallway with RN - has FORTUNE but able to tolerate walk well; Patient
still complaining of poor appetite - Ensure ordered, 1500 ml fluid restriction added, and IV Lasix ordered; Patient resting comfortably in bed at this time
[2025-03-11] MEDS: SINGULAIR 10 MG PO (16:25)
[2025-03-11 17:02] LABS: APTT 53.6 Sec (23.4-35.0)
[2025-03-11] MEDS: HEPARIN 25000 UNITS/250 ML IV (17:29)
[2025-03-11] MEDS: MAGNESIUM OXIDE 400 MG PO (20:05)
[2025-03-11] MEDS: DUONEB 3 ML INH (20:33)
[2025-03-11 23:14] LABS: B.E. -5.5 mmol/L; HCO3 17.4 mmol/L (21-28); O2 Saturation % 99.2 % (94-98); PCO2 25 mmHg (35-48); PO2 121 mmHg (83-108); Potassium 5.1 mMOL/L (3.5-5.1); Sodium 124 mMOL/L (136-145)
--- NOTE | 2025-03-11 23:33 | PTCARENOTE ---
Pt reports increased SOB. Initial POX upon arrival 96% on Ra. 2 LO2 applied per pt request due to feeling sob. RT at bedside to administer ordered breathing treatment. PT continues to feel SOB post treatment, states no improvement. Pt visibly
tachypneic with increased work of breathing. POX accuracy difficult at times. Lab work and ABG ordered. RT at bedside. Oxygen increased to 6LO2 NC. POX 95%. Lungs dec. Awaiting lab results. Pt remains sitting in chair. No other changes in assessment
noted at this time. Will continue to monitor.
[2025-03-11 23:36] LABS: Hematocrit 28.1 % (39.0-52.0); Hemoglobin 8.9 g/dL (13.0-18.0); Platelet Count 239 10^3/uL (130-400)
[2025-03-11 23:52] LABS: APTT 72.6 Sec (23.4-35.0)
[2025-03-11 23:58] LABS: Blood Urea Nitrogen 42 mg/dl (9-20); Calcium 7.7 mg/dl (8.4-10.2); Carbon Dioxide 21 mmol/L (22-30); Chloride 97 mmol/L (98-107); Estimated Creatinine Clearance 47 ml/min; Glucose 107 mg/dl (70-99); Magnesium 2.7 mg/dl (1.6-2.3); Potassium 5.1 mmol/L (3.5-5.1); Sodium 130 mmol/L (135-145); eGFR 56.23
[2025-03-12] VITALS (52 sets, daily range): BP systolic 51–199; BP diastolic 20–137; PULSE 89; BMI 23.9
[2025-03-12] MEDS: CALCIUM GLUCONATE 100 IV ×3 (00:02→20:50)
[2025-03-12] MEDS: SODIUM BICARBONATE 50 MEQ IV (00:33)
[2025-03-12] MEDS: DESYREL PO (01:21)
--- NOTE | 2025-03-12 01:22 | PTCARENOTE ---
Pt received Calcium gluconate, and Bicarb. Pt called family placed on speaker to discuss plan of care. Emotional support provided. Pt reports feeling less anxious and reports no longer feeling so SOB. Repeat CXR obtained. Heparin gtt infusing as
ordered. Pt positioned in bed per comfort. Pt remains on 6L O2 NC, POX 98%, RR 20-24. Call gutierrez in reach. Will continue to monitor.
[2025-03-12] MEDS: LEVOPHED 250 IV ×3 (03:15→15:22)
[2025-03-12 03:30] LABS: Venous Blood Gas B.E. -7.9 mmol/L (-4 to +4); Venous Blood Gas O2 Sat % 68.7 %
[2025-03-12 03:35] LABS: Hematocrit 29.0 % (39.0-52.0); Hemoglobin 9.1 g/dL (13.0-18.0); Mean Corp Hgb Conc. 31.4 g/dL (33.0-37.0); Mean Corpuscular Volume 107.0 fL (80.0-94.0); Platelet Count 223 10^3/uL (130-400); Red Cell Dist. Width 14.3 % (11.5-14.5)
[2025-03-12] MEDS: LASIX 40 MG IV (03:40)
[2025-03-12] MEDS: DOBUTREX 250 IV (03:49)
--- NOTE | 2025-03-12 04:22 | W.PN.ANS.LIN ---
Anesthesia IV & A-Line Note
- IV/Arterial Line
Right Wrist Arrow 20 (07/10)
IV Line Comments: Uneventful Procedure, Multiple Attempts
A-Line Comments: Sterile technique as per standard protocol, Uneventful procedure, Ultrasound guided insertion, Biopatch applied
A-line Insertion Start Time: 03:55
A-line Insertion Stop Time: 04:10
Comments: Good wave form and blood return
[2025-03-12 04:33] LABS: Blood Urea Nitrogen 49 mg/dl (9-20); Calcium 8.8 mg/dl (8.4-10.2); Carbon Dioxide 18 mmol/L (22-30); Chloride 97 mmol/L (98-107); Estimated Creatinine Clearance 36 ml/min; Glucose 93 mg/dl (70-99); Magnesium 2.9 mg/dl (1.6-2.3); Potassium 5.6 mmol/L (3.5-5.1); Sodium 127 mmol/L (135-145); eGFR 40.75
[2025-03-12 04:39] LABS: B.E. -7.0 mmol/L; HCO3 16.9 mmol/L (21-28); O2 Saturation % 100.0 % (94-98); PCO2 28 mmHg (35-48); PO2 165 mmHg (83-108); Potassium 5.5 mMOL/L (3.5-5.1)
[2025-03-12 04:43] LABS: O2 Therapy 6L
[2025-03-12] MEDS: SODIUM BICARBONATE 100 MEQ IV (04:56)
[2025-03-12] MEDS: ZOFRAN 4 MG IV (05:10)
[2025-03-12 05:13] LABS: Glucose - Point of Care 17 mg/dl (70-99)
[2025-03-12] MEDS: DEXTROSE 50% SYRINGE 25 GRAMS IV (05:19)
[2025-03-12] MEDS: NOVOLIN R 10 UNITS IV (05:19)
[2025-03-12 05:46] LABS: Glucose 94 mg/dl (70-99)
[2025-03-12 05:53] LABS: B.E. -0.9 mmol/L; HCO3 23.4 mmol/L (21-28); O2 Saturation % 99.5 % (94-98); PCO2 36 mmHg (35-48); PO2 128 mmHg (83-108); Potassium 5.1 mMOL/L (3.5-5.1)
[2025-03-12 06:09] LABS: APTT 54.8 Sec (23.4-35.0)
--- NOTE | 2025-03-12 06:20 | PTCARENOTE ---
Pt with continued complaints of SOB. Pt unable to sleep. BP dropping. Levophed and Dobutamine started per MD order. Repeat lab work obtained. Results reviewed, orders obtained, see JUL. Anesthesia at bedside to place [place] for accurate BP
measurements. Bedside finger stick glucose inaccurate, glucose levels obtained via lab draw. Pt given 40mg IV lasix with no urine output, Bladder scanned for 57ml. Male external pure wick in place. Pt with moist productive cough, sputum sent for
culture. pt remains afebrile. HR in the 90's in Afib on the monitor. Cool extremities, pox difficult to obtain, spot checking, POX 95% on 6LO2 NC. Serial ABG's obtained. Warm blankets provided. pt exhausted and now resting. Niraj Castillo PA-C at
bedside t/o the night to monitor pt and in constant communication with Dr. Wallace. All orders followed as directed. Will continue to monitor closely.
--- NOTE | 2025-03-12 07:06 | W.PN.UPDATE ---
Update Note
Progress Note Update
CARDIAC SURGERY ATTENDING:
Mr. Ortega Hunter is well-known to me. He is currently POD#6 s/p CABG x 3 (ALEXIS to LAD, GSV to D2, GSV to OM) ELAA. Yesterday he was doing quite well and ambulating in hallway. Over the evening last evening he decompensated with worsening
shortness of breath, lactemia (peak 11.3, down to 4.3 this morning), and essentially no urine output. I reinstituted inotrope therapy and administered 40 mg of IV Lasix. His hemodynamics improved slightly with reinstitution of dobutamine, but he
had essentially no response to the intravenous Lasix. I believe this decompensation is secondary to postoperative mobilization of his interstitial volume with resultant worsening MR (known volume sensitive MR). It is my hope that with
pharmacologic support and successful diuresis he will continue to improve.
N: Intact
CV: Heart rate 98, AF, on heparin drip. Blood pressure 94/47 on dobutamine at 5, Levophed at 8. Hold beta-blockers. Obtain stat echo this morning. Patient with known cardiomyopathy with LVEF 25%, inferoapical LV thrombus. Status post prior AICD
placed in 2010... UPDATE: echo completed at bedside this AM. LVEF ~30%, inferoapical thrombus unchanged, no significant pericardial effusions, worsened MR (moderate) - official read pending
P: On 6 L O2 via nasal cannula, pulse oximetry is not registering. Last blood gas from 03/12/2025 at 0545 hrs.: 7.4 2/36/128/20 3.4/-0.9/99.5. Chest x-ray with right basilar effusion, will arrange for interventional radiology to evaluate for R
thoracentesis. Encourage IS, OOB, chest PT
GI: Keep n.p.o. this morning, previously tolerating p.o.
: Patient with anuria despite Lasix. Creatinine up to 1.7 (1.3, 0.8, 0.7 previously). Consult nephrology. Place Rosas. Start Bumex drip.
HEME: Hemoglobin stable at 9.1, platelets 223
ID: Significant increase in white blood cell count to 17K from 9.5K. Leigh-culture. Start empiric antibiotics.
ENDO: Blood sugar 94
FEN: Potassium 5.6, treated; calcium 7.7, replaced repeat, 8.8, magnesium 2.9
DISPO: ICU, full code
Family updated
Kristian Wallace M.D.
[phone]
[2025-03-12] MEDS: PULMICORT 0.5 MG INH ×2 (07:20→19:47)
[2025-03-12] MEDS: DUONEB 3 ML INH ×2 (07:21→19:47)
[2025-03-12 08:08] LABS: B.E. -0.8 mmol/L; HCO3 23.2 mmol/L (21-28); O2 Saturation % 99.8 % (94-98); PCO2 35 mmHg (35-48); PO2 141 mmHg (83-108); Potassium 4.4 mMOL/L (3.5-5.1)
[2025-03-12] MEDS: BUMEX 100 IV ×2 (08:08→15:02)
[2025-03-12 08:11] LABS: Urine Character Clear (Clear)
[2025-03-12 08:37] LABS: Urine Squamous Cell 0-2 /LPF (Few)
[2025-03-12] MEDS: LIDOCAINE 4% PATCH 1 PATCH TOPICAL (08:46)
[2025-03-12] MEDS: TYLENOL 975 MG PO ×3 (08:46→22:22)
[2025-03-12] MEDS: PACERONE 400 MG PO ×3 (08:47→22:23)
[2025-03-12] MEDS: FEOSOL 325 MG PO (08:47)
[2025-03-12] MEDS: DELTASONE 2 MG PO (08:47)
[2025-03-12] MEDS: PROTONIX 40 MG PO (08:47)
[2025-03-12] MEDS: MUCINEX 600 MG PO ×2 (08:47→20:37)
[2025-03-12] MEDS: VITAMIN C 500 MG PO (08:47)
[2025-03-12] MEDS: DELTASONE 5 MG PO (08:47)
[2025-03-12] MEDS: NEURONTIN 100 MG PO ×3 (08:47→22:23)
[2025-03-12] MEDS: LOW STRENGTH ASPIRIN 81 MG PO (08:47)
[2025-03-12] MEDS: SENOKOT 8.6 MG PO ×2 (08:47→20:37)
[2025-03-12] MEDS: MAGNESIUM OXIDE 400 MG PO ×2 (08:47→20:37)
[2025-03-12] MEDS: LIPITOR 40 MG PO (08:47)
[2025-03-12] MEDS: REGLAN 10 MG PO ×3 (08:47→22:22)
[2025-03-12] MEDS: PLAVIX 75 MG PO (08:48)
--- NOTE | 2025-03-12 09:40 | PTCARENOTE ---
Pt received from cook night RN. Pt is oriented x3 and appropriate, he has not slept well this past week, between assessments he is taking cat naps. This is an improvement bc overnight he was too SOB to get any rest. He currently feels much less SOB
but still appears uncomfortable with his shoulders rising with each breath. R radial A line in place, zeroed and flushed, correlating well with NIBP. Existing R chest AICD in place, AV epicardial wires insulated. AFib on tele with rates in the
100's. +2 LE and +3 pedal edema. Fingers and toes are cool and cyanotic. Rosas placed for critical I&O's and bumex gtt started at 2mg/hr. Pt is putting out about 50mls/hr currently. He was able to eat a small breakfast this AM. Hypoactive bowels. R
groin puncture site intact. R calf JOSE with dressing saturated. IV sites intact. Heparin, dobutamine and norepi currently infusing.
[2025-03-12] MEDS: HEPARIN 25000 UNITS/250 ML IV (10:19)
[2025-03-12] MEDS: MAXIPIME 1000 MG IV ×2 (10:20→17:33)
[2025-03-12] MEDS: STERILE WATER FOR INJECTION 10 ML IV ×2 (10:20→17:33)
[2025-03-12 11:36] LABS: Glucose - Point of Care 145 mg/dl (70-99)
[2025-03-12 12:08] LABS: APTT 95.6 Sec (23.4-35.0)
[2025-03-12 12:42] LABS: Albumin 2.8 g/dl (3.5-5.0); Alkaline Phosphatase 143 U/L (38-126); Blood Urea Nitrogen 57 mg/dl (9-20); Calcium 8.3 mg/dl (8.4-10.2); Carbon Dioxide 24 mmol/L (22-30); Chloride 94 mmol/L (98-107); Estimated Creatinine Clearance 30 ml/min; Glucose 143 mg/dl (70-99); Potassium 4.7 mmol/L (3.5-5.1); Sodium 123 mmol/L (135-145); Total Protein 4.9 g/dl (6.3-8.2); eGFR 33.53
[2025-03-12 13:15] LABS: ALT (SGPT) 3027 U/L (0-50); AST (SGOT) 5371 U/L (17-59)
--- NOTE | 2025-03-12 13:18 | W.PN.CARDCBS ---
Today's Communication / Plan
-
On inotrope support
On IV diuretic drip
Rate controlling atrial fibrillation with amiodarone
Creatinine is somewhat worse today
Prognosis is guarded
Impression / Plan
-
PCP: Josh Valdez
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 Stephens
Impression:
Exertional chest burning
NSTEMI
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
s/p CABG x3 ALEXIS to LAD, GSV to D2, GSV to OM, ELAA 03/06/25
Inferoapical LV thrombus by echo 03/04
Ischemic cardiomyopathy, EF 25 to 30%
History of mild cardiomyopathy
Ventricular tachycardia
ICD 2010, Medtronic single-chamber
Paroxysmal atrial fibrillation, new diagnosis this admission
PAD, mid right SFA occlusion and probable high-grade distal SFA stenosis
Hyper eosinophilia syndrome, on chronic steroid therapy
Churg-Lemuel syndrome
Spinal stenosis
Hyperthyroid storm
Migraines
Pancreatic cysts
Previous cardiovascular studies:
TTE: 01/15/2025: EF 40 to 45%, stage II diastolic dysfunction, basal and mid inferior, distal septal, and mid anterior septal akinesis, RV normal size and function
TTE 07/17/2024: EF 38% by Cardoza's method, 45% by visual estimation, global hypokinesis, normal RV size and function
Cardiac cath 04/16/2011: Luminal irregularities in LAD, circumflex, RCA. LAD has some calcium, EF 42%
Echo 03/04/2025: EF 25 to 30%, dilated LV with LAD distribution akinesis and hypokinesis of remaining mckeon, inferoapical LV thrombus present, MAC, aortic sclerosis, normal right heart
Plan:
Presented with NSTEMI with peak trop 0.225 s/p cardiac cath 03/04 with ruptured plaque in distal left main extending to ostium of LAD and circumflex
s/p CABG x3 ALEXIS to LAD, GSV to D2, GSV to OM, ELAA 03/06/25
- We will see how he does over time on inotrope therapy and Bumex drip. His creatinine is up to 2.0 today and will have to follow closely.
-Chest tubes discontinued per CT surgery
- Aspirin/Plavix while on IV heparin. Eventually transitioning to Plavix with NOAC when okay with CT surgery
Atrial fibrillation is a new diagnosis this admission.
-Continue rate control strategy with amiodarone
-Continue IV heparin drip and eventual transition to NOAC when okay with CT surgery
Known left ventricular thrombus.
-Maintain IV heparin with eventual transition to a NOAC when okay with CT surgery
Heart failure with reduced ejection fraction.
-Echo this admission with EF 25-30%. EF slightly improved to 30-35% with improvement in MR to trace-mild.
- Now on dobutamine and Bumex drip. Could consider repeat right heart catheterization if volume status is difficult to manage
-GDMT of ICM as able. will need 90 day post op echo to reeval EF and presence of LV thrombus.
History of ventricular tachycardia.
-He does have ICD in place. There have been no sustained ventricular arrhythmias postop.
He is chronically immunocompromised, on methotrexate and prednisone for hypereosinophilic syndrome followed by Dr. Piero Garcia at [facility]
Peripheral vascular study in 2022 concern for mid right SFA occlusion and probable high-grade distal SFA stenosis. Previously saw Dr. Rosas
-d/w nursing, CT surgery RN CLINICAL TRIALS
Progress Note - Income Auditor
Subjective
Date of Service: March 12, 2025
Creatinine worse today
Requiring inotrope and Bumex drip
Objective
Labs:
03/12/25 03:22
Labs
Hgb 9.1 g/dL (13.0-18.0) L 03/12/25 03:22
Hct 29.0 % (39.0-52.0) L 03/12/25 03:22
Plt Count 223 10^3/uL (130-400) 03/12/25 03:22
PT 17.3 Sec (11.4-14.6) H 03/06/25 13:53
INR 1.36 03/06/25 13:53
APTT 95.6 Sec (23.4-35.0) H 03/12/25 11:25
Sodium 123 mmol/L (135-145) L 03/12/25 11:
Potassium 4.7 mmol/L (3.5-5.1) 03/12/25 11:
BUN 57 mg/dl (9-20) H 03/12/25 11:
Creatinine 2.0 mg/dL (0.7-1.3) H 03/12/25:
Glucose 143 mg/dl (70-99) H 03/12/25 11:
Vital Signs and I&O:
Vital Signs
Temp Pulse Resp BP Pulse Ox
99.9 F 106 18 97/46 99
03/12/25 08:00 03/12/25 08:30 03/12/25 07:23 03/12/25 09:00 03/12/25 09:36
Vital Signs
Temp Pulse Resp BP Pulse Ox
99.9 F 106 18 97/46 99
03/12/25 08:00 03/12/25 08:30 03/12/25 07:23 03/12/25 09:00 03/12/25 09:36
Intake & Output
03/10/25 03/11/25 03/12/25 03/13/25
05:59 06:59 06:59 06:59
Intake Total 2.7 / 2062.7 1095.0 / 1095.0 1470.8 / 1470.8 754.0 / 754.0
Output Total 1575 / 1575 325 / 325 290 / 290
Balance 487.7 / 487.7 770.0 / 770.0 1470.8 / 1470.8 464.0 / 464.0
Physical Exam
Physical Exam
����Physical Exam
���������������������General:�He appears ill
���������������������������Neck:��supple. no meningeal signs. normal psoterior pharynx
������������������������
���������������������������Heart:��s1/s2 irregularly irregular rhythm
��������������������������Lungs: ��Diminished bilaterally
����������������������Abdomen:�normal bowel sounds. not tender. no CVAT
��������������������������Neuro:�He is arousable but not completely oriented
������������������������������Skin: ��no rash
�����������������������Psychiatric:�well kept. interactive and cooperative
�����������������������Extremities:��no edema. no calf tenderness. negative homans. good distal pulses
��
�
[2025-03-12] MEDS: NSS IV (13:52)
[2025-03-12] MEDS: REGLAN PO (14:55)
--- NOTE | 2025-03-12 15:04 | W.CON.NEPH ---
Consultation
-
Date/Time Consultation Requested: March 12, 2025 9 AM
Date/Time Consultation Performed: March 12, 2020 5:10 AM
Requesting Provider: Kristian Wallace
Performing Provider: Dr. Scott
Reason for Consultation: Acute kidney injury
Medical History
-
Chief Complaint: Acute kidney injury
History of Present Illness:
80-year-old male with complex past medical history including Churg�Lemuel/eosinophilic granulomatosis with polyangeitis, followed by Dr. Piero Garcia at [facility] (methotrexate and prednisone), ventricular tachycardia status post MDT ICD
(2010)-non-ischemic cardiomyopathy (EF 40-45%), peripheral arterial disease (mid right SFA occlusion and probable high-grade distal SFA stenosis). Patient was admitted to [facility] ER 03/04/25 with progressively worsening exertional midsternal chest
burning for the past 2 to 3 weeks that progressed further last night to occurring after washing dishes. Took a NTG with relief. . Patient ruled in for NSTEMI (troponin I 0.225) and was taken to the catheterization lab. Left main/multivessel
coronary disease was identified. A TTE reported a decrease in LV function to 25-30% with LV thrombus. CT surgery and ultimately underwent coronary artery bypass graft on March 06, 2025. Patient was relatively stable until last night he became
short of breath decreased urine output worsening kidney function. He was placed on a Bumex drip with improved urine output he is on inotropic support. He is rate controlled on amiodarone.
Renal consultation for acute kidney injury
Past Medical History
complex past medical history including Churg�Lemuel/eosinophilic granulomatosis with polyangeitis, followed by Dr. Piero Garcia at [facility] (methotrexate and prednisone), ventricular tachycardia status post MDT ICD (2010)-never shocked, non-ischemic
cardiomyopathy (EF 40-45%), peripheral arterial disease (mid right SFA occlusion and probable high-grade distal SFA stenosis).
Social History
Tobacco: Non-Smoker
Alcohol: None
Family History
Family History: Not Pertinent
Allergies / Home Medications
Allergy/AdvReac Type Severity Reaction Status Date / Time
amlodipine (From [facility]) Allergy edema Verified 10/24/24 20:47
levofloxacin Allergy Rash Verified 03/04/25 01:49
Penicillins Allergy GI upset, Verified 03/04/25 01:49
vomiting
Quinolones Allergy Rash Verified 03/04/25 01:49
Sulfa (Sulfonamide Allergy Hives, rash Verified 03/04/25 01:49
Antibiotics)
sulfasalazine Allergy Hives, rash Verified 03/04/25 01:49
�Medication �Instructions �Recorded �Confirmed �Type
aspirin 81 mg tablet,delayed 1 tab PO DAILY Blood Clot 11/07/10 03/04/25 History
release Prevention/Tx
budesonide-formoterol HFA 80 2 puff inhalation R BID 10/26/19 03/04/25 History
mcg-4.5 mcg/actuation aerosol Lung/Breathing Issues
inhaler (Symbicort)
folic acid 1 mg tablet 1 mg PO SUMOTUTHFRSA Supplement 10/26/19 03/04/25 History
losartan 25 mg tablet 12.5 mg PO HS Blood Pressure 10/26/19 03/04/25 History
methotrexate sodium 2.5 mg tablet 22.5 mg PO WE Autoimmune Disorder 10/26/19 03/04/25 History
metoprolol succinate 25 mg 25 mg PO DAILY Heart 10/26/19 03/04/25 History
tablet,extended release 24 hr Disease/Condition
montelukast 10 mg tablet 10 mg PO QPM Allergies 10/26/19 03/04/25 History
prednisone 5 mg tablet 7 mg PO DAILY Anti-Inflammatory 10/26/19 03/04/25 History
atorvastatin 10 mg tablet 10 mg PO DAILY High Cholesterol 04/18/23 03/04/25 History
calcium 600 mg capsule 600 mg PO DAILY Supplement 04/18/23 03/04/25 History
cholecalciferol (vitamin D3) 50 50 mcg PO DAILY Supplement 04/18/23 03/04/25 History
mcg (2,000 unit) tablet (Vitamin
D3)
multivitamin 1 tab PO DAILY Supplement 04/18/23 03/04/25 History
Review of Systems
-
Mild shortness of breath no chest pain
All other systems: Negative unless noted
Physical Exam
Vital Signs
Vital Signs
Temp Pulse Resp BP Pulse Ox
99.9 F 106 18 126/70 99
03/12/25 13:52 03/12/25 13:30 03/12/25 07:23 03/12/25 13:30 03/12/25 09:36
Lab Results
WBC 17.0 10^3/uL (4.8-10.8) H 03/12/25 03:22
RBC 2.71 10^6/uL (4.70-6.10) L 03/12/25 03:22
Hgb 9.1 g/dL (13.0-18.0) L 03/12/25 03:22
Hct 29.0 % (39.0-52.0) L 03/12/25 03:22
Plt Count 223 10^3/uL (130-400) 03/12/25 03:22
eGFR 33.53 03/12/25 11:25
Rrm-F-Xbhhbgqnzjz Pept 3830 pg/ml 03/04/25 08:14
Albumin 2.8 g/dl (3.5-5.0) L 03/12/25 11:25
Albumin Cancelled 03/12/25 11:25
Physical Exam
General no acute distress
HEENT no cephalic atraumatic extraocular muscle intact no scleral icterus no JVD neck supple
lungs coarse breath sounds
heart regular S1-S2 positive with ectopy
abdomen soft nontender positive bowel sounds
extremities + edema pulses present bilateral
Neurologically nonfocal alert and oriented x 3
Skin no lesions no abrasions no petechiae
Psych normal affect no bizarre behavior
Data Reviewed
-
Radiology: Image Personally Visualized and interpreted
Labs: Labs Reviewed by me, Discussed with Physician, Discussed with Nurse and Discussed with Patient
Assessment/Plan
-
80-year-old male with complex past medical history including Churg�Lemuel/eosinophilic granulomatosis with polyangeitis, followed by Dr. Piero Garcia at [facility] (methotrexate and prednisone), ventricular tachycardia status post MDT ICD
(2010)-non-ischemic cardiomyopathy (EF 40-45%), peripheral arterial disease (mid right SFA occlusion and probable high-grade distal SFA stenosis). Patient was admitted to [facility] ER 03/04/25 with progressively worsening exertional midsternal chest
burning for the past 2 to 3 weeks that progressed further last night to occurring after washing dishes. Took a NTG with relief. . Patient ruled in for NSTEMI (troponin I 0.225) and was taken to the catheterization lab. Left main/multivessel
coronary disease was identified. A TTE reported a decrease in LV function to 25-30% with LV thrombus. CT surgery and ultimately underwent coronary artery bypass graft on March 06, 2025. Patient was relatively stable until last night he became
short of breath decreased urine output worsening kidney function. He was placed on a Bumex drip with improved urine output he is on inotropic support. He is rate controlled on amiodarone.
Renal consultation for acute kidney injury/hyponatremia 127/hyperkalemia 5.6
Impression
Acute kidney injury creatinine baseline is 0.8 increased up to 1.7�2.
CHF.
Status post CABG.
Vasculopath.
Hyponatremia 127
Transaminitis
Plan.
Acuity with hyponatremia/hyperkalemia/acute kidney injury secondary to decreased effective arterial blood volume
Agree with diuretic therapy Bumex drip.
Inotropic support
Daily weight/sodium restriction
SGLT2 inhibitor on hold.
Consider albumin in the next 24 hours
Anticipate that we will need to increase the Bumex drip if no significant output with bolus this time
Prognosis guarded

33 minutes critical care
--- NOTE | 2025-03-12 16:02 | CM ---
spoke with [facility], they will accept pt when medically ready, still on 6 liters o2. will need to assess bed avail at that time.
[2025-03-12] MEDS: SINGULAIR 10 MG PO (17:32)
[2025-03-12] MEDS: FOLVITE PO (17:33)
[2025-03-12 18:31] LABS: APTT 135.3 Sec (23.4-35.0)
--- NOTE | 2025-03-12 18:34 | PTCARENOTE ---
Pt slept for 5 hours, during which his urine output steadily increased while on bumex gtt. Total output ~1300mls this shift. Norepinephrine tapered down to 4 mcgs with MAP's>65. Pt currently awake and feeling much better, he said breathing only
feels slightly labored at this point, he tells me 06/18. Repeat labs drawn at 1800. Family updated.
[2025-03-12 18:48] LABS: Blood Urea Nitrogen 59 mg/dl (9-20); Calcium 7.9 mg/dl (8.4-10.2); Carbon Dioxide 29 mmol/L (22-30); Chloride 92 mmol/L (98-107); Estimated Creatinine Clearance 32 ml/min; Glucose 120 mg/dl (70-99); Potassium 4.3 mmol/L (3.5-5.1); Sodium 124 mmol/L (135-145); eGFR 35.66
--- NOTE | 2025-03-12 20:00 | PTCARENOTE ---
Assumed care of patient at 1900. Patient found resting in bed at time of assessment. Patient is AOx4, follows commands appropriately, moves all extremities. Lung sounds are diminished in the bases, saO2 97% on 6L via NC. Heart sounds are audible,
there is an irregular apical pulse, patient is afib on the monitor. Patient has normal palpable radial pulses, R dosalis pedis available with doppler and L PT present with doppler. Patient has +1 generalized ansarca and +1 pedal edema. Patient has
active BS in all four and a moore draining clear yellow urine. 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 Patient has multiples lines: R hand
22G L hand 22G R AC and L FA PIV. Patient has a R radial kimmie and R arm PICC. There is a heparin gtt currently infusing at 1550 units/hr, Dobut@5, Levo@4 and Bumex@2. VSS.
[2025-03-12] MEDS: DESYREL 25 MG PO (22:23)
[2025-03-13] VITALS (25 sets, daily range): BP systolic 66–143; BP diastolic 44–114; PULSE 114; BMI 22.7
--- NOTE | 2025-03-13 | PTCARENOTE ---
Patient reassessed. Remains in afib on the monitor. O2 weaned to 4L. Levo remains @4. High UOP noted. Call gutierrez within reach.
[2025-03-13] MEDS: BUMEX 100 IV (01:48)
[2025-03-13] MEDS: MAXIPIME 1000 MG IV ×3 (02:55→16:47)
[2025-03-13] MEDS: STERILE WATER FOR INJECTION 10 ML IV ×3 (02:56→16:47)
--- NOTE | 2025-03-13 03:08 | PTCARENOTE ---
Assumed care of patient at 1900. Patient found resting in bed at time of assessment. Patient is AOx4, follows commands appropriately, moves all extremities. Lung sounds are diminished in the bases, saO2 97% on 6L via NC. Heart sounds are audible,
there is an irregular apical pulse, patient is afib on the monitor. Patient has normal palpable radial pulses, R dosalis pedis available with doppler and L PT present with doppler. Patient has +1 generalized ansarca and +1 pedal edema. Patient has
active BS in all four and a moore draining clear yellow urine. 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 Patient has multiples lines: R hand
22G L hand 22G R AC and L FA PIV. Patient has a R radial kimmie and R arm PICC. There is a heparin gtt currently infusing at 1550 units/hr, Dobut@5, Levo@4 and Bumex@2. VSS.
[2025-03-13 03:10] LABS: Hematocrit 23.6 % (39.0-52.0); Hemoglobin 8.3 g/dL (13.0-18.0); Mean Corp Hgb Conc. 35.2 g/dL (33.0-37.0); Mean Corpuscular Volume 97.5 fL (80.0-94.0); Platelet Count 211 10^3/uL (130-400); Red Cell Dist. Width 14.0 % (11.5-14.5)
[2025-03-13 03:25] LABS: APTT 143.1 Sec (23.4-35.0)
[2025-03-13] MEDS: HEPARIN 25000 UNITS/250 ML IV (03:26)
[2025-03-13 04:11] LABS: Albumin 2.9 g/dl (3.5-5.0); Alkaline Phosphatase 150 U/L (38-126); Blood Urea Nitrogen 58 mg/dl (9-20); Calcium 8.0 mg/dl (8.4-10.2); Carbon Dioxide 31 mmol/L (22-30); Chloride 92 mmol/L (98-107); Estimated Creatinine Clearance 32 ml/min; Glucose 108 mg/dl (70-99); Potassium 3.8 mmol/L (3.5-5.1); Sodium 126 mmol/L (135-145); Total Protein 5.1 g/dl (6.3-8.2); eGFR 35.66
[2025-03-13 04:39] LABS: ALT (SGPT) 2852 U/L (0-50); AST (SGOT) 3936 U/L (17-59)
--- NOTE | 2025-03-13 05:53 | PTCARENOTE ---
Patient reassessed. VSS. No c/o pain. AM hygiene care provided. AM labs obtained. VSS. CT wound dressing changed. Heparin titrated to 1350 per protocol.
[2025-03-13] MEDS: TYLENOL 975 MG PO ×3 (06:12→21:22)
[2025-03-13] MEDS: KLOR-CON 40 MEQ PO (06:42)
--- NOTE | 2025-03-13 07:43 | W.PN.CT ---
Today's Communication / Plan
-
-pod #7
-looks and feels much better comparing to 03/12. No further SOB
-drips: Dobut 5, Levo 3, Bumex 2, Heparin 1350
-diuresed well- UO 3185/4835 in 12/24 hrs. wt is down 4 kg in 24 hrs
-gave 40 KCL this am for K 3.8
-encourage IS, OOB
-ambulate
Assessment / Plan
-
- LM & MVCAD- s/p CABG x 3 (ALEXIS to LAD, GSV to D2, GSV to OM); ELAA (40mm AtriClip) by Dr. Wallace on 03/06/25, pod #7
- Moderate MR under intraoperative JOHN assessment--MR improved to [id number]-[id number] postop
- LV apical thrombus
- NSTEMI
- Ischemic cardiomyopathy, Reduced LVEF (25-30%)
- Hx of VT - s/p MDT ICD 2010
- HTN/HLD
- PAD (mid R SFA occ and prob high grade distal SFA stenosis
- Churg-Lemuel syndrome
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
- Spinal stenosis
- Hyperthyroidism
- Hx inguinal hernia repair
- Hx amauroses fugax
- b/l cataract repair
- Acute postop blood loss anemia
- Acute postop atelectasis
- Acute postop hypovolemia with subsequent hypervolemia
- Suspected acute postop pericarditis/+ rub
- Acute postop a-fib with RVR 03/07
- Acute postop cardiogenic shock
- LARA
- Acute postop hyponatremia
- Acute postop abnormal LFTs
Discussed patient care with: Nursing and Care Team
Subjective
-
Date of Service: March 13, 2025
Objective Data
-
Lab Results
03/13/25 02:44
PT 17.3 Sec (11.4-14.6) H 03/06/25 13:53
INR 1.36 03/06/25 13:53
APTT 143.1 Sec (23.4-35.0) H 03/13/25 02:44
Vital Signs
Vital Signs
Temp Pulse Resp BP Pulse Ox
99.1 F 124 20 121/67 93
03/13/25 04:00 03/13/25 05:30 03/13/25 04:00 03/13/25 03:00 03/13/25 04:00
CT Intake/Output/Weight
03/12/25 03/13/25 03/13/25
18:59 06:59 18:59
Intake Total 1120.0 / 2542.7 1422.7 / 2542.7
Output Total 1650 / 5585 3935 / 5585
Balance -530.0 / -3042.3 -2512.3 / -3042.3
SaO2: 93
Physical Exam
-
General: Awake and AOx3
Cardiovascular: Irregular rate & rhythm, No Murmurs and No Rub
Respiratory: Decreased Breath Sounds
Sternum: Stable
Incision: Clean, Dry and Intact
Extremities: Edema +2
Abdomen: soft, nontender, nondistended, + bowel sounds
Data Reviewed
-
Lab Results: Results Reviewed
Medications: Active Meds Reviewed
Chest X-Ray: Report Reviewed and Image Reviewed
ECG: Report Reviewed and Image Reviewed
--- NOTE | 2025-03-13 08:00 | PTCARENOTE ---
AFIB HR 115. 96% 4L nc. prod moist cough. lungs diminished. poor appetite. moore draining clear yellow urine. pulses by doppler. dobut, levo, bumex and heparin gtt infusing as ordered. All surgical sites intact. will redrqaw labs this afternoon.
will continue to monitor.
[2025-03-13] MEDS: LEVOPHED 250 IV (08:02)
[2025-03-13] MEDS: MUCINEX 600 MG PO ×2 (08:02→19:59)
[2025-03-13] MEDS: DELTASONE 2 MG PO (08:02)
[2025-03-13] MEDS: PROTONIX 40 MG PO (08:02)
[2025-03-13] MEDS: FEOSOL 325 MG PO (08:02)
[2025-03-13] MEDS: SENOKOT 8.6 MG PO ×2 (08:03→19:59)
[2025-03-13] MEDS: PACERONE 400 MG PO ×3 (08:03→21:24)
[2025-03-13] MEDS: PLAVIX 75 MG PO (08:04)
[2025-03-13] MEDS: REGLAN 10 MG PO ×4 (08:05→21:24)
[2025-03-13] MEDS: LOW STRENGTH ASPIRIN 81 MG PO (08:05)
[2025-03-13] MEDS: LIDOCAINE 4% PATCH TOPICAL (08:06)
[2025-03-13] MEDS: NEURONTIN 100 MG PO ×3 (08:06→21:22)
[2025-03-13] MEDS: LIPITOR 40 MG PO (08:06)
[2025-03-13] MEDS: MAGNESIUM OXIDE 400 MG PO ×2 (08:07→19:59)
[2025-03-13] MEDS: VITAMIN C 500 MG PO (08:07)
[2025-03-13] MEDS: DELTASONE 5 MG PO (08:07)
[2025-03-13] MEDS: PULMICORT 0.5 MG INH ×2 (08:14→20:01)
--- NOTE | 2025-03-13 11:00 | PTCARENOTE ---
oob to chair with heavy assist. became hypotensive but still tolerated transfer. remains on levo at 2mcg. weaned to 3L
--- NOTE | 2025-03-13 12:13 | CM ---
Reviewed chart. Met with Mr. and Mrs. Hunter to review discharge plans. He states he is feeling okay. He states he would like to explore acute rehab. at [facility]. at [place]. [facility] to update her.
--- NOTE | 2025-03-13 12:15 | CM ---
Reviewed chart. Met with and Mrs. Hunter to review discharge plans. He states he is feeling okay. He states [facility] [place]. Telephone call to [facility] liaison to review and give update.
Fabian need to confirm with [facility]. bed availability closer to discharge date. Medical work-up in progress. The discharge plan is to go to [facility]. at [place] when medically stable.
[2025-03-13] MEDS: NSS IV (13:27)
--- NOTE | 2025-03-13 13:30 | W.PN.NEPH.PH ---
Today's Communication / Plan
-
follow BMP
Assessment/Plan
-
80-year-old male with complex past medical history including Churg�Lemuel/eosinophilic granulomatosis with polyangeitis, followed by Dr. Piero Garcia at [facility] (methotrexate and prednisone), ventricular tachycardia status post MDT ICD
(2010)-non-ischemic cardiomyopathy (EF 40-45%), peripheral arterial disease (mid right SFA occlusion and probable high-grade distal SFA stenosis). Patient was admitted to [facility] ER 03/04/25 with progressively worsening exertional midsternal chest
burning for the past 2 to 3 weeks that progressed further last night to occurring after washing dishes. Took a NTG with relief. . Patient ruled in for NSTEMI (troponin I 0.225) and was taken to the catheterization lab. Left main/multivessel
coronary disease was identified. A TTE reported a decrease in LV function to 25-30% with LV thrombus. CT surgery and ultimately underwent coronary artery bypass graft on March 06, 2025. Patient was relatively stable until last night he became
short of breath decreased urine output worsening kidney function. He was placed on a Bumex drip with improved urine output he is on inotropic support. He is rate controlled on amiodarone.
Renal consultation for acute kidney injury/hyponatremia 127/hyperkalemia 5.6
Impression
Acute kidney injury creatinine baseline is 0.8 increased up to 1.7�2.
CHF.
Status post CABG.
Vasculopath.
Hyponatremia 127
Transaminitis
Plan.
dobutamine per CT surgery
continue to diurese with bumex gtt
follow BMP
off SGLT2i for now
-
-
Date of Service: March 13, 2025
CC / HPI / ROS
-
Chief Complaint:
hyponatremia
History of Present Illness:
LARA/Cr stable 1.9
Na up to 126
LFTs slowly decreasing
on dobutamine and bumex for decompensated HF
Review of Systems:
no CP/SOB
Labs
-
Labs:
WBC 10.5 10^3/uL (4.8-10.8) 03/13/25 02:44
RBC 2.42 10^6/uL (4.70-6.10) L 03/13/25 02:44
Hgb 8.3 g/dL (13.0-18.0) L 03/13/25 02:44
Hct 23.6 % (39.0-52.0) L 03/13/25 02:44
Plt Count 211 10^3/uL (130-400) 03/13/25 02:44
eGFR 35.66 03/13/25 02:44
Axz-F-Ieatezmrvga Pept 3830 pg/ml 03/04/25 08:14
Albumin 2.9 g/dl (3.5-5.0) L 03/13/25 02:44
Physical Exam
-
Vital Signs:
Vital Signs
Temp Pulse Resp BP Pulse Ox
98.9 F 118 18 121/67 94
03/13/25 08:00 03/13/25 08:03 03/13/25 08:00 03/13/25 03:00 03/13/25 08:00
Cardiovascular:: Regular rate and rhythm
Respiratory:: Bilateral: Coarse
Lung Excursion:: Normal
Abdomen:: Nontender and Soft
Bowel Sounds:: Normal
Extremity Edema:: +3: Bilateral:
[2025-03-13 13:33] LABS: APTT 98.9 Sec (23.4-35.0)
--- NOTE | 2025-03-13 15:13 | W.PN.CARDCBS ---
Addendum entered and electronically signed by Abhinav Samuels DO 03/13/25 15:48:
I saw and examined the patient.
The Pet Care Attendant's note was reviewed and I agree with the note.
Comment:
Plan:
Cont post op CT surgical care
IV Bumex gtt as per nephrology with good response
Wt coming down and cr slowly improving
Wean IV Dobutamine
Add Coreg once off Dobutamine
Cont GDMT as bp will allow
EF slightly improved to 30-35% with improvement in MR to trace-mild
Cont Amiodarone for rate control for AFib
Cont IV heparin
Afib treatment is limited by LV thrombus.
cannot CV given LV thrombus. on amiodarone 400mg TID however LFTs significantly elevated, but downtrending
Discussed with nursing.
Original Note:
Today's Communication / Plan
-
limited options for treatment of afib. continue rate control with amiodarone for now
continue IV heparin, asa, plavix. eventual transition to plavix, doac
add BB once weaned off dobut
GDMT as able
Impression / Plan
-
PCP: Josh Valdez
Primary controller coal or ore: Dr. Stephens
Impression:
Exertional chest burning
NSTEMI
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
s/p CABG x3 ALEXIS to LAD, GSV to D2, GSV to OM, ELAA 03/06/25
Inferoapical LV thrombus by echo 03/04
Ischemic cardiomyopathy, EF 25 to 30%
History of mild cardiomyopathy
Ventricular tachycardia
ICD 2010, Medtronic single-chamber
Paroxysmal atrial fibrillation, new diagnosis this admission
PAD, mid right SFA occlusion and probable high-grade distal SFA stenosis
Hyper eosinophilia syndrome, on chronic steroid therapy
Churg-Lemuel syndrome
Spinal stenosis
Hyperthyroid storm
Migraines
Pancreatic cysts
Previous cardiovascular studies:
TTE: 01/15/2025: EF 40 to 45%, stage II diastolic dysfunction, basal and mid inferior, distal septal, and mid anterior septal akinesis, RV normal size and function
TTE 07/17/2024: EF 38% by Cardoza's method, 45% by visual estimation, global hypokinesis, normal RV size and function
Cardiac cath 04/16/2011: Luminal irregularities in LAD, circumflex, RCA. LAD has some calcium, EF 42%
Echo 03/04/2025: EF 25 to 30%, dilated LV with LAD distribution akinesis and hypokinesis of remaining mckeon, inferoapical LV thrombus present, MAC, aortic sclerosis, normal right heart
Plan:
-Presented with NSTEMI with peak trop 0.225 s/p cardiac cath 03/04 with ruptured plaque in distal left main extending to ostium of LAD and circumflex
-s/p CABG x3 ALEXIS to LAD, GSV to D2, GSV to OM, ELAA 03/06/25
-complex case
-remains on dobut@4
-started on IV bumex gtt @2 and has had good response to this, continue. Cr stable at 1.9.
-we have limited options regarding treatment of his post op afib, HRs mostly in 110s. cannot CV given LV thrombus. on amiodarone 400mg TID however LFTs significantly elevated, but downtrending. on dobut so unable to add BB at present. dig not ideal
with renal insufficiency, however may be next best option if needed for additional HR control
-currently on IV heparin, asa, plavix. eventual transition to plavix, DOAC
-Echo this admission with EF 25-30%. EF slightly improved to 30-35% with improvement in MR to trace-mild. continue GDMT as able as patient is weaned off inotrope. will need 90 day post op echo to reeval EF and presence of LV thrombus.
-He is chronically immunocompromised, on methotrexate and prednisone for hypereosinophilic syndrome followed by Dr. Piero Garcia at [facility]
-Peripheral vascular study in 2022 concern for mid right SFA occlusion and probable high-grade distal SFA stenosis. Previously saw Dr. Rosas
-d/w nursing. d/w CT surgery DRUGLESS DOCTOR/PA. d/w patient and at bedside
Progress Note - [place]
Subjective
Date of Service: March 13, 2025
Feeling better today, however overall still remains weak
Objective
Labs:
03/13/25 02:44
Labs
Hgb 8.3 g/dL (13.0-18.0) L 03/13/25 02:44
Hct 23.6 % (39.0-52.0) L 03/13/25 02:44
Plt Count 211 10^3/uL (130-400) 03/13/25 02:44
PT 17.3 Sec (11.4-14.6) H 03/06/25 13:53
INR 1.36 03/06/25 13:53
APTT 98.9 Sec (23.4-35.0) H 03/13/25 13:07
Sodium 126 mmol/L (135-145) L 03/13/25 02:44
Potassium 3.8 mmol/L (3.5-5.1) 03/13/25 02:44
BUN 58 mg/dl (9-20) H 03/13/25 02:44
Creatinine 1.9 mg/dL (0.7-1.3) H 03/13/25 02:44
Glucose 108 mg/dl (70-99) H 03/13/25 02:44
Vital Signs and I&O:
Vital Signs
Temp Pulse Resp BP Pulse Ox
98.9 F 118 18 121/67 94
03/13/25 08:00 03/13/25 08:03 03/13/25 08:00 03/13/25 03:00 03/13/25 08:00
Vital Signs
Temp Pulse Resp BP Pulse Ox
98.9 F 118 18 121/67 94
03/13/25 08:00 03/13/25 08:03 03/13/25 08:00 03/13/25 03:00 03/13/25 08:00
Intake & Output
03/11/25 03/12/25 03/13/25 03/14/25
07:59 07:59 07:59 07:59
Intake Total 1095.0 / 1095.0 1470.8 / 2019.3 2542.7 / 2581.0 196.2 / 196.2
Output Total 325 / 325 5585 / 5960 2099 / 2099
Balance 770.0 / 770.0 1470.8 / 1979.3 -3042.3 / -3379.0 -1903.8 / -1903.8
Physical Exam
Physical Exam
GEN: No distress, awake, alert, oriented x3. Sitting in chair. On supplemental O2
HEENT: supple, anicteric, mmm, EOMI
LUNGS: Decreased BS B/L, no wheezes/rales
CV: Irreg, S1/S2, no murmur
ABD: soft, NT/ND
EXT: No cyanosis, clubbing. trace edema of B/L LE
NEURO: Gross non-focal
SKIN: Warm, pink, dry. No rash. Sternotomy dressing c/d/i
[2025-03-13 15:20] LABS: Blood Urea Nitrogen 57 mg/dl (9-20); Calcium 7.7 mg/dl (8.4-10.2); Carbon Dioxide 29 mmol/L (22-30); Chloride 92 mmol/L (98-107); Estimated Creatinine Clearance 35 ml/min; Glucose 146 mg/dl (70-99); Potassium 4.1 mmol/L (3.5-5.1); Sodium 129 mmol/L (135-145); eGFR 40.75
--- NOTE | 2025-03-13 16:00 | PTCARENOTE ---
no additional changes in assessment. levo weaned off. will continue to monitor.
[2025-03-13] MEDS: SINGULAIR 10 MG PO (16:45)
[2025-03-13 19:46] LABS: APTT 124.8 Sec (23.4-35.0)
[2025-03-13 20:22] LABS: Blood Urea Nitrogen 61 mg/dl (9-20); Calcium 7.8 mg/dl (8.4-10.2); Carbon Dioxide 31 mmol/L (22-30); Chloride 91 mmol/L (98-107); Estimated Creatinine Clearance 35 ml/min; Glucose 155 mg/dl (70-99); Potassium 4.1 mmol/L (3.5-5.1); Sodium 127 mmol/L (135-145); eGFR 40.75
[2025-03-13] MEDS: DESYREL 25 MG PO (21:23)
[2025-03-14] VITALS (30 sets, daily range): BP systolic 60–124; BP diastolic 39–104; PULSE 118; O2SAT 90; BMI 23.4; BMI 21.2
[2025-03-14] MEDS: HEPARIN 25000 UNITS/250 ML IV (01:26)
[2025-03-14] MEDS: BUMEX 100 IV (01:27)
[2025-03-14] MEDS: MAXIPIME 1000 MG IV (01:55)
[2025-03-14] MEDS: STERILE WATER FOR INJECTION 10 ML IV (01:55)
[2025-03-14 03:31] LABS: Hematocrit 25.7 % (39.0-52.0); Hemoglobin 8.8 g/dL (13.0-18.0); Mean Corp Hgb Conc. 34.2 g/dL (33.0-37.0); Mean Corpuscular Volume 96.6 fL (80.0-94.0); Platelet Count 224 10^3/uL (130-400); Red Cell Dist. Width 14.3 % (11.5-14.5)
[2025-03-14 03:42] LABS: APTT 124.8 Sec (23.4-35.0)
[2025-03-14 04:19] LABS: Albumin 3.1 g/dl (3.5-5.0); Alkaline Phosphatase 150 U/L (38-126); Blood Urea Nitrogen 58 mg/dl (9-20); Calcium 7.4 mg/dl (8.4-10.2); Carbon Dioxide 33 mmol/L (22-30); Chloride 89 mmol/L (98-107); Estimated Creatinine Clearance 37 ml/min; Glucose 104 mg/dl (70-99); Potassium 3.6 mmol/L (3.5-5.1); Sodium 127 mmol/L (135-145); Total Protein 5.4 g/dl (6.3-8.2); eGFR 43.83
[2025-03-14 04:32] LABS: ALT (SGPT) 2422 U/L (0-50); AST (SGOT) 1857 U/L (17-59)
--- NOTE | 2025-03-14 05:48 | PTCARENOTE ---
patient attempt to get OOB to chair, became hypotensive and dizzy and return to bed. BP 73/49.
[2025-03-14] MEDS: DOBUTREX 250 IV (05:55)
[2025-03-14] MEDS: TYLENOL 975 MG PO ×2 (05:58→22:09)
[2025-03-14] MEDS: PULMICORT 0.5 MG INH ×2 (07:32→19:50)
--- NOTE | 2025-03-14 08:00 | PTCARENOTE ---
resumed care of patient from prev shift. in bed at time of assessment. AAOx3. AFIB HR 120. 97% on 2L via NC. weaned to RA. +1 generalized edema. moore draining clear yellow urine. Sternal aquacell dressing CDI. RLE w/ JOSE dressing. PIVx4 patent. R
radial kimmie and R arm DL PICC. There is a heparin gtt infusing at 1550 units/hr, Dobut@3, Bumex@2. will continue to monitor
--- NOTE | 2025-03-14 08:33 | W.PN.CT ---
Today's Communication / Plan
-
-pod #8
-looks and feels better overall
-drips: Dobut 4, Bumex 2, Heparin 1250.
-continue Bumex- UO 2570/5370 in 12/24 hrs.
-repleted K today (K 3.6)
-plan is to decreased Dobut by 1 luli day
-follow Cr - 1.6 today (1.7 on 03/13)
-appreciate everyone's input
-
Assessment / Plan
-
- LM & MVCAD- s/p CABG x 3 (ALEXIS to LAD, GSV to D2, GSV to OM); ELAA (40mm AtriClip) by Dr. Wallace on 03/06/25, pod #8
- Moderate MR under intraoperative JOHN assessment--MR improved to [id number] postop
- LV apical thrombus
- NSTEMI
- Ischemic cardiomyopathy, Reduced LVEF (25-30%)
- Hx of VT - s/p MDT ICD 2010
- HTN/HLD
- PAD (mid R SFA occ and prob high grade distal SFA stenosis
- Churg-Lemuel syndrome
- Eosinophilic granulomatosis with polyangeitis- followed by Dr. Garcia @ [facility] - on steroids preop
- Spinal stenosis
- Hyperthyroidism
- Hx inguinal hernia repair
- Hx amauroses fugax
- b/l cataract repair
- Acute postop blood loss anemia
- Acute postop atelectasis
- Acute postop hypovolemia with subsequent hypervolemia
- Suspected acute postop pericarditis/+ rub
- Acute postop a-fib with RVR 03/07
- Acute postop cardiogenic shock
- LARA
- Acute postop hyponatremia
- Acute postop abnormal LFTs
Discussed patient care with: Nursing and Care Team
Subjective
-
Date of Service: March 14, 2025
Objective Data
-
Lab Results
03/14/25 02:57
03/14/25 02:57
PT 17.3 Sec (11.4-14.6) H 03/06/25 13:53
INR 1.36 03/06/25 13:53
APTT 124.8 Sec (23.4-35.0) H 03/14/25 02:57
Vital Signs
Vital Signs
Temp Pulse Resp BP Pulse Ox
99 F 116 20 99/55 99
03/14/25 02:00 03/14/25 07:33 03/14/25 07:33 03/14/25 03:29 03/14/25 07:33
CT Intake/Output/Weight
03/13/25 03/14/25 03/14/25
18:59 06:59 18:59
Intake Total 248.0 / 774.0 526.0 / 774.0
Output Total 2800 / 5370 2570 / 5370
Balance -2552.0 / -4596.0 -2044.0 / -4596.0
SaO2: 99
Physical Exam
-
General: Awake and AOx3
Cardiovascular: Irregular rate & rhythm, No Murmurs and No Rub
Respiratory: Decreased Breath Sounds
Sternum: Stable
Incision: Clean, Dry and Intac
Abdomen: soft, nontender, nondistended, + bowel soundst
Extremities: Edema +1
Data Reviewed
-
Lab Results: Results Reviewed
Medications: Active Meds Reviewed
Chest X-Ray: Report Reviewed and Image Reviewed
ECG: Report Reviewed and Image Reviewed
[2025-03-14] MEDS: REGLAN 10 MG PO ×3 (08:48→22:10)
[2025-03-14] MEDS: KLOR-CON 40 MEQ PO (08:48)
[2025-03-14] MEDS: PLAVIX 75 MG PO (09:07)
[2025-03-14] MEDS: SENOKOT 8.6 MG PO ×2 (09:07→19:42)
[2025-03-14] MEDS: LIPITOR 40 MG PO (09:08)
[2025-03-14] MEDS: VITAMIN C 500 MG PO (09:08)
[2025-03-14] MEDS: MUCINEX 600 MG PO ×2 (09:09→19:41)
[2025-03-14] MEDS: DELTASONE 2 MG PO (09:09)
[2025-03-14] MEDS: PACERONE 400 MG PO ×3 (09:10→22:08)
[2025-03-14] MEDS: PROTONIX 40 MG PO (09:10)
[2025-03-14] MEDS: FEOSOL 325 MG PO (09:11)
[2025-03-14] MEDS: MAGNESIUM OXIDE 400 MG PO ×2 (09:11→19:41)
[2025-03-14] MEDS: LOW STRENGTH ASPIRIN 81 MG PO (09:11)
[2025-03-14] MEDS: DELTASONE 5 MG PO (09:11)
[2025-03-14] MEDS: LIDOCAINE 4% PATCH TOPICAL (09:12)
[2025-03-14] MEDS: NEURONTIN PO ×2 (09:13→15:59)
--- NOTE | 2025-03-14 10:19 | W.PN.NEPH.PH ---
Today's Communication / Plan
-
continue diuresis
Assessment/Plan
-
80-year-old male with complex past medical history including Churg�Lemuel/eosinophilic granulomatosis with polyangeitis, followed by Dr. Piero Garcia at [facility] (methotrexate and prednisone), ventricular tachycardia status post MDT ICD
(2010)-non-ischemic cardiomyopathy (EF 40-45%), peripheral arterial disease (mid right SFA occlusion and probable high-grade distal SFA stenosis). Patient was admitted to [facility] ER 03/04/25 with progressively worsening exertional midsternal chest
burning for the past 2 to 3 weeks that progressed further last night to occurring after washing dishes. Took a NTG with relief. . Patient ruled in for NSTEMI (troponin I 0.225) and was taken to the catheterization lab. Left main/multivessel
coronary disease was identified. A TTE reported a decrease in LV function to 25-30% with LV thrombus. CT surgery and ultimately underwent coronary artery bypass graft on March 06, 2025. Patient was relatively stable until last night he became
short of breath decreased urine output worsening kidney function. He was placed on a Bumex drip with improved urine output he is on inotropic support. He is rate controlled on amiodarone.
Renal consultation for acute kidney injury/hyponatremia 127/hyperkalemia 5.6
Impression
Acute kidney injury creatinine baseline is 0.8 increased up to 1.7�2.
CHF.
Status post CABG.
Vasculopath.
Hyponatremia 127
Transaminitis
Plan.
dobutamine per CT surgery
continue to diurese with bumex gtt today
follow BMP
off SGLT2i for now
-
-
Date of Service: March 14, 2025
CC / HPI / ROS
-
Chief Complaint:
hyponatremia
History of Present Illness:
LARA/Cr down to 1.6
Na up to 127
LFTs slowly decreasing (still in the thousands)
on dobutamine and bumex for decompensated HF
off pressors
Review of Systems:
no CP/SOB
Labs
-
Labs:
WBC 9.4 10^3/uL (4.8-10.8) 03/14/25 02:57
RBC 2.66 10^6/uL (4.70-6.10) L 03/14/25 02:57
Hgb 8.8 g/dL (13.0-18.0) L 03/14/25 02:57
Hct 25.7 % (39.0-52.0) L 03/14/25 02:57
Plt Count 224 10^3/uL (130-400) 03/14/25 02:57
Sodium 127 mmol/L (135-145) L 03/14/25 02:57
Potassium 3.6 mmol/L (3.5-5.1) 03/14/25 02:57
Chloride 89 mmol/L (98-107) L 03/14/25 02:57
Carbon Dioxide 33 mmol/L (22-30) H 03/14/25 02:57
BUN 58 mg/dl (9-20) H 03/14/25 02:57
Creatinine 1.6 mg/dL (0.7-1.3) H 03/14/25 02:57
eGFR 43.83 03/14/25 02:57
Glucose 104 mg/dl (70-99) H 03/14/25 02:57
Calcium 7.4 mg/dl (8.4-10.2) L 03/14/25 02:57
Hpm-L-Fawgmazxjmz Pept 3830 pg/ml 03/04/25 08:14
Albumin 3.1 g/dl (3.5-5.0) L 03/14/25 02:57
Physical Exam
-
Vital Signs:
Vital Signs
Temp Pulse Resp BP Pulse Ox
98.8 F 123 18 94/74 99
03/14/25 08:00 03/14/25 09:10 03/14/25 08:00 03/14/25 08:41 03/14/25 08:41
Cardiovascular:: Regular rate and rhythm
Respiratory:: Bilateral: Coarse
Lung Excursion:: Normal
Abdomen:: Nontender and Soft
Bowel Sounds:: Normal
Extremity Edema:: +2: Bilateral:
[2025-03-14] MEDS: FOLVITE PO (10:42)
[2025-03-14 11:36] LABS: APTT 97.5 Sec (23.4-35.0)
[2025-03-14] MEDS: NSS IV (11:44)
--- NOTE | 2025-03-14 12:00 | PTCARENOTE ---
hypotensive and dizzy upon transfer from bed to chair. quickly recovered once seated. remains stable on RA. will continue to montior
[2025-03-14] MEDS: TYLENOL PO (13:40)
--- NOTE | 2025-03-14 16:00 | PTCARENOTE ---
VSS. no additional changes in assessment.
[2025-03-14] MEDS: SINGULAIR 10 MG PO (16:01)
[2025-03-14] MEDS: REGLAN PO (16:02)
[2025-03-14 17:42] LABS: APTT 89.9 Sec (23.4-35.0)
--- NOTE | 2025-03-14 18:32 | W.PN.CARDCBS ---
Today's Communication / Plan
-
Continue amiodarone for rate control of A-fib. Would consider adding digoxin if heart rate remains elevated.
Impression / Plan
-
PCP: Josh Valdez
Primary flooring sales manager: Dr. Stephens
Impression:
Exertional chest burning
NSTEMI
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
s/p CABG x3 ALEXIS to LAD, GSV to D2, GSV to OM, ELAA 03/06/25
Inferoapical LV thrombus by echo 03/04
Ischemic cardiomyopathy, EF 25 to 30%
History of mild cardiomyopathy
Ventricular tachycardia
ICD 2010, Medtronic single-chamber
Paroxysmal atrial fibrillation, new diagnosis this admission
PAD, mid right SFA occlusion and probable high-grade distal SFA stenosis
Hyper eosinophilia syndrome, on chronic steroid therapy
Churg-Lemuel syndrome
Spinal stenosis
Hyperthyroid storm
Migraines
Pancreatic cysts
Previous cardiovascular studies:
TTE: 01/15/2025: EF 40 to 45%, stage II diastolic dysfunction, basal and mid inferior, distal septal, and mid anterior septal akinesis, RV normal size and function
TTE 07/17/2024: EF 38% by Cardoza's method, 45% by visual estimation, global hypokinesis, normal RV size and function
Cardiac cath 04/16/2011: Luminal irregularities in LAD, circumflex, RCA. LAD has some calcium, EF 42%
Echo 03/04/2025: EF 25 to 30%, dilated LV with LAD distribution akinesis and hypokinesis of remaining mckeon, inferoapical LV thrombus present, MAC, aortic sclerosis, normal right heart
Plan:
-Presented with NSTEMI with peak trop 0.225 s/p cardiac cath 03/04 with ruptured plaque in distal left main extending to ostium of LAD and circumflex
-s/p CABG x3 ALEXIS to LAD, GSV to D2, GSV to OM, ELAA 03/06/25
-Remains on dobutamine for inotrope support
-Ongoing AFib RVR despite amiodarone load
-Continue amio
-Consideration for digoxin
-Would add back low dose BB once dobutamine is weaned off
-Heparin gtt for AC with eventual transition to DOAC/plavix
-Volume status is improving on bumex gtt, hopefully can switch to intermittent dosing in the next 24hrs, appreciate nephrology input
-Echo with EF 30-35% with improvement in MR to trace-mild
-BP is unable to tolerate GDMT, add as able
-He is chronically immunocompromised, on methotrexate and prednisone for hypereosinophilic syndrome followed by Dr. Piero Garcia at [facility]
d/w patient and at bedside
Progress Note - [employer] Manager
Subjective
Date of Service: March 14, 2025
No acute overnight events. Patient tells me that he tried to get out of bed to chair this morning but felt lightheaded dizzy and needed to get back in bed. Feels that his edema significantly improved on Bumex drip.
Objective
Labs:
03/14/25 02:57
03/14/25 02:57
Labs
Hgb 8.8 g/dL (13.0-18.0) L 03/14/25 02:57
Hct 25.7 % (39.0-52.0) L 03/14/25 02:57
Plt Count 224 10^3/uL (130-400) 03/14/25 02:57
PT 17.3 Sec (11.4-14.6) H 03/06/25 13:53
INR 1.36 03/06/25 13:53
APTT 89.9 Sec (23.4-35.0) H 03/14/25 17:16
Sodium 127 mmol/L (135-145) L 03/14/25 02:57
Potassium 3.6 mmol/L (3.5-5.1) 03/14/25 02:57
BUN 58 mg/dl (9-20) H 03/14/25 02:57
Creatinine 1.6 mg/dL (0.7-1.3) H 03/14/25 02:57
Glucose 104 mg/dl (70-99) H 03/14/25 02:57
Vital Signs and I&O:
Vital Signs
Temp Pulse Resp BP Pulse Ox
98.8 F 119 18 90/69 94
03/14/25 08:00 03/14/25 11:30 03/14/25 08:00 03/14/25 11:00 03/14/25 11:30
Vital Signs
Temp Pulse Resp BP Pulse Ox
98.8 F 119 18 90/69 94
03/14/25 08:00 03/14/25 11:30 03/14/25 08:00 03/14/25 11:00 03/14/25 11:30
Intake & Output
03/12/25 03/13/25 03/14/25 03/15/25
06:59 06:59 06:59 06:59
Intake Total 1470.8 / 1470.8 2542.7 / 2542.7 774.0 / 789.9 472.3 / 472.3
Output Total 5585 / 5585 5370 / 5570 2625 / 2625
Balance 1470.8 / 1470.8 -3042.3 / -3042.3 -4596.0 / -4780.1 -2152.7 / -2152.7
Physical Exam
Physical Exam
Gen: NAD, AAOx3
HEENT: NC/AT, sclera anicteric
CV: Tacky, irregularly irregular, NL s1/s2, no M/R/G
Lungs: CTAB
Abd: S/ND
Ext: Trace peripheral edema
Skin: Warm, dry, sternotomy clean dry intact
Neuro: Non-focal
--- NOTE | 2025-03-14 20:00 | PTCARENOTE ---
Assume care of patient at 1900, Patient OOB to chair, on room air, on bumex, heparin and dubut dripps, Afib on moniotr, alertg and oriented, follows all commands, denies pain. Lungs clear, FORTUNE, Returned to bed, CHG bath completed, oral care,
medications reviewed and given. see worklist for full assessment/
[2025-03-14] MEDS: DESYREL 25 MG PO (22:09)
[2025-03-14] MEDS: NEURONTIN 100 MG PO (22:10)
[2025-03-14 23:36] LABS: Blood Urea Nitrogen 46 mg/dl (9-20); Calcium 6.5 mg/dl (8.4-10.2); Carbon Dioxide 28 mmol/L (22-30); Chloride 96 mmol/L (98-107); Estimated Creatinine Clearance 51 ml/min; Glucose 95 mg/dl (70-99); Magnesium 2.2 mg/dl (1.6-2.3); Potassium 3.2 mmol/L (3.5-5.1); Sodium 128 mmol/L (135-145); eGFR > 60.00
[2025-03-15] VITALS (21 sets, daily range): BP systolic 60–151; BP diastolic 30–135; PULSE 113–115; O2SAT 96; BMI 21.2
[2025-03-15] MEDS: KCL 100 IV (00:01)
[2025-03-15] MEDS: CALCIUM GLUCONATE 100 IV (00:27)
[2025-03-15 04:40] LABS: Hematocrit 27.8 % (39.0-52.0); Hemoglobin 9.2 g/dL (13.0-18.0); Mean Corp Hgb Conc. 33.1 g/dL (33.0-37.0); Mean Corpuscular Volume 97.9 fL (80.0-94.0); Platelet Count 260 10^3/uL (130-400); Red Cell Dist. Width 14.2 % (11.5-14.5)
[2025-03-15 04:46] LABS: APTT 93.2 Sec (23.4-35.0)
[2025-03-15 05:23] LABS: Albumin 3.3 g/dl (3.5-5.0); Alkaline Phosphatase 167 U/L (38-126); Blood Urea Nitrogen 57 mg/dl (9-20); Calcium 7.9 mg/dl (8.4-10.2); Carbon Dioxide 35 mmol/L (22-30); Chloride 89 mmol/L (98-107); Estimated Creatinine Clearance 38 ml/min; Glucose 100 mg/dl (70-99); Potassium 3.9 mmol/L (3.5-5.1); Sodium 128 mmol/L (135-145); Total Protein 5.7 g/dl (6.3-8.2); eGFR 43.83
[2025-03-15 05:33] LABS: AST (SGOT) 1042 U/L (17-59)
[2025-03-15 05:49] LABS: ALT (SGPT) 1894 U/L (0-50)
[2025-03-15] MEDS: TYLENOL 975 MG PO (06:14)
[2025-03-15] MEDS: PULMICORT 0.5 MG INH ×2 (07:38→18:05)
[2025-03-15] MEDS: FEOSOL 325 MG PO (08:31)
[2025-03-15] MEDS: LIPITOR 40 MG PO (08:32)
[2025-03-15] MEDS: PLAVIX 75 MG PO (08:32)
[2025-03-15] MEDS: PROTONIX 40 MG PO (08:32)
[2025-03-15] MEDS: NEURONTIN 100 MG PO ×3 (08:32→22:05)
[2025-03-15] MEDS: VITAMIN C 500 MG PO (08:32)
[2025-03-15] MEDS: MAGNESIUM OXIDE 400 MG PO (08:32)
[2025-03-15] MEDS: SENOKOT 8.6 MG PO ×2 (08:34→22:08)
[2025-03-15] MEDS: PACERONE 400 MG PO ×2 (08:34→15:56)
[2025-03-15] MEDS: LOW STRENGTH ASPIRIN 81 MG PO (08:34)
[2025-03-15] MEDS: MUCINEX 600 MG PO ×2 (08:34→22:04)
[2025-03-15] MEDS: DELTASONE 2 MG PO (08:42)
[2025-03-15] MEDS: DELTASONE 5 MG PO (08:42)
[2025-03-15] MEDS: REGLAN 10 MG PO ×4 (09:06→22:05)
[2025-03-15] MEDS: LIDOCAINE 4% PATCH 1 PATCH TOPICAL (09:06)
[2025-03-15] MEDS: FOLVITE 1 MG PO (09:10)
[2025-03-15 09:19] LABS: Glucose - Point of Care 104 mg/dl (70-99)
--- NOTE | 2025-03-15 10:46 | W.PN.CT ---
Today's Communication / Plan
-
pod#9:
# Sleep deprivation
-Melatonin 10mg HS
- continue home Trazodone 25mg HS
-may sleep w/o compression sleeves
- Xanax 0.25mg x 1 tonight
- bundle nursing care, minimize disruptions
# Acute postop blood loss anemia
- Hb stable, trend CBC
- continue FeSO4
# Acute postop hypovolemia/contraction alkalosis
- DC Bumex infusion
- add [id number] TID w/hold parameters for SBP >110
# CAD/NSTEMI
# Hx VT s/p MDT ICD 2010
- continue ASA/Plavix
- holding betablocker (on Dobut), statin (d/t transaminitis)
# Acute postop cardiogenic shock
- slow wean of Dobutamine by 1mcg daily
- will need GDMT when off Dobutamine: Farxiga, metoprolol on hold
# LARA
- creatine plateaued
- trend BMP/UO
- appreciated nephrology input
# Acute postop hyponatremia
- fluid restriction 1500cc/24h
- trend sodium
# Acute postop transaminitis
- LFTs trending down
- stop Tylenol, Lipitor
# Churg-Lemuel syndrome
- cont Prednisone
- resume Methotrexate on discharge
Assessment / Plan
-
- LM & MVCAD- s/p CABG x 3 (ALEXIS to LAD, GSV to D2, GSV to OM); ELAA (40mm AtriClip) by Dr. Wallace on 03/06/25, pod #9
- Moderate MR under intraoperative JOHN assessment--MR improved to [id number] postop
- LV apical thrombus
- NSTEMI
- Ischemic cardiomyopathy, Reduced LVEF (25-30%)
- Hx of VT - s/p MDT ICD 2010
- HTN/HLD
- PAD (mid R SFA occ and prob high grade distal SFA stenosis
- Churg-Lemuel syndrome
- Eosinophilic granulomatosis with polyangeitis- followed by Dr. Garcia @ [facility] - on steroids preop
- Spinal stenosis
- Hyperthyroidism
- Hx inguinal hernia repair
- Hx amauroses fugax
- b/l cataract repair
- Acute postop blood loss anemia
- Acute postop atelectasis
- Acute postop hypovolemia with subsequent hypervolemia
- Suspected acute postop pericarditis/+ rub
- Acute postop a-fib with RVR 03/07
- Acute postop cardiogenic shock
- LARA
- Acute postop hyponatremia
- Acute postop transaminitis
- contraction alkalosis
Subjective
Procedure
Past 24hrs: Weaning Dobutamine, was dizzy getting OOB. Diuresed 6.6L with Bumex infusion. States exhausted as only 2 hours sleep (max) per night due to feeling tangled in tubing.
-
Date of Service: March 15, 2025
Objective Data
-
Lab Results
03/15/25 04:15
03/15/25 04:15
PT 17.3 Sec (11.4-14.6) H 03/06/25 13:53
INR 1.36 03/06/25 13:53
APTT 93.2 Sec (23.4-35.0) H 03/15/25 04:15
Vital Signs
Vital Signs
Temp Pulse Resp BP Pulse Ox
97.0 F 105 20 94/63 96
03/15/25 08:00 03/15/25 08:11 03/15/25 07:39 03/15/25 08:11 03/15/25 08:11
CT Intake/Output/Weight
03/14/25 03/15/25 03/15/25
18:59 06:59 18:59
Intake Total 472.3 / 1531.5 986.4 / 1531.5 118.4 / 118.4
Output Total 2625 / 6840 4065 / 6840 400 / 400
Balance -2152.7 / -5308.5 -3078.6 / -5308.5 -281.6 / -281.6
SaO2: 96
Physical Exam
-
General: AOx3
Cardiovascular: Irregular rate & rhythm
Respiratory: Clear
Sternum: Stable
Incision: Clean, Dry and Intact
Extremities: No Edema
Data Reviewed
-
Lab Results: Results Reviewed
Medications: Active Meds Reviewed
Chest X-Ray: Image Reviewed
--- NOTE | 2025-03-15 11:07 | PTCARENOTE ---
Pt received in bed @ 0700. Assisted oob to chair with assist x2. Pt admitted to dizziness with transfer. HR 100s - 110s. Atrial fibrilation on cabinet and trim installer. Hypotensive by arterial line with BPs 60s/30s. Pt placed flat and SBP > 90 and
dizziness dissipated. Bumex gtt infusing @ 2 mg/hr, Heparin gtt infusing @ 1150 units/hr, and Dobutamine gtt infusing @ 2 mcg/kg/min. SaO2 88-92% on room air. 2L NC applied and Sao2 96%. Incentive spirometer use witnessed for 1750ml. Pt requested
meds crushed in apple sauce. Rosas catheter draining yellow. (R) DL PICC flushed with (+) blood return. Left radial arterial line transduced, zeroed, and flushed.
[2025-03-15] MEDS: DIAMOX 250 MG PO (11:27)
--- NOTE | 2025-03-15 11:51 | PTCARENOTE ---
Pt reassessed. Bumex gtt stopped per order. Heparin and Dobutamine gtt's continue. New orders to stop scheduled Tylenol. Diamox 250mg x1 and Midodrine 10mg x1 now administered. Scheduled Midodrine 10mg with orders to hold for SBP > 110 acknowledged.
at bedside. Pt sleeping at this time.
--- NOTE | 2025-03-15 12:31 | W.PN.NEPH.PH ---
Today's Communication / Plan
-
Agree with holding Bumex
Assessment/Plan
-
80-year-old male with complex past medical history including Churg�Lemuel/eosinophilic granulomatosis with polyangeitis, followed by Dr. Piero Garcia at [facility] (methotrexate and prednisone), ventricular tachycardia status post MDT ICD
(2010)-non-ischemic cardiomyopathy (EF 40-45%), peripheral arterial disease (mid right SFA occlusion and probable high-grade distal SFA stenosis). Patient was admitted to [facility] ER 03/04/25 with progressively worsening exertional midsternal chest
burning for the past 2 to 3 weeks that progressed further last night to occurring after washing dishes. Took a NTG with relief. . Patient ruled in for NSTEMI (troponin I 0.225) and was taken to the catheterization lab. Left main/multivessel
coronary disease was identified. A TTE reported a decrease in LV function to 25-30% with LV thrombus. CT surgery and ultimately underwent coronary artery bypass graft on March 06, 2025. Patient was relatively stable until last night he became
short of breath decreased urine output worsening kidney function. He was placed on a Bumex drip with improved urine output he is on inotropic support. He is rate controlled on amiodarone.
Renal consultation for acute kidney injury/hyponatremia 127/hyperkalemia 5.6
Impression
Acute kidney injury creatinine baseline is 0.8 increased up to 1.7�2.
CHF.
Status post CABG.
Vasculopath.
Hyponatremia 127
Transaminitis
Plan.
dobutamine per CT surgery
follow BMP
off SGLT2i for now
Bumex drip discontinued
Creatinine 1.2 yesterday up to 1.64 it was prior with negative fluid balance of 5 L over the last 24 hours
On midodrine for orthostatic hypotension
Discussed with his at the bedside
-
-
Date of Service: March 15, 2025
CC / HPI / ROS
-
Chief Complaint:
hyponatremia
History of Present Illness:
LARA/Cr down to 1.6
Na up to 127
LFTs slowly decreasing (still in the thousands)
on dobutamine and bumex for decompensated HF
off pressors
Review of Systems:
no CP/SOB
Labs
-
Labs:
WBC 10.9 10^3/uL (4.8-10.8) H 03/15/25 04:15
RBC 2.84 10^6/uL (4.70-6.10) L 03/15/25 04:15
Hgb 9.2 g/dL (13.0-18.0) L 03/15/25 04:15
Hct 27.8 % (39.0-52.0) L 03/15/25 04:15
Plt Count 260 10^3/uL (130-400) 03/15/25 04:15
Sodium 128 mmol/L (135-145) L 03/15/25 04:15
Potassium 3.9 mmol/L (3.5-5.1) 03/15/25 04:15
Chloride 89 mmol/L (98-107) L 03/15/25 04:15
Carbon Dioxide 35 mmol/L (22-30) H 03/15/25 04:15
BUN 57 mg/dl (9-20) H 03/15/25 04:15
Creatinine 1.6 mg/dL (0.7-1.3) H 03/15/25 04:15
eGFR 43.83 03/15/25 04:15
Glucose 100 mg/dl (70-99) H 03/15/25 04:15
Calcium 7.9 mg/dl (8.4-10.2) L 03/15/25 04:15
Ymw-H-Vaitjacyjfk Pept 3830 pg/ml 03/04/25 08:14
Albumin 3.3 g/dl (3.5-5.0) L 03/15/25 04:15
Physical Exam
-
Vital Signs:
Vital Signs
Temp Pulse Resp BP Pulse Ox
97.0 F 108 20 107/61 96
03/15/25 08:00 03/15/25 10:37 03/15/25 07:39 03/15/25 10:37 03/15/25 11:03
Cardiovascular:: Regular rate and rhythm
Respiratory:: Bilateral: Coarse
Lung Excursion:: Normal
Abdomen:: Nontender and Soft
Bowel Sounds:: Normal
Extremity Edema:: +2: Bilateral:
[2025-03-15] MEDS: NSS IV (14:53)
--- NOTE | 2025-03-15 15:41 | CM ---
Reviewed chart. Met with MrTran and Mrs. Hunter to review discharge plans. Telephone call to [facility] at [facility] to update her. Medical work-up in progress. [facility] [place] if approved for admission and
bed available when medically stable.
--- NOTE | 2025-03-15 16:00 | W.PN.CARDCBS ---
Today's Communication / Plan
-
RECOMMENDATIONS:
-Lets d/c amiodarone 400mg tid and decrease to 200mg daily
-Continue dobut and bumex for now
-Continue low dose metoprolol given soft blood pressures
-May need to accept higher HR
-If volume statue remains unclear then could consider right heart catheterization
-will follow
Impression / Plan
-
PCP: Josh Valdez
Primary want ad receiver: Dr. Stephens
Impression:
Exertional chest burning
NSTEMI
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
s/p CABG x3 ALEXIS to LAD, GSV to D2, GSV to OM, ELAA 03/06/25
Inferoapical LV thrombus by echo 03/04
Ischemic cardiomyopathy, EF 25 to 30%
History of mild cardiomyopathy
Ventricular tachycardia
ICD 2010, Medtronic single-chamber
Paroxysmal atrial fibrillation, new diagnosis this admission
Elevated LFT's post op
PAD, mid right SFA occlusion and probable high-grade distal SFA stenosis
Hyper eosinophilia syndrome, on chronic steroid therapy
Churg-Lemuel syndrome
Spinal stenosis
Hyperthyroid storm
Migraines
Pancreatic cysts
Previous cardiovascular studies:
TTE: 01/15/2025: EF 40 to 45%, stage II diastolic dysfunction, basal and mid inferior, distal septal, and mid anterior septal akinesis, RV normal size and function
TTE 07/17/2024: EF 38% by Cardoza's method, 45% by visual estimation, global hypokinesis, normal RV size and function
Cardiac cath 04/16/2011: Luminal irregularities in LAD, circumflex, RCA. LAD has some calcium, EF 42%
Echo 03/04/2025: EF 25 to 30%, dilated LV with LAD distribution akinesis and hypokinesis of remaining mckeon, inferoapical LV thrombus present, MAC, aortic sclerosis, normal right heart
Plan:
-Presented with NSTEMI with peak trop 0.225 s/p cardiac cath 03/04 with ruptured plaque in distal left main extending to ostium of LAD and circumflex
-s/p CABG x3 ALEXIS to LAD, GSV to D2, GSV to OM, ELAA 03/06/25
-He has received 8,000 mg of amiodarone and has elevated LFT's: Lets decrease amiodarone to 200mg daily
-Remains on dobutamine for inotrope support.
-Could consider right heart catheterization.
-Examines volume overloaded and may need more diuresis but blood orthostatic.
-Ongoing AFib RVR despite amiodarone load: At this point lets back off a little on the amiodarone
-May have to accept higher heart rates or consider digoxin
-Heparin gtt for AC with eventual transition to DOAC/plavix
-Volume status is improving on bumex gtt: Eventual plan is to switch to intermittent Bumex
-Echo with EF 30-35% with improvement in MR to trace-mild
-He is chronically immunocompromised, on methotrexate and prednisone for hypereosinophilic syndrome followed by Dr. Piero Garcia at [facility]
Progress Note - Residential Program Coordinator
Subjective
Date of Service: March 15, 2025
Objective
Labs:
03/15/25 04:15
03/15/25 04:15
Labs
Hgb 9.2 g/dL (13.0-18.0) L 03/15/25 04:15
Hct 27.8 % (39.0-52.0) L 03/15/25 04:15
Plt Count 260 10^3/uL (130-400) 03/15/25 04:15
PT 17.3 Sec (11.4-14.6) H 03/06/25 13:53
INR 1.36 03/06/25 13:53
APTT 93.2 Sec (23.4-35.0) H 03/15/25 04:15
Sodium 128 mmol/L (135-145) L 03/15/25 04:15
Potassium 3.9 mmol/L (3.5-5.1) 03/15/25 04:15
BUN 57 mg/dl (9-20) H 03/15/25 04:15
Creatinine 1.6 mg/dL (0.7-1.3) H 03/15/25 04:15
Glucose 100 mg/dl (70-99) H 03/15/25 04:15
Vital Signs and I&O:
Vital Signs
Temp Pulse Resp BP Pulse Ox
97.0 F 109 20 88/65 96
03/15/25 08:00 03/15/25 12:30 03/15/25 07:39 03/15/25 12:00 03/15/25 11:03
Vital Signs
Temp Pulse Resp BP Pulse Ox
97.0 F 109 20 88/65 96
03/15/25 08:00 03/15/25 12:30 03/15/25 07:39 03/15/25 12:00 03/15/25 11:03
Intake & Output
03/12/25 03/13/25 03/14/25 03/15/25
23:59 23:59 23:59 23:59
Intake Total 1698.8 / 1742.8 1783.2 / 1808.1 1173.6 / 1246.4 710.2 / 710.2
Output Total 3090 / 3440 5815 / 6065 0875 / 4398 3215 / 3215
Balance -1391.2 / -1697.2 -4031.8 / -4256.9 -5301.4 / -5578.6 -2504.8 / -2504.8
Physical Exam
Physical Exam
PE:
Gen: NAD, AAOx3, sitting in chair
HEENT: NC/AT, sclera anicteric
CV: Tacky, irregularly irregular, NL s1/s2, no M/R/G
Lungs: Decreased breath sounds lower 1/3 of the lungfield bilaterally
Ext: Trace peripheral edema
Skin: Warm, dry, sternotomy clean dry intact
Neuro: Non-focal
[2025-03-15] MEDS: MILK OF MAGNESIA 30 ML PO (16:38)
--- NOTE | 2025-03-15 17:18 | PTCARENOTE ---
Pt reassessed. No BM documented for 5 days. Pt does not express abdominal discomfort. PRN Milk of Mag administered.
[2025-03-15] MEDS: SINGULAIR 10 MG PO (17:40)
[2025-03-15 21:17] LABS: Magnesium 2.6 mg/dl (1.6-2.3)
[2025-03-15] MEDS: MAGNESIUM OXIDE PO (21:38)
[2025-03-15 21:58] LABS: Blood Urea Nitrogen 64 mg/dl (9-20); Calcium 8.1 mg/dl (8.4-10.2); Carbon Dioxide 32 mmol/L (22-30); Chloride 87 mmol/L (98-107); Estimated Creatinine Clearance 31 ml/min; Glucose 129 mg/dl (70-99); Potassium 3.4 mmol/L (3.5-5.1); Sodium 124 mmol/L (135-145); eGFR 38.05
[2025-03-15] MEDS: MELATONIN 10 MG PO (22:05)
[2025-03-15] MEDS: XANAX 0.25 MG PO (22:05)
[2025-03-15] MEDS: KCL 40 MEQ PO (22:09)
[2025-03-15] MEDS: CALCIUM GLUCONATE 130 MG IV (22:09)
[2025-03-15] MEDS: DESYREL PO (22:47)
[2025-03-15] MEDS: KCL ELIXIR 20 MEQ PO (23:35)
[2025-03-16] MEDS: HEPARIN 25000 UNITS/250 ML IV (02:32)
[2025-03-16 06:00] VITALS: BMI 20.8
[2025-03-16 06:09] LABS: Hematocrit 27.9 % (39.0-52.0); Hemoglobin 9.5 g/dL (13.0-18.0); Mean Corp Hgb Conc. 34.1 g/dL (33.0-37.0); Mean Corpuscular Volume 97.9 fL (80.0-94.0); Platelet Count 300 10^3/uL (130-400); Red Cell Dist. Width 14.2 % (11.5-14.5)
[2025-03-16 06:13] LABS: APTT 61.2 Sec (23.4-35.0)
[2025-03-16 06:33] LABS: AST (SGOT) 561 U/L (17-59); Albumin 3.3 g/dl (3.5-5.0); Alkaline Phosphatase 155 U/L (38-126); Blood Urea Nitrogen 62 mg/dl (9-20); Calcium 8.9 mg/dl (8.4-10.2); Carbon Dioxide 32 mmol/L (22-30); Chloride 91 mmol/L (98-107); Estimated Creatinine Clearance 34 ml/min; Glucose 101 mg/dl (70-99); Magnesium 2.7 mg/dl (1.6-2.3); Potassium 4.8 mmol/L (3.5-5.1); Sodium 128 mmol/L (135-145); Total Protein 5.9 g/dl (6.3-8.2); eGFR 43.83
[2025-03-16 07:00] LABS: ALT (SGPT) 1377 U/L (0-50)
--- NOTE | 2025-03-16 07:55 | W.PN.CT ---
Addendum entered and electronically signed by Kristian Wallace MD 03/16/25 09:20:
I saw and examined the patient.
The PA's note was reviewed and I agree with the note.
Comment:
POD#10 s/p CABG x 3, ELAA
Finally slept last night (7hrs).� Dobutamine weaned to 1 this AM.� No events.� AVSS.� AF (rate-controlled).� GTTS: heparin, dobutamine 1.� No drains.� UO: 1215 last 12 hours.� 2650 total.� LFTs improving.� Creat improving.� Na improving.�
-��������� Leave dobutamine at 1 today, off tomorrow
-��������� D/C heparin start Eliquis
-��������� Continue diuresis, fluid restriction, trend Na, creat
-��������� OOB/IS/ambulate later
-��������� PT/OT, will require acute rehab on D/C
Original Note:
Today's Communication / Plan
-
pod#10
# Sleep deprivation
-Melatonin 10mg HS
- continue home Trazodone 25mg HS
- may sleep w/o compression sleeves
- improved with Xanax
- bundle nursing care, minimize disruptions
# Acute postop blood loss anemia
- Hb stable, trend CBC, stable @ 9.5/27.9
- continue FeSO4
# Acute postop hypovolemia/contraction alkalosis
- DC Bumex infusion. Added Diamox
- Repleted electrolytes last night
- add [id number] TID w/hold parameters for SBP >110
# CAD/NSTEMI
# Hx VT s/p MDT ICD 2010
- continue ASA/Plavix
- holding betablocker (on Dobut), statin (d/t transaminitis)
# Acute postop cardiogenic shock
- slow wean of Dobutamine by 1mcg daily. Currently on Dobutamine @ 2
- will need GDMT when off Dobutamine: Farxiga, metoprolol on hold
# LARA
- creatine plateaued. 1.6 this AM
- trend BMP/UO
- appreciated nephrology input
# Acute postop hyponatremia
- fluid restriction 1500cc/24h
- trend sodium. 128, up from 124 last night
# Acute postop transaminitis
- LFTs trending down
- stop Tylenol, Lipitor
# Churg-Lemuel syndrome
- cont Prednisone
- resume Methotrexate on discharge
Assessment / Plan
-
- LM & MVCAD- s/p CABG x 3 (ALEXIS to LAD, GSV to D2, GSV to OM); ELAA (40mm AtriClip) by Dr. Wallace on 03/06/25, pod #10
- Moderate MR under intraoperative JOHN assessment--MR improved to [id number] postop
- LV apical thrombus
- NSTEMI
- Ischemic cardiomyopathy, Reduced LVEF (25-30%)
- Hx of VT - s/p MDT ICD 2010
- HTN/HLD
- PAD (mid R SFA occ and prob high grade distal SFA stenosis
- Churg-Lemuel syndrome
- Eosinophilic granulomatosis with polyangeitis- followed by Dr. Garcia @ [facility] - on steroids preop
- Spinal stenosis
- Hyperthyroidism
- Hx inguinal hernia repair
- Hx amauroses fugax
- b/l cataract repair
- Acute postop blood loss anemia
- Acute postop atelectasis
- Acute postop hypovolemia with subsequent hypervolemia
- Suspected acute postop pericarditis/+ rub
- Acute postop a-fib with RVR 03/07
- Acute postop cardiogenic shock
- LARA
- Acute postop hyponatremia
- Acute postop transaminitis
- contraction alkalosis
Discussed patient care with: Cardiology, Nursing, Respiratory Therapy, Pharmacy and Care Team
Subjective
Procedure
Past 24hrs: Weaning Dobutamine, was dizzy getting OOB. Diuresed 6.6L with Bumex infusion. States exhausted as only 2 hours sleep (max) per night due to feeling tangled in tubing.
-
Date of Service: March 16, 2025
Pt c/o mild incisional pain and insomnia. Able to sleep with Xanax last night
Objective Data
-
Lab Results
03/16/25 05:45
03/16/25 05:45
PT 17.3 Sec (11.4-14.6) H 03/06/25 13:53
INR 1.36 03/06/25 13:53
APTT 61.2 Sec (23.4-35.0) H 03/16/25 05:45
Vital Signs
Vital Signs
Temp Pulse Resp BP Pulse Ox
98.4 F 102 22 85/52 97
03/16/25 04:00 03/16/25 04:30 03/16/25 04:30 03/15/25 22:00 03/16/25 04:30
CT Intake/Output/Weight
03/15/25 03/16/25 03/16/25
18:59 06:59 18:59
Intake Total 241.7 / 896.1 654.4 / 896.1
Output Total 1425 / 2640 1215 / 2640
Balance -1183.3 / -1743.9 -560.6 / -1743.9
SaO2: 97 (RA)
Physical Exam
-
General: Awake, Oriented and AOx3
Cardiovascular: Regular rate & rhythm, No Murmurs, No Rub and No Gallop
Respiratory: Decreased Breath Sounds
Sternum: Stable
Incision: Clean, Dry, Intact and Dressing Intact
Extremities: Other (+trace edema)
Data Reviewed
-
Lab Results: Results Reviewed
Medications: Active Meds Reviewed
Chest X-Ray: Report Reviewed and Image Reviewed
ECG: Report Reviewed and Image Reviewed
--- NOTE | 2025-03-16 08:00 | PTCARENOTE ---
report received from previous RN at change of shift. Pt assessed OOB in chair. Pt drowsy, arouses to voice, orientedx3. awakens but drifts back to sleep easily. pt reports sleeping well last night. afib on telemetry heart rate 90-low 100s. av wires
insulated. dp pulses by doppler. +1 generalized edema. pt on 2L nasal cannula, sat 98%. lung sounds diminished in bilateral bases. IS 1000. active bowel sounds, appetite improving. moore draining yellow cloudy urine. surgical sites CDI. pt updated
on plan of care. see worklist for full nursing assessment and interventions.
[2025-03-16] MEDS: PULMICORT 0.5 MG INH ×2 (08:02→20:15)
[2025-03-16] MEDS: CALCIUM GLUCONATE 130 MG IV (08:27)
[2025-03-16] MEDS: REGLAN 10 MG PO ×4 (08:28→20:56)
[2025-03-16] MEDS: MUCINEX 600 MG PO ×2 (08:28→19:50)
[2025-03-16] MEDS: PROTONIX 40 MG PO (08:28)
[2025-03-16] MEDS: LOW STRENGTH ASPIRIN 81 MG PO (08:28)
[2025-03-16] MEDS: NEURONTIN 100 MG PO ×3 (08:29→20:56)
[2025-03-16] MEDS: VITAMIN C 500 MG PO (08:29)
[2025-03-16] MEDS: DELTASONE 2 MG PO (08:29)
[2025-03-16] MEDS: DELTASONE 5 MG PO (08:29)
[2025-03-16] MEDS: PACERONE 200 MG PO (08:29)
[2025-03-16] MEDS: PLAVIX 75 MG PO (08:29)
[2025-03-16] MEDS: SENOKOT 8.6 MG PO ×2 (08:29→19:50)
[2025-03-16] MEDS: LIDOCAINE 4% PATCH 1 PATCH TOPICAL (08:30)
[2025-03-16] MEDS: FEOSOL 325 MG PO (08:30)
[2025-03-16] MEDS: FOLVITE 1 MG PO (08:32)
[2025-03-16] MEDS: BUMEX 2 MG IV (10:25)
--- NOTE | 2025-03-16 12:00 | PTCARENOTE ---
pt assisted with 2 assist to stand. pt became lightheaded, blood pressure dropped to 60s. pt sat down and blood pressure quickly improved and symptoms resolved. pt resting in chair. remains afib on telemetry. 2L nasal cannula. no further changes in
assessment noted.
[2025-03-16] MEDS: NSS IV (12:54)
--- NOTE | 2025-03-16 14:08 | W.PN.NEPH.PH ---
Today's Communication / Plan
-
Continue ionotropic
Loop diuretic IV bolus evaluate daily
Assessment/Plan
-
80-year-old male with complex past medical history including Churg�Lemuel/eosinophilic granulomatosis with polyangeitis, followed by Dr. Piero Garcia at [facility] (methotrexate and prednisone), ventricular tachycardia status post MDT ICD
(2010)-non-ischemic cardiomyopathy (EF 40-45%), peripheral arterial disease (mid right SFA occlusion and probable high-grade distal SFA stenosis). Patient was admitted to [facility] ER 03/04/25 with progressively worsening exertional midsternal chest
burning for the past 2 to 3 weeks that progressed further last night to occurring after washing dishes. Took a NTG with relief. . Patient ruled in for NSTEMI (troponin I 0.225) and was taken to the catheterization lab. Left main/multivessel
coronary disease was identified. A TTE reported a decrease in LV function to 25-30% with LV thrombus. CT surgery and ultimately underwent coronary artery bypass graft on March 06, 2025. Patient was relatively stable until last night he became
short of breath decreased urine output worsening kidney function. He was placed on a Bumex drip with improved urine output he is on inotropic support. He is rate controlled on amiodarone.
Renal consultation for acute kidney injury/hyponatremia 127/hyperkalemia 5.6
Impression
Acute kidney injury creatinine baseline is 0.8 increased up to 1.7�2.
CHF.
Status post CABG.
Vasculopath.
Hyponatremia 127
Transaminitis
Plan.
dobutamine per CT surgery
follow BMP
off SGLT2i for now
Bumex drip discontinued
Creatinine relatively stable down from 1.8-1.6 improvement of sodium to 128 with diuresis
On midodrine for orthostatic hypotension
Discussed with his at the bedside
Patient sleeping well last night and appetite seems to be increasing though not eating large volume but does have an improved appetite.
Weights continue to improve
Continue with bolus loop diuretic per cardiology
-
-
Date of Service: March 16, 2025
CC / HPI / ROS
-
Chief Complaint:
hyponatremia
History of Present Illness:
LARA/Cr down to 1.6
Na up to 127
LFTs slowly decreasing
on dobutamine and bumex for decompensated HF
off pressors
Review of Systems:
no CP/SOB
Labs
-
Labs:
WBC 12.0 10^3/uL (4.8-10.8) H 03/16/25 05:45
RBC 2.85 10^6/uL (4.70-6.10) L 03/16/25 05:45
Hgb 9.5 g/dL (13.0-18.0) L 03/16/25 05:45
Hct 27.9 % (39.0-52.0) L 03/16/25 05:45
Plt Count 300 10^3/uL (130-400) 03/16/25 05:45
Sodium 128 mmol/L (135-145) L 03/16/25 05:45
Potassium 4.8 mmol/L (3.5-5.1) D 03/16/25 05:45
Chloride 91 mmol/L (98-107) L 03/16/25 05:45
Carbon Dioxide 32 mmol/L (22-30) H 03/16/25 05:45
BUN 62 mg/dl (9-20) H 03/16/25 05:45
Creatinine 1.6 mg/dL (0.7-1.3) H 03/16/25 05:45
eGFR 43.83 03/16/25 05:45
Glucose 101 mg/dl (70-99) H 03/16/25 05:45
Calcium 8.9 mg/dl (8.4-10.2) 03/16/25 05:45
Rlr-[id number] Pept 3830 pg/ml 03/04/25 08:14
Albumin 3.3 g/dl (3.5-5.0) L 03/16/25 05:45
Physical Exam
-
Vital Signs:
Vital Signs
Temp Pulse Resp BP Pulse Ox
97.8 F 106 16 104/65 97
03/16/25 12:00 03/16/25 13:30 03/16/25 12:00 03/16/25 10:25 03/16/25 13:30
Cardiovascular:: Regular rate and rhythm
Respiratory:: Bilateral: Coarse
Lung Excursion:: Normal
Abdomen:: Nontender and Soft
Bowel Sounds:: Normal
Extremity Edema:: +2: Bilateral:
[2025-03-16 15:38] VITALS: BP 125/70; BP 93/54
--- NOTE | 2025-03-16 16:00 | PTCARENOTE ---
pt resting in bed, drowsy, sleeping on/off. vitals stable. pt worked with PT, 2 assist to stand, then was able to take a few steps with the rolling walker. no further changes in assessment noted.
--- NOTE | 2025-03-16 16:10 | W.PN.CARDCBS ---
Today's Communication / Plan
-
He had a sufficient amiodarone load, Amio reduced to 200 mg daily
Heart rates are overall improved. May have to consider mildly elevated heart rates given hypotension, renal failure and comorbidities
LFTs continue to improve
Continue to wean dobutamine as able
Continue midodrine for blood pressure support
IV Bumex drip stopped by nephrology. Received Bumex 2 mg IV x 1 March 16, 2025
Continue Eliquis and Plavix
Impression / Plan
-
.
PCP: Josh Valdez
Primary therapist radiation: Dr. Stephens
Impression:
NSTEMI
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
s/p CABG x3 ALEXIS to LAD, GSV to D2, GSV to OM, ELAA 03/06/25
Inferoapical LV thrombus by echo 03/04
Ischemic cardiomyopathy, EF 25 to 30%
Renal insufficiency
Prior history of mild cardiomyopathy
Status post ventricular tachycardia
Paroxysmal atrial fibrillation, new diagnosis this admission
Elevated LFT's post op
ICD 2010, Medtronic single-chamber
PAD, mid right SFA occlusion and probable high-grade distal SFA stenosis
Hyper eosinophilia syndrome, on chronic steroid therapy
Churg-Lemuel syndrome
Spinal stenosis
Hyperthyroid storm
Migraines
Pancreatic cysts
Previous cardiovascular studies:
TTE: 01/15/2025: EF 40 to 45%, stage II diastolic dysfunction, basal and mid inferior, distal septal, and mid anterior septal akinesis, RV normal size and function
TTE 07/17/2024: EF 38% by Cardoza's method, 45% by visual estimation, global hypokinesis, normal RV size and function
Cardiac cath 04/16/2011: Luminal irregularities in LAD, circumflex, RCA. LAD has some calcium, EF 42%
Echo 03/04/2025: EF 25 to 30%, dilated LV with LAD distribution akinesis and hypokinesis of remaining mckeon, inferoapical LV thrombus present, MAC, aortic sclerosis, normal right heart
Plan:
-Presented with NSTEMI with peak trop 0.225 s/p cardiac cath 03/04 with ruptured plaque in distal left main extending to ostium of LAD and circumflex
-s/p CABG x3 ALEXIS to LAD, GSV to D2, GSV to OM, ELAA 03/06/25
He had a sufficient amiodarone load, Amio reduced to 200 mg daily
Heart rates are overall improved. May have to consider mildly elevated heart rates given hypotension, renal failure and comorbidities
LFTs continue to improve
Continue to wean dobutamine as able
Continue midodrine for blood pressure support
IV Bumex drip stopped by nephrology. Received Bumex 2 mg IV x 1 March 16, 2025
Continue Eliquis and Plavix
Echo with EF 30-35% with improvement in MR to trace-mild
He is chronically immunocompromised, on methotrexate and prednisone for hypereosinophilic syndrome followed by Dr. Piero Garcia at [facility]
Discussed with patient and at bedside.
Progress Note - Doll Maker
Subjective
Date of Service: March 16, 2025
Patient seen and examined. Breathing better
Objective
Labs:
03/16/25 05:45
03/16/25 05:45
Labs
Hgb 9.5 g/dL (13.0-18.0) L 03/16/25 05:45
Hct 27.9 % (39.0-52.0) L 03/16/25 05:45
Plt Count 300 10^3/uL (130-400) 03/16/25 05:45
PT 17.3 Sec (11.4-14.6) H 03/06/25 13:53
INR 1.36 03/06/25 13:53
APTT Cancelled 03/16/25 12:30
Sodium 128 mmol/L (135-145) L 03/16/25 05:45
Potassium 4.8 mmol/L (3.5-5.1) D 03/16/25 05:45
BUN 62 mg/dl (9-20) H 03/16/25 05:45
Creatinine 1.6 mg/dL (0.7-1.3) H 03/16/25 05:45
Glucose 101 mg/dl (70-99) H 03/16/25 05:45
Vital Signs and I&O:
Vital Signs
Temp Pulse Resp BP Pulse Ox
97.8 F 106 16 104/65 97
03/16/25 12:00 03/16/25 13:30 03/16/25 12:00 03/16/25 10:25 03/16/25 13:30
Vital Signs
Temp Pulse Resp BP Pulse Ox
97.8 F 106 16 104/65 97
03/16/25 12:00 03/16/25 13:30 03/16/25 12:00 03/16/25 10:25 03/16/25 13:30
Intake & Output
03/14/25 03/15/25 03/16/25 03/17/25
06:59 06:59 06:59 06:59
Intake Total 774.0 / 789.9 1458.7 / 1531.5 896.1 / 912.8 549.0 / 549.0
Output Total 5370 / 5570 6690 / 6840 2640 / 2670 1000 / 1000
Balance -4596.0 / -4780.1 -5231.3 / -5308.5 -1743.9 / -1757.2 -451.0 / -451.0
Physical Exam
Physical Exam
General: No acute distress, AAOX3
Neck: Negative JVD
Heart: Irregular irregular, Negative S3 positive S1/S2, Negative S4, No murmur
Lungs: CTA b/l, negative wheezes/rales/rhonchi
Abd: Positive BS, NT/ND, neg rebound/rigidity/guarding
Ext: Negative cyanosis/clubbing/edema
Neuro: nonfocal
[2025-03-16] MEDS: SINGULAIR 10 MG PO (17:16)
[2025-03-16] MEDS: ELIQUIS 5 MG PO (19:49)
[2025-03-16] MEDS: XANAX 0.25 MG PO (20:56)
[2025-03-16] MEDS: MELATONIN 10 MG PO (20:56)
--- NOTE | 2025-03-16 21:46 | PTCARENOTE ---
assisted pt back to bed- bp did not drop- he took 3 steps. ax3 100% on room air- lungs diminished- sx sites cdi- afib 90's. afebrile- pain is controlled chg bath given kimmie irwin. picc line with good return. dobutamine gtt infusing per orders.
Rosas draining clear yellow- incentive spirometer to 1000
--- NOTE | 2025-03-16 23:34 | PTCARENOTE ---
sleeping well after Xanax- remains on room air- afib 90's- bp wnl-
[2025-03-17] VITALS (7 sets, daily range): BP systolic 102–149; BP diastolic 61–90; PULSE 98; BMI 20.6
--- NOTE | 2025-03-17 00:58 | W.PN.CT ---
Addendum entered and electronically signed by Kristian Wallace MD 03/17/25 09:16:
I saw and examined the patient.
The PA's note was reviewed and I agree with the note.
Comment:
POD#11
Dobutamine OFF this AM, remains in rate-controlled AF on Eliquis.
- OOB/IS/ambulate
- D/C planning for rehab early this week
Original Note:
Today's Communication / Plan
-
Plan:
-No major issues overnight. Hemodynamically and neurologically intact
-On Dobutamine @ 1. Wean as tolerated
-Ongoing postop A-fib, rate mostly controlled
-Heparin gtt transitioned to Eliquis on 03/16
-Amiodarone decreased to 200 mg daily given postop elevated LFTs. Avoid hepatotoxic meds
-On Plavix for graft patency
-Monitor LFT's improving
-Monitor LARA 1.6, improving. Cont. diuresis
-Monitor hyponatremia 132, was 128 yesterday
-On midodrine for postop hypotension, wean as tolerated
-On Prednisone for hx of Eosinophilic granulomatosis. Will resume Methotrexate on discharge
-D/C A-line/moore catheter when off dobutamine, transfer to [facility] phase
-PT/OT following and recommend acute rehab placement, will consult Physiatry for possible placement @ [place]
Assessment / Plan
-
- LM & MVCAD- s/p CABG x 3 (ALEXIS to LAD, GSV to D2, GSV to OM); ELAA (40mm AtriClip) by Dr. Wallace on 03/06/25, pod #11
- Moderate MR under intraoperative JOHN assessment--MR improved to [id number] postop
- LV apical thrombus
- NSTEMI
- Ischemic cardiomyopathy, Reduced LVEF (25-30%)
- Hx of VT - s/p MDT ICD 2010
- HTN/HLD
- PAD (mid R SFA occ and prob high grade distal SFA stenosis
- Churg-Lemuel syndrome
- Eosinophilic granulomatosis with polyangeitis- followed by Dr. Garcia @ [facility] - on steroids preop
- Spinal stenosis
- Hyperthyroidism
- Hx inguinal hernia repair
- Hx amauroses fugax
- b/l cataract repair
- Acute postop blood loss anemia
- Acute postop atelectasis
- Acute postop hypovolemia with subsequent hypervolemia
- Suspected acute postop pericarditis/+ rub
- Acute postop a-fib with RVR 03/07
- Acute postop cardiogenic shock
- LARA
- Acute postop hyponatremia
- Acute postop transaminitis
- contraction alkalosis
Subjective
Procedure
Past 24hrs: Weaning Dobutamine, was dizzy getting OOB. Diuresed 6.6L with Bumex infusion. States exhausted as only 2 hours sleep (max) per night due to feeling tangled in tubing.
-
Date of Service: March 17, 2025
Pt c/o mild incisional pain, otherwise feels well
Objective Data
-
PT 17.3 Sec (11.4-14.6) H 03/06/25 13:53
INR 1.36 03/06/25 13:53
APTT Cancelled 03/16/25 12:30
Vital Signs
Vital Signs
Temp Pulse Resp BP Pulse Ox
98.3 F 98 18 104/65 92
03/16/25 23:35 03/16/25 23:30 03/16/25 20:17 03/16/25 10:25 03/16/25 23:30
CT Intake/Output/Weight
03/16/25 03/16/25 03/17/25
06:59 18:59 06:59
Intake Total 654.4 / 912.8 552.3 / 678.9 126.6 / 678.9
Output Total 1215 / 2670 1130 / 1640 510 / 1640
Balance -560.6 / -1757.2 -577.7 / -961.1 -383.4 / -961.1
SaO2: 92 (RA)
Physical Exam
-
General: Awake, Oriented and AOx3
Cardiovascular: Regular rate & rhythm, No Murmurs, No Rub and No Gallop
Respiratory: Decreased Breath Sounds (at bases, otherwise clear)
Sternum: Stable
Incision: Clean, Dry, Intact and Dressing Intact
Extremities: Other (+trace edema)
Data Reviewed
-
Lab Results: Results Reviewed
Medications: Active Meds Reviewed
Chest X-Ray: Report Reviewed and Image Reviewed
ECG: Report Reviewed
[2025-03-17 04:27] LABS: Hematocrit 27.9 % (39.0-52.0); Hemoglobin 9.2 g/dL (13.0-18.0); Mean Corp Hgb Conc. 33.0 g/dL (33.0-37.0); Mean Corpuscular Volume 99.6 fL (80.0-94.0); Nucleated Red Blood Cells % 0.7 % (-); Platelet Count 288 10^3/uL (130-400); Red Cell Dist. Width 14.6 % (11.5-14.5)
[2025-03-17 04:51] LABS: AST (SGOT) 248 U/L (17-59); Albumin 3.1 g/dl (3.5-5.0); Alkaline Phosphatase 143 U/L (38-126); Blood Urea Nitrogen 56 mg/dl (9-20); Calcium 9.0 mg/dl (8.4-10.2); Carbon Dioxide 34 mmol/L (22-30); Chloride 93 mmol/L (98-107); Estimated Creatinine Clearance 34 ml/min; Glucose 101 mg/dl (70-99); Magnesium 2.6 mg/dl (1.6-2.3); Sodium 132 mmol/L (135-145); Total Protein 5.5 g/dl (6.3-8.2); eGFR 43.83
[2025-03-17 05:07] LABS: ALT (SGPT) 954 U/L (0-50); Potassium 3.6 mmol/L (3.5-5.1)
[2025-03-17] MEDS: CALCIUM GLUCONATE 130 MG IV (05:33)
[2025-03-17] MEDS: FLUSH (NSS) 2 FLUSH IV (05:34)
--- NOTE | 2025-03-17 05:40 | PTCARENOTE ---
Addendum entered by Brian Rico RN 03/17/25 06:09:
po k ordered by pa see mar
Original Note:
assisted oob to chair- pt did well-did not get orthostatic. remains in afib- pa ordered ca gluconate see mar
[2025-03-17] MEDS: KCL 40 MEQ PO ×2 (06:10→08:43)
[2025-03-17] MEDS: DELTASONE 2 MG PO (07:49)
[2025-03-17] MEDS: MUCINEX 600 MG PO ×2 (07:49→20:43)
[2025-03-17] MEDS: VITAMIN C 500 MG PO (07:49)
[2025-03-17] MEDS: PROTONIX 40 MG PO (07:49)
[2025-03-17] MEDS: PLAVIX 75 MG PO (07:50)
[2025-03-17] MEDS: ELIQUIS 5 MG PO ×2 (07:50→20:43)
[2025-03-17] MEDS: DELTASONE 5 MG PO (07:50)
[2025-03-17] MEDS: REGLAN 10 MG PO ×4 (07:50→21:44)
[2025-03-17] MEDS: NEURONTIN 100 MG PO ×3 (07:50→21:44)
[2025-03-17] MEDS: PACERONE 200 MG PO (07:50)
[2025-03-17] MEDS: FEOSOL 325 MG PO (07:51)
[2025-03-17] MEDS: SENOKOT 8.6 MG PO ×2 (07:51→20:43)
--- NOTE | 2025-03-17 07:51 | W.PN.CARDCBS ---
Today's Communication / Plan
-
Continue amiodarone at 200 mg daily as he had a sufficient amiodarone load.
Heart rates are overall improved. May have to consider mildly elevated heart rates given hypotension, renal failure and comorbidities
LFTs continue to improve
Dobutamine weaned off.
Continue midodrine for blood pressure support
IV Bumex drip stopped by nephrology.
IV diuresis dosing as per nephrology
Received Bumex 2 mg IV x 1 March 16, 2025.
Cr 1.6 on Mar 17.
Continue Eliquis and Plavix
Echo with EF 30-35% with improvement in MR to trace-mild
Impression / Plan
-
.
PCP: Josh Valdez
Primary furniture decals inspector: Dr. Stephens
Impression:
NSTEMI
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
s/p CABG x3 ALEXIS to LAD, GSV to D2, GSV to OM, ELAA 03/06/25
Inferoapical LV thrombus by echo 03/04
Ischemic cardiomyopathy, EF 25 to 30%
Renal insufficiency
Prior history of mild cardiomyopathy
Status post ventricular tachycardia
Paroxysmal atrial fibrillation, new diagnosis this admission
Elevated LFT's post op
ICD 2010, Medtronic single-chamber
PAD, mid right SFA occlusion and probable high-grade distal SFA stenosis
Hyper eosinophilia syndrome, on chronic steroid therapy
Churg-Lemuel syndrome
Spinal stenosis
Hyperthyroid storm
Migraines
Pancreatic cysts
Previous cardiovascular studies:
TTE: 01/15/2025: EF 40 to 45%, stage II diastolic dysfunction, basal and mid inferior, distal septal, and mid anterior septal akinesis, RV normal size and function
TTE 07/17/2024: EF 38% by Cardoza's method, 45% by visual estimation, global hypokinesis, normal RV size and function
Cardiac cath 04/16/2011: Luminal irregularities in LAD, circumflex, RCA. LAD has some calcium, EF 42%
Echo 03/04/2025: EF 25 to 30%, dilated LV with LAD distribution akinesis and hypokinesis of remaining mckeon, inferoapical LV thrombus present, MAC, aortic sclerosis, normal right heart
Plan:
-Presented with NSTEMI with peak trop 0.225 s/p cardiac cath 03/04 with ruptured plaque in distal left main extending to ostium of LAD and circumflex
-s/p CABG x3 ALEXIS to LAD, GSV to D2, GSV to OM, ELAA 03/06/25
Continue amiodarone at 200 mg daily as he had a sufficient amiodarone load.
Heart rates are overall improved. May have to consider mildly elevated heart rates given hypotension, renal failure and comorbidities
LFTs continue to improve
Dobutamine weaned off.
Continue midodrine for blood pressure support
IV Bumex drip stopped by nephrology.
IV diuresis dosing as per nephrology
Received Bumex 2 mg IV x 1 March 16, 2025.
Cr 1.6 on Mar 17.
Continue Eliquis and Plavix
Echo with EF 30-35% with improvement in MR to trace-mild
He is chronically immunocompromised, on methotrexate and prednisone for hypereosinophilic syndrome followed by Dr. Piero Garcia at [facility]
Discussed with patient and nursing and CT surgery.
Progress Note - Case Resolution Specialist
Subjective
Date of Service: March 17, 2025
Pt seen and examined. No complaints. No chest pain or shortness of breath.
Objective
Labs:
03/17/25 04:13
03/17/25 04:13
Labs
Hgb 9.2 g/dL (13.0-18.0) L 03/17/25 04:13
Hct 27.9 % (39.0-52.0) L 03/17/25 04:13
Plt Count 288 10^3/uL (130-400) 03/17/25 04:13
PT 17.3 Sec (11.4-14.6) H 03/06/25 13:53
INR 1.36 03/06/25 13:53
APTT Cancelled 03/16/25 12:30
Sodium 132 mmol/L (135-145) L 03/17/25 04:13
Potassium 3.6 mmol/L (3.5-5.1) 03/17/25 04:13
BUN 56 mg/dl (9-20) H 03/17/25 04:13
Creatinine 1.6 mg/dL (0.7-1.3) H 03/17/25 04:13
Glucose 101 mg/dl (70-99) H 03/17/25 04:13
Vital Signs and I&O:
Vital Signs
Temp Pulse Resp BP Pulse Ox
98.3 F 107 18 104/65 97
03/16/25 23:35 03/17/25 06:00 03/16/25 20:17 03/16/25 10:25 03/17/25 06:00
Vital Signs
Temp Pulse Resp BP Pulse Ox
98.3 F 107 18 104/65 97
03/16/25 23:35 03/17/25 06:00 03/16/25 20:17 03/16/25 10:25 03/17/25 06:00
Intake & Output
03/15/25 03/16/25 03/17/25 03/18/25
06:59 06:59 06:59 06:59
Intake Total 1458.7 / 1531.5 896.1 / 912.8 915.5 / 915.5
Output Total 6690 / 6840 2640 / 2670 2114 / 2114
Balance -5231.3 / -5308.5 -1743.9 / -1757.2 -1199.5 / -1199.5
Physical Exam
Physical Exam
General: No acute distress, AAOX3
Neck: Negative JVD
Heart: Irregular irregular, Negative S3 positive S1/S2, Negative S4, No murmur
Lungs: CTA b/l, negative wheezes/rales/rhonchi
Abd: Positive BS, NT/ND, neg rebound/rigidity/guarding
Ext: Negative cyanosis/clubbing/edema
Neuro: nonfocal
[2025-03-17] MEDS: LIDOCAINE 4% PATCH TOPICAL (07:52)
[2025-03-17] MEDS: PULMICORT 0.5 MG INH ×2 (07:53→19:28)
[2025-03-17] MEDS: FOLVITE 1 MG PO (07:54)
--- NOTE | 2025-03-17 14:05 | W.PN.NEPH.PH ---
Today's Communication / Plan
-
Continue diuresis
Assessment/Plan
-
80-year-old male with complex past medical history including Churg�Lemuel/eosinophilic granulomatosis with polyangeitis, followed by Dr. Piero Garcia at [facility] (methotrexate and prednisone), ventricular tachycardia status post MDT ICD
(2010)-non-ischemic cardiomyopathy (EF 40-45%), peripheral arterial disease (mid right SFA occlusion and probable high-grade distal SFA stenosis). Patient was admitted to [facility] ER 03/04/25 with progressively worsening exertional midsternal chest
burning for the past 2 to 3 weeks that progressed further last night to occurring after washing dishes. Took a NTG with relief. . Patient ruled in for NSTEMI (troponin I 0.225) and was taken to the catheterization lab. Left main/multivessel
coronary disease was identified. A TTE reported a decrease in LV function to 25-30% with LV thrombus. CT surgery and ultimately underwent coronary artery bypass graft on March 06, 2025. Patient was relatively stable until last night he became
short of breath decreased urine output worsening kidney function. He was placed on a Bumex drip with improved urine output he is on inotropic support. He is rate controlled on amiodarone.
Renal consultation for acute kidney injury/hyponatremia 127/hyperkalemia 5.6
Impression
Acute kidney injury creatinine baseline is 0.8 increased up to 1.7�2.
CHF.
Status post CABG.
Vasculopath.
Hyponatremia 127
Transaminitis
Plan.
dobutamine per CT surgery
follow BMP
off SGLT2i for now
Bumex drip discontinued
Creatinine relatively stable down from 1.8-1.6 improvement of sodium to 128 with diuresis
On midodrine for orthostatic hypotension
Discussed with his at the bedside
Patient sleeping well last night and appetite seems to be increasing though not eating large volume but does have an improved appetite.
Weights continue to improve
Continue with bolus loop diuretic per cardiology and inotropic support.
Creatinine is stable 1.6 with a sodium improving to 132
-1.1 L last 24 hours
-
-
Date of Service: March 17, 2025
CC / HPI / ROS
-
Chief Complaint:
hyponatremia
History of Present Illness:
LARA/Cr down to 1.6
Na up to 127
LFTs slowly decreasing
on dobutamine and bumex for decompensated HF
off pressors
Review of Systems:
no CP/SOB
Labs
-
Labs:
WBC 12.8 10^3/uL (4.8-10.8) H 03/17/25 04:13
RBC 2.80 10^6/uL (4.70-6.10) L 03/17/25 04:13
Hgb 9.2 g/dL (13.0-18.0) L 03/17/25 04:13
Hct 27.9 % (39.0-52.0) L 03/17/25 04:13
Plt Count 288 10^3/uL (130-400) 03/17/25 04:13
Sodium 132 mmol/L (135-145) L 03/17/25 04:13
Potassium 3.6 mmol/L (3.5-5.1) 03/17/25 04:13
Chloride 93 mmol/L (98-107) L 03/17/25 04:13
Carbon Dioxide 34 mmol/L (22-30) H 03/17/25 04:13
BUN 56 mg/dl (9-20) H 03/17/25 04:13
Creatinine 1.6 mg/dL (0.7-1.3) H 03/17/25 04:13
eGFR 43.83 03/17/25 04:13
Glucose 101 mg/dl (70-99) H 03/17/25 04:13
Calcium 9.0 mg/dl (8.4-10.2) 03/17/25 04:13
Mxy-P-Qiblqvzkejv Pept 3830 pg/ml 03/04/25 08:14
Albumin 3.1 g/dl (3.5-5.0) L 03/17/25 04:13
Physical Exam
-
Vital Signs:
Vital Signs
Temp Pulse Resp BP Pulse Ox
98.3 F 97 16 102/65 94
03/17/25 08:00 03/17/25 08:30 03/17/25 08:00 03/17/25 07:46 03/17/25 08:30
Cardiovascular:: Regular rate and rhythm
Respiratory:: Bilateral: Coarse
Lung Excursion:: Normal
Abdomen:: Nontender and Soft
Bowel Sounds:: Normal
Extremity Edema:: +2: Bilateral:
[2025-03-17] MEDS: NSS IV (14:47)
[2025-03-17] MEDS: SINGULAIR 10 MG PO (17:45)
--- NOTE | 2025-03-17 21:30 | PTCARENOTE ---
Report received from GENA Terrell. Pt assessed and VS done. See flowsheet. Pt sitting in chair. Awake, alert, oriented x 4. Speech clear, yet soft. Generalized weakness. Equal strength x 4. Pt helped to BSC to attempt BM. No BM yet pt passed flatus. Pt
then helped back to bed. CHG bath given. Dressing change to old CT sites and PW sites done. Of note, PICOT drain to RLE not on. Batteries changed. Device with temporary lights on yet does not remain on. PA at bedside and aware.
Other assessment data: Pt on room air in chair. Sats 97-98%. In bed, 1L/NC applied. Sats 98%. BBS present. Clear, decreased to bases. CDB and IS done. IS 2000 mls. Audible heart tones. Pt in AF. 1st dose metoprolol 12.5 mg given per order. Discussed
with PA. See flowsheet for VS. Unable to doppler L DP pulse. R DP and B PT pulses found via doppler. L foot warm, pink, no pain. PA aware. B radial pulses palpable. AV wires present and insulated to chest. Belly soft, nontender. Normoactive bs x 4.
Rosas draining clear, yellow urine.
No c/o pain. Melatonin and Xanax given for sleep. See MAR. Ongoing plan of care.
[2025-03-17] MEDS: TOPROL XL 12.5 MG PO (21:39)
[2025-03-17] MEDS: MELATONIN 10 MG PO (21:42)
[2025-03-17] MEDS: XANAX 0.25 MG PO (21:44)
[2025-03-18] VITALS (13 sets, daily range): BP systolic 74–153; BP diastolic 59–131; PULSE 92; BMI 21.1
--- NOTE | 2025-03-18 00:49 | W.PN.CT ---
Today's Communication / Plan
-
Plan:
-No major issues overnight. Hemodynamically and neurologically intact
-Weaned off Dobutamine yesterday 03/17/25. Delined and transferred to [facility] phase
-Ongoing postop A-fib, mostly rate controlled
-Heparin gtt transitioned to Eliquis on 03/16
-Amiodarone decreased to 200 mg daily given postop elevated LFTs. Avoid hepatotoxic meds
-On Plavix for graft patency
-Monitor LFT's, improving
-Monitor LARA 1.5, improving. Cont. diuresis
-Monitor hyponatremia 131, was 132 yesterday
-On midodrine for postop hypotension, wean as tolerated
-On Prednisone for hx of Eosinophilic granulomatosis. Will resume Methotrexate on discharge
-PT/OT following and recommend acute rehab placement, will consult Physiatry for possible placement @ [place]
Assessment / Plan
-
- LM & MVCAD- s/p CABG x 3 (ALEXIS to LAD, GSV to D2, GSV to OM); ELAA (40mm AtriClip) by Dr. Wallace on 03/06/25, pod #12
- Moderate MR under intraoperative JOHN assessment--MR improved to [id number] postop
- LV apical thrombus
- NSTEMI
- Ischemic cardiomyopathy, Reduced LVEF (25-30%)
- Hx of VT - s/p MDT ICD 2010
- HTN/HLD
- PAD (mid R SFA occ and prob high grade distal SFA stenosis
- Churg-Lemuel syndrome
- Eosinophilic granulomatosis with polyangeitis- followed by Dr. Garcia @ [facility], [place] - on steroids preop
- Spinal stenosis
- Hyperthyroidism
- Hx inguinal hernia repair
- Hx amauroses fugax
- b/l cataract repair
- Acute postop blood loss anemia
- Acute postop atelectasis
- Acute postop hypovolemia with subsequent hypervolemia
- Suspected acute postop pericarditis/+ rub
- Acute postop a-fib with RVR 03/07
- Acute postop cardiogenic shock
- LARA
- Acute postop hyponatremia
- Acute postop transaminitis
- contraction alkalosis
Discussed patient care with: Cardiology, Nursing, Respiratory Therapy, Pharmacy and Care Team
Subjective
-
Date of Service: March 18, 2025
Pt c/o mild incisional pain and constipation, otherwise feels well
Objective Data
-
Lab Results
03/17/25 04:13
PT 17.3 Sec (11.4-14.6) H 03/06/25 13:53
INR 1.36 03/06/25 13:53
APTT Cancelled 03/16/25 12:30
Vital Signs
Vital Signs
Temp Pulse Resp BP Pulse Ox
98.1 F 96 18 149/88 98
03/17/25 20:03 03/17/25 21:39 03/17/25 19:32 03/17/25 21:39 03/17/25 20:03
CT Intake/Output/Weight
03/17/25 03/17/25 03/18/25
06:59 18:59 06:59
Intake Total 363.2 / 915.5 0 / 180 180 / 180
Output Total 985 / 2175 640 / 640
Balance -621.8 / -1259.5 -640 / -460 180 / -460
SaO2: 98 (RA)
Physical Exam
-
General: Awake, Oriented and AOx3
Cardiovascular: Irregular rate & rhythm, No Murmurs, No Rub and No Gallop
Respiratory: Decreased Breath Sounds (at bases, otherwise clear)
Sternum: Stable
Incision: Clean, Dry, Intact and Dressing Intact
Extremities: Edema +1
Data Reviewed
-
Lab Results: Results Reviewed
Medications: Active Meds Reviewed
Chest X-Ray: Report Reviewed and Image Reviewed
ECG: Report Reviewed and Image Reviewed
[2025-03-18] MEDS: DULCOLAX 10 MG PO (01:17)
--- NOTE | 2025-03-18 01:30 | PTCARENOTE ---
Pt helped to BSC at 0035. Unsuccessful for BM. Pt requested to walk into BR with rolling walker and assist. BP normotensive. Denies dizziness, lightheadedness. Pt unable to have BM in BR. Helped back to bed. PA notified. Dulcolax 10 mg po given per
order of PA. Pt going back to asleep. Remains in AF. Sats on 1L/NC/O2 in bed are 98%.
--- NOTE | 2025-03-18 04:41 | PTCARENOTE ---
Pt helped to BR to attempt BM. No results. Helped to standing scale, weighed, then back to bed. VS done prior to BR.
[2025-03-18 05:25] LABS: ALT (SGPT) 739 U/L (0-50); AST (SGOT) 136 U/L (17-59); Albumin 3.6 g/dl (3.5-5.0); Alkaline Phosphatase 143 U/L (38-126); Blood Urea Nitrogen 55 mg/dl (9-20); Calcium 9.3 mg/dl (8.4-10.2); Carbon Dioxide 30 mmol/L (22-30); Chloride 95 mmol/L (98-107); Estimated Creatinine Clearance 37 ml/min; Glucose 96 mg/dl (70-99); Magnesium 2.5 mg/dl (1.6-2.3); Potassium 4.6 mmol/L (3.5-5.1); Sodium 131 mmol/L (135-145); Total Protein 6.3 g/dl (6.3-8.2); eGFR 47.36
--- NOTE | 2025-03-18 07:15 | PTCARENOTE ---
Labs drawn and sent this am. Report to Lev at 0645. Walking rounds done.
[2025-03-18] MEDS: PULMICORT 0.5 MG INH ×2 (07:22→19:21)
[2025-03-18] MEDS: MILK OF MAGNESIA 30 ML PO (08:41)
[2025-03-18] MEDS: SENOKOT 8.6 MG PO ×2 (08:41→20:17)
[2025-03-18] MEDS: PLAVIX 75 MG PO (08:41)
[2025-03-18] MEDS: DELTASONE 2 MG PO (08:41)
[2025-03-18] MEDS: NEURONTIN 100 MG PO ×3 (08:41→22:32)
[2025-03-18] MEDS: FEOSOL 325 MG PO (08:42)
[2025-03-18] MEDS: ELIQUIS 5 MG PO ×2 (08:42→20:16)
[2025-03-18] MEDS: PROTONIX 40 MG PO (08:42)
[2025-03-18] MEDS: VITAMIN C 500 MG PO (08:42)
[2025-03-18] MEDS: REGLAN 10 MG PO ×4 (08:42→22:32)
[2025-03-18] MEDS: DELTASONE 5 MG PO (08:42)
[2025-03-18] MEDS: PACERONE 200 MG PO (08:42)
[2025-03-18] MEDS: TOPROL XL 12.5 MG PO ×2 (08:42→20:16)
[2025-03-18] MEDS: MUCINEX 600 MG PO ×2 (08:42→20:16)
[2025-03-18] MEDS: LIDOCAINE 4% PATCH TOPICAL (08:43)
[2025-03-18] MEDS: FOLVITE 1 MG PO (08:50)
--- NOTE | 2025-03-18 08:50 | W.PN.CARDCBS ---
Today's Communication / Plan
-
Diurese.
Rate control strategy for atrial fibrillation; Oseas initiated 03/16/2025
PT/OT
Continue postoperative supportive care
Impression / Plan
-
.
PCP: Josh Valdez
Primary cell stripper final: Dr. Stephens
Impression:
NSTEMI
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
s/p CABG x3 ALEXIS to LAD, GSV to D2, GSV to OM, ELAA 03/06/25
Inferoapical LV thrombus by echo 03/04
Ischemic cardiomyopathy, EF 25 to 30%
Renal insufficiency
Prior history of mild cardiomyopathy
Status post ventricular tachycardia
Paroxysmal atrial fibrillation, new diagnosis this admission
Elevated LFT's post op
ICD 2010, Medtronic single-chamber
PAD, mid right SFA occlusion and probable high-grade distal SFA stenosis
Hyper eosinophilia syndrome, on chronic steroid therapy
Churg-Lemuel syndrome
Spinal stenosis
Hyperthyroid storm
Migraines
Pancreatic cysts
Previous cardiovascular studies:
TTE: 01/15/2025: EF 40 to 45%, stage II diastolic dysfunction, basal and mid inferior, distal septal, and mid anterior septal akinesis, RV normal size and function
TTE 07/17/2024: EF 38% by Cardoza's method, 45% by visual estimation, global hypokinesis, normal RV size and function
Cardiac cath 04/16/2011: Luminal irregularities in LAD, circumflex, RCA. LAD has some calcium, EF 42%
Echo 03/04/2025: EF 25 to 30%, dilated LV with LAD distribution akinesis and hypokinesis of remaining mckeon, inferoapical LV thrombus present, MAC, aortic sclerosis, normal right heart
Plan:
-Presented with NSTEMI with peak trop 0.225 s/p cardiac cath 03/04 with ruptured plaque in distal left main extending to ostium of LAD and circumflex
-s/p CABG x3 ALEXIS to LAD, GSV to D2, GSV to OM, ELAA 03/06/25
Remains in rapid atrial fibrillation/flutter.
-Continue amiodarone at 200 mg daily as he had a sufficient amiodarone load.
-Amiodarone decreased to 200 mg daily given postop elevated LFTs. Avoid hepatotoxic meds
-Heparin gtt transitioned to Eliquis on 03/16
-History of LV apical thrombus
Dobutamine weaned off.
Continue midodrine for blood pressure support
IV Bumex drip stopped by nephrology.
IV diuresis dosing as per nephrology
Received Bumex 2 mg IV x 1 March 16, 2025.
Cr 1.5 03/18
Continue Eliquis and Plavix (Plavix for graft patency)
Echo with EF 30-35% with improvement in MR to trace-mild
He is chronically immunocompromised, on methotrexate and prednisone for hypereosinophilic syndrome followed by Dr. Piero Garcia at [facility]
Discussed with patient and nursing and CT surgery.
Progress Note - Event Security Officer
Subjective
Date of Service: March 18, 2025
Patient seen and examined sitting out of bed to chair. Denies dizziness, palpitations/tachycardia, chest pain or pressure or shortness of breath.
Objective
Labs:
03/17/25 04:13
03/18/25 04:38
Labs
Hgb 9.2 g/dL (13.0-18.0) L 03/17/25 04:13
Hct 27.9 % (39.0-52.0) L 03/17/25 04:13
Plt Count 288 10^3/uL (130-400) 03/17/25 04:13
PT 17.3 Sec (11.4-14.6) H 03/06/25 13:53
INR 1.36 03/06/25 13:53
APTT Cancelled 03/16/25 12:30
Sodium 131 mmol/L (135-145) L 03/18/25 04:38
Potassium 4.6 mmol/L (3.5-5.1) D 03/18/25 04:38
BUN 55 mg/dl (9-20) H 03/18/25 04:38
Creatinine 1.5 mg/dL (0.7-1.3) H 03/18/25 04:38
Glucose 96 mg/dl (70-99) 03/18/25 04:38
Vital Signs and I&O:
Vital Signs
Temp Pulse Resp BP Pulse Ox
98 F 98 17 105/65 93
03/18/25 03:51 03/18/25 07:26 03/18/25 07:26 03/18/25 03:51 03/18/25 07:26
Vital Signs
Temp Pulse Resp BP Pulse Ox
98 F 98 17 105/65 93
03/18/25 03:51 03/18/25 07:26 03/18/25 07:26 03/18/25 03:51 03/18/25 07:26
Intake & Output
03/16/25 03/17/25 03/18/25 03/19/25
06:59 06:59 06:59 06:59
Intake Total 896.1 / 912.8 915.5 / 915.5 180 / 180
Output Total 2640 / 2670 2115 / 2175 965 / 965 150 / 150
Balance -1743.9 / -1757.2 -1199.5 / -1259.5 -785 / -785 -150 / -150
Physical Exam
Physical Exam
General: No acute distress, AAOX3
Heart: Irregular irregular, positive S1/S2No murmur or rub
Lungs: CTA b/l, negative wheezes/rales/rhonchi
Abd: Positive BS, NT/ND, neg rebound/rigidity/guarding
Ext: trace edema right leg
--- NOTE | 2025-03-18 09:12 | PTCARENOTE ---
assumed care of pt from previous shift RN, jacob on tele, VSS, + peripheral pulses no edema noted. AV wires insulated. Lungs diminished, pox 95-96% on RA, coughing and deep breathing encouraged. +bs, pt reports constipation, see MAR. Rosas draining
yellow. MSI approximated w surgical glue intact. CT sites w sutures intact, right leg w JOSE. pt assisted to chair. plan of care reviewed and questions encouraged.
[2025-03-18] MEDS: BUMEX 2 MG IV (11:41)
[2025-03-18] MEDS: DULCOLAX 10 MG RECTAL (11:42)
--- NOTE | 2025-03-18 12:23 | PTCARENOTE ---
moore and JOSE dressing removed, CT sites cleaned w CHG.
--- NOTE | 2025-03-18 13:10 | W.PN.NEPH.PH ---
Today's Communication / Plan
-
cont for IV diuresis
Assessment/Plan
-
80-year-old male with complex past medical history including Churg�Lemuel/eosinophilic granulomatosis with polyangeitis, followed by Dr. Piero Garcia at [facility] (methotrexate and prednisone), ventricular tachycardia status post MDT ICD
(2010)-non-ischemic cardiomyopathy (EF 40-45%), peripheral arterial disease (mid right SFA occlusion and probable high-grade distal SFA stenosis). Patient was admitted to [facility] ER 03/04/25 with progressively worsening exertional midsternal chest
burning for the past 2 to 3 weeks that progressed further last night to occurring after washing dishes. Took a NTG with relief. . Patient ruled in for NSTEMI (troponin I 0.225) and was taken to the catheterization lab. Left main/multivessel
coronary disease was identified. A TTE reported a decrease in LV function to 25-30% with LV thrombus. CT surgery and ultimately underwent coronary artery bypass graft on March 06, 2025. Patient was relatively stable until last night he became
short of breath decreased urine output worsening kidney function. He was placed on a Bumex drip with improved urine output he is on inotropic support. He is rate controlled on amiodarone.
Renal consultation for acute kidney injury/hyponatremia 127/hyperkalemia 5.6
Impression
Acute kidney injury creatinine baseline is 0.8 increased up to 1.7�2.
CHF.
Status post CABG.
Vasculopath.
Hyponatremia 127
Transaminitis
Plan.
LARA-cr stable at 1.5
cont IV diuresis per primary
off SGLT2i for now
hyponatremia stable at 131
On midodrine for orthostatic hypotension
follow LFTs-improving
follow labs in am
-
-
Date of Service: March 18, 2025
CC / HPI / ROS
-
Chief Complaint:
hyponatremia
History of Present Illness:
LARA/Cr down to 1.5
Na up to 131
LFTs slowly decreasing
off dobutamine, bp stable
Review of Systems:
no CP/SOB at rest
on 1lit O2
Labs
-
Labs:
WBC 12.8 10^3/uL (4.8-10.8) H 03/17/25 04:13
RBC 2.80 10^6/uL (4.70-6.10) L 03/17/25 04:13
Hgb 9.2 g/dL (13.0-18.0) L 03/17/25 04:13
Hct 27.9 % (39.0-52.0) L 03/17/25 04:13
Plt Count 288 10^3/uL (130-400) 03/17/25 04:13
Sodium 131 mmol/L (135-145) L 03/18/25 04:38
Potassium 4.6 mmol/L (3.5-5.1) D 03/18/25 04:38
Chloride 95 mmol/L (98-107) L 03/18/25 04:38
Carbon Dioxide 30 mmol/L (22-30) 03/18/25 04:38
BUN 55 mg/dl (9-20) H 03/18/25 04:38
Creatinine 1.5 mg/dL (0.7-1.3) H 03/18/25 04:38
eGFR 47.36 03/18/25 04:38
Glucose 96 mg/dl (70-99) 03/18/25 04:38
Calcium 9.3 mg/dl (8.4-10.2) 03/18/25 04:38
Acz-L-Lfalfwkjeuq Pept 3830 pg/ml 03/04/25 08:14
Albumin 3.6 g/dl (3.5-5.0) 03/18/25 04:38
Physical Exam
-
Vital Signs:
Vital Signs
Temp Pulse Resp BP Pulse Ox
98.2 F 90 16 116/84 96
03/18/25 08:00 03/18/25 12:16 03/18/25 08:00 03/18/25 12:16 03/18/25 09:46
Cardiovascular:: Regular rate and rhythm
Respiratory:: Bilateral: Coarse
Lung Excursion:: Normal
Abdomen:: Nontender and Soft
Extremity Edema:: None: Bilateral: (trace)
Rosas Catheter: Yes
[2025-03-18] MEDS: NSS IV (13:31)
[2025-03-18] MEDS: FLEXERIL 5 MG PO (13:31)
--- NOTE | 2025-03-18 14:57 | CM ---
Reviewed chart and reviewed with medical team. Mr. Hunter maybe ready for transfer to [facility] at [place] soon. Telephone call to [facility] Liaison. [facility] may have a bed tomorrow if he is medically stable. Will continue to follow.
Medical work-up in progress. The discharge plan is to go to [facility] at [place] when medically stable.
[2025-03-18] MEDS: FLEET MINERAL OIL ENEMA 133 ML RECTAL (16:25)
--- NOTE | 2025-03-18 16:27 | PTCARENOTE ---
pt unable to void, bladder scanned for ~450ml, straight cath'ed for 600ml clear yellow urine. Unable to have BM, enema administered as ordered.
[2025-03-18] MEDS: SINGULAIR 10 MG PO (17:45)
--- NOTE | 2025-03-18 20:00 | PTCARENOTE ---
assumed care of pt from previous RN. pt A&Ox4, resting in bed at time of assessment. A fib on tele-monitor. temp epicardial A/V wires insulated. POX 97% on RA. abd s/n, +BS. pt c/o constipation. see MAR for medication history. pt having liquid BMs.
pt due to void at 2230. no c/o bladder pain or discomfort at this time. all surgical sites stable, CDI. PIV intact. see worklist for complete nursing assessment, interventions, VS, and I&Os.
[2025-03-18] MEDS: MELATONIN 10 MG PO (22:31)
[2025-03-19] VITALS (21 sets, daily range): BP systolic 71–155; BP diastolic 48–135; PULSE 88–115; BMI 21.0
--- NOTE | 2025-03-19 00:15 | PTCARENOTE ---
assessment remains unchanged.
[2025-03-19] MEDS: FLEXERIL 5 MG PO (00:21)
[2025-03-19] MEDS: XANAX 0.25 MG PO ×2 (00:21→21:11)
[2025-03-19 05:13] LABS: ALT (SGPT) 491 U/L (0-50); AST (SGOT) 73 U/L (17-59); Albumin 3.1 g/dl (3.5-5.0); Alkaline Phosphatase 116 U/L (38-126); Blood Urea Nitrogen 52 mg/dl (9-20); Calcium 8.4 mg/dl (8.4-10.2); Carbon Dioxide 33 mmol/L (22-30); Chloride 98 mmol/L (98-107); Estimated Creatinine Clearance 40 ml/min; Glucose 88 mg/dl (70-99); Magnesium 2.6 mg/dl (1.6-2.3); Potassium 4.0 mmol/L (3.5-5.1); Sodium 135 mmol/L (135-145); Total Protein 5.5 g/dl (6.3-8.2); eGFR 51.45
[2025-03-19] MEDS: CALCIUM GLUCONATE 100 IV (05:43)
[2025-03-19] MEDS: CITROMA 300 ML PO (05:43)
[2025-03-19] MEDS: FLOMAX 0.4 MG PO ×2 (05:44→21:11)
--- NOTE | 2025-03-19 07:20 | W.PN.CT ---
Today's Communication / Plan
-
Plan:
-No major issues overnight. Hemodynamically and neurologically intact
-Weaned off Dobutamine yesterday 03/17/25. Delined and transferred to [facility] phase
-Developed postop urinary retention, bladder scanned for > 450 this AM and required straight cath for 360 mL. Flomax added
-Ongoing postop A-fib, mostly rate controlled
-Heparin gtt transitioned to Eliquis on 03/16
-Amiodarone decreased to 200 mg daily given postop elevated LFTs. Avoid hepatotoxic meds
-On Plavix for graft patency
-Monitor LFT's, improving
-Monitor LARA 1.4, improving. Cont. diuresis
-Hyponatremia has resolved, 135, was 131 yesterday
-On midodrine for postop hypotension, wean as tolerated
-On Prednisone for hx of Eosinophilic granulomatosis. Will resume Methotrexate on discharge
-PT/OT following and recommend acute rehab placement
-For possible placement @ [place] tomorrow
Assessment / Plan
-
- LM & MVCAD- s/p CABG x 3 (ALEXIS to LAD, GSV to D2, GSV to OM); ELAA (40mm AtriClip) by Dr. Wallace on 03/06/25, pod #13
- Moderate MR under intraoperative JOHN assessment--MR improved to [id number] postop
- LV apical thrombus
- NSTEMI
- Ischemic cardiomyopathy, Reduced LVEF (25-30%)
- Hx of VT - s/p MDT ICD 2010
- HTN/HLD
- PAD (mid R SFA occ and prob high grade distal SFA stenosis
- Churg-Lemuel syndrome
- Eosinophilic granulomatosis with polyangeitis- followed by Dr. Garcia @ [facility] - on steroids preop
- Spinal stenosis
- Hyperthyroidism
- Hx inguinal hernia repair
- Hx amauroses fugax
- b/l cataract repair
- Acute postop blood loss anemia
- Acute postop atelectasis
- Acute postop hypovolemia with subsequent hypervolemia
- Suspected acute postop pericarditis/+ rub
- Acute postop a-fib with RVR 03/07
- Acute postop cardiogenic shock
- LARA
- Acute postop hyponatremia
- Acute postop transaminitis
- contraction alkalosis
- Acute postop urinary retention
- Acute postop constipation
Discussed patient care with: Cardiology, Nursing, Respiratory Therapy, Pharmacy and Care Team
Subjective
Procedure
Past 24hrs: Weaning Dobutamine, was dizzy getting OOB. Diuresed 6.6L with Bumex infusion. States exhausted as only 2 hours sleep (max) per night due to feeling tangled in tubing.
-
Date of Service: March 19, 2025
Pt c/o mild incisional pain and constipation, otherwise feels well
Objective Data
-
Lab Results
03/17/25 04:13
03/19/25 04:32
PT 17.3 Sec (11.4-14.6) H 03/06/25 13:53
INR 1.36 03/06/25 13:53
APTT Cancelled 03/16/25 12:30
Vital Signs
Vital Signs
Temp Pulse Resp BP Pulse Ox
97.9 F 84 18 90/60 97
03/19/25 04:30 03/19/25 07:00 03/19/25 04:30 03/19/25 04:32 03/19/25 04:30
CT Intake/Output/Weight
03/18/25 03/19/25 03/19/25
18:59 06:59 18:59
Intake Total 100 / 100
Output Total 960 / 1410 450 / 1410
Balance -860 / -1310 -450 / -1310
SaO2: 97 (RA)
Physical Exam
-
General: Awake, Oriented and AOx3
Cardiovascular: Regular rate & rhythm, No Murmurs and No Gallop
Respiratory: Decreased Breath Sounds (at bases, otherwise clear)
Sternum: Stable
Incision: Clean, Dry, Intact and Dressing Intact
Extremities: Other (+trace edema)
Data Reviewed
-
Lab Results: Results Reviewed
Medications: Active Meds Reviewed
Chest X-Ray: Report Reviewed and Image Reviewed
ECG: Report Reviewed and Image Reviewed
[2025-03-19] MEDS: PULMICORT 0.5 MG INH ×2 (07:30→19:30)
--- NOTE | 2025-03-19 08:00 | PTCARENOTE ---
pt received from previous RN, oriented, drowsy. in bed. Afib on the monitor, HR 80-90s. A&V wires insulated. SBP 70-80s. STONE SANDBLASTER aware. weakly palpable radial pulses, doppler pedal pulses. +1 pitting R ankle/foot edema. pt on RA, 95% POX. lungs clear. IS
encouraged. pt abdomen s/n, denies n/v. pt c/o constipation, received Mag Citrate on previous shift. +BS, +flatus. pt due to void post straight cath for previous shift. pt ambulates w/ assist and RW. sternal incision JUAQUIN. chest tube site intact. R
groin puncture MANAGER OF APPLICATIONS DEVELOPMENT. RLE incision x2 w/ corinna, JUAQUIN. PIV. see worklist for VS, I&O, and assessment.
[2025-03-19] MEDS: DELTASONE 2 MG PO (08:09)
[2025-03-19] MEDS: REGLAN 10 MG PO ×3 (08:09→21:11)
[2025-03-19] MEDS: PROTONIX 40 MG PO (08:09)
[2025-03-19] MEDS: PLAVIX 75 MG PO (08:09)
[2025-03-19] MEDS: FEOSOL 325 MG PO (08:09)
[2025-03-19] MEDS: SENOKOT 8.6 MG PO (08:09)
[2025-03-19] MEDS: DELTASONE 5 MG PO (08:09)
[2025-03-19] MEDS: NEURONTIN 100 MG PO ×3 (08:10→21:10)
[2025-03-19] MEDS: VITAMIN C 500 MG PO (08:10)
[2025-03-19] MEDS: PACERONE 200 MG PO (08:10)
[2025-03-19] MEDS: ELIQUIS 5 MG PO ×2 (08:10→21:12)
[2025-03-19] MEDS: MUCINEX 600 MG PO ×2 (08:10→21:11)
[2025-03-19] MEDS: LIDOCAINE 4% PATCH TOPICAL (08:10)
[2025-03-19] MEDS: TOPROL XL PO (09:20)
[2025-03-19] MEDS: FOLVITE 1 MG PO (11:02)
[2025-03-19] MEDS: LIDOCAINE 4% PATCH 1 PATCH TOPICAL (11:02)
--- NOTE | 2025-03-19 11:46 | CM ---
Reviewed chart. Reviewed with medical team. Mr. Hunter is not ready for transfer ro [facility] at [place] today. Telephone call to [facility] Liaison to update her. Will need to confirm bed at [facility] when tentative discharge date is known.
Medical work-up in progress. The discharge plan is to go to [facility] at [place] when medically stable and bed available.
--- NOTE | 2025-03-19 11:46 | PTCARENOTE ---
pt VS completed, SOCIAL WORK THERAPIST aware of BPs, patient states was lightheaded working w/ PT, lightheadedness resolved sitting in chair/ SOCIAL WORK THERAPIST aware. pt bladder scanned for 425ml, unable to void. SOCIAL WORK THERAPIST aware, moore placed per protocol and SOCIAL WORK THERAPIST aware.
--- NOTE | 2025-03-19 12:25 | W.PN.NEPH.PH ---
Today's Communication / Plan
-
follow labs , prn lasix
Assessment/Plan
-
80-year-old male with complex past medical history including Churg�Lemuel/eosinophilic granulomatosis with polyangeitis, followed by Dr. Piero Garcia at [facility] (methotrexate and prednisone), ventricular tachycardia status post MDT ICD
(2010)-non-ischemic cardiomyopathy (EF 40-45%), peripheral arterial disease (mid right SFA occlusion and probable high-grade distal SFA stenosis). Patient was admitted to [facility] ER 03/04/25 with progressively worsening exertional midsternal chest
burning for the past 2 to 3 weeks that progressed further last night to occurring after washing dishes. Took a NTG with relief. . Patient ruled in for NSTEMI (troponin I 0.225) and was taken to the catheterization lab. Left main/multivessel
coronary disease was identified. A TTE reported a decrease in LV function to 25-30% with LV thrombus. CT surgery and ultimately underwent coronary artery bypass graft on March 06, 2025. Patient was relatively stable until last night he became
short of breath decreased urine output worsening kidney function. He was placed on a Bumex drip with improved urine output he is on inotropic support. He is rate controlled on amiodarone.
Renal consultation for acute kidney injury/hyponatremia 127/hyperkalemia 5.6
Impression
Acute kidney injury creatinine baseline is 0.8 increased up to 1.7�2.
CHF.
Status post CABG.
Vasculopath.
Hyponatremia 127
Transaminitis
Plan.
LARA-cr stable at 1.4
off SGLT2i for now
hyponatremia better at 135
On midodrine for orthostatic hypotension
follow LFTs-improving
follow bladder scan, flomax added as he requires SC
follow labs in am
-
-
Date of Service: March 19, 2025
CC / HPI / ROS
-
Chief Complaint:
hyponatremia
History of Present Illness:
LARA/Cr down to 1.4
Na up to 135
LFTs slowly decreasing
bp stable on midodrine
Review of Systems:
no CP/SOB at rest
off O2
Labs
-
Labs:
WBC 12.8 10^3/uL (4.8-10.8) H 03/17/25 04:13
RBC 2.80 10^6/uL (4.70-6.10) L 03/17/25 04:13
Hgb 9.2 g/dL (13.0-18.0) L 03/17/25 04:13
Hct 27.9 % (39.0-52.0) L 03/17/25 04:13
Plt Count 288 10^3/uL (130-400) 03/17/25 04:13
Sodium 135 mmol/L (135-145) 03/19/25 04:32
Potassium 4.0 mmol/L (3.5-5.1) 03/19/25 04:32
Chloride 98 mmol/L (98-107) 03/19/25 04:32
Carbon Dioxide 33 mmol/L (22-30) H 03/19/25 04:32
BUN 52 mg/dl (9-20) H 03/19/25 04:32
Creatinine 1.4 mg/dL (0.7-1.3) H 03/19/25 04:32
eGFR 51.45 03/19/25 04:32
Glucose 88 mg/dl (70-99) 03/19/25 04:32
Calcium 8.4 mg/dl (8.4-10.2) 03/19/25 04:32
Ccd-Y-Tbfzdhkujfy Pept 3830 pg/ml 03/04/25 08:14
Albumin 3.1 g/dl (3.5-5.0) L 03/19/25 04:32
Physical Exam
-
Vital Signs:
Vital Signs
Temp Pulse Resp BP Pulse Ox
97.9 F 97 18 90/67 95
03/19/25 11:28 03/19/25 10:15 03/19/25 11:28 03/19/25 10:15 03/19/25 09:20
Cardiovascular:: Regular rate and rhythm
Respiratory:: Bilateral: CTA (decreased BS)
Lung Excursion:: Normal
Abdomen:: Nontender and Soft
Extremity Edema:: None: Bilateral: (trace)
Rosas Catheter: No
[2025-03-19] MEDS: REGLAN PO (14:18)
--- NOTE | 2025-03-19 14:31 | W.PN.CARDCBS ---
Addendum entered and electronically signed by Piero Esquivel MD 03/19/25 15:40:
I saw and examined the patient.
The Reptile Keeper's note was reviewed and I agree with the note.
Comment: Briefly, 80-year-old man who presented with NSTEMI and found to have multivessel CAD by cath 03/04/2025 and subsequently underwent CABGx3 and SHERRY clip 03/06/25. IntraOp JOHN with severely reduced left ventricular systolic function (EF
20-25%) and LV thrombus.
Resting comfortably OOB to chair, no cardiac complaints at the time of my evaluation
Inotropes and pressors weaned off
Appears euvolemic on exam
Agree with as needed diuretic dosing as recommended by nephrology
Remains in atrial fibrillation/flutter
Cont metoprolol and amiodarone for rate control
Eliquis for risk reduction of cardioembolic stroke with Plavix as second agent given CAD
Blood pressure has been marginal, still requiring midodrine, which limits guideline directed medical therapy for ICM
Continue metoprolol as able
Eventually add back high intensity statin when LFTs normalize
Original Note:
Today's Communication / Plan
-
continue post op care
continue toprol, amiodarone, plavix, eliquis
wean midodrine as able
plan for [facility] tomorrow
Impression / Plan
-
.
PCP: Josh Valdez
Primary process environmental technician: Dr. Stephens
Impression:
NSTEMI
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
s/p CABG x3 ALEXIS to LAD, GSV to D2, GSV to OM, ELAA 03/06/25
Inferoapical LV thrombus by echo 03/04
Ischemic cardiomyopathy, EF 25 to 30%
Renal insufficiency
Prior history of mild cardiomyopathy
Status post ventricular tachycardia
Paroxysmal atrial fibrillation, new diagnosis this admission
Elevated LFT's post op
ICD 2010, [employer] single-chamber
PAD, mid right SFA occlusion and probable high-grade distal SFA stenosis
Hyper eosinophilia syndrome, on chronic steroid therapy
Churg-Lemuel syndrome
Spinal stenosis
Hyperthyroid storm
Migraines
Pancreatic cysts
Previous cardiovascular studies:
TTE: 01/15/2025: EF 40 to 45%, stage II diastolic dysfunction, basal and mid inferior, distal septal, and mid anterior septal akinesis, RV normal size and function
TTE 07/17/2024: EF 38% by Cardoza's method, 45% by visual estimation, global hypokinesis, normal RV size and function
Cardiac cath 04/16/2011: Luminal irregularities in LAD, circumflex, RCA. LAD has some calcium, EF 42%
Echo 03/04/2025: EF 25 to 30%, dilated LV with LAD distribution akinesis and hypokinesis of remaining mckeon, inferoapical LV thrombus present, MAC, aortic sclerosis, normal right heart
Plan:
-Presented with NSTEMI with peak trop 0.225 s/p cardiac cath 03/04 with ruptured plaque in distal left main extending to ostium of LAD and circumflex
-s/p CABG x3 ALEXIS to LAD, GSV to D2, GSV to OM, ELAA 03/06/25
-dobutamine off as of 03/17
-required IV bumex gtt. Cr downtrending, 1.4 on 03/19. presently on prn diuretic. nephrology following. sodium has normalized
-remains in afib with adequate HRs. continue amiodarone 200mg daily, follow LFTs. continue toprol 12.5mg BID
-presently on plavix, eliquis for graft patency, afib, and LV thrombus
-post op 03/12 with EF 30-35% with improvement in MR. continue GDMT as BP and renal function allow. continue midodrine, wean as ableHe is chronically immunocompromised, on methotrexate and prednisone for hypereosinophilic syndrome followed by
Piero Garcia at [facility]
-plan for [facility] tomorrow. continue rehab efforts
-will arrange OP cardiac follow up
-d/w nursing
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
Subjective
Date of Service: March 19, 2025
feels tired. no pain
Objective
Labs:
03/17/25 04:13
03/19/25 04:32
Labs
Hgb 9.2 g/dL (13.0-18.0) L 03/17/25 04:13
Hct 27.9 % (39.0-52.0) L 03/17/25 04:13
Plt Count 288 10^3/uL (130-400) 03/17/25 04:13
PT 17.3 Sec (11.4-14.6) H 03/06/25 13:53
INR 1.36 03/06/25 13:53
APTT Cancelled 03/16/25 12:30
Sodium 135 mmol/L (135-145) 03/19/25 04:32
Potassium 4.0 mmol/L (3.5-5.1) 03/19/25 04:32
BUN 52 mg/dl (9-20) H 03/19/25 04:32
Creatinine 1.4 mg/dL (0.7-1.3) H 03/19/25 04:32
Glucose 88 mg/dl (70-99) 03/19/25 04:32
Vital Signs and I&O:
Vital Signs
Temp Pulse Resp BP Pulse Ox
97.9 F 97 18 95
03/19/25 11:28 03/19/25 10:15 03/19/25 11:28 03/19/25 10:15 03/19/25 09:20
Vital Signs
Temp Pulse Resp BP Pulse Ox
97.9 F 97 18 95
03/19/25 11:28 03/19/25 10:15 03/19/25 11:28 03/19/25 10:15 03/19/25 09:20
Intake & Output
03/17/25 03/18/25 03/19/25 03/20/25
07:59 07:59 07:59 07:59
Intake Total 898.8 / 898.8 180 / 180 200 / 200
Output Total 2145 / 2195 1055 / 1085 1260 / 1260 400 / 400
Balance -1246.2 / -1296.2 -875 / -905 -1060 / -1060 -400 / -400
Physical Exam
Physical Exam
GEN: No distress, awake, alert, oriented x3. sitting in chair. dyspneic
HEENT: supple, anicteric, mmm, eomi
LUNGS: Diminished BS B/L, no wheezes
CV: Irreg, S1/S2, no murmur
ABD: soft, BS+, NT/ND
EXT: No cyanosis, clubbing, edema
NEURO: Gross non-focal
SKIN: Warm, pink, dry. No rash. Sternotomy incision c/d/i.
--- NOTE | 2025-03-19 15:34 | PTCARENOTE ---
Assessment unchanged; A-fib on monitor and VSS; pt ambulating in room with walker.
[2025-03-19] MEDS: SINGULAIR 10 MG PO (17:08)
[2025-03-19 17:47] LABS: Hematocrit 30.4 % (39.0-52.0); Hemoglobin 9.8 g/dL (13.0-18.0); Mean Corp Hgb Conc. 32.2 g/dL (33.0-37.0); Mean Corpuscular Volume 100.3 fL (80.0-94.0); Platelet Count 340 10^3/uL (130-400); Red Cell Dist. Width 15.3 % (11.5-14.5)
--- NOTE | 2025-03-19 18:00 | CON.MD ---
Documented by User: Katty Alfonso PA-C 03/19/25 20:49
Consultation - Medical
-
Referring Provider:�Paula Wooten CRNP
Chief Complaint:�Debility, CABG
�
History of Present Illness:�80-year-old male with complex past medical history including Churg�Lemuel/eosinophilic granulomatosis with polyangeitis, followed by Dr. Piero Garcia at [facility] (methotrexate and prednisone), ventricular tachycardia
status post MDT ICD (2010)-non-ischemic cardiomyopathy (EF 40-45%), peripheral arterial disease (mid right SFA occlusion and probable high-grade distal SFA stenosis). Patient was admitted to [facility] 03/04/25 with progressively worsening exertional
midsternal chest burning for the past 2 to 3 weeks that progressed further last night to occurring after washing dishes. Took a NTG with relief. . Patient ruled in for NSTEMI (troponin I 0.225) and was taken to the catheterization lab. Left
main/multivessel coronary disease was identified. A TTE reported a decrease in LV function to 25-30% with LV thrombus. CT surgery and ultimately underwent coronary artery bypass graft on March 06, 2025. Patient was relatively stable until last
night he became short of breath decreased urine output worsening kidney function. He was placed on a Bumex drip with improved urine output he is on inotropic support. He is rate controlled on amiodarone.
Renal consultation for acute kidney injury/hyponatremia 127/hyperkalemia 5.6. Nephrology recommended as needed diuretic dosing. She remains in atrial fibrillation/flutter. She is on metoprolol and amiodarone for rate control. Eliquis for risk
reduction of cardioembolic stroke with Plavix and a secondary agent given CAD. Patient still requiring midodrine, which limits guideline directed medical therapy for ICM and tolerance of therapy.
-dobutamine off as of 03/17
-required IV bumex gtt. Cr downtrending, 1.4 on 03/19. presently on prn diuretic. nephrology following. sodium has normalized
-remains in afib with adequate HRs. continue amiodarone 200mg daily, follow LFTs.
-presently on plavix, eliquis for graft patency, afib, and LV thrombus
-post op 03/12 with EF 30-35% with improvement in MR. continue GDMT as BP and renal function allow. continue midodrine, wean as able. He is chronically immunocompromised, on methotrexate and prednisone for hypereosinophilic syndrome followed by
Piero Garcia at [facility]
03/19- Patient seen at [place] [facility] with reported minimal sternal pain, denies chest pain, sob. Reports dizziness with standing and walking due to low blood pressure. Also with complaint of small, hard bowel movement this morning. Per his , previous
BM was prior to surgery about 2 weeks ago. Patient with urinary retention requiring straight cath. Moore was replaced today and Flomax was started.
Patient with poor appetite.
�
Past Medical History:�Churg�Lemuel/eosinophilic granulomatosis with polyangeitis,ventricular tachycardia,non-ischemic cardiomyopathy, peripheral arterial disease, CAD,
Procedure History:�CABG-03/06/25, cardiac cath, inguinal hernia repair, tonsillectomy
Family History:�Dad- heart disease, Mom-breast cancer, Sister-breast cancer, colon cancer-paternal side
�
Social History:�
Functional Level Premorbidly:�Independent with all activities�
Functional Level Currently:�Transfer�min assist, mod assist to scoot to edge of chair, min assist of 2 to rock forward and stand up from chair maintaining sternal precautions. Patient with drop in blood pressure in standing 118/92 sitting down to
86/68 on midodrine. Eating, grooming�set up, toileting�dependent, lower extremity self-care�max assist,
�
Tobacco:�Denies�
Alcohol:�Denies�
Drug use:�Denies�
�
Lives with:�Spouse
24-hour assistance available:�
Number of floors:�multi level
# steps to enter:�2
# steps to second floor: ff
Potential First floor set up:�no
Driving:�yes
Occupation:�Retired
�
�
Allergies:�
Allergy/AdvReac Type Severity Reaction Status Date / Time
amlodipine (From [facility]) Allergy edema Verified 10/24/24 20:47
levofloxacin Allergy Rash Verified 03/04/25 01:49
Penicillins Allergy GI upset, Verified 03/04/25 01:49
vomiting
Quinolones Allergy Rash Verified 03/04/25 01:49
Sulfa (Sulfonamide Allergy Hives, rash Verified 03/04/25 01:49
Antibiotics)
sulfasalazine Allergy Hives, rash Verified 03/04/25 01:49
�
Review of Systems:�
Constitutional: (x) abNormal _fatigue
Eye: (x) Normal _
Ear/Nose/Throat: (x) Normal _
Respiratory: (x) Normal _
Cardiovascular: (x) abNormal _CABG, orthostasis
Gastrointestinal: (x) abNormal _constipation, poor appetite
Genitourinary: (x) abNormal _urinary retention, moore
Musculoskeletal: (x) Normal _
Integumentary: (x) Normal _
Neurologic: (x) Normal _
Psychiatric: (x) Normal _
Endocrine: (x) Normal _
Hematologic/Lymphatic: (x) Normal _
Allergic/Immunologic: (x) Normal _
�
Medications:�
Active Current Visit Medication List
Category Date Time Status
0.9% Sodium Chloride 500 ml [Nss] 500 ml Med 03/06/25 12:48 Active
IV CORDIS
Alprazolam [Xanax] Med 03/16/25 22:00 Active
0.25 mg PO HSPRN PRN
Amiodarone [Pacerone] Med 03/16/25 08:00 Active
200 mg PO DAILY
Apixaban [Eliquis] Med 03/16/25 20:00 Active
5 mg PO BID
Ascorbic Acid [Vitamin C] Med 03/07/25 08:00 Active
500 mg PO DAILY
Atorvastatin [Lipitor] Med 03/06/25 08:00 Hold
40 mg PO DAILY
Bisacodyl [Dulcolax] Med 03/06/25 12:48 Active
10 mg RECTAL DAILYPRN PRN
Budesonide [Pulmicort] Med 03/07/25 20:00 Active
0.5 mg INH R BID
Clopidogrel Bisulfate [Plavix] Med 03/07/25 08:00 Active
75 mg PO DAILY
Cyclobenzaprine HCl [Flexeril] Med 03/06/25 12:48 Active
5 mg PO Q8HPRN PRN
Dapagliflozin [Farxiga] Med 03/11/25 09:15 Hold
10 mg PO DAILY
Dextrose 50%-Water [Dextrose 50% Syringe] Med 03/12/25 04:46 Active
12.5 grams IV [id number] PRN
FOLic ACID [Folvite] Med 03/04/25 08:00 Active
1 mg PO [id number]@0800
Ferrous Sulfate [Feosol] Med 03/07/25 08:00 Active
325 mg PO DAILY
Flush (0.9% Sodium Chloride) [Flush (Nss)] Med 03/06/25 13:00 Active
See Dose Instructions IV PER PROTOCOL
Gabapentin [Neurontin] Med 03/06/25 16:00 Active
100 mg PO TID
Guaifenesin [Mucinex] Med 03/07/25 08:00 Active
600 mg PO Q12
Lidocaine [Lidocaine 4% Patch] Med 03/10/25 08:00 Active
1 patch TOPICAL DAILY
Magnesium Hydroxide [Milk of Magnesia] Med 03/06/25 12:48 Active
30 ml PO BIDPRN PRN
Magnesium Oxide Med 03/07/25 08:00 Hold
400 mg PO BID
Melatonin Med 03/15/25 22:00 Active
10 mg PO HS
Metoclopramide [Reglan] Med 03/09/25 07:30 Active
10 mg PO ACHS
Metoprolol Xl [Toprol Xl] Med 03/10/25 20:00 Active
12.5 mg PO BID
Midodrine [ProAmatine] Med 03/15/25 13:00 Active
10 mg PO TID@0800,1300,1800
Montelukast Sodium [Singulair] Med 03/04/25 18:00 Active
10 mg PO QPM
Ondansetron Injectable [Zofran] Med 03/06/25 12:48 Active
4 mg IV Q8HPRN PRN
Pantoprazole [Protonix] Med 03/07/25 08:00 Active
40 mg PO DAILY
Prednisone [Deltasone] Med 03/04/25 08:00 Active
2 mg PO DAILY
Prednisone [Deltasone] Med 03/04/25 08:00 Active
5 mg PO DAILY
Sennosides [Senokot] Med 03/06/25 20:00 Active
8.6 mg PO Q12
Simethicone [Mylicon] Med 03/08/25 14:50 Active
80 mg PO QIDPRN PRN
Tamsulosin [Flomax] Med 03/19/25 22:00 Active
0.4 mg PO HS
Tramadol HCl [Ultram] Med 03/09/25 17:38 Active
25 mg PO Q6HPRN PRN
Trazodone [Desyrel] Med 03/10/25 22:00 Hold
25 mg PO HS
�
Vitals:�
Temp Pulse Resp BP Pulse Ox
98 F 113 18 91/63 95
03/19/25 15:33 03/19/25 17:06 03/19/25 15:33 03/19/25 17:06 03/19/25 09:20
Height 5 ft 9 in
Actual Weight 64.4 kg
Body Mass Index (BMI) 21.0
�
Physical Exam:�
General Appearance/Observation: Well-developed, well-nourished individual in no apparent distress.�
Pain/Comfort Assessment: sternal Incisional pain
Mood/Affect: Appropriate, pleasant�
Integumentary/Operative Site:�sternal incision with dressing, drain incisions covered, right leg incision-open to air
�� Pressure Ulcer Evaluation: absent over heels.�
��
�� Other Type of Wound: brusises
��
�
Eyes: Conjunctiva/Lids: normal���� Pupils: pupils equal round and reactive to light and Accommodation�
Ears/Nose/Throat: oral mucosa moist,� throat clear.������������ Lips/Teeth/Gums: normal�
Neck: No muscle spasm or tenderness�
Cardiovascular: Heart: irregular, irreg, no murmur�
Pulses: dorsalis pedis 2+ bilaterally�
Respiratory: Respiratory Effort/Chest Expansion: normal������� Auscultation: Diminished breath sounds ,clear to auscultation bilaterally�
Gastrointestinal: abdomen not tender, no distension, normal abdominal bowel sounds
Extremities:�Edema: None�Cyanosis: None�Trophic�changes: None
�
Neurology Exam:
Orientation: Alert, Oriented to self, Time, Place�
Memory: Intact for immediate medical concerns
Comprehension: Intact
Two step command: Intact
Naming: Intact
Cranial Nerves:
�� CNII:�Pupillary light reflex: Intact����Visual Field: Intact
�� CN III, IV, : Extraocular muscles: Intact�
�� CN V:�Facial Sensation�at�Forehead: Intact,�Maxilla: Intact,�Mandible: Intact
�� CN VII:�Facial movement: Symmetric
�� CN VIII:�Hearing: Normal
�� CN IX/X:�Speech & swallow: Normal,�Position of Uvula: Midline
�� CN XI:�Shoulder shrug: Symmetric
��
Sensory:
�� Light touch: Intact in bilateral upper and lower extremities
��
Reflexes:
�� Biceps: 2+ bilaterally
�� Brachioradialis: 2+ bilaterally
�� Triceps: 2+ bilaterally
�� Patellar: 2+ bilaterally
�� Achilles: 2+ bilaterally
�� Babinski: Down going bilaterally
�� Clonus: None
�� [place]: Negative bilaterally�
Cerebellar: Dysmetria/Ataxia: None�
Musculoskeletal:
Motor: (Manual muscle scale 0-5)�
Muscle SA EF WE EE FF FA HF KE DF EHL PF
Right� >3 >3 >3 >3 5 5 4 4 5 5 5
Left >3 >3 >3 >3 5 5 4 4 5 5 5
�
Tone: Normal in all extremities�
Range of Motion: Passively within normal limits . deferred UE due to surgery
�
Lab Results
Labs
WBC 12.8 10^3/uL (4.8-10.8) H 03/17/25 04:13
RBC 2.80 10^6/uL (4.70-6.10) L 03/17/25 04:13
Hgb 9.2 g/dL (13.0-18.0) L 03/17/25 04:13
Hct 27.9 % (39.0-52.0) L 03/17/25 04:13
MCV 99.6 fL (80.0-94.0) H 03/17/25 04:13
MCH 32.9 pg (27.0-31.0) H 03/17/25 04:13
MCHC 33.0 g/dL (33.0-37.0) 03/17/25 04:13
RDW 14.6 % (11.5-14.5) H 03/17/25 04:13
Plt Count 288 10^3/uL (130-400) 03/17/25 04:13
MPV 9.4 fL (7.4-10.4) 03/17/25 04:13
Abs Immat Gran (auto) 0.3 10^3/uL (0-0.05) H 03/17/25 04:13
Absolute Neuts (auto) 9.5 10^3/uL (1.4-6.5) H 03/17/25 04:13
Absolute Lymphs (auto) 1.5 10^3/uL (1.2-3.4) 03/17/25 04:13
Absolute Monos (auto) 1.3 10^3/uL (0.1-0.6) H 03/17/25 04:13
Absolute Eos (auto) 0.3 10^3/uL (0-0.7) 03/17/25 04:13
Absolute Basos (auto) 0.0 10^3/uL (0-0.2) 03/17/25 04:13
Immature Gran % 2.0 % (0-0.5) H 03/17/25 04:13
Neutrophils % 73.9 % (42.2-75.2) 03/17/25 04:13
Lymphocytes % 11.4 % (20.5-51.1) L 03/17/25 04:13
Monocytes % 10.0 % (1.7-9.3) H 03/17/25 04:13
Eosinophils % 2.4 % (0-6) 03/17/25 04:13
Basophils % 0.3 % (0-2) 03/17/25 04:13
Nucleated RBC % 0.7 % (-) 03/17/25 04:13
PT 17.3 Sec (11.4-14.6) H 03/06/25 13:53
INR 1.36 03/06/25 13:53
APTT Cancelled 03/16/25 12:30
pH 7.43 (7.35-7.45) 03/12/25 07:56
pCO2 35 mmHg (35-48) 03/12/25 07:56
pO2 141 mmHg (83-108) H 03/12/25 07:56
HCO3 23.2 mmol/L (21-28) 03/12/25 07:56
Base Excess -0.8 mmol/L 03/12/25 07:56
ABG O2 Sat (Measured) 99.8 % (94-98) H 03/12/25 07:56
POC ABG O2 Sat (Calc) 99.9 % (94-98) H 03/06/25 12:28
VBG pH 7.23 (7.32-7.43) L 03/12/25 03:22
VBG pCO2 46 mmHg (35-48) 03/12/25 03:22
VBG pO2 47 mmHg (30-50) 03/12/25 03:22
VBG HCO3 19.3 mmol/L (22-27) L 03/12/25 03:22
VBG O2 Sat ([place]rell) 68.7 % 03/12/25 03:22
VBG Base Excess -7.9 mmol/L (-4 to +4) 03/12/25 03:22
VBG O2 Therapy 03/12/25 03:22
Mixed VBG O2 Saturation Cancelled 03/17/25 06:00
Sodium 124 mMOL/L (136-145) L 03/11/25 23:08
Potassium 4.4 mMOL/L (3.5-5.1) 03/12/25 07:56
O2 Delivery Level 03/12/25 07:56
Sodium 135 mmol/L (135-145) 03/19/25 04:32
Potassium 4.0 mmol/L (3.5-5.1) 03/19/25 04:32
Chloride 98 mmol/L (98-107) 03/19/25 04:32
Carbon Dioxide 33 mmol/L (22-30) H 03/19/25 04:32
BUN 52 mg/dl (9-20) H 03/19/25 04:32
Creatinine 1.4 mg/dL (0.7-1.3) H 03/19/25 04:32
Estimated Creat Clear 40 ml/min 03/19/25 04:32
eGFR 51.45 03/19/25 04:32
Glucose 88 mg/dl (70-99) 03/19/25 04:32
Hemoglobin A1c 5.5 % (4.0-5.9) 03/05/25 03:34
Lactic Acid Cancelled 03/12/25 22:44
Calcium 8.4 mg/dl (8.4-10.2) 03/19/25 04:32
Ionized Calcium 1.17 mMOL/L (1.15-1.33) 03/17/25 04:13
Magnesium 2.6 mg/dl (1.6-2.3) H 03/19/25 04:32
Total Bilirubin 0.6 mg/dl (0.2-1.3) 03/19/25 04:32
Direct Bilirubin 0.7 mg/dl (0.0-0.4) H 03/12/25 11:
Direct Bilirubin Cancelled 03/12/25 11:
AST 73 U/L (17-59) H 03/19/25 04:32
ALT 491 U/L (0-50) H 03/19/25 04:32
Alkaline Phosphatase 116 U/L (38-126) 03/19/25 04:32
Troponin I 0.162 ng/ml H* 03/06/25 01:37
C-Reactive Protein 7.40 mg/L (0.0-10.00) 03/04/25 01:49
Bbz-E-[id number] Pept 3830 pg/ml 03/04/25 08:14
Total Protein 5.5 g/dl (6.3-8.2) L 03/19/25 04:32
Albumin 3.1 g/dl (3.5-5.0) L 03/19/25 04:32
Triglycerides 38 mg/dl (10-149) 03/05/25 03:34
Total Cholesterol 115 mg/dl (50-199) 03/05/25 03:34
LDL Cholesterol, Calc 42 mg/dl 03/05/25 03:34
VLDL Cholesterol, Calc 7 mg/dl (0-30) 03/05/25 03:34
HDL Cholesterol 66 mg/dl 03/05/25 03:34
Urine Color Yellow 03/12/25 07:56
Urine Clarity Clear (Clear) 03/12/25 07:56
Urine pH 5.0 (5.0-9.0) 03/12/25 07:56
Ur Specific [place] 1.015 (<1.030) 03/12/25 07:56
Urine Ketones Negative (Negative) 03/12/25 07:56
Ur Occult Blood Reflex 3+ (Negative) A 03/12/25 07:56
Urine Nitrite (Reflex) Negative (Negative) 03/12/25 07:56
Urine Bilirubin Negative (Negative) 03/12/25 07:56
Urine Urobilinogen Negative (Neg - 1+) 03/12/25 07:56
Leukocyte Esterase Rfl Negative (Negative) 03/12/25 07:56
Urine RBC 11-15 /HPF (0-2) A 03/12/25 07:56
Urine WBC (Reflex) 6-10 /HPF (0-5) 03/12/25 07:56
Ur Squamous Epith Cells 0-2 /LPF (Few) 03/12/25 07:56
Amorphous Crystals Seen 03/12/25 07:56
Urine Bacteria (Reflex) Moderate (Negative) A 03/12/25 07:56
Hyaline Casts >15 /LPF (0-2) 03/12/25 07:56
Granular Casts >15 /LPF (0) 03/12/25 07:56
Urine Mucus Few 03/12/25 07:56
Urine Glucose 3+ (Negative) A 03/12/25 07:56
Urine Albumin (Reflex) 2+ (Neg - Trace) A 03/12/25 07:56
Hepatitis C Antibody Negative (Negative) 03/04/25 01:49
Specimen Type Arterial 03/06/25 12:28
POC pH 7.40 (7.35-7.45) 03/06/25 12:28
POC Base Excess -1.4 mmol/L 03/06/25 12:28
POC pO2 295 mmHg (83-108) H 03/06/25 12:28
POC pCO2 37 mmHg (35-48) 03/06/25 12:28
POC HCO3 23 mmol/L (21-28) 03/06/25 12:28
POC Glucose 104 mg/dl (70-99) H 03/15/25 09:18
POC Glucose 112 mg/dl (70-99) H 03/06/25 12:28
POC Sodium 140 mmol/L (136-145) 03/06/25 12:28
POC Potassium 3.8 mmol/L (3.5-5.1) 03/06/25 12:28
POC Ionized Calcium 1.24 mmol/L (1.15-1.33) 03/06/25 12:28
POC Lactate 1.10 mmol/L (0.36-0.75) H 03/06/25 12:28
POC ACT+ 126 Seconds (82-134) 03/06/25 12:24
POC Hemoglobin Calc 8.5 03/06/25 12:28
POC Hematocrit 25 % PCV (42-52) L 03/06/25 12:28
POC Hemodilution Yes 03/06/25 12:28
Blood Type A POS 03/04/25 21:38
Antibody Screen Negative (Negative) 03/04/25 21:38
Crossmatch IS Only See Detail 03/04/25 21:38
�
Diagnostic Results:�as per HPI�
�Echo 03/04/2025: EF 25 to 30%, dilated LV with LAD distribution akinesis and hypokinesis of remaining mckeon, inferoapical LV thrombus present, MAC, aortic sclerosis, normal right heart
Assessment: 80-year-old man who presented with NSTEMI and found to have multivessel CAD by cath 03/04/2025 and subsequently underwent CABGx3 and SHERRY clip 03/06/25. IntraOp JOHN with severely reduced left ventricular systolic function (EF 20-25%) and
LV thrombus.
�
Plan�
PM&R�PT/OT to increase independence with ADLs, improve balance, coordination, endurance, strength, mobility, community reintegration, decreased burden of care on others and family education.�
�
Debility: PT/OP
NSTEMI S/P CABG x 3: Sternal precautions.� Aspirin, statin, BP control.� Farxiga, monitor incision, pain control.�
HTN: continue medications, monitor closely�
HLD: Statin�
Orthostatic hypotension: Midodrine 15 mg 3 times daily at 0800, 1300, 1800
Coronary artery disease�: Aspirin, statin, beta-ankit�
Atrial fibrillation:� Continue anticoagulation and rate control medications.��
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
Anemia: Post-op.� Continue to monitor.�
Transaminitis:monitor
Hyponatremia: Nephrology following, diuretic as needed
Psych: Monitor mood, adjust medications as needed.�
Skin: monitor for pressure sores/rashes/lesions.�
Pain: acetaminophen as needed, Flexeril 5 mg Q8 as needed, tramadol 25 mg every 6 as needed, Xanax 0.25 mg at bedtime as needed.� Lidocaine patch
Nausea: Simethicone 80 mg 4 times daily as needed, Zofran 4 mg IV Q8 as needed
Bowel/Constipation:Senna, PRN bisacodyl.�would recommend adding colace, Miralax
Urinary Retention: Time void, PVRs, PRN straight cath.�Moore placed 03/19. Flomax 0.4mg added
GI Prophylaxis: Pantoprazole�
DVT Prophylaxis: Eliquis
Pulmonary: Incentive spirometry�
Safety: Continue to reinforce assistance with all transfers.�
Code Status:� Full code
Dispo�(date/plan/equipment needs): Home with family care.� Social history reviewed.�
�
Functional and Medical Goals:�Modified Independent with ADL�s, ambulation, transfers�
�
Discharge Destination:�Patient still symptomatic with orthostatic hypotension on midodrine. Vitals would need to be stable prior to discharge to Acute inpatient in order to tolerate 3 hours of therapy per day.
�Bowel/Constipation: Cont Senna, PRN bisacodyl.�would recommend adding Colace, Miralax as patient reports first BM this morning of small, and hard stool and no BM prior to surgery. Would recommend obtaining abdominal xray as well
Leukocytosis: CBC trended up this afternoon from 12.8 to 15.1 on same dose of prednisone. Repeat CBC in morning
Thank you for allowing me to care for your patient. Please contact me with any questions or concerns.

Documented by User: Kostas Crawford MD 03/19/25 22:21
Consultation - Medical
-
Referring Provider:�Paula Wooten CRNP
Chief Complaint:�Debility, CABG
�
History of Present Illness:�80-year-old male with complex past medical history including Churg�Lemuel/eosinophilic granulomatosis with polyangiitis, followed by Dr. Piero Garcia at [facility] (methotrexate and prednisone), ventricular tachycardia
status post MDT ICD (2010)-non-ischemic cardiomyopathy (EF 40-45%), peripheral arterial disease (mid right SFA occlusion and probable high-grade distal SFA stenosis). Patient was admitted to [facility] 03/04/25 with progressively worsening exertional
midsternal chest burning for the past 2 to 3 weeks that progressed further last night to occurring after washing dishes. Took a NTG with relief. Patient ruled in for NSTEMI (troponin I 0.225) and was taken to the catheterization lab. Left
main/multivessel coronary disease was identified. A TTE reported a decrease in LV function to 25-30% with LV thrombus. CT surgery and ultimately underwent coronary artery bypass graft on March 06, 2025. Patient was relatively stable until last
night he became short of breath decreased urine output worsening kidney function. He was placed on a Bumex drip with improved urine output he is on inotropic support. He is rate controlled on amiodarone.
Renal consultation for acute kidney injury/hyponatremia 127/hyperkalemia 5.6. Nephrology recommended as needed diuretic dosing. She remains in atrial fibrillation/flutter. She is on metoprolol and amiodarone for rate control. Eliquis for risk
reduction of cardioembolic stroke with Plavix and a secondary agent given CAD. Patient still requiring midodrine, which limits guideline directed medical therapy for ICM and tolerance of therapy.
-dobutamine off as of 03/17
-required IV bumex gtt. Cr downtrending, 1.4 on 03/19. presently on prn diuretic. nephrology following. sodium has normalized
-remains in afib with adequate HRs. continue amiodarone 200mg daily, follow LFTs.
-presently on plavix, eliquis for graft patency, afib, and LV thrombus
-post op 03/12 with EF 30-35% with improvement in MR. continue GDMT as BP and renal function allow. continue midodrine, wean as able. He is chronically immunocompromised, on methotrexate and prednisone for hypereosinophilic syndrome followed by
Piero Garcia at [facility]
03/19- Patient seen at beside with reported minimal sternal pain, denies chest pain, sob. Reports dizziness with standing and walking due to low blood pressure. Also with complaint of small, hard bowel movement this morning. Per his , previous
BM was prior to surgery about 2 weeks ago. Patient with urinary retention requiring straight cath. Moore was replaced today and Flomax was started.
Patient with poor appetite.
�
Past Medical History:�Churg�Lemuel/eosinophilic granulomatosis with polyangeitis,ventricular tachycardia,non-ischemic cardiomyopathy, peripheral arterial disease, CAD,
Procedure History:�CABG-03/06/25, cardiac cath, inguinal hernia repair, tonsillectomy
Family History:�Dad- heart disease, Mom-breast cancer, Sister-breast cancer, colon cancer-paternal side
�
Social History:�
Functional Level Premorbidly:�Independent with all activities�
Functional Level Currently:�Transfer�min assist, mod assist to scoot to edge of chair, min assist of 2 to rock forward and stand up from chair maintaining sternal precautions. Patient with drop in blood pressure in standing 118/92 sitting down to
86/68 on midodrine. Eating, grooming�set up, toileting�dependent, lower extremity self-care�max assist,
�
Tobacco:�Denies�
Alcohol:�Denies�
Drug use:�Denies�
�
Lives with:�Spouse
24-hour assistance available:�yes
Number of floors:�multi level
# steps to enter:�2
# steps to second floor: full flight
Potential First floor set up:�no
Driving:�yes
Occupation:�Retired
�
�
Allergies:�
Allergy/AdvReac Type Severity Reaction Status Date / Time
amlodipine (From [facility]) Allergy edema Verified 10/24/24 20:47
levofloxacin Allergy Rash Verified 03/04/25 01:49
Penicillins Allergy GI upset, Verified 03/04/25 01:49
vomiting
Quinolones Allergy Rash Verified 03/04/25 01:49
Sulfa (Sulfonamide Allergy Hives, rash Verified 03/04/25 01:49
Antibiotics)
sulfasalazine Allergy Hives, rash Verified 03/04/25 01:49
�
Review of Systems:�
Constitutional: (x) abNormal _fatigue
Eye: (x) Normal _
Ear/Nose/Throat: (x) Normal _
Respiratory: (x) Normal _
Cardiovascular: (x) abNormal _CABG, orthostasis
Gastrointestinal: (x) abNormal _constipation, poor appetite
Genitourinary: (x) abNormal _urinary retention, moore
Musculoskeletal: (x) Normal _
Integumentary: (x) Normal _
Neurologic: (x) Normal _
Psychiatric: (x) Normal _
Endocrine: (x) Normal _
Hematologic/Lymphatic: (x) Normal _
Allergic/Immunologic: (x) Normal _
�
Medications:�
Active Current Visit Medication List
Category Date Time Status
0.9% Sodium Chloride 500 ml [Nss] 500 ml Med 03/06/25 12:48 Active
IV CORDIS
Alprazolam [Xanax] Med 03/16/25 22:00 Active
0.25 mg PO HSPRN PRN
Amiodarone [Pacerone] Med 03/16/25 08:00 Active
200 mg PO DAILY
Apixaban [Eliquis] Med 03/16/25 20:00 Active
5 mg PO BID
Ascorbic Acid [Vitamin C] Med 03/07/25 08:00 Active
500 mg PO DAILY
Atorvastatin [Lipitor] Med 03/06/25 08:00 Hold
40 mg PO DAILY
Bisacodyl [Dulcolax] Med 03/06/25 12:48 Active
10 mg RECTAL DAILYPRN PRN
Budesonide [Pulmicort] Med 03/07/25 20:00 Active
0.5 mg INH R BID
Clopidogrel Bisulfate [Plavix] Med 03/07/25 08:00 Active
75 mg PO DAILY
Cyclobenzaprine HCl [Flexeril] Med 03/06/25 12:48 Active
5 mg PO Q8HPRN PRN
Dapagliflozin [Farxiga] Med 03/11/25 09:15 Hold
10 mg PO DAILY
Dextrose 50%-Water [Dextrose 50% Syringe] Med 03/12/25 04:46 Active
12.5 grams IV [id number] PRN
FOLic ACID [Folvite] Med 03/04/25 08:00 Active
1 mg PO [id number]
Ferrous Sulfate [Feosol] Med 03/07/25 08:00 Active
325 mg PO DAILY
Flush (0.9% Sodium Chloride) [Flush (Nss)] Med 03/06/25 13:00 Active
See Dose Instructions IV PER PROTOCOL
Gabapentin [Neurontin] Med 03/06/25 16:00 Active
100 mg PO TID
Guaifenesin [Mucinex] Med 03/07/25 08:00 Active
600 mg PO Q12
Lidocaine [Lidocaine 4% Patch] Med 03/10/25 08:00 Active
1 patch TOPICAL DAILY
Magnesium Hydroxide [Milk of Magnesia] Med 03/06/25 12:48 Active
30 ml PO BIDPRN PRN
Magnesium Oxide Med 03/07/25 08:00 Hold
400 mg PO BID
Melatonin Med 03/15/25 22:00 Active
10 mg PO HS
Metoclopramide [Reglan] Med 03/09/25 07:30 Active
10 mg PO ACHS
Metoprolol Xl [Toprol Xl] Med 03/10/25 20:00 Active
12.5 mg PO BID
Midodrine [ProAmatine] Med 03/15/25 13:00 Active
10 mg PO TID@0800,1300,1800
Montelukast Sodium [Singulair] Med 03/04/25 18:00 Active
10 mg PO QPM
Ondansetron Injectable [Zofran] Med 03/06/25 12:48 Active
4 mg IV Q8HPRN PRN
Pantoprazole [Protonix] Med 03/07/25 08:00 Active
40 mg PO DAILY
Prednisone [Deltasone] Med 03/04/25 08:00 Active
2 mg PO DAILY
Prednisone [Deltasone] Med 03/04/25 08:00 Active
5 mg PO DAILY
Sennosides [Senokot] Med 03/06/25 20:00 Active
8.6 mg PO Q12
Simethicone [Mylicon] Med 03/08/25 14:50 Active
80 mg PO QIDPRN PRN
Tamsulosin [Flomax] Med 03/19/25 22:00 Active
0.4 mg PO HS
Tramadol HCl [Ultram] Med 03/09/25 17:38 Active
25 mg PO Q6HPRN PRN
Trazodone [Desyrel] Med 03/10/25 22:00 Hold
25 mg PO HS
�
Vitals:�
Temp Pulse Resp BP Pulse Ox
98 F 113 18 91/63 95
03/19/25 15:33 03/19/25 17:06 03/19/25 15:33 03/19/25 17:06 03/19/25 09:20
Height 5 ft 9 in
Actual Weight 64.4 kg
Body Mass Index (BMI) 21.0
�
Physical Exam:�
General Appearance/Observation: Well-developed, well-nourished male in no apparent distress.�
Pain/Comfort Assessment: slight sternal Incisional pain
Mood/Affect: Appropriate, pleasant�
Integumentary/Operative Site:�sternal incision with dressing, drain incisions covered, right leg incisions-open to air
�� Pressure Ulcer Evaluation: absent over heels.�
���� Other Type of Wound: bruises
��
�
Eyes: Conjunctiva/Lids: normal���� Pupils: pupils equal round and reactive to light and Accommodation�
Ears/Nose/Throat: oral mucosa moist,� mild thrush on tongue.������������ Lips/Teeth/Gums: normal�
Neck: No muscle spasm or tenderness�
Cardiovascular: Heart: irregularly, irregular, no murmur�
Pulses: dorsalis pedis 2+ bilaterally�
Respiratory: Respiratory Effort/Chest Expansion: normal������� Auscultation: Diminished breath sounds ,clear to auscultation bilaterally�
Gastrointestinal: abdomen not tender, no distension, normal abdominal bowel sounds
Extremities:�Edema: None�Cyanosis: None�Trophic�changes: None
�
Neurology Exam:
Orientation: Alert, Oriented to self, Time, Place�
Memory: Intact for immediate medical concerns
Comprehension: Intact
Two step command: Intact
Naming: Intact
Cranial Nerves:
�� CNII:�Pupillary light reflex: Intact����Visual Field: Intact
�� CN III, IV, : Extraocular muscles: Intact�
�� CN V:�Facial Sensation�at�Forehead: Intact,�Maxilla: Intact,�Mandible: Intact
�� CN VII:�Facial movement: Symmetric
�� CN VIII:�Hearing: Normal
�� CN IX/X:�Speech & swallow: Normal,�Position of Uvula: Midline
�� CN XI:�Shoulder shrug: Symmetric
��
Sensory:
�� Light touch: Intact in bilateral upper and lower extremities
��
Reflexes:
�� Biceps: 2+ bilaterally
�� Brachioradialis: 2+ bilaterally
�� Triceps: 2+ bilaterally
�� Patellar: 2+ bilaterally
�� Achilles: 2+ bilaterally
�� Babinski: Down going bilaterally
�� Clonus: None
�� [place]: Negative bilaterally�
Cerebellar: Dysmetria/Ataxia: None�
Musculoskeletal: Motor: (Manual muscle scale 0-5)�
Muscle SA EF WE EE FF FA HF KE DF EHL PF
Right� >3 >3 >3 >3 5 5 4 4 5 5 5
Left >3 >3 >3 >3 5 5 4 4 5 5 5
�
Tone: Normal in all extremities�
Range of Motion: Passively within normal limits . deferred UE due to surgery
�
Lab Results
Labs
WBC 12.8 10^3/uL (4.8-10.8) H 03/17/25 04:13
RBC 2.80 10^6/uL (4.70-6.10) L 03/17/25 04:13
Hgb 9.2 g/dL (13.0-18.0) L 03/17/25 04:13
Hct 27.9 % (39.0-52.0) L 03/17/25 04:13
MCV 99.6 fL (80.0-94.0) H 03/17/25 04:13
MCH 32.9 pg (27.0-31.0) H 03/17/25 04:13
MCHC 33.0 g/dL (33.0-37.0) 03/17/25 04:13
RDW 14.6 % (11.5-14.5) H 03/17/25 04:13
Plt Count 288 10^3/uL (130-400) 03/17/25 04:13
MPV 9.4 fL (7.4-10.4) 03/17/25 04:13
Abs Immat Gran (auto) 0.3 10^3/uL (0-0.05) H 03/17/25 04:13
Absolute Neuts (auto) 9.5 10^3/uL (1.4-6.5) H 03/17/25 04:13
Absolute Lymphs (auto) 1.5 10^3/uL (1.2-3.4) 03/17/25 04:13
Absolute Monos (auto) 1.3 10^3/uL (0.1-0.6) H 03/17/25 04:13
Absolute Eos (auto) 0.3 10^3/uL (0-0.7) 03/17/25 04:13
Absolute Basos (auto) 0.0 10^3/uL (0-0.2) 03/17/25 04:13
Immature Gran % 2.0 % (0-0.5) H 03/17/25 04:13
Neutrophils % 73.9 % (42.2-75.2) 03/17/25 04:13
Lymphocytes % 11.4 % (20.5-51.1) L 03/17/25 04:13
Monocytes % 10.0 % (1.7-9.3) H 03/17/25 04:13
Eosinophils % 2.4 % (0-6) 03/17/25 04:13
Basophils % 0.3 % (0-2) 03/17/25 04:13
Nucleated RBC % 0.7 % (-) 03/17/25 04:13
PT 17.3 Sec (11.4-14.6) H 03/06/25 13:53
INR 1.36 03/06/25 13:53
APTT Cancelled 03/16/25 12:30
pH 7.43 (7.35-7.45) 03/12/25 07:56
pCO2 35 mmHg (35-48) 03/12/25 07:56
pO2 141 mmHg (83-108) H 03/12/25 07:56
HCO3 23.2 mmol/L (21-28) 03/12/25 07:56
Base Excess -0.8 mmol/L 03/12/25 07:56
ABG O2 Sat (Measured) 99.8 % (94-98) H 03/12/25 07:56
POC ABG O2 Sat (Calc) 99.9 % (94-98) H 03/06/25 12:28
VBG pH 7.23 (7.32-7.43) L 03/12/25 03:22
VBG pCO2 46 mmHg (35-48) 03/12/25 03:22
VBG pO2 47 mmHg (30-50) 03/12/25 03:22
VBG HCO3 19.3 mmol/L (22-27) L 03/12/25 03:22
VBG O2 Sat (Sherrell) 68.7 % 03/12/25 03:22
VBG Base Excess -7.9 mmol/L (-4 to +4) 03/12/25 03:22
VBG O2 Therapy 03/12/25 03:22
Mixed VBG O2 Saturation Cancelled 03/17/25 06:00
Sodium 124 mMOL/L (136-145) L 03/11/25 23:08
Potassium 4.4 mMOL/L (3.5-5.1) 03/12/25 07:56
O2 Delivery Level 03/12/25 07:56
Sodium 135 mmol/L (135-145) 03/19/25 04:32
Potassium 4.0 mmol/L (3.5-5.1) 03/19/25 04:32
Chloride 98 mmol/L (98-107) 03/19/25 04:32
Carbon Dioxide 33 mmol/L (22-30) H 03/19/25 04:32
BUN 52 mg/dl (9-20) H 03/19/25 04:32
Creatinine 1.4 mg/dL (0.7-1.3) H 03/19/25 04:32
Estimated Creat Clear 40 ml/min 03/19/25 04:32
eGFR 51.45 03/19/25 04:32
Glucose 88 mg/dl (70-99) 03/19/25 04:32
Hemoglobin A1c 5.5 % (4.0-5.9) 03/05/25 03:34
Lactic Acid Cancelled 03/12/25 22:44
Calcium 8.4 mg/dl (8.4-10.2) 03/19/25 04:32
Ionized Calcium 1.17 mMOL/L (1.15-1.33) 03/17/25 04:13
Magnesium 2.6 mg/dl (1.6-2.3) H 03/19/25 04:32
Total Bilirubin 0.6 mg/dl (0.2-1.3) 03/19/25 04:32
Direct Bilirubin 0.7 mg/dl (0.0-0.4) H 03/12/25 11:25
Direct Bilirubin Cancelled 03/12/25 11:25
AST 73 U/L (17-59) H 03/19/25 04:32
ALT 491 U/L (0-50) H 03/19/25 04:32
Alkaline Phosphatase 116 U/L (38-126) 03/19/25 04:32
Troponin I 0.162 ng/ml H* 03/06/25 01:37
C-Reactive Protein 7.40 mg/L (0.0-10.00) 03/04/25 01:49
Rxf-B-Btqsamckffg Pept 3830 pg/ml 03/04/25 08:14
Total Protein 5.5 g/dl (6.3-8.2) L 03/19/25 04:32
Albumin 3.1 g/dl (3.5-5.0) L 03/19/25 04:32
Triglycerides 38 mg/dl (10-149) 03/05/25 03:34
Total Cholesterol 115 mg/dl (50-199) 03/05/25 03:34
LDL Cholesterol, Calc 42 mg/dl 03/05/25 03:34
VLDL Cholesterol, Calc 7 mg/dl (0-30) 03/05/25 03:34
HDL Cholesterol 66 mg/dl 03/05/25 03:34
Urine Color Yellow 03/12/25 07:56
Urine Clarity Clear (Clear) 03/12/25 07:56
Urine pH 5.0 (5.0-9.0) 03/12/25 07:56
Ur Specific [place] 1.015 (<1.030) 03/12/25 07:56
Urine Ketones Negative (Negative) 03/12/25 07:56
Ur Occult Blood Reflex 3+ (Negative) A 03/12/25 07:56
Urine Nitrite (Reflex) Negative (Negative) 03/12/25 07:56
Urine Bilirubin Negative (Negative) 03/12/25 07:56
Urine Urobilinogen Negative (Neg - 1+) 03/12/25 07:56
Leukocyte Esterase Rfl Negative (Negative) 03/12/25 07:56
Urine RBC 11-15 /HPF (0-2) A 03/12/25 07:56
Urine WBC (Reflex) 6-10 /HPF (0-5) 03/12/25 07:56
Ur Squamous Epith Cells 0-2 /LPF (Few) 03/12/25 07:56
Amorphous Crystals Seen 03/12/25 07:56
Urine Bacteria (Reflex) Moderate (Negative) A 03/12/25 07:56
Hyaline Casts >15 /LPF (0-2) 03/12/25 07:56
Granular Casts >15 /LPF (0) 03/12/25 07:56
Urine Mucus Few 03/12/25 07:56
Urine Glucose 3+ (Negative) A 03/12/25 07:56
Urine Albumin (Reflex) 2+ (Neg - Trace) A 03/12/25 07:56
Hepatitis C Antibody Negative (Negative) 03/04/25 01:49
Specimen Type Arterial 03/06/25 12:28
POC pH 7.40 (7.35-7.45) 03/06/25 12:28
POC Base Excess -1.4 mmol/L 03/06/25 12:28
POC pO2 295 mmHg (83-108) H 03/06/25 12:28
POC pCO2 37 mmHg (35-48) 03/06/25 12:28
POC HCO3 23 mmol/L (21-28) 03/06/25 12:28
POC Glucose 104 mg/dl (70-99) H 03/15/25 09:18
POC Glucose 112 mg/dl (70-99) H 03/06/25 12:28
POC Sodium 140 mmol/L (136-145) 03/06/25 12:28
POC Potassium 3.8 mmol/L (3.5-5.1) 03/06/25 12:28
POC Ionized Calcium 1.24 mmol/L (1.15-1.33) 03/06/25 12:28
POC Lactate 1.10 mmol/L (0.36-0.75) H 03/06/25 12:28
POC ACT+ 126 Seconds (82-134) 03/06/25 12:24
POC Hemoglobin Calc 8.5 03/06/25 12:28
POC Hematocrit 25 % PCV (42-52) L 03/06/25 12:28
POC Hemodilution Yes 03/06/25 12:28
Blood Type A POS 03/04/25 21:38
Antibody Screen Negative (Negative) 03/04/25 21:38
Crossmatch IS Only See Detail 03/04/25 21:38
�
Diagnostic Results:�as per HPI�
�Echo 03/04/2025: EF 25 to 30%, dilated LV with LAD distribution akinesis and hypokinesis of remaining mckeon, inferoapical LV thrombus present, MAC, aortic sclerosis, normal right heart
Assessment:
80-year-old man who presented with NSTEMI and found to have multivessel CAD by cath 03/04/2025 and subsequently underwent CABGx3 and SHERRY clip 03/06/25. IntraOp JOHN with severely reduced left ventricular systolic function (EF 20-25%) and LV thrombus.
Plan�
PM&R�PT/OT to increase independence with ADLs, improve balance, coordination, endurance, strength, mobility, community reintegration, decreased burden of care on others and family education.�
�
Debility: PT/OP
NSTEMI S/P CABG x 3: Sternal precautions.� Aspirin, statin, BP control.� Farxiga, monitor incision, pain control.�
Thrush: suggest Nystatin oral rinse
HTN: continue medications, monitor closely�
HLD: Statin�
Orthostatic hypotension: Midodrine 15 mg 3 times daily at 0800, 1300, 1800
Coronary artery disease�: Aspirin, statin, beta-ankit�
Atrial fibrillation:� Continue anticoagulation and rate control medications.��
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
Anemia: Post-op.� Continue to monitor.�
Transaminitis:monitor
Hyponatremia: Nephrology following, diuretic as needed
Psych: Monitor mood, adjust medications as needed.�
Skin: monitor for pressure sores/rashes/lesions.�
Pain: acetaminophen as needed, Flexeril 5 mg Q8 as needed, tramadol 25 mg every 6 as needed, Xanax 0.25 mg at bedtime as needed.� Lidocaine patch
Nausea: Simethicone 80 mg 4 times daily as needed, Zofran 4 mg IV Q8 as needed
Bowel/Constipation:Senna, PRN bisacodyl.�would recommend adding colace, Miralax
Urinary Retention: Time void, PVRs, PRN straight cath.�Moore placed 03/19. Flomax 0.4mg added
GI Prophylaxis: Pantoprazole�
DVT Prophylaxis: Eliquis
Pulmonary: Incentive spirometry�
Safety: Continue to reinforce assistance with all transfers.�
Code Status:� Full code
Dispo�(date/plan/equipment needs): Home with family care.� Social history reviewed.�
Functional and Medical Goals:�Modified Independent with ADL�s, ambulation, transfers�
Discharge Destination:�Patient still symptomatic with orthostatic hypotension on midodrine. Vitals would need to be stable prior to discharge to Acute inpatient in order to tolerate 3 hours of therapy per day.
Attending Statement: I saw and examined the patient today.� Reviewed care plan with patient, therapy, nursing, and physician budget assistant.� I agree with the above subjective and physical exam, and plan as documented by MATEUSZ Alfonso with adjustments
made as necessary. A total of 60 minutes were spent with the patient preparing for the evaluation, obtaining history, performing examination and evaluation, counseling, data review, case management, care coordination, grade recorder, and EMR
documentation.
Thank you for allowing me to care for your patient. Please contact me with any questions or concerns.
--- NOTE | 2025-03-19 20:00 | PTCARENOTE ---
assumed care of patient @ 1900. recieved pt laying in bed
Neuro- Aox3. ROXANA CASH. no c/o pain. slow speech. assist x1 w rolling walker.
CV- Afib on tele. had soft BPs today. no dizziness when standing. Good pulses, +1 edema to feet.
Lungs - clear, diminished on room air satting mid 90s
GI- Having loose BMs. no n/v.
- moore present draining clear yellow urine
Skin- MSI JUAQUIN. Saphenous sites CDI, TRUCK GREASER
Lines PIV patent
Pt resting comfortably with call gutierrez within reach .
[2025-03-19] MEDS: NSS IV (21:13)
[2025-03-19] MEDS: MELATONIN 10 MG PO (21:13)
[2025-03-19] MEDS: SENOKOT PO (21:13)
[2025-03-20] VITALS (15 sets, daily range): BP systolic 79–115; BP diastolic 59–90; PULSE 110; BMI 20.9
--- NOTE | 2025-03-20 | PTCARENOTE ---
pt resting comfortably with call gutierrez within reach , no change in assessment .
--- NOTE | 2025-03-20 04:14 | W.PN.CT ---
Today's Communication / Plan
-
Plan:
-No major issues overnight. Hemodynamically and neurologically intact
-Weaned off Dobutamine on 03/17/25. Delined and transferred to [facility] phase
-Developed postop urinary retention requiring moore reinsertion yesterday 03/19. Flomax was added (d/c'd as BP noted to be soft, SBP 80's after taking Flomax overnight)
-Ongoing postop A-fib, mostly rate controlled. On Toprol which was held yesterday d/t to orthostatic hypotension. On Midodrine
-Amiodarone decreased to 200 mg daily given postop elevated LFTs. Avoid hepatotoxic meds. LFTs improving
-Heparin gtt transitioned to Eliquis on 03/16
-On Plavix for graft patency
-LARA has resolved cr 1.3. Gentle diuresis if BP permits, has +1 LE pitting edema. GDMT as BP and creatinine permits
-Monitor hyponatremia 134, was 135 yesterday. Fluid restriction
-Mg 3.0, mag oxide on hold, will d/c
-On Prednisone for hx of Eosinophilic granulomatosis. Will resume Methotrexate on discharge. Pt states he's to start new med Nucala per PCP, will need to wean Prednisone if started
-PT/OT following and recommend acute rehab placement. Seen by Physiatry yesterday 03/19
-D/C to [facility] today vs tomorrow
Assessment / Plan
-
- LM & MVCAD- s/p CABG x 3 (ALEXIS to LAD, GSV to D2, GSV to OM); ELAA (40mm AtriClip) by Dr. Wallace on 03/06/25, pod #[id number]
- Moderate MR under intraoperative JOHN assessment--MR improved to [id number] postop
- LV apical thrombus
- NSTEMI
- Ischemic cardiomyopathy, Reduced LVEF (25-30%)
- Hx of VT - s/p MDT ICD 2010
- HTN/HLD
- PAD (mid R SFA occ and prob high grade distal SFA stenosis
- Churg-Lemuel syndrome
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
- Spinal stenosis
- Hyperthyroidism
- Hx inguinal hernia repair
- Hx amauroses fugax
- b/l cataract repair
- Acute postop blood loss anemia
- Acute postop atelectasis
- Acute postop hypovolemia with subsequent hypervolemia
- Suspected acute postop pericarditis/+ rub
- Acute postop a-fib with RVR 03/07
- Acute postop cardiogenic shock
- LARA
- Acute postop hyponatremia
- Acute postop transaminitis
- contraction alkalosis
- Acute postop urinary retention
- Acute postop constipation
- Acute postop orthostasis
Discussed patient care with: Cardiology, Nursing, Respiratory Therapy, Pharmacy and Care Team
Subjective
-
Date of Service: March 20, 2025
Pt c/o mild incisional pain, otherwise feels well
Objective Data
-
PT 17.3 Sec (11.4-14.6) H 03/06/25 13:53
INR 1.36 03/06/25 13:53
APTT Cancelled 03/16/25 12:30
Vital Signs
Vital Signs
Temp Pulse Resp BP Pulse Ox
98.1 F 96 14 98/71 97
03/20/25 00:00 03/20/25 02:00 03/20/25 00:00 03/20/25 00:21 03/20/25 00:00
CT Intake/Output/Weight
03/19/25 03/19/25 03/20/25
06:59 18:59 06:59
Intake Total 100 / 100
Output Total 450 / 1410 625 / 850 225 / 850
Balance -450 / -1310 -525 / -750 -225 / -750
SaO2: 97 (RA)
Physical Exam
-
General: Awake, Oriented and AOx3
Cardiovascular: Regular rate & rhythm, No Murmurs, No Rub and No Gallop
Respiratory: Decreased Breath Sounds (at bases, otherwise clear)
Sternum: Stable
Incision: Clean, Dry, Intact and Dressing Intact
Extremities: Edema +1 (increased on R LE)
Data Reviewed
-
Lab Results: Results Reviewed
Medications: Active Meds Reviewed
Chest X-Ray: Report Reviewed and Image Reviewed
ECG: Report Reviewed and Image Reviewed
--- NOTE | 2025-03-20 04:32 | PTCARENOTE ---
pt resting comfortably with call gutierrez within reach , no change in assessment .
[2025-03-20 04:36] LABS: Hematocrit 31.6 % (39.0-52.0); Hemoglobin 9.7 g/dL (13.0-18.0); Mean Corp Hgb Conc. 30.7 g/dL (33.0-37.0); Mean Corpuscular Volume 104.3 fL (80.0-94.0); Platelet Count 344 10^3/uL (130-400); Red Cell Dist. Width 15.2 % (11.5-14.5)
[2025-03-20 04:59] LABS: ALT (SGPT) 374 U/L (0-50); AST (SGOT) 57 U/L (17-59); Albumin 3.2 g/dl (3.5-5.0); Alkaline Phosphatase 112 U/L (38-126); Blood Urea Nitrogen 49 mg/dl (9-20); Calcium 8.5 mg/dl (8.4-10.2); Chloride 97 mmol/L (98-107); Estimated Creatinine Clearance 43 ml/min; Glucose 97 mg/dl (70-99); Magnesium 3.0 mg/dl (1.6-2.3); Potassium 4.1 mmol/L (3.5-5.1); Sodium 134 mmol/L (135-145); Total Protein 5.7 g/dl (6.3-8.2); eGFR 56.23
[2025-03-20 05:07] LABS: Carbon Dioxide 34 mmol/L (22-30)
[2025-03-20] MEDS: CALCIUM GLUCONATE 130 MG IV ×2 (05:08→09:33)
[2025-03-20] MEDS: PULMICORT 0.5 MG INH ×2 (07:23→19:32)
[2025-03-20] MEDS: TOPROL XL 12.5 MG PO (07:26)
[2025-03-20] MEDS: MUCINEX 600 MG PO ×2 (07:26→21:09)
[2025-03-20] MEDS: NEURONTIN 100 MG PO ×3 (07:26→21:09)
[2025-03-20] MEDS: DELTASONE 2 MG PO (07:26)
[2025-03-20] MEDS: PACERONE 200 MG PO ×2 (07:27→21:08)
[2025-03-20] MEDS: REGLAN 10 MG PO ×4 (07:27→21:10)
[2025-03-20] MEDS: ELIQUIS 5 MG PO ×2 (07:27→21:08)
[2025-03-20] MEDS: PROTONIX 40 MG PO (07:27)
[2025-03-20] MEDS: DELTASONE 5 MG PO (07:27)
[2025-03-20] MEDS: VITAMIN C 500 MG PO (07:27)
[2025-03-20] MEDS: FEOSOL 325 MG PO (07:27)
[2025-03-20] MEDS: PLAVIX 75 MG PO (07:27)
[2025-03-20] MEDS: NSS IV (07:28)
[2025-03-20] MEDS: LIDOCAINE 4% PATCH 1 PATCH TOPICAL (07:28)
[2025-03-20] MEDS: SENOKOT PO ×2 (07:28→21:10)
--- NOTE | 2025-03-20 08:30 | PTCARENOTE ---
Assumed care of patient at 0700. Pt is awake, alert, and oriented. No complaints of pain at this time. Pt ST/Aflutter with HR 118. BP 115/90 MAP 99. AV wires insulated. Pulse oximetry 100% on room air. Pt with poor appetite. Pt reports having a BM
early this morning. Rosas catheter remains in place per order for retention. Midsternal incision approximated with surgical adhesive. Right leg incision with corinna in place. Pt currently OOB in chair with call gutierrez within reach.
--- NOTE | 2025-03-20 10:39 | W.PN.CARDCBS ---
Addendum entered and electronically signed by Pepe Vasquez MD 03/20/25 11:26:
I saw and examined the patient.
The Command And Control Specialist's note was reviewed and I agree with the note.
Comment:
GEN: No distress, awake, Ox3
HEENT: supple, anicteric, mmm
LUNGS: CTA, no wheezes/rales
CV: Reg, tachy S1/S2, no rub
ABD: soft, BS+, NT/ND
EXT: No edema
NEURO: Gross non-focal
SKIN: sternotomy
PLan:
Remains in rapid atrial fibrillation/atrial flutter. Blood pressure remains marginal. Will increase amiodarone to 200 mg p.o. twice daily to try to help rate control.
Continue Toprol 12.5 p.o. twice daily. Continue Eliquis.
With LV thrombus, would avoid cardioversion
Hopefully with improved rates can get to [facility] over next 24 to 48 hours
Original Note:
Today's Communication / Plan
-
continue post op care
follow BPs, GDMT limited by hypotension
rate control of afib
eliquis, plavix
plan for [facility] upon DC
Impression / Plan
-
.
PCP: Josh Valdez
Primary powder worker tnt: Dr. Stephens
Impression:
NSTEMI
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
s/p CABG x3 ALEXIS to LAD, GSV to D2, GSV to OM, ELAA 03/06/25
Inferoapical LV thrombus by echo 03/04
Ischemic cardiomyopathy, EF 25 to 30%
Renal insufficiency
Prior history of mild cardiomyopathy
Status post ventricular tachycardia
Paroxysmal atrial fibrillation, new diagnosis this admission
Elevated LFT's post op
ICD 2010, [employer] single-chamber
PAD, mid right SFA occlusion and probable high-grade distal SFA stenosis
Hyper eosinophilia syndrome, on chronic steroid therapy
Churg-Lemuel syndrome
Spinal stenosis
Hyperthyroid storm
Migraines
Pancreatic cysts
Previous cardiovascular studies:
TTE: 01/15/2025: EF 40 to 45%, stage II diastolic dysfunction, basal and mid inferior, distal septal, and mid anterior septal akinesis, RV normal size and function
TTE 07/17/2024: EF 38% by Cardoza's method, 45% by visual estimation, global hypokinesis, normal RV size and function
Cardiac cath 04/16/2011: Luminal irregularities in LAD, circumflex, RCA. LAD has some calcium, EF 42%
Echo 03/04/2025: EF 25 to 30%, dilated LV with LAD distribution akinesis and hypokinesis of remaining mckeon, inferoapical LV thrombus present, MAC, aortic sclerosis, normal right heart
Plan:
-Presented with NSTEMI with peak trop 0.225 s/p cardiac cath 03/04 with ruptured plaque in distal left main extending to ostium of LAD and circumflex
-s/p CABG x3 ALEXIS to LAD, GSV to D2, GSV to OM, ELAA 03/06/25
-dobutamine off as of 03/17
-post op 03/12 with EF 30-35% with improvement in MR.
-with continued slow improvement. patient reports feeling strongest
-GDMT significantly limited by hypotension requiring midodrine 15mg TID
-required IV bumex gtt. Cr downtrending, 1.3 on 03/20. presently on prn diuretic. nephrology following. sodium has normalized
-remains in afib with adequate HRs. on amiodarone 200mg daily, LFTs downtrending. continue toprol 12.5mg BID. cannot CV at present due to LV thrombus
-presently on plavix, eliquis for graft patency, afib, and LV thrombus
-He is chronically immunocompromised, on methotrexate and prednisone for hypereosinophilic syndrome followed by Dr. Piero Garcia at [facility]. had telemed visit with Dr. aGrcia this AM and has plan to resume methotrexate 04/03
-plan for [facility] upon DC. continue rehab efforts
-OP cardiac follow up arranged
-d/w nursing, CT surg LAB RN
Progress Note - Air Export Agent
Subjective
Date of Service: March 20, 2025
reports feeling the strongest he has today. still with some fatigue
Objective
Labs:
03/20/25 04:16
03/20/25 04:16
Labs
Hgb 9.7 g/dL (13.0-18.0) L 03/20/25 04:16
Hct 31.6 % (39.0-52.0) L 03/20/25 04:16
Plt Count 344 10^3/uL (130-400) 03/20/25 04:16
PT 17.3 Sec (11.4-14.6) H 03/06/25 13:53
INR 1.36 03/06/25 13:53
APTT Cancelled 03/16/25 12:30
Sodium 134 mmol/L (135-145) L 03/20/25 04:16
Potassium 4.1 mmol/L (3.5-5.1) 03/20/25 04:16
BUN 49 mg/dl (9-20) H 03/20/25 04:16
Creatinine 1.3 mg/dL (0.7-1.3) 03/20/25 04:16
Glucose 97 mg/dl (70-99) 03/20/25 04:16
Vital Signs and I&O:
Vital Signs
Temp Pulse Resp BP Pulse Ox
97.7 F 117 16 83/66 100
03/20/25 07:31 03/20/25 09:37 03/20/25 07:31 03/20/25 09:37 03/20/25 08:30
Vital Signs
Temp Pulse Resp BP Pulse Ox
97.7 F 117 16 83/66 100
03/20/25 07:31 03/20/25 09:37 03/20/25 07:31 03/20/25 09:37 03/20/25 08:30
Intake & Output
03/18/25 03/19/25 03/20/25 03/21/25
07:59 07:59 07:59 07:59
Intake Total 180 / 180 200 / 200
Output Total 1055 / 1085 1260 / 1260 1200 / 1200 75 / 75
Balance -875 / -905 -1060 / -1060 -1200 / -1200 -75 / -75
Physical Exam
Physical Exam
GEN: No distress, awake, alert, oriented x3. sitting in chair.
HEENT: supple, anicteric, mmm, eomi
LUNGS: CTA B/L, no wheezes
CV: Irreg, S1/S2, no murmur
ABD: soft, BS+, NT/ND
EXT: No cyanosis, clubbing, edema
NEURO: Gross non-focal
SKIN: Warm, pink, dry. No rash. Sternotomy incision c/d/i.
[2025-03-20] MEDS: LASIX PO (11:38)
--- NOTE | 2025-03-20 11:45 | PTCARENOTE ---
Pt ambulated with PT/OT, tolerated well. Pt ambulated to bathroom with RN assistance and rolling walker. Pt remains Aflutter, HR 113. BP 84/59 MAP 68. Pt with no complaints of dizziness.
--- NOTE | 2025-03-20 13:14 | W.PN.NEPH.PH ---
Today's Communication / Plan
-
Lasix p.o.
AM labs
Rosas
Assessment/Plan
-
80-year-old male with complex past medical history including Churg�Lemuel/eosinophilic granulomatosis with polyangeitis, followed by Dr. Piero Garcia at [facility] (methotrexate and prednisone), ventricular tachycardia status post MDT ICD
(2010)-non-ischemic cardiomyopathy (EF 40-45%), peripheral arterial disease (mid right SFA occlusion and probable high-grade distal SFA stenosis). Patient was admitted to [facility] ER 03/04/25 with progressively worsening exertional midsternal chest
burning for the past 2 to 3 weeks that progressed further last night to occurring after washing dishes. Took a NTG with relief. . Patient ruled in for NSTEMI (troponin I 0.225) and was taken to the catheterization lab. Left main/multivessel
coronary disease was identified. A TTE reported a decrease in LV function to 25-30% with LV thrombus. CT surgery and ultimately underwent coronary artery bypass graft on March 06, 2025. Patient was relatively stable until last night he became
short of breath decreased urine output worsening kidney function. He was placed on a Bumex drip with improved urine output he is on inotropic support. He is rate controlled on amiodarone.
Renal consultation for acute kidney injury/hyponatremia 127/hyperkalemia 5.6
Impression
Acute kidney injury creatinine baseline is 0.8 increased up to 1.7�2.
CHF.
Status post CABG.
Vasculopath.
Hyponatremia 127
Transaminitis
Plan.
LARA-cr stable at 1.4�1.3
off SGLT2i for now
On midodrine for orthostatic hypotension
follow LFTs-improving
follow bladder scan, flomax added as he requires SC= replaced Rosas catheter for retention
Lasix 20 mg daily May need higher dose
follow labs in am
-
-
Date of Service: March 20, 2025
CC / HPI / ROS
-
Chief Complaint:
hyponatremia
History of Present Illness:
LARA/Cr down to 1.4
Na up to 135
LFTs slowly decreasing
bp stable on midodrine
Review of Systems:
no CP/SOB at rest
off O2
Labs
-
Labs:
WBC 13.8 10^3/uL (4.8-10.8) H 03/20/25 04:16
RBC 3.03 10^6/uL (4.70-6.10) L 03/20/25 04:16
Hgb 9.7 g/dL (13.0-18.0) L 03/20/25 04:16
Hct 31.6 % (39.0-52.0) L 03/20/25 04:16
Plt Count 344 10^3/uL (130-400) 03/20/25 04:16
Sodium 134 mmol/L (135-145) L 03/20/25 04:16
Potassium 4.1 mmol/L (3.5-5.1) 03/20/25 04:16
Chloride 97 mmol/L (98-107) L 03/20/25 04:16
Carbon Dioxide 34 mmol/L (22-30) H 03/20/25 04:16
BUN 49 mg/dl (9-20) H 03/20/25 04:16
Creatinine 1.3 mg/dL (0.7-1.3) 03/20/25 04:16
eGFR 56.23 03/20/25 04:16
Glucose 97 mg/dl (70-99) 03/20/25 04:16
Calcium 8.5 mg/dl (8.4-10.2) 03/20/25 04:16
Ryr-E-Ocdltodrnpe Pept 3830 pg/ml 03/04/25 08:14
Albumin 3.2 g/dl (3.5-5.0) L 03/20/25 04:16
Physical Exam
-
Vital Signs:
Vital Signs
Temp Pulse Resp BP Pulse Ox
97.7 F 112 16 84/62 94
03/20/25 11:30 03/20/25 12:00 03/20/25 11:30 03/20/25 11:38 03/20/25 11:30
Cardiovascular:: Regular rate and rhythm
Respiratory:: Bilateral: CTA (decreased BS)
Lung Excursion:: Normal
Abdomen:: Nontender and Soft
Extremity Edema:: None: Bilateral: (trace)
Rosas Catheter: No
--- NOTE | 2025-03-20 14:35 | W.PN.UPDATE ---
Update Note
Progress Note Update
Patient's right lower leg was assessed at bedside.
Vicryl retention sutures in the right lower incision were all removed.
Every other staple was removed from both incisions.
Steri strips were placed in the area's where corinna were removed.
--- NOTE | 2025-03-20 15:01 | CM ---
Reviewed chart.Reviewed with medical team Hopefully he will be medically stable for transfer soon. [facility]. Medical work-up in progress. The discharge plan is to go to [facility] at [place] when
medically stable and bed available.
--- NOTE | 2025-03-20 15:45 | PTCARENOTE ---
ECHO done at bedside. Pt remains Aflutter. No complaints of pain.
[2025-03-20] MEDS: SINGULAIR 10 MG PO (18:22)
--- NOTE | 2025-03-20 19:30 | PTCARENOTE ---
assumed care of patient @ 1900. recieved pt laying in bed
Neuro- Aox3. ROXANA CASH. no c/o pain. slow speech. assist x1 w rolling walker.
CV- Afib on tele. had soft BPs today. no dizziness when standing. Good pulses, +1 edema to feet.
Lungs - clear, diminished on room air satting mid 90s
GI- Having loose BMs. no n/v.
- moore present draining clear yellow urine
Skin- MSI JUAQUIN. Saphenous sites CDI, COUNTER TACKER
Lines PIV patent
[2025-03-20] MEDS: MELATONIN 10 MG PO (21:09)
[2025-03-20] MEDS: XANAX 0.25 MG PO (21:09)
[2025-03-21] VITALS (8 sets, daily range): BP systolic 82–115; BP diastolic 60–72; PULSE 108–109; O2SAT 90; BMI 20.8
--- NOTE | 2025-03-21 | PTCARENOTE ---
pt resting comfortably, no change in assessment .
--- NOTE | 2025-03-21 05:00 | PTCARENOTE ---
labs drawn and sent , pt resting comfortably , no change in assessment .
[2025-03-21 06:34] LABS: ALT (SGPT) 292 U/L (0-50); AST (SGOT) 45 U/L (17-59); Albumin 3.0 g/dl (3.5-5.0); Alkaline Phosphatase 103 U/L (38-126); Blood Urea Nitrogen 38 mg/dl (9-20); Calcium 8.9 mg/dl (8.4-10.2); Carbon Dioxide 33 mmol/L (22-30); Chloride 97 mmol/L (98-107); Estimated Creatinine Clearance 50 ml/min; Glucose 89 mg/dl (70-99); Potassium 4.0 mmol/L (3.5-5.1); Sodium 131 mmol/L (135-145); Total Protein 5.6 g/dl (6.3-8.2); eGFR > 60.00
[2025-03-21 06:40] LABS: Prealbumin (Transthyretin) 12.9 mg/dl (17.6-36.0)
--- NOTE | 2025-03-21 06:40 | W.PN.CT ---
Today's Communication / Plan
-
-pod #15
-no issues overnight
-slowly improving, walked yesterday
-hypotensive - on Midodrine 15 mg tid. Holding Toprol, Farxiga
-LFTs are improving - consider re-starting Lipitor soon
-on Amio 200 po bid, Plavix, and Eliquis
-appears malnurished. prealbumin is low 12.9-ordered Ensure tid
-Cr is improving - 1.1 today
-continue PT/OT
-encourage IS, ambulate
-will need acute rehab
Assessment / Plan
-
- LM & MVCAD- s/p CABG x 3 (ALEXIS to LAD, GSV to D2, GSV to OM); ELAA (40mm AtriClip) by Dr. Wallace on 03/06/25, pod #15
- Moderate MR under intraoperative JOHN assessment--MR improved to [id number] postop
- LV apical thrombus
- NSTEMI
- Ischemic cardiomyopathy, Reduced LVEF (25-30%)
- Hx of VT - s/p MDT ICD 2010
- HTN/HLD
- PAD (mid R SFA occ and prob high grade distal SFA stenosis
- Churg-Lemuel syndrome
- Eosinophilic granulomatosis with polyangeitis- followed by Dr. Garcia @ [facility] - on steroids preop
- Spinal stenosis
- Hyperthyroidism
- Hx inguinal hernia repair
- Hx amauroses fugax
- b/l cataract repair
- Acute postop blood loss anemia
- Acute postop atelectasis
- Acute postop hypovolemia with subsequent hypervolemia
- Suspected acute postop pericarditis/+ rub
- Acute postop a-fib with RVR 03/07
- Acute postop cardiogenic shock
- LARA
- Acute postop hyponatremia
- Acute postop transaminitis
- contraction alkalosis
- Acute postop urinary retention
- Acute postop constipation
- Acute postop orthostasis
Discussed patient care with: Nursing and Care Team
Subjective
-
Date of Service: March 21, 2025
Objective Data
-
Lab Results
03/21/25 05:42
PT 17.3 Sec (11.4-14.6) H 03/06/25 13:53
INR 1.36 03/06/25 13:53
APTT Cancelled 03/16/25 12:30
Vital Signs
Vital Signs
Temp Pulse Resp BP Pulse Ox
98.5 F 113 16 82/68 98
03/21/25 00:00 03/21/25 05:00 03/21/25 00:00 03/21/25 00:09 03/21/25 00:00
CT Intake/Output/Weight
03/20/25 03/20/25 03/21/25
06:59 18:59 06:59
Intake Total 480 / 480
Output Total 475 / 1100 530 / 690 160 / 690
Balance -475 / -1000 -530 / -210 320 / -210
SaO2: 98
Physical Exam
-
General: Awake and AOx3
Cardiovascular: Irregular rate & rhythm, No Murmurs and No Rub
Respiratory: Decreased Breath Sounds
Sternum: Stable
Incision: Clean, Dry and Intact
Extremities: Other (no edema on L and trace edema on R)
Abdomen: soft, nontender, nondistended
Data Reviewed
-
Lab Results: Results Reviewed
Medications: Active Meds Reviewed
Chest X-Ray: Report Reviewed and Image Reviewed
ECG: Report Reviewed and Image Reviewed
[2025-03-21 06:46] LABS: Hematocrit 29.4 % (39.0-52.0); Hemoglobin 9.2 g/dL (13.0-18.0); Mean Corp Hgb Conc. 31.3 g/dL (33.0-37.0); Mean Corpuscular Volume 106.1 fL (80.0-94.0); Nucleated Red Blood Cells % 0 % (-); Platelet Count 378 10^3/uL (130-400); Red Cell Dist. Width 15.0 % (11.5-14.5)
[2025-03-21] MEDS: PULMICORT 0.5 MG INH (07:18)
--- NOTE | 2025-03-21 08:55 | PTCARENOTE ---
Assumed care of patient at 0700. Pt is awake, alert, and oriented. No complaints of pain at this time. Pt remains AFIB/Aflutter. HR 119. BP 115/65 MAP 76. Epicardial AV wires insulated. Pulse oximetry 93% on room air. Pt tolerating PO diet,
improving appetite. Rosas catheter remains in place, Rosas care completed. Midsternal incision approximated with surgical adhesive. Right leg incision approximated with corinna and steri-strips in place. Pt currently OOB in chair having breakfast.
[2025-03-21] MEDS: VITAMIN C 500 MG PO (08:58)
[2025-03-21] MEDS: PROTONIX 40 MG PO (08:58)
[2025-03-21] MEDS: PLAVIX 75 MG PO (08:58)
[2025-03-21] MEDS: PACERONE 200 MG PO (08:58)
[2025-03-21] MEDS: ELIQUIS 5 MG PO (08:58)
[2025-03-21] MEDS: DELTASONE 5 MG PO (08:58)
[2025-03-21] MEDS: REGLAN 10 MG PO ×2 (08:58→12:35)
[2025-03-21] MEDS: LASIX 20 MG PO (08:58)
[2025-03-21] MEDS: FEOSOL 325 MG PO (08:58)
[2025-03-21] MEDS: MUCINEX 600 MG PO (08:58)
[2025-03-21] MEDS: LIDOCAINE 4% PATCH 1 PATCH TOPICAL (08:59)
[2025-03-21] MEDS: DELTASONE 2 MG PO (08:59)
[2025-03-21] MEDS: SENOKOT PO (08:59)
[2025-03-21] MEDS: NEURONTIN 100 MG PO (08:59)
[2025-03-21] MEDS: NSS IV (08:59)
[2025-03-21] MEDS: FOLVITE 1 MG PO (09:01)
--- NOTE | 2025-03-21 10:52 | W.PN.NEPH.PH ---
Today's Communication / Plan
-
Okay to restart Farxiga
Consider Lasix to 40 mg
Assessment/Plan
-
80-year-old male with complex past medical history including Churg�Lemuel/eosinophilic granulomatosis with polyangeitis, followed by Dr. Piero Garcia at [facility] (methotrexate and prednisone), ventricular tachycardia status post MDT ICD
(2010)-non-ischemic cardiomyopathy (EF 40-45%), peripheral arterial disease (mid right SFA occlusion and probable high-grade distal SFA stenosis). Patient was admitted to [facility] ER 03/04/25 with progressively worsening exertional midsternal chest
burning for the past 2 to 3 weeks that progressed further last night to occurring after washing dishes. Took a NTG with relief. . Patient ruled in for NSTEMI (troponin I 0.225) and was taken to the catheterization lab. Left main/multivessel
coronary disease was identified. A TTE reported a decrease in LV function to 25-30% with LV thrombus. CT surgery and ultimately underwent coronary artery bypass graft on March 06, 2025. Patient was relatively stable until last night he became
short of breath decreased urine output worsening kidney function. He was placed on a Bumex drip with improved urine output he is on inotropic support. He is rate controlled on amiodarone.
Renal consultation for acute kidney injury/hyponatremia 127/hyperkalemia 5.6
Impression
Acute kidney injury creatinine baseline is 0.8 increased up to 1.7�2.
CHF.
Status post CABG.
Vasculopath.
Hyponatremia 127
Transaminitis
Plan.
LARA-cr stable at 1.4�1.3
off SGLT2i for now= okay to restart it. we will defer to cardiology
On midodrine for orthostatic hypotension
follow LFTs-improving
follow bladder scan, flomax added as he requires SC= replaced Rosas catheter for retention
Lasix 20 mg daily= suggest increasing dose to 40 mg with sodium decreased to 131 and urine output less than 1 L
follow labs in am
-
-
Date of Service: March 21, 2025
CC / HPI / ROS
-
Chief Complaint:
hyponatremia
History of Present Illness:
LARA/Cr down to 1.4�1.1
Na up to 135�131
LFTs slowly decreasing
bp stable on midodrine
Review of Systems:
no CP/SOB at rest
Ambulating well with physical therapy without shortness of breath
Labs
-
Labs:
WBC 10.9 10^3/uL (4.8-10.8) H 03/21/25 05:42
RBC 2.77 10^6/uL (4.70-6.10) L 03/21/25 05:42
Hgb 9.2 g/dL (13.0-18.0) L 03/21/25 05:42
Hct 29.4 % (39.0-52.0) L 03/21/25 05:42
Plt Count 378 10^3/uL (130-400) 03/21/25 05:42
Sodium 131 mmol/L (135-145) L 03/21/25 05:42
Potassium 4.0 mmol/L (3.5-5.1) 03/21/25 05:42
Chloride 97 mmol/L (98-107) L 03/21/25 05:42
Carbon Dioxide 33 mmol/L (22-30) H 03/21/25 05:42
BUN 38 mg/dl (9-20) H 03/21/25 05:42
Creatinine 1.1 mg/dL (0.7-1.3) 03/21/25 05:42
eGFR > 60.00 03/21/25 05:42
Glucose 89 mg/dl (70-99) 03/21/25 05:42
Calcium 8.9 mg/dl (8.4-10.2) 03/21/25 05:42
Bfx-Y-Wguiudzmklp Pept 3830 pg/ml 03/04/25 08:14
Albumin 3.0 g/dl (3.5-5.0) L 03/21/25 05:42
Physical Exam
-
Vital Signs:
Vital Signs
Temp Pulse Resp BP Pulse Ox
97.7 F 112 16 115/65 93
03/21/25 08:00 03/21/25 09:00 03/21/25 08:00 03/21/25 08:55 03/21/25 08:00
Cardiovascular:: Regular rate and rhythm
Respiratory:: Bilateral: CTA (decreased BS)
Lung Excursion:: Normal
Abdomen:: Nontender and Soft
Extremity Edema:: None: Bilateral: (trace)
Rosas Catheter: No
--- NOTE | 2025-03-21 11:31 | W.PN.CARDCBS ---
Addendum entered and electronically signed by Pepe Vasquez MD 03/21/25 12:25:
I saw and examined the patient.
The Manager Lvn's note was reviewed and I agree with the note.
Comment:
GEN: No distress, awake, Ox3
HEENT: supple, anicteric, mmm
LUNGS: CTA, no wheezes/rales
CV: Irreg, S1/S2, no rub
ABD: soft, BS+, NT/ND
EXT: No edema
NEURO: Gross non-focal
SKIN: sternotomy
PLan:
Repeat echo with continued LV thrombus at apex. Continue anticoagulation.
Ventricular rates remain modestly elevated. Will add digoxin today 0.25 mg today and then 0.125 mg daily.
Continue amiodarone at 200 mg daily.
Continue Plavix and Eliquis
Creatinine normal at 1.1. He has known hyponatremia. Sodium today 131
Original Note:
Today's Communication / Plan
-
add dig.
decrease amiodarone to 200mg daily
will need CMP/dig level in 1 week upon DC
continue plavix, eliquis
continue rehab efforts
Impression / Plan
-
.
PCP: Josh Valdez
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
Impression:
NSTEMI
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
s/p CABG x3 ALEXIS to LAD, GSV to D2, GSV to OM, ELAA 03/06/25
Inferoapical LV thrombus by echo 03/04
Ischemic cardiomyopathy, EF 25 to 30%
Renal insufficiency
Prior history of mild cardiomyopathy
Status post ventricular tachycardia
Paroxysmal atrial fibrillation, new diagnosis this admission
Elevated LFT's post op
ICD 2010, [employer] single-chamber
PAD, mid right SFA occlusion and probable high-grade distal SFA stenosis
Hyper eosinophilia syndrome, on chronic steroid therapy
Churg-Lemuel syndrome
Spinal stenosis
Hyperthyroid storm
Migraines
Pancreatic cysts
Previous cardiovascular studies:
TTE: 01/15/2025: EF 40 to 45%, stage II diastolic dysfunction, basal and mid inferior, distal septal, and mid anterior septal akinesis, RV normal size and function
TTE 07/17/2024: EF 38% by Cardoza's method, 45% by visual estimation, global hypokinesis, normal RV size and function
Cardiac cath 04/16/2011: Luminal irregularities in LAD, circumflex, RCA. LAD has some calcium, EF 42%
Echo 03/04/2025: EF 25 to 30%, dilated LV with LAD distribution akinesis and hypokinesis of remaining mckeon, inferoapical LV thrombus present, MAC, aortic sclerosis, normal right heart
Plan:
-Presented with NSTEMI with peak trop 0.225 s/p cardiac cath 03/04 with ruptured plaque in distal left main extending to ostium of LAD and circumflex
-s/p CABG x3 ALEXIS to LAD, GSV to D2, GSV to OM, ELAA 03/06/25
-dobutamine off as of 03/17
-post op 03/12 with EF 30-35% with improvement in MR.
-with continued slow improvement
-GDMT significantly limited by hypotension requiring midodrine 15mg TID, wean as able
-required IV bumex gtt. Cr downtrending, 1.3 on 03/20. presently on prn diuretic. nephrology following. sodium has normalized
-remains in afib with adequate HRs. not tolerating toprol due to hypotension. will add digoxin 0.25mg po today then 0.125mg starting 03/22 and with that, will decrease amiodarone dosing back to 200mg daily
-will need CMP and dig level in 1 week upon DC
-presently on plavix, eliquis for graft patency, afib, and LV thrombus
-He is chronically immunocompromised, on methotrexate and prednisone for hypereosinophilic syndrome followed by Dr. Piero Garcia at [facility]. had telemed visit with Dr. Garcia this AM and has plan to resume methotrexate 04/03
-plan for [place] upon DC. continue rehab efforts
-OP cardiac follow up arranged
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
Subjective
Date of Service: March 21, 2025
reports feeling well. no pain. states got good sleep overnight
Objective
Labs:
03/21/25 05:42
03/21/25 05:42
Labs
Hgb 9.2 g/dL (13.0-18.0) L 03/21/25 05:42
Hct 29.4 % (39.0-52.0) L 03/21/25 05:42
Plt Count 378 10^3/uL (130-400) 03/21/25 05:42
PT 17.3 Sec (11.4-14.6) H 03/06/25 13:53
INR 1.36 03/06/25 13:53
APTT Cancelled 03/16/25 12:30
Sodium 131 mmol/L (135-145) L 03/21/25 05:42
Potassium 4.0 mmol/L (3.5-5.1) 03/21/25 05:42
BUN 38 mg/dl (9-20) H 03/21/25 05:42
Creatinine 1.1 mg/dL (0.7-1.3) 03/21/25 05:42
Glucose 89 mg/dl (70-99) 03/21/25 05:42
Vital Signs and I&O:
Vital Signs
Temp Pulse Resp BP Pulse Ox
97.7 F 112 16 115/65 93
03/21/25 08:00 03/21/25 09:00 03/21/25 08:00 03/21/25 08:55 03/21/25 11:28
Vital Signs
Temp Pulse Resp BP Pulse Ox
97.7 F 112 16 115/65 93
03/21/25 08:00 03/21/25 09:00 03/21/25 08:00 03/21/25 08:55 03/21/25 11:28
Intake & Output
03/19/25 03/20/25 03/21/25 03/22/25
07:59 07:59 07:59 07:59
Intake Total 200 / 200 480 / 480
Output Total 1260 / 1260 1200 / 1200 840 / 915 75 / 75
Balance -1060 / -1060 -1200 / -1200 -360 / -435 -75 / -75
Physical Exam
Physical Exam
GEN: No distress, awake, alert, oriented x3. sitting in chair.
HEENT: supple, anicteric, mmm, eomi
LUNGS: CTA B/L, no wheezes
CV: Irreg, S1/S2, no murmur
ABD: soft, BS+, NT/ND
EXT: No cyanosis, clubbing, edema
NEURO: Gross non-focal
SKIN: Warm, pink, dry. No rash. Sternotomy incision c/d/i.
--- NOTE | 2025-03-21 11:44 | W.DCSUMMARY ---
Discharge Summary
Discharge Data
Date of Admission: 03/04/25
Date of Discharge: 03/21/25
-
Pending Results: No
Hospital Course
Primary care physician: Josh Valdez
Outpatient thermostat machine tender: Kostas Stephens
Inpatient consultants: [facility] cardiology, pulmonary human geography instructor, nephrology, PT/OT
Procedures:
1. CABG, left atrial appendage clip 03/06/25
Primary Diagnosis:
1. CAD
Secondary Diagnoses:
1. LV apical thrombus
2. Ischemic cardiomyopathy, AFrEF (25-30%)
3. Hx of VT - s/p MDT ICD 2010
4. HTN
5. HLD
6. PAD (mid R SFA occ and prob high grade distal SFA stenosis
7. Churg-Lemuel syndrome
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
9. Spinal stenosis
10. Hx inguinal hernia repair
11. Hx amauroses fugax
12. b/l cataract repair
- Acute postop blood loss anemia
- Acute postop atelectasis
- Acute postop hypovolemia with subsequent hypervolemia
- Suspected acute postop pericarditis/+ rub
- Acute postop a-fib with RVR 03/07
- Acute postop cardiogenic shock
- LARA
- Acute postop hyponatremia
- Acute postop transaminitis
- contraction alkalosis
- Acute postop urinary retention
- Acute postop constipation
- Acute postop orthostasis
- postop insomnia
HPI: 80-year-old male with complex past medical history including Churg�Lemuel/eosinophilic granulomatosis with polyangeitis, followed by Dr. Piero Garcia at [facility] (methotrexate and prednisone), ventricular tachycardia status post MDT ICD
(2010)-never shocked, non-ischemic cardiomyopathy (EF 40-45%), peripheral arterial disease (mid right SFA occlusion and probable high-grade distal SFA stenosis). Patient was admitted to [facility] ER 03/04/25 with progressively worsening exertional
midsternal chest burning for the past 2 to 3 weeks that progressed further last night to occurring after washing dishes. Took a NTG with relief. Chest burning occurred again after going to the bathroom and patient decided to seek further medical
attention. He reported symptoms to cardiology office last week and was advised to increase metoprolol from 25 mg daily to 50 mg twice daily and was also given a prescription for sublingual nitroglycerin. He was scheduled for an appointment later
this week.
Hospital course: Patient ruled in for NSTEMI (troponin I 0.225) and was taken to the catheterization lab. Left main/multivessel coronary disease was identified. A TTE reported a decrease in LV function to 25-30% (from 40%) with LV thrombus. CT
surgery was consulted for CABG evaluation. Preoperative workup included carotid ultrasound with normal parameters. Patient taken to the operating room on 03/06/25 and underwent CABG x 3 (ALEXIS to LAD, GSV to D2, GSV to OM), left atrial appendage
exclusion (40mm AtriClip) with Dr. Kristian Wallace. Stress dose sterid was given intraop. ICD defibrillation function was turned on at the end of the case. For further details, please see operative report. Patient received no intraop blood products
and returned to CVICU pm Levophed, Dobutamine, Insulin, and Precedex. Patient was extubated the evening of surgery. JOSE dressing was intact to RLE SVG site due to fragile skin. He developed post-operative atrial fibrillation and was started on low
dose IV Heparin for the arrhythmia and LV thrombus. He remained inatrial fibrillation for the remainder of his hospital stay. Midodrine started and Levophed weaned off. Dobutamine was weaned off on postop day #4. Patient developed LARA with peak
creatinine of 2 on POD #4. He was delined and trazadone resumed for insomnia. Beta ankit, farxiga were resumed on postop day #5. Patient became hypotensive that evening, requiring reinstitution of Dobutamine. A RUE PICC was placed for levophed
pressor administration. Patient developed transient transaminitis and Tylenol/Statin was held. Ultrasound of the chest did not reveal any significant fluid to warrant thoracentesis. IV Heparin was transitioned to Eliquis on POD #10. Patient
continued diuresis with IV Bumex infusion and Dobutamine was slowly weaned off on POD #11. Midodrine was resumed and Levophed weaned off. Patient complained of insomnia which resolved with Melatonin and prn Xanax at night. RUE PICC and RLE JOSE
dressings were removed on POD #12. Creatine continued to trend downward. Midodrine increased to 15mg TID on POD #13. Repeat TTE on 11/12 reported a EF 35% and a large mobile apical thrombus. Every other staple was removed from patient's right leg.
Wires were clipped to skin level on POD #15. Heat rate was further controlled [id number] of Digoxin. He will continue on daily Amiodarone upon discharge. Patient was evaluated by PT/OT and deemed appropriate acute rehab candidate. Ortega was
discharged to [facility] on POD #15. He is NOT on beta-ankit at discharge due to persistent soft blood pressure requiring Midodrine. He will need GDMT initiated as BP permits. Lipitor was resumed as ALT down to 290. Trend LFTs on discharge.
Methotrexate to be resumed in 1 week. Labs on day of discharge: WBC 10.9; Hb 9.2; Plt 378k; Creat 1.1
Home medication changes:
Lipitor 10>40mg daily s/p CABG
Methotrexate to be resumed in 1 week
Stop losartan, metoprolol as still on Midodrine
Discharge Plan
-
Patient Disposition: Acute Rehab Facility
Discharge Diagnosis/Procedures: CABG x 3, left atrial appendage clip (03/06/25)
Condition: Fair
Diet: Low Cholesterol and 2 Gram Sodium
Additional Diets: fluid restrict 40oz daily
Activity: No strenuous activity
Driving Restrictions: Not until seen by your Dr
Bathing Restrictions: OK to Shower
Blood Work: CMP, CBC, digoxin level in 1 week
Other Services: Cardiac Rehab
Wound Care: remaining RLE corinna to be removed on Sunday 03/25
Specialty Instructions: Weigh Daily- Call MD for wt gain/loss 3 lbs overnight/5 lbs in 1 week
Activity Restrictions/Additional Instructions:
Please call [facility] when medically ready to get scheduled. P: [phone]
Referrals:
CT Transitional Care Nurse [Outside]
Referral Note:
The Cardiothoracic Transitional Care Nurse will call you to set up a visit in 1-2 days.
Mendy Herring PA-C [Specified Professional Personl, Cardiology] - 04/16/25 9:00 am
Josh Valdez MD [Family Provider, Family Practice]
Kristian Wallace MD [Active, Cardiac Surgery] - 04/02/25 2:30 pm
Additional Discharge Medication Instructions: Methotrexate may resume in 1 week
Prescriptions:
New
cyclobenzaprine 10 mg Tablet
5 mg PO Q8HPRN PRN (Reason: muscle spasm) Qty: 0 0RF
midodrine 5 mg Tablet
15 mg PO TID@0800,1300,1800 Qty: 0 0RF
clopidogrel 75 mg Tablet
75 mg PO DAILY Qty: 0 0RF
tramadol 50 mg Tablet
25 mg PO Q6HPRN PRN (Reason: pain (2nd line)) Qty: 0 0RF
alprazolam 0.25 mg Tablet
0.25 mg PO HSPRN PRN (Reason: anxiety/insomnia) Qty: 0 0RF
ascorbic acid (vitamin C) [Vitamin C] 500 mg Tablet
500 mg PO DAILY Qty: 0 0RF
pantoprazole 40 mg Tablet,Delayed Release (Dr/Ec)
40 mg PO DAILY Qty: 0 0RF
ferrous sulfate [FeroSul] 325 mg (65 mg iron) Tablet
325 mg PO DAILY Qty: 0 0RF
furosemide 20 mg Tablet
20 mg PO DAILY Qty: 0 0RF
melatonin 5 mg Tablet
10 mg PO HS Qty: 0 0RF
Eliquis 5 mg Tablet
5 mg PO BID Qty: 0 0RF
atorvastatin 40 mg Tablet
40 mg PO DAILY Qty: 0 0RF
amiodarone [Pacerone] 200 mg Tablet
200 mg PO DAILY Qty: 0 0RF
digoxin 125 mcg (0.125 mg) Tablet
125 mcg PO NOON Qty: 0 0RF
Continued
aspirin 81 MG tablet,delayed release (DR/EC)
1 tab PO DAILY
prednisone 5 MG tablet
7 mg PO DAILY
montelukast 10 MG tablet
10 mg PO QPM
budesonide-formoterol [Symbicort] 1 PUFF HFA aerosol inhaler
2 puff inhalation R BID
cholecalciferol (vitamin D3) [Vitamin D3] 50 mcg (2,000 unit) Tablet
50 mcg PO DAILY
Held
methotrexate sodium 2.5 MG tablet
22.5 mg PO WE
Hold Instructions: Resume on 03/28/25.
Discontinued
losartan 25 MG tablet
12.5 mg PO HS
folic acid 1 MG tablet
1 mg PO SUMOTUTHFRSA
Patient Comments:
EVERY DAY EXCEPT TUESDAY
metoprolol succinate 25 MG tablet extended release 24 hr
25 mg PO DAILY
atorvastatin 10 mg Tablet
10 mg PO DAILY
multivitamin
1 tab PO DAILY
calcium 600 mg Capsule
600 mg PO DAILY
Discharge Orders:
Discharge Patient (As Directed); Ordered 03/21/25
Ordered By: Paula Wooten
Care Plan Goals
Care Plan Goals:
Problem: Readiness for enhanced knowledge related to diagnosis and treatment plan
Goal: Understand your diagnosis and treatment plan needs, including medications if applicable.
Instructions: Know your diagnosis, underlying causes and treatment plan options, including medications if applicable. Consult with your health care team to learn about your diagnosis and treatment plan, including medications if applicable.
Discharge Date and Time
Print Language: KAZAKH
--- NOTE | 2025-03-21 12:14 | CM ---
Reviewed chart. Also reviewed with Medical team regarding discharge plans. Telephone call to [facility] Liaison. Reviewed Mr. Hunter is ready for transfer to [facility] at [place] today. [facility] states they can accept today. Updated
medical team and Mr. Hunter and telephone call to his spouse to update them on discharge plan. The report number is ([phone]). Medical work-up in progress. The discharge plan is to go [facility] [place] when medically stable.
[2025-03-21] MEDS: LANOXIN 250 MCG PO (12:35)
--- NOTE | 2025-03-21 13:24 | PTCARENOTE ---
Pt ambulated with PT/OT. Epicardial AV wires cut by CT SERGEI, Paula. Chest tube sutures removed. Pt remains Afib/Aflutter, HR 107. BP 99/72 MAP 81. Pulse oximetry 94% on room air. Pt being discharged to [facility]. Pt ready and stable for
discharge.
== END 2025-03-21 14:08 | DRG 233 ==
LOC: CVICU 04:22
PROVIDERS: Clinical Nurse Specialist Acute Care; Internal Medicine; Internal Medicine Interventional Cardiology; Nurse Practitioner; Nurse Practitioner Family; Physician Assistant Medical; Radiology Diagnostic Radiology; Student in an Organized Health Care Education/Training Program; ADMITTING PHYSICIAN Internal Medicine; ATTENDING PHYSICIAN Thoracic Surgery (Cardiothoracic Vascular Surgery); CONSULT PHYSICIAN Internal Medicine Critical Care Medicine; CONSULT PHYSICIAN Internal Medicine Nephrology; CONSULT PHYSICIAN Physical Medicine & Rehabilitation; EMERGENCY PHYSICIAN Emergency Medicine; FAMILY PHYSICIAN Family Medicine; OTHER PHYSICIAN Internal Medicine Cardiovascular Disease
PROC: 4A023N7 Measurement of Cardiac Sampling and Pressure, Left Heart, Percutaneous Approach (ICD-10-PCS; 2025-03-04)
PROC: B2111ZZ Fluoroscopy of Multiple Coronary Arteries using Low Osmolar Contrast (ICD-10-PCS; 2025-03-04)
PROC: 5A1221Z Performance of Cardiac Output, Continuous (ICD-10-PCS; 2025-03-06)
PROC: 021109W Bypass Coronary Artery, Two Arteries from Aorta with Autologous Venous Tissue, Open Approach (ICD-10-PCS; 2025-03-06)
PROC: 02100ZC Bypass Coronary Artery, One Artery from Thoracic Artery, Open Approach (ICD-10-PCS; 2025-03-06)
PROC: 06BP4ZZ Excision of Right Saphenous Vein, Percutaneous Endoscopic Approach (ICD-10-PCS; 2025-03-06)
PROC: B24BZZ4 Ultrasonography of Heart with Aorta, Transesophageal (ICD-10-PCS; 2025-03-06)
PROC: 02L70CK Occlusion of Left Atrial Appendage with Extraluminal Device, Open Approach (ICD-10-PCS; 2025-03-06)
PROC: 02HV33Z Insertion of Infusion Device into Superior Vena Cava, Percutaneous Approach (ICD-10-PCS; 2025-03-12)
DX: I21.4 Non-ST elevation (NSTEMI) myocardial infarction (principal); T81.11XA Postprocedural cardiogenic shock, initial encounter; I42.8 Other cardiomyopathies; M30.1 Polyarteritis with lung involvement [Churg-Strauss]; K86.2 Cyst of pancreas; D62 Acute posthemorrhagic anemia; J98.11 Atelectasis; I97.190 Other postprocedural cardiac functional disturbances following cardiac surgery; I30.8 Other forms of acute pericarditis; N17.9 Acute kidney failure, unspecified; E87.1 Hypo-osmolality and hyponatremia; I48.92 Unspecified atrial flutter; I50.22 Chronic systolic (congestive) heart failure; E87.3 Alkalosis; I25.110 Atherosclerotic heart disease of native coronary artery with unstable angina pectoris; R33.9 Retention of urine, unspecified; I95.1 Orthostatic hypotension; B37.9 Candidiasis, unspecified; G47.00 Insomnia, unspecified; Y83.2 Surgical operation with anastomosis, bypass or graft as the cause of abnormal reaction of the patient, or of later complication, without mention of misadventure at the time of the procedure; Y92.239 Unspecified place in hospital as the place of occurrence of the external cause; E86.1 Hypovolemia; R74.01 Elevation of levels of liver transaminase levels; E87.5 Hyperkalemia; K59.09 Other constipation; D72.119 Hypereosinophilic syndrome [HES], unspecified; G43.909 Migraine, unspecified, not intractable, without status migrainosus; E78.00 Pure hypercholesterolemia, unspecified; I11.0 Hypertensive heart disease with heart failure; I51.3 Intracardiac thrombosis, not elsewhere classified; I70.201 Unspecified atherosclerosis of native arteries of extremities, right leg; I70.0 Atherosclerosis of aorta; I25.5 Ischemic cardiomyopathy; I34.0 Nonrheumatic mitral (valve) insufficiency; I48.0 Paroxysmal atrial fibrillation; E05.90 Thyrotoxicosis, unspecified without thyrotoxic crisis or storm; J45.40 Moderate persistent asthma, uncomplicated; Z87.01 Personal history of pneumonia (recurrent); Z79.52 Long term (current) use of systemic steroids; Z79.631 Long term (current) use of antimetabolite agent; Z95.810 Presence of automatic (implantable) cardiac defibrillator; Z86.79 Personal history of other diseases of the circulatory system; Z88.1 Allergy status to other antibiotic agents; Z88.0 Allergy status to penicillin; Z88.2 Allergy status to sulfonamides; Z88.8 Allergy status to other drugs, medicaments and biological substances; Z79.82 Long term (current) use of aspirin; Z79.899 Other long term (current) drug therapy; Z79.51 Long term (current) use of inhaled steroids; Z82.49 Family history of ischemic heart disease and other diseases of the circulatory system; Z98.42 Cataract extraction status, left eye; Z98.41 Cataract extraction status, right eye; Z85.828 Personal history of other malignant neoplasm of skin; Z80.3 Family history of malignant neoplasm of breast; I34.81 Nonrheumatic mitral (valve) annulus calcification
CPT/HCPCS: 36600; 71045; 71046; 71250; 74018; 76604; 80048; 80053; 80061; 80076; 81003; 81015; 82248; 82330; 82565; 82805; 82810; 82947; 82962; 83036; 83605; 83735; 83880; 84132; 84134; 84302; 84484; 84520; 85014; 85018; 85025; 85027; 85049; 85610; 85730; 86140; 86803; 86850; 86900; 86901; 86920; 87040; 87070; 87086; 87205; 93005; 93308; 93312; 93320; 93321; 93325; 93454; 93880; 93970; 94640; 96374; 97110; 97116; 97163; 97167; 97530; 97535; 99152; 99291; C1713; C1769; C1894; J0282; J1250; J1939; J8610; P9045; Q9967

== ENCOUNTER 2025-03-26 13:43 | Inpatient (IN) | payer MEDICARE, OTHER, SELFPAY ==
[2025-03-26] VITALS (38 sets, daily range): BP systolic 71–153; BP diastolic 41–108; BMI 22.0
--- NOTE | 2025-03-26 10:02 | ED.GENMED ---
History of Present Illness
<Kristian Guadalupe PA-C - Last Filed: 03/26/25 14:29>
General
Chief Complaint: Fatigue
Source: patient, records and spouse
Time Seen by Provider: 03/26/25 09:46
History of Present Illness
History of Present Illness:
10-year-old male with complex past medical history including recent CABG x [address] Kristian Wallace on 03/06/25, Churg�Lemuel/eosinophilic granulomatosis with polyangeitis, followed by Dr. Piero Garcia at [facility] (methotrexate and prednisone),
ventricular tachycardia status post MDT ICD (2010)-never shocked, non-ischemic cardiomyopathy (EF 40-45% previously however recent TTE showed decreased LV function to 25-30% with a LV thrombus), peripheral arterial disease (mid right SFA occlusion
and probable high-grade distal SFA stenosis) presenting back to the ER from [facility] for evaluation of increased dyspnea and chills that started today. Patient had been on as needed oxygen at 2 L via nasal cannula but due to current symptoms is
currently on 5 L via nasal cannula. He denies any chest pain or diaphoresis but still noting the shortness of breath even with the 5 L nasal cannula at present. Both patient and feel that his symptoms are related to complications from his
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 Patient reportedly did not have a fever while at [facility] earlier today. Patient
is currently taking Eliquis as part of his postoperative regimen. Denies lower extremity edema, hemoptysis, orthopnea. He did state this morning that he did have a slight cough productive of a clearish sputum but that this has not been abnormal
for him.
Past History
<Kristian Guadalupe PA-C - Last Filed: 03/26/25 14:29>
Past History
ED Past Medical History: Asthma, CAD, COPD, HTN, Hypercholesterolemia, Valvular disease, Hyperthyroidism and Other (Pneumonia, Hypereosinophilia)
ED Past Surgical History: Cardiac (AICD), Tonsilectomy and Other
Social History
Tobacco: Non-smoker
Alcohol: Occasional
Drug: None
Personal:
Living: with family
Employment: Retired
Family History
Family History: Other (Noncontributory)
Review of Systems
<Kristian Guadalupe PA-C - Last Filed: 03/26/25 14:29>
Review of Systems
All Other Systems: ROS reviewed and negative except as documented in HPI and ROS
Phy Exam
<Kristian Guadalupe PA-C - Last Filed: 03/26/25 14:29>
Physical Exam
Physical Exam:
GENERAL: Alert , in no apparent distress, appears older than stated age, somewhat sickly, pale
HEAD: Normocephalic atraumatic
EYE: clear conjunctiva
NECK: Supple
ENT: o/p clr, mmm.
CARDIAC: Tachycardic rate, normal rhythm, occasional PVC on tele
LUNGS: scattered ronchi posterior lung villeda, tachypneic, No wheeze/rales, well healing surgical scar overlying sternum without dehiscence or erythema
ABDOMEN: Soft, without focal tenderness, no r/g, no cvat
NEUROLOGICAL: Alert and oriented,
SKIN: Warm and dry, skin intact. well healing LLE surgical incision without erythema
MUSCULOSKELETAL: No edema, well perfused.
PSYCH: Normal and appropriate interaction.
Scores
<Kristian Guadalupe PA-C - Last Filed: 03/26/25 14:29>
Heart Failure Risk
Heart Failure Risk Score: Not Applicable
Heart Score for Chest Pain Patients
STEMI patient?: Not applicable
Withdrawal Assessment of Alcohol
Withdrawal Assessment Completed?: Not applicable
Course
<Kristian Guadalupe PA-C - Last Filed: 03/26/25 14:29>
Orders/Labs/Results
Orders:
Orders
03/26/25 10:01
CT Chest PE Study Urgent
Comment:
Reason For Exam: recent surgery, SOB, tachy
03/26/25 10:08
Add On- LAB Urgent
Tests Added?: dig level
03/26/25 10:15
Interrogate Pacemaker- Treatment ONCE
COVID-19 Antigen Urgent
Source: Nasal Swab
Complete Blood Count/With Diff Urgent
Comprehensive Metabolic Panel Urgent
Digoxin Urgent
Comment: ADD ON
Lactic Acid Q4H
Comment: CANCEL 2nd LACTIC ACID IF 1st LACTIC ACID IS LESS THAN 2
Magnesium Urgent
NT-proBNP Urgent
PTT Urgent
Prothrombin Time Urgent
Troponin I Urgent
Influenza A+B Rapid Molecular Urgent
FROY Source: Nasal Swab
Specimen Description:
03/26/25 10:16
Electrocardiogram (*1) Urgent
Reason for Study: Tachycardia
EKG- Treatment ONCE
03/26/25 12:20
Cefepime HCl [Maxipime] 2,000 mg IV NOW STA
03/26/25 12:22
Vancomycin [Vancocin] 1,500 mg 0.9% Sodium Chloride 500 ml [Nss] 500 ml IV NOW
03/26/25 13:13
Admit/Transfer Patient As Directed
Co-Sign Provider:
Level of Care: Inpatient admission
Assign to:: ICU
Physician / Group: hospitalist
Diagnosis: sepsis
Reason for Hospitalization: sepsis
Expected length of stay greater than two midnights?: Yes
ELOS- Estimated Length of Stay in days: 3
I certify the patient meets the requirements for IP care: Yes
PRN Pain Medication Management As Directed
May give lesser potent ordered pain med per pt: Yes
preference::
Protocol:: Medication orders for pain may be administered in a
manner that supports deferring to patient preference
when the pt is:
- Requesting an ordered lesser potent pain medication.
Least to most potent pain medications are defined
as: acetaminophen < NSAID < tramadol < opioids
(morphine, oxycodone, hydromorphone).
- Requesting a lesser dose of the same medication IF
ORDERED.
- Requesting a less intrusive route of administration
if both routes are prescribed by the provider (PO <
IV).
03/26/25 13:21
Legionella Urinary Antigen Routine
FROY Source: Urine
Specimen Description:
MRSA Screen Routine
FROY Source: Nose
Specimen Description:
Strep pneumoniae Antigen Routine
FROY Source: Urine
Specimen Description:
03/26/25 13:22
Urinalysis Reflex To Culture Routine
03/26/25 14:00
Lactic Acid Q4H
Comment: CANCEL 2nd LACTIC ACID IF 1st LACTIC ACID IS LESS THAN 2
Abnormal Lab Results
03/26/25
10:15
WBC 16.5 H 10^3/uL
(4.8-10.8)
RBC 3.22 L 10^6/uL
(4.70-6.10)
Hgb 10.2 L g/dL
(13.0-18.0)
Hct 31.9 L %
(39.0-52.0)
MCV 99.1 H fL
(80.0-94.0)
MCH 31.7 H pg
(27.0-31.0)
MCHC 32.0 L g/dL
(33.0-37.0)
RDW 15.0 H %
(11.5-14.5)
Plt Count 424 H 10^3/uL
(130-400)
Abs Immat Gran (auto) 0.1 H 10^3/uL
(0-0.05)
Absolute Neuts (auto) 15.2 H 10^3/uL
(1.4-6.5)
Absolute Lymphs (auto) 0.6 L 10^3/uL
(1.2-3.4)
Neutrophils % 92.1 H %
(42.2-75.2)
Lymphocytes % 3.5 L %
(20.5-51.1)
PT 19.2 H Sec
(11.4-14.6)
Sodium 132 L mmol/L
(135-145)
BUN 21 H mg/dl
(9-20)
ALT 91 H U/L
(0-50)
Troponin I 0.208 H* ng/ml
Total Protein 5.3 L g/dl
(6.3-8.2)
Albumin 3.1 L g/dl
(3.5-5.0)
Digoxin 0.6 L ng/ml
(0.8-2.0)
03/26/25 10:15
03/26/25 10:15
Vital Signs
Initial and Last Documented VS:
Initial Vital Signs
Pulse Resp BP Pulse Ox
106 30 153/90 93
03/26/25 08:56 03/26/25 08:56 03/26/25 08:56 03/26/25 08:56
Last Documented Vital Signs
Pulse Resp BP Pulse Ox
109 29 153/90 93
03/26/25 09:30 03/26/25 09:30 03/26/25 08:56 03/26/25 10:02
Jazminlt;Garry Banks, - Last Filed: 03/26/25 12:46>
Orders/Labs/Results
Orders:
Orders
03/26/25 10:01
CT Chest PE Study Urgent
Comment:
Reason For Exam: recent surgery, SOB, tachy
03/26/25 10:08
Add On- LAB Urgent
Tests Added?: dig level
03/26/25 10:15
Interrogate Pacemaker- Treatment ONCE
COVID-19 Antigen Urgent
Source: Nasal Swab
Complete Blood Count/With Diff Urgent
Comprehensive Metabolic Panel Urgent
Digoxin Urgent
Comment: ADD ON
Lactic Acid Q4H
Comment: CANCEL 2nd LACTIC ACID IF 1st LACTIC ACID IS LESS THAN 2
Magnesium Urgent
NT-proBNP Urgent
PTT Urgent
Prothrombin Time Urgent
Troponin I Urgent
Influenza A+B Rapid Molecular Urgent
FROY Source: Nasal Swab
Specimen Description:
03/26/25 10:16
Electrocardiogram (*1) Urgent
Reason for Study: Tachycardia
EKG- Treatment ONCE
03/26/25 12:20
Cefepime HCl [Maxipime] 2,000 mg IV NOW STA
03/26/25 12:22
Vancomycin [Vancocin] 1,500 mg 0.9% Sodium Chloride 500 ml [Nss] 500 ml IV NOW
03/26/25 13:13
Admit/Transfer Patient As Directed
Co-Sign Provider:
Level of Care: Inpatient admission
Assign to:: ICU
Physician / Group: hospitalist
Diagnosis: sepsis
Reason for Hospitalization: sepsis
Expected length of stay greater than two midnights?: Yes
ELOS- Estimated Length of Stay in days: 3
I certify the patient meets the requirements for IP care: Yes
PRN Pain Medication Management As Directed
May give lesser potent ordered pain med per pt: Yes
preference::
Protocol:: Medication orders for pain may be administered in a
manner that supports deferring to patient preference
when the pt is:
- Requesting an ordered lesser potent pain medication.
Least to most potent pain medications are defined
as: acetaminophen < NSAID < tramadol < opioids
(morphine, oxycodone, hydromorphone).
- Requesting a lesser dose of the same medication IF
ORDERED.
- Requesting a less intrusive route of administration
if both routes are prescribed by the provider (PO <
IV).
03/26/25 13:21
Legionella Urinary Antigen Routine
FROY Source: Urine
Specimen Description:
MRSA Screen Routine
FROY Source: Nose
Specimen Description:
Strep pneumoniae Antigen Routine
FROY Source: Urine
Specimen Description:
03/26/25 13:22
Urinalysis Reflex To Culture Routine
03/26/25 14:00
Lactic Acid Q4H
Comment: CANCEL 2nd LACTIC ACID IF 1st LACTIC ACID IS LESS THAN 2
Abnormal Lab Results
03/26/25
10:15
WBC 16.5 H 10^3/uL
(4.8-10.8)
RBC 3.22 L 10^6/uL
(4.70-6.10)
Hgb 10.2 L g/dL
(13.0-18.0)
Hct 31.9 L %
(39.0-52.0)
MCV 99.1 H fL
(80.0-94.0)
MCH 31.7 H pg
(27.0-31.0)
MCHC 32.0 L g/dL
(33.0-37.0)
RDW 15.0 H %
(11.5-14.5)
Plt Count 424 H 10^3/uL
(130-400)
Abs Immat Gran (auto) 0.1 H 10^3/uL
(0-0.05)
Absolute Neuts (auto) 15.2 H 10^3/uL
(1.4-6.5)
Absolute Lymphs (auto) 0.6 L 10^3/uL
(1.2-3.4)
Neutrophils % 92.1 H %
(42.2-75.2)
Lymphocytes % 3.5 L %
(20.5-51.1)
PT 19.2 H Sec
(11.4-14.6)
Sodium 132 L mmol/L
(135-145)
BUN 21 H mg/dl
(9-20)
ALT 91 H U/L
(0-50)
Troponin I 0.208 H* ng/ml
Total Protein 5.3 L g/dl
(6.3-8.2)
Albumin 3.1 L g/dl
(3.5-5.0)
Digoxin 0.6 L ng/ml
(0.8-2.0)
03/26/25 10:15
03/26/25 10:15
Vital Signs
Initial and Last Documented VS:
Initial Vital Signs
Pulse Resp BP Pulse Ox
106 30 153/90 93
03/26/25 08:56 03/26/25 08:56 03/26/25 08:56 03/26/25 08:56
Last Documented Vital Signs
Pulse Resp BP Pulse Ox
109 29 153/90 93
03/26/25 09:30 03/26/25 09:30 03/26/25 08:56 03/26/25 10:02
<Kristian Guadalupe PA-C - Last Filed: 03/26/25 14:29>
MDM/Problems Addressed
Differential Diagnosis Includes:
PE
Pneumonia
COVID/Flu/Other viral etiology
Pericarditis/Myocarditis
Worsening valvular disease
ACS
Anemia
Cardiac Arrhythmia
CHF
MDM/Problems Addressed:
80-year-old male presenting to the ER for evaluation of increasing shortness of breath and chills that began this morning, afebrile here but noted to be tachycardic into the the 120s. Currently on 5 L nasal cannula but still appearing slightly
dyspneic. Patient with extensive past medical history, recently with significant cardiothoracic surgery. Labs and CT of the chest to rule out PE ordered. Anticipate readmission
Chronic conditions affecting care: CAD, Cardiomyopathy and Arrhythmia
<Kristian Guadalupe PA-C - Last Filed: 03/26/25 14:29>
*Radiology
Radiology exam reviewed: radiology read reviewed
*Pulse Oximetry
SaO2: 93
Nasal Cannula flow liters per minute: 2
Patient hypoxic: yes
*Transportation Job Titles Interpretation
Rate: tachycardiac
Heart Rate: 122
Rhythm: sinus
*Critical Care Note
Total Time (30-74mins, 75-104mins- exclusive of procedures): 35
comment:
Critical care statement: A total of 35 minutes of critical care time was provided for this patient. This includes management of unstable vital signs, evaluation of the patient at bedside, reviewing the patient's pertinent medical records, discussion
with consultants, review of old EKGs and review of pertinent medical records. This time with separate from time utilized to perform the aforementioned documented procedures
Data Reviewed
Review of Other/Old Records Reveals: Labs, Records, Radiology Studies, Operative Reports and Discharge Summary
<Kristian Guadalupe PA-C - Last Filed: 03/26/25 14:29>
Patient Management
Discussion with other providers: Hospitalist
Escalation/DeEscalation of care consider admission/obs:
Patient CTA of the chest is negative for pulmonary embolism however he does have a bilateral pleural effusion, right greater than left, and a right sided pneumonia. Vancomycin and Maxipime ordered for potential hospital-acquired pneumonia. Patient
does have an upward trending white blood cell count as well as a slightly elevated troponin which is likely related to his recent cardiac procedure as well as a BNP slightly higher than previous however overtly does not appear volume overloaded.
Hospitalist team was notified and accepts the patient for continued evaluation and treatment.
ED Attending Note
<Kristian Guadalupe PA-C - Last Filed: 03/26/25 14:29>
-
Portions of this chart may have been created with voice recognition software.� Occasional wrong word or��sound alike� substitutions may have occurred due to the inherent limitations of voice recognition software.
<Garry Banks DO - Last Filed: 03/26/25 12:46>
ED Attending Note
Patient seen and examined by attending physician: Yes
I performed the substantive portion of visit, reviewed & personally made and approve the management plan that is documented in note by myself or SERGEI.: Yes
ED Attending Note:
I agree with Joshua's note
Patient presents with increased shortness of breath, work of breathing. Patient is at [facility] recovering from bypass surgery. 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 notes patient has not taken
methotrexate for 4 weeks which is part of his management of that disease. They are concerned that the lack of methotrexate may be contributing. Patient was experiencing chills up at [facility]. states patient did not sleep well last night which
may also be contributing.
General: Awake, Alert, Oriented X3. No acute distress.
Vitals: unremarkable
Head: Atraumatic
Eyes: Pupils equal, EOMI
Throat: Airway intact, no exudates, dry mucosa
Neck: Trachea midline
Lungs: Clear and equal b/l
Heart: Regular rate, no murmurs
Neuro: Nonfocal
Skin: Warm, dry, no rash
Extremities: pulses equal b/l, no edema. Surgical incisions well-approximated, no signs of infection
Patient presents with increased work of breathing and shortness of breath. Will check labs, chest x-ray. He is on supplemental oxygen.
Chest CT shows rll infiltrate and effusions. Admit, broad spectrum abx, supplemental oxygen
Discharge Plan
Departure
Patient Disposition: Admit
Date of Disposition: 03/26/25
Time of Disposition: 12:47
Presentation/result/management discussed w/ accepting MD/DO: Hospitalist
Discharge Problem:
Pneumonia, Elevated troponin, Pleural effusion
Interventions
Interventions:
*Risk Screen - Suicide Last Done: 03/26/25 08:56
*General Assessment Last Done: 03/26/25 08:56
*Neglect/Abuse Screening Last Done: 03/26/25 08:56
*ED- Fall Risk Assessment Last Done: 03/26/25 08:56
*ED COVID-19 Vaccine History Last Done: 03/26/25 08:56
*ED Influenza Vaccine History Last Done: 03/26/25 08:56
[2025-03-26 10:49] LABS: Hematocrit 31.9 % (39.0-52.0); Hemoglobin 10.2 g/dL (13.0-18.0); Mean Corp Hgb Conc. 32.0 g/dL (33.0-37.0); Mean Corpuscular Volume 99.1 fL (80.0-94.0); Nucleated Red Blood Cells % 0 % (-); Platelet Count 424 10^3/uL (130-400); Red Cell Dist. Width 15.0 % (11.5-14.5)
[2025-03-26 10:53] LABS: COVID-19 Antigen Negative (Negative)
[2025-03-26 10:54] LABS: INR 1.59; PT 19.2 Sec (11.4-14.6)
[2025-03-26 10:55] LABS: APTT 28.3 Sec (23.4-35.0)
[2025-03-26 11:03] LABS: ALT (SGPT) 91 U/L (0-50); AST (SGOT) 28 U/L (17-59); Albumin 3.1 g/dl (3.5-5.0); Alkaline Phosphatase 109 U/L (38-126); Blood Urea Nitrogen 21 mg/dl (9-20); Calcium 8.4 mg/dl (8.4-10.2); Carbon Dioxide 29 mmol/L (22-30); Chloride 101 mmol/L (98-107); Digoxin 0.6 ng/ml (0.8-2.0); Estimated Creatinine Clearance 58 ml/min; Glucose 78 mg/dl (70-99); Magnesium 2.0 mg/dl (1.6-2.3); Potassium 3.6 mmol/L (3.5-5.1); Sodium 132 mmol/L (135-145); Total Protein 5.3 g/dl (6.3-8.2); eGFR > 60.00
[2025-03-26 11:07] LABS: Troponin I 0.208 ng/ml
[2025-03-26] MEDS: MAXIPIME 2000 MG IV (12:40)
[2025-03-26] MEDS: VANCOCIN 530 MG IV (13:12)
--- NOTE | 2025-03-26 13:28 | HPS.HSE ---
Addendum entered and electronically signed by Angie Viramontes MD 03/26/25 15:17:
This is an addendum to the H&P written by German Bundy on 03/26/2025. �Patient seen and examined independently with resident.
80-year-old male past medical history of Churg-Lemuel/eosinophil granulomatosis polyangiitis, ventricular tachycardia status post ICD, CAD status post CABG, inferior apical LV thrombus, nonischemic cardiomyopathy with EF of 40 to 45%, paroxysmal
atrial fibrillation, peripheral arterial disease status post mid right SFA occlusion probable high-grade distal SFA stenosis, CKD, spinal stenosis, hypothyroid storm, migraines, pancreatic cyst, presenting from [facility] for increased shortness of
breath and chills starting today. �Having slight cough productive of clear sputum. �Patient on 2 L as needed but now 12L. �No chest pain.
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
Patient was recently admitted from 03/04 to 03/21 for midsternal chest pain. �He was found to have NSTEMI and taken to catheterization lab. �He had multivessel CAD. �He was found to have decrease in LV function to 25 to 30% with LV thrombus. �He was
seen by CT surgery for CABG evaluation. �He underwent CABG x 3, left atrial appendage exclusion. �He was given stress dose steroids intraoperatively. �Postoperatively patient required pressors and dobutamine. �Patient developed postoperative LARA.
�Patient was eventually diuresed. �Patient atrial fibrillation treated with digoxin and eventually amiodarone.
No lower extremity edema, hemoptysis or orthopnea.
Vital signs show tachycardia up to 106, tachypnea and hypoxemia. Blood pressure initially 150 systolic. Dropped to 60s.�
Labs show leukocytosis of 16.5. �Stable anemia hemoglobin 10.2. �Troponin 0.2 although has been similarly elevated in the past. �Cardiac BNP 6800 from 3800.
Chest x-ray from 2 days ago shows interval development of small right pleural effusion.
CT chest today shows dense consolidation/atelectasis of right lower lobe and right middle lobe suspicious for pneumonia. �Small right pleural effusion. �COVID and flu negative.
Patient with acute hypoxemic respiratory failure / sepsis secondary to right lower lobe pneumonia. 500 cc IV fluid bolus given, very cautious given reduced EF. Continue midodrine, Levophed as needed.� Check sputum culture.� Blood cultures. Check
strep, Legionella antigen. �Check MRSA. �Empiric vancomycin/cefepime.� Start stress dose steroids. Pulmonary consulted. Hold lasix.�
Nonischemic myocardial injury from recent NSTEMI.
Original Note:
Family Physician
-
Family Physician: Josh Valdez
Chief Complaint
-
Rigors/chills
History of Present Illness
80-year-old male with complex past medical history of long-term use of prednisone and methotrexate for Churg�Lemuel/eosinophilic granulomatosis with polyangeitis, followed by Dr. Piero Garcia at [facility] (methotrexate and prednisone), CABGx3 on
03/06, on ICD since 2010 never shocked, nonischemic cardiomyopathy EF 35% 03/20, recent TTE showed decreased left ventricular function with left ventricle thrombus, history of PAD [facility] of rigors and
dyspnea that started today. Patient notes of having slight productive cough with clear sputum with started this morning. Patient has been on as needed oxygen 2 L via nasal cannula he is currently on, 12 L of NC. He he denies chest pain,
palpitations, sick contacts, recent travels. Patient's notes that his methotrexate was discontinued 4 weeks ago per cardiology prior to CABG procedure. He has not started methotrexate yet. He is currently on Eliquis, aspirin, Plavix. He
denies hematuria/hemoptysis/hematochezia.
Medical History
Past Medical History
Past Medical History: Reports CHF (Heart failure with reduced ejection fraction)
Additional Past Medical History:
Asthma, CAD, COPD, HTN, Hypercholesterolemia, Valvular disease, Hyperthyroidism and Other (Pneumonia, Hypereosinophilia)
Past Surgical History: Reports Other
Additional Past Surgical History:
Cardiac (AICD), Tonsilectomy
Social History
Tobacco: Non-smoker
Alcohol: None
Drug: None
Personal:
Living: With Family
Employment: Retired
Family History
Family History: Not pertinent
Allergies / Home Medications
Allergies reflects when Allergies were last updated in [facility].
Home Medications with original date entered in [facility]
Allergy/Medication List:
Allergies
Allergy/AdvReac Type Severity Reaction Status Date / Time
amlodipine (From [facility]) Allergy edema Verified 10/24/24 20:47
levofloxacin Allergy Rash Verified 03/04/25 01:49
Penicillins Allergy GI upset, Verified 03/04/25 01:49
vomiting
Quinolones Allergy Rash Verified 03/04/25 01:49
Sulfa (Sulfonamide Allergy Hives, rash Verified 03/04/25 01:49
Antibiotics)
sulfasalazine Allergy Hives, rash Verified 03/04/25 01:49
Home Medications
aspirin 81 mg tablet,delayed release 81 mg PO DAILY Blood Clot Prevention/Tx 11/07/10
budesonide-formoterol HFA 80 mcg-4.5 mcg/actuation aerosol inhaler (Symbicort) 2 puff inhalation R BID Lung/Breathing Issues 10/26/19
montelukast 10 mg tablet 10 mg PO QPM Allergies 10/26/19
prednisone 5 mg tablet 7 mg PO DAILY Anti-Inflammatory 10/26/19
cholecalciferol (vitamin D3) 50 mcg (2,000 unit) tablet (Vitamin D3) 50 mcg PO DAILY Supplement 04/18/23
amiodarone 200 mg tablet (Pacerone) 200 mg PO DAILY Arrhythmia #0 tabs 03/21/25
clopidogrel 75 mg tablet 75 mg PO DAILY Blood clot prevention/tx #0 tabs 03/21/25
digoxin 125 mcg (0.125 mg) tablet 125 mcg PO NOON Arrhythmia #0 tabs 03/21/25
ferrous sulfate 325 mg (65 mg iron) tablet (FeroSul) 325 mg PO DAILY anemia #0 tabs 03/21/25
furosemide 20 mg tablet 20 mg PO DAILY Fluid retention/Swelling #0 tabs 03/21/25
melatonin 5 mg tablet 10 mg (2 x 5 mg) PO HS insomnia #0 tabs 03/21/25
acetaminophen 325 mg tablet (Tylenol) 650 mg PO Q6HPRN PRN MILD PAIN 03/26/25
apixaban 5 mg tablet (Eliquis) 5 mg PO BID Blood Clot Prevention/Tx 03/26/25
ascorbic acid (vitamin C) 500 mg tablet (Vitamin C) 500 mg PO DAILY Supplement 03/26/25
atorvastatin 40 mg tablet 40 mg PO HS High cholesterol 03/26/25
bisacodyl 10 mg rectal suppository (Dulcolax (bisacodyl)) 10 mg AR DAILYPRN PRN CONSTIPATION 03/26/25
bisacodyl 5 mg tablet,delayed release (Dulcolax (bisacodyl)) 10 mg PO DAILYPRN PRN CONSTIPATION 03/26/25
docusate sodium 100 mg capsule (Colace) 100 mg PO BID Constipation 03/26/25
folic acid 1 mg tablet 1 mg PO DAILY Supplement 03/26/25
methotrexate sodium 2.5 mg tablet 22.5 mg PO WE Autoimmune Disorder 03/26/25
midodrine 5 mg tablet 15 mg PO TID for SBP<110 03/26/25
pantoprazole 40 mg tablet,delayed release 40 mg PO DAILY Gastrointestinal Issue 03/26/25
polyethylene glycol 3350 17 gram oral powder packet (Miralax) 17 g PO DAILY Constipation 03/26/25
sennosides 8.6 mg tablet (senna) 17.2 mg PO NOON Constipation 03/26/25
tramadol 50 mg tablet 25 mg PO Q6HPRN PRN MODERATE PAIN 03/26/25
trazodone 50 mg tablet 50 mg PO HS Sleep 03/26/25
trazodone 50 mg tablet 50 mg PO HSPRN PRN SLEEP 03/26/25
Review of Systems
-
History Source: Patient and Family
A 12 point ROS was completed and negative except as noted: Yes
Constitutional: Reports See HPI and Other
Physical Exam
Vital Signs
Vital Signs
Pulse Resp BP Pulse Ox
109 29 153/90 93
03/26/25 09:30 03/26/25 09:30 03/26/25 08:56 03/26/25 10:02
Physical Exam
General: Conversant and Respiratory Distress (Moderate)
HEENT: NormoCephalic and Anicteric
Respiratory: Rhonchi (left lower base ), Decreased Breath Sounds and Other (on 11L NC)
Cardiac: S1/S2, Regular Rhythm, Tachycardia and Other (Presents of Defibrillator right chest )
GI: Soft, Non Tender and Non Distended
Musculoskeletal: Edema, Left Lower Extremity (2+) and Edema, Right Lower Extremity (2+)
Skin: Warm and Dry
Neuro: AO x 3
Hematologic/Lymphatic: No Lymphadenopathy
Psych: Calm
Laboratory Results
-
03/26/25 10:15
03/26/25 10:15
Laboratory Results
PT 19.2 Sec (11.4-14.6) H 03/26/25 10:15
INR 1.59 03/26/25 10:15
APTT 28.3 Sec (23.4-35.0) 03/26/25 10:15
Lactic Acid 1.8 mmol/L (0.7-2.0) 03/26/25 10:15
Total Bilirubin 0.8 mg/dl (0.2-1.3) 03/26/25 10:15
AST 28 U/L (17-59) 03/26/25 10:15
ALT 91 U/L (0-50) H 03/26/25 10:15
Alkaline Phosphatase 109 U/L (38-126) 03/26/25 10:15
Troponin I 0.208 ng/ml H* 03/26/25 10:15
Data Reviewed
-
CT Scan: Report Reviewed by me and Discussed with Physician
Medical Tests (Nuc Med, Echo, EKG etc): Report Reviewed by me
Lab Data: Labs Reviewed by me and Discussed with Physician
Impression/Plan
-
IMPRESSION:
Sepsis in the setting of hospital-acquired pneumonia
Acute hypoxic respiratory failure
Atrial flutter
Chronic heart failure with reduced ejection fraction, recent CABG x 3
Long-term use of prednisone in the setting of Churg-Lemuel/eosinophilic granulomatous polyangiitis
History of peripheral artery disease
Chronic constipation
History of anemia
GERD
PLAN:
#Sepsis in setting of hospital-acquired pneumonia
#Hypotensive
#Sinus tachycardia
Bacterial pneumonia versus eosinophilic pneumonia
CT chest showing consolidation in the right lower and middle lobe which is more suspicious for bacterial pneumonia versus eosinophilic( reticular pattern)
Admit the patient to ICU
IV fluids
Steroid burst-- IV hydrocortisone 100 mg to prevent adrenal insufficiency
COVID negative
Check strep pneumo and Legionella antigen
Check sputum culture
Check MRSA
Check blood culture x1 and UA/culture
Continue vancomycin and cefepime
Luggage Maker aware
#Acute hypoxic respiratory failure
Currently on 12 L of nasal cannula
Atrial flutter- not new onset
Started post CABG, paroxysmal
EKF showing atrial flutter
Continue oral amiodarone and digoxin
Continue Eliquis
Consult cardiology
#Chronic heart failure with reduced ejection fraction in the setting of CABGx 3 on 03/06
#History of non ischemic cardiomyopathy
# ICD since 2010
Troponin 0.208, EKG showing atrial flutter
Hold furosemide
Previous echo 03/2025 shows ejection fraction of 35%
Consult cardiology
Long-term use of prednisone and MTX in the setting of Churg-Lemuel syndrome
Start steroid burst --IV hydrocortisone to prevent adrenal insufficiency
Continue low-dose prednisone
Methotrexate has been discontinued for the past 4 weeks
History of PAD
Continue aspirin and Plavix
Chronic constipation
Continue bowel regime
History of anemia
Continue ferrous sulfate
GERD
Continue pantoprazole
DVT prophylaxis- Eliquis
CODE STATUS- full ccode.
--- NOTE | 2025-03-26 14:00 | CM ---
Chart reviewed and spoke with patient and his Ester at ED bedside
He was inpatient at [facility] from 03/06/25-03/21/2025 s/p CABG
Tx to [facility] at [place] for therapy
He was sent to ED on 03/26 due to fatigue and fever
Prior to his admission in 02/2025
Lives in 2 with 2 DG
Independent with ADLs and ambulation
no DME
PCP Dr. Josh Valdez
Pharmacy [facility] in [place]
no hx of VN nor SNF
DCP; [facility]
'they [facility] me' per pt and he was able [facility] wants to go home with services
is very supportive and agrees with plan
Son is RADIATOR MECHANIC at [employer] and his partner is a physician and they volunteered to stay with patient post discharge
can provide transportation
Cm will continue to follow up for any dcp needs
[2025-03-26] MEDS: SOLU-CORTEF 100 MG IV (15:02)
[2025-03-26] MEDS: LEVOPHED 250 IV (15:07)
--- NOTE | 2025-03-26 15:32 | CON.INTV ---
Consultation
Consultation Request
Date/Time Consultation Requested: 03/26/25 14:07
Date/Time Consultation Performed: 03/26/25 1430
Requesting Provider: Dr. German Bundy
Performing Provider: Dr. Joanna Cuellar and Dr. Rob Olivarez
Reason for Consultation: Acute hypoxic respiratory failure
Medical History
-
Chief Complaint: Fatigue
History of Present Illness:
Patient is a 80-year-old male with a past medical history of asthma, paroxysmal atrial fibrillation, Churg-Lemuel syndrome, ventricular tachycardia s/p ICD, HFrEF, CAD, COPD, inferior apical left ventricular thrombus, nonischemic cardiomyopathy
with ejection fraction of 40 to 45%, CKD, hypertension, hypercholesterolemia, on long-term low dose prednisone, recently taken off methotrexate and status post CABG x 3 on 02/2025 which was complicated by a prolonged postoperative ICU course
requiring multiple pressors. He was discharged to [facility] but developed acute onset of rigors/chills with associated productive cough fatigue and hypotension last night. Patient has acute hypoxic respiratory failure requiring 11 L of oxygen
currently with blood pressure 76/44, MAP 57, heart rate 115. Chest x-ray showed right lower lobe pneumonia, bilateral pleural effusions. Family states that the right-sided pleural effusion was present in the past but IR was not able to tap it at
the time. Patient last urinated last night. states he has lost approximately 20 pounds since the CABG (previously 157 lbs, now 138 lbs).
Past Medical History
Past Medical History: Arrhythmias (Atrial fibrillation), Asthma, CAD, COPD, HTN, Hypercholesterolemia and Hyperthyroidism
Past Surgical History: Cardiac (AICD in 2010, replaced in 2019) and Tonsilectomy
Social History
Tobacco: Non-smoker
Personal:
Living: With Family
Employment: Retired
Family History
Family History: Reviewed & Not Pertinent
Allergies / Home Medications
Allergies
Allergy/AdvReac Type Severity Reaction Status Date / Time
[facility] Allergy edema Verified 10/24/24 20:47
levofloxacin Allergy Rash Verified 03/04/25 01:49
Penicillins Allergy GI upset, Verified 03/04/25 01:49
vomiting
Quinolones Allergy Rash Verified 03/04/25 01:49
Sulfa (Sulfonamide Allergy Hives, rash Verified 03/04/25 01:49
Antibiotics)
sulfasalazine Allergy Hives, rash Verified 03/04/25 01:49
Home Medications
�Medication �Instructions �Recorded �Confirmed �Last Taken �Type
aspirin 81 mg tablet,delayed 81 mg PO DAILY Blood Clot 11/07/10 03/26/25 03/25/25 History
release Prevention/Tx
budesonide-formoterol HFA 80 2 puff inhalation R BID 10/26/19 03/26/25 03/25/25 History
mcg-4.5 mcg/actuation aerosol Lung/Breathing Issues
inhaler (Symbicort)
montelukast 10 mg tablet 10 mg PO QPM Allergies 10/26/19 03/26/25 03/25/25 History
prednisone 5 mg tablet 7 mg PO DAILY Anti-Inflammatory 10/26/19 03/26/25 03/25/25 History
cholecalciferol (vitamin D3) 50 50 mcg PO DAILY Supplement 04/18/23 03/26/25 03/25/25 History
mcg (2,000 unit) tablet (Vitamin
D3)
amiodarone 200 mg tablet (Pacerone) 200 mg PO DAILY Arrhythmia #0 tabs 03/21/25 03/26/25 03/25/25 Rx
clopidogrel 75 mg tablet 75 mg PO DAILY Blood clot 03/21/25 03/26/25 03/25/25 Rx
prevention/tx #0 tabs
digoxin 125 mcg (0.125 mg) tablet 125 mcg PO NOON Arrhythmia #0 tabs 03/21/25 03/26/25 03/25/25 Rx
ferrous sulfate 325 mg (65 mg 325 mg PO DAILY anemia #0 tabs 03/21/25 03/26/25 03/25/25 Rx
iron) tablet (FeroSul)
furosemide 20 mg tablet 20 mg PO DAILY Fluid 03/21/25 03/26/25 03/25/25 Rx
retention/Swelling #0 tabs
melatonin 5 mg tablet 10 mg (2 x 5 mg) PO HS insomnia #0 03/21/25 03/26/25 03/25/25 Rx
tabs
acetaminophen 325 mg tablet 650 mg PO Q6HPRN PRN MILD PAIN 03/26/25 03/26/25 03/25/25 History
(Tylenol)
apixaban 5 mg tablet (Eliquis) 5 mg PO BID Blood Clot 03/26/25 03/26/25 03/25/25 History
Prevention/Tx
ascorbic acid (vitamin C) 500 mg 500 mg PO DAILY Supplement 03/26/25 03/26/25 03/25/25 History
tablet (Vitamin C)
atorvastatin 40 mg tablet 40 mg PO HS High cholesterol 03/26/25 03/26/25 03/25/25 History
bisacodyl 10 mg rectal suppository 10 mg AL DAILYPRN PRN CONSTIPATION 03/26/25 03/26/25 03/25/25 History
(Dulcolax (bisacodyl))
bisacodyl 5 mg tablet,delayed 10 mg PO DAILYPRN PRN CONSTIPATION 03/26/25 03/26/25 Unknown History
release (Dulcolax (bisacodyl))
docusate sodium 100 mg capsule 100 mg PO BID Constipation 03/26/25 03/26/25 03/25/25 History
(Colace)
folic acid 1 mg tablet 1 mg PO DAILY Supplement 03/26/25 03/26/25 03/25/25 History
methotrexate sodium 2.5 mg tablet 22.5 mg PO WE Autoimmune Disorder 03/26/25 03/26/25 03/20/25 History
midodrine 5 mg tablet 15 mg PO TID for SBP<110 03/26/25 03/26/25 03/26/25 History
pantoprazole 40 mg tablet,delayed 40 mg PO DAILY Gastrointestinal 03/26/25 03/26/25 03/25/25 History
release Issue
polyethylene glycol 3350 17 gram 17 g PO DAILY Constipation 03/26/25 03/26/25 Unknown History
oral powder packet (Miralax)
sennosides 8.6 mg tablet (senna) 17.2 mg PO NOON Constipation 03/26/25 03/26/25 03/25/25 History
tramadol 50 mg tablet 25 mg PO Q6HPRN PRN MODERATE PAIN 03/26/25 03/26/25 Unknown History
trazodone 50 mg tablet 50 mg PO HS Sleep 03/26/25 03/26/25 03/25/25 History
trazodone 50 mg tablet 50 mg PO HSPRN PRN SLEEP 03/26/25 03/26/25 03/25/25 History
Review of Systems
-
History Source: Patient and Family
Constitutional: Fatigue and Chills
EENT: No Symptoms
Respiratory: Trouble Breathing
Cardiac: No Symptoms
Abdomen/GI: No Symptoms
: No Symptoms
Musculoskeletal: No Symptoms
Skin: No Symptoms
Neuro: No Symptoms
Endocrine: No Symptoms
Hematologic/Lymphatic: No Symptoms
Vitals / Labs / Diagnostic Testing
Vital Signs
Pulse Resp BP Pulse Ox
111 22 95/81 94
03/26/25 15:30 03/26/25 15:30 03/26/25 15:30 03/26/25 15:30
Lab Data
03/26/25 10:15
03/26/25 10:15
Laboratory Results
03/26/25
10:15
PT 19.2 H
INR 1.59
APTT 28.3
Microbiology
03/26/25 10:15 Nasal Swab Influenza Types A & B (CHUCK) - Final
Negative for Influenza A & B, NAAT
Negative results must be combined with clinical observations
and patient history.
Nucleic Acid Amplification test (NAAT)performed on the
[employer] NOW platform.
Diagnostic Testing:
Physical Exam
-
HEENT: Normocephalic, Anicteric and Moist Mucous Membranes
Cardiovascular: S1/S2, Regular Rhythm and Peripheral Edema (1+)
Respiratory: Clear
GI: Soft, Non Distended and Non Tender
Neurology: Awake and AO x 3
Skin: Warm
General: Comfortable
Assessment
-
Assessment:
80-year-old male with a complex past medical history including chronic respiratory disease on long-term low-dose prednisone, recently off methotrexate and status post CABG x 3 on 03/06/2025 complicated by a prolonged postoperative ICU course
requiring multiple pressors. He has been at most rehab and now presents with acute onset chills, fatigue, productive cough and hypotension. Patient has acute hypoxic respiratory failure requiring 11 L of oxygen currently, and meeting criteria for
septic shock given blood pressure 76/44, heart rate 115, chest x-ray showing pneumonia.
Plan:
# Acute hypoxic respiratory failure
# Right middle lobe pneumonia possibly due to aspiration
# Suspected septic shock with possible concurrent cardiogenic shock
- Currently requiring 11 L nasal cannula, continue supplemental oxygen.
- CT chest 03/28/2025:Limited by artifacts as above. No central or segmental pulmonary embolus. Dense consolidation/atelectasis right lower lobe and right middle lobe which is suspicious for pneumonia. Small right pleural effusion. Minimal left
pleural effusion.
- Consider ABG
- WBC count 16.5
- Lactate 03/26/2020 5:10 AM 1.8. Trend lactate.
- Maintain MAP >65; patient currently on Levophed 4 mg in 250 ml. Consider adding vasopressin if needed.
- Hold lasix
- Stress dose steroids given long-term low-dose prednisone use
- Continue broad-spectrum IV antibiotics: Cefepime and vancomycin
- Blood cultures pending
- Sputum culture
- COVID/Flu negative
- Strep pneumo, Legionella pending
- NPO given aspiration risk. FREELANCE DATA ENTRY consult.
# Paroxysmal Atrial flutter- started post CABG
# S/p CABG recently on 03/06/2025
# Chronic heart failure with reduced ejection fraction
- EKG showed atrial flutter
- Recent Echo showed EF 35%
- Continue amiodarone/digoxin
- Continue Eliquis
- Hold Lasix
- Cardiology consulted
- Troponin elevated at 0.208 --> trend troponins.
- Monitor for arrhythmia on telemetry
- Follows with Dr. Stephens cardiology
# alf use of prednisone and methotrexate
# Churg Lemuel syndrome
- s/p IV hydrocortisone in ER
- Stress dose steroids
- Mtx dc'd 4 weeks ago
# History of peripheral arterial disease
Continue aspirin and Plavix
Code status: full code
DVT prophylaxis: Eliquis
Diet: NPO
Data Reviewed
-
CT Scan: Report reviewed by me, Discussed with Physician, Discussed with Patient and Discussed with Family
Labs: Labs reviewed by me, Discussed with Physician, Discussed with Patient and Discussed with Family
Old Records: Reviewed
--- NOTE | 2025-03-26 17:10 | CON.CAR ---
Addendum entered and electronically signed by Kostas Stephens MD 03/26/25 18:18:
Attending addendum: Patient seen and examined. PA note reviewed and findings confirmed by me. Mr. Hunter is well known to me from outpatient office visits. 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
granulomatosis w polyangiitis. He was admitted to with unstable anginal symptoms and newly reduced LVEF. Coronary angiography was notable for a complex ruptured plaque in the distal LM involving the origin of the LAD and LCx. Echocardiogram
was notable for an echodense and mobile apical thrombus. On 03/21/2025 he underwent CABG with REYES-LAD, SVG-D2, SVG-OM, and SHERRY exclusion with AtriClip. After a prolonged postoperative course, he was discharged to [facility]. Last evening he
experienced rigors and was hypotensive. [facility] was [facility] and received IV hydration. A CT chest was suggestive of RLL / RML consolidation. He has a leukocytosis and left shift.
PE:
Gen: frail, thin elderly gentleman NAD
HEENT: Dry mucous membranes. NC/AT
Lungs: Clear anteriorly. No wheezing.
Chest: Sternum is well approximated.
CV: Irreg Irreg
Abd: soft, nontender, bowel sounds present
Ext: No edema
CT Chest: dense consolidation / atelectasis of Rt lower lobe and right middle lobe suspicious for pneumonia
-03/20/2025: Echo: LV: Mild global HK with HK of inferior, apical and distal anterior apical wall. EF 35%. Mobile apical thrombus is noted. RV: Normal, LA: Normal, RA: Normal, AV: Trace AI, MV: Moderate MR, TV: Mild TR with PAP 25 mmHg
-03/06/2025: CABG: REYES-LAD, SVG-D2, SVG-OM, 40 mm AtriClip
-03/04/2025: Cath: LM: Ruptured plaque in the distal left main extending to the ostium of the circumflex and LAD with 90% distal left main stenosis. LAD: Hazy eccentric 90% ostial stenosis. LAD is heavily calcified with diffuse luminal
irregularities, LCx 90% ostial stenosis supplying 2 moderate-sized OM branches, RCA: Dominant
RECOMMENDATION:
-Treatment of right lower lobe and right middle lobe pneumonia per hospitalist service
- Would hold on further diuresis at this time
- Recent limited echocardiographic study within the past week
- Will continue to follow
- Serial troponin
Original Note:
Consultation
Consultation Request
Date/Time Consultation Requested: 03/26/2025
Date/Time Consultation Performed: 03/26/2025
Requesting Provider: Dr. German Bundy MD/resident
Performing Provider: Mendy Herring PA-C for Dr. Samuels
Reason for Consultation: Acute heart failure
Medical History
-
Chief Complaint: CP
History of Present Illness:
80-year-old male with past medical history of asthma, paroxysmal atrial fibrillation, coronary artery disease status post CABG x 07/16/2024, ventricular tachycardia status post ICD 2010, cardiomyopathy/heart failure with reduced EF, COPD, peripheral
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 Piero Garcia at [facility] chronically
on low dose prednisone. Patient was recently hospitalized for prolonged hospitalization from 03/04/2025 to to 03/21/2025 for NSTEMI, coronary artery disease with left main disease for which he underwent CABG x 3 (ALEXIS to LAD, GSV to D2, GSV to OM,
ELAA 03/06/25). He was found to have reduced EF of 25 to 30% as well as inferoapical LV thrombus on echo presurgery. Patient was placed on Plavix and Eliquis at discharge. GDMT was significantly limited by hypotension requiring midodrine 15 mg 3
times daily. He was discharged to [facility].
Patient reports he had been rehabbing at [facility]. On the late evening of 03/25/2025 he started to feel unwell. He then developed chills and rigors as well as worsening shortness of breath with cough and fatigue. He was brought to emergency
department and was found to have acute hypoxic respiratory insufficiency requiring high flow oxygen at 12 L. He was also found to be hypotensive and required aggressive IV resuscitation and IV Levophed for blood pressure support. EKG demonstrated
atrial fibrillation with accelerated ventricular response. Chest x-ray showed right lower lobe pneumonia with bilateral pleural effusions.
Past medical history:
NSTEMI 03/28/2025
MV CAD including L main by cath 03/04/25
s/p CABG x3 ALEXIS to LAD, GSV to D2, GSV to OM, ELAA 03/06/25
Inferoapical LV thrombus by echo 03/04/25
Ischemic cardiomyopathy, EF 25 to 30%
Renal insufficiency
Prior history of mild cardiomyopathy
Status post ventricular tachycardia
Paroxysmal to persistent atrial fibrillation
ICD 2010, Medtronic single-chamber
PAD, mid right SFA occlusion and probable high-grade distal SFA stenosis
Hyper eosinophilia syndrome, on chronic steroid therapy
Churg-Lemuel syndrome
Spinal stenosis
Hyperthyroid storm
Migraines
Pancreatic cysts
Past Medical History
Past Medical History: Other (as above)
Past Surgical History: Cardiac (s/p CABG x3 ALEXIS to LAD, GSV to D2, GSV to OM, ELAA 03/06/25) and Other (ICD 04/18, inguinal hernia repair as a child, wisdom teeth age 29, bilateral cataract surgery with stents placed 2020)
Social History
Tobacco: Non-Smoker
Alcohol: Occasional (1 glass of wine daily)
Drug: None
Personal:
Living: With Family
Family History
Family History: Reviewed & Not Pertinent and Other (Father CAD, mother cancer)
Allergies / Home Medications
Allergy/AdvReac Type Severity Reaction Status Date / Time
levofloxacin Allergy Rash Verified 03/04/25 01:49
Quinolones Allergy Rash Verified 03/04/25 01:49
Sulfa (Sulfonamide Allergy Hives, rash Verified 03/04/25 01:49
Antibiotics)
sulfasalazine Allergy Hives, rash Verified 03/04/25 01:49
amlodipine (From [facility]) AdvReac edema Verified 03/26/25 15:58
Penicillins AdvReac GI upset, Verified 03/26/25 15:58
vomiting
�Medication �Instructions �Recorded �Confirmed �Type
aspirin 81 mg tablet,delayed 81 mg PO DAILY Blood Clot 11/07/10 03/26/25 History
release Prevention/Tx
budesonide-formoterol HFA 80 2 puff inhalation R BID 10/26/19 03/26/25 History
mcg-4.5 mcg/actuation aerosol Lung/Breathing Issues
inhaler (Symbicort)
montelukast 10 mg tablet 10 mg PO QPM Allergies 10/26/19 03/26/25 History
prednisone 5 mg tablet 7 mg PO DAILY Anti-Inflammatory 10/26/19 03/26/25 History
cholecalciferol (vitamin D3) 50 50 mcg PO DAILY Supplement 04/18/23 03/26/25 History
mcg (2,000 unit) tablet (Vitamin
D3)
amiodarone 200 mg tablet (Pacerone) 200 mg PO DAILY Arrhythmia #0 tabs 03/21/25 03/26/25 Rx
clopidogrel 75 mg tablet 75 mg PO DAILY Blood clot 03/21/25 03/26/25 Rx
prevention/tx #0 tabs
digoxin 125 mcg (0.125 mg) tablet 125 mcg PO NOON Arrhythmia #0 tabs 03/21/25 03/26/25 Rx
ferrous sulfate 325 mg (65 mg 325 mg PO DAILY anemia #0 tabs 03/21/25 03/26/25 Rx
iron) tablet (FeroSul)
furosemide 20 mg tablet 20 mg PO DAILY Fluid 03/21/25 03/26/25 Rx
retention/Swelling #0 tabs
melatonin 5 mg tablet 10 mg (2 x 5 mg) PO HS insomnia #0 03/21/25 03/26/25 Rx
tabs
acetaminophen 325 mg tablet 650 mg PO Q6HPRN PRN MILD PAIN 03/26/25 03/26/25 History
(Tylenol)
apixaban 5 mg tablet (Eliquis) 5 mg PO BID Blood Clot 03/26/25 03/26/25 History
Prevention/Tx
ascorbic acid (vitamin C) 500 mg 500 mg PO DAILY Supplement 03/26/25 03/26/25 History
tablet (Vitamin C)
atorvastatin 40 mg tablet 40 mg PO HS High cholesterol 03/26/25 03/26/25 History
bisacodyl 10 mg rectal suppository 10 mg NE DAILYPRN PRN CONSTIPATION 03/26/25 03/26/25 History
(Dulcolax (bisacodyl))
bisacodyl 5 mg tablet,delayed 10 mg PO DAILYPRN PRN CONSTIPATION 03/26/25 03/26/25 History
release (Dulcolax (bisacodyl))
docusate sodium 100 mg capsule 100 mg PO BID Constipation 03/26/25 03/26/25 History
(Colace)
folic acid 1 mg tablet 1 mg PO DAILY Supplement 03/26/25 03/26/25 History
methotrexate sodium 2.5 mg tablet 22.5 mg PO WE Autoimmune Disorder 03/26/25 03/26/25 History
midodrine 5 mg tablet 15 mg PO TID for SBP<110 03/26/25 03/26/25 History
pantoprazole 40 mg tablet,delayed 40 mg PO DAILY Gastrointestinal 03/26/25 03/26/25 History
release Issue
polyethylene glycol 3350 17 gram 17 g PO DAILY Constipation 03/26/25 03/26/25 History
oral powder packet (Miralax)
sennosides 8.6 mg tablet (senna) 17.2 mg PO NOON Constipation 03/26/25 03/26/25 History
tramadol 50 mg tablet 25 mg PO Q6HPRN PRN MODERATE PAIN 03/26/25 03/26/25 History
trazodone 50 mg tablet 50 mg PO HS Sleep 03/26/25 03/26/25 History
trazodone 50 mg tablet 50 mg PO HSPRN PRN SLEEP 03/26/25 03/26/25 History
Review of Systems
-
History Source: Patient
All other systems: Negative unless noted
Physical Exam
Vital Signs
Pulse Resp BP Pulse Ox
97 15 130/66 98
03/26/25 17:00 03/26/25 17:00 03/26/25 17:00 03/26/25 16:50
GEN: Frail elderly gentleman with mild shortness of breath on high flow oxygen
HEENT: supple, anicteric, mmm
LUNGS: Decreased breath sounds on right, scattered crackles bilaterally worse on right, no wheezes/rales
CV: Irregularly irregular, S1/S2, no murmur, rub or gallop
Chest: Sternotomy stable without rocking or clicking, incision well-approximated
ABD: soft, BS+, NT/ND
EXT: Trace lower extremity edema, no clubbing or cyanosis
NEURO: Gross non-focal
SKIN: No rash, warm, dry, pink
Lab Results
03/26/25 10:15
03/26/25 10:15
Troponin I 0.208 ng/ml H* 03/26/25 10:15
Jkq-B-Bydpimqujyu Pept 6800 pg/ml 03/26/25 10:15
Impression / Plan
-
.
PCP: Josh Valdez
Primary foundation drill operator: Dr. Stephens
Impression:
Presented 03/26/2025 with fevers chills, rigor, shortness of breath
Septic shock requiring pressors
Acute hypoxic respiratory insufficiency
Pneumonia
Leukocytosis
Acute heart failure with reduced ejection fraction
Hyponatremia
Abnormal troponin
Recent NSTEMI 02/25/2025
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
s/p CABG x3 ALEXIS to LAD, GSV to D2, GSV to OM, ELAA 03/06/25
Inferoapical LV thrombus by echo 03/04, still seen on echo 03/20/2025
Ischemic cardiomyopathy, EF 35%
Renal insufficiency
Prior history of mild cardiomyopathy
Status post ventricular tachycardia
Paroxysmal atrial fibrillation, new diagnosis this admission
Elevated LFT's post op
ICD 2010, Medtronic single-chamber
PAD, mid right SFA occlusion and probable high-grade distal SFA stenosis
Hyper eosinophilia syndrome, on chronic steroid therapy
Churg-Lemuel syndrome
Spinal stenosis
Hyperthyroid storm
Migraines
Pancreatic cysts
Echo 03/20/2025: EF 35%. Mild global hypokinesis with akinesis of inferior apical and distal anterior wall. Large mobile apical thrombus present. Moderate MR. Mild TR. PAP 25 mmHg
Echo 03/04/2025: EF 25 to 30%, dilated LV with LAD distribution akinesis and hypokinesis of remaining mckeon, inferoapical LV thrombus present, MAC, aortic sclerosis, normal right heart
TTE: 01/15/2025: EF 40 to 45%, stage II diastolic dysfunction, basal and mid inferior, distal septal, and mid anterior septal akinesis, RV normal size and function
TTE 07/17/2024: EF 38% by Cardoza's method, 45% by visual estimation, global hypokinesis, normal RV size and function
Cardiac catheterization 03/04/2025: Left main: Ruptured plaque in distal left main extending into ostium of circumflex and LAD. 90% distal left main stenosis. LAD: Hazy eccentric 90% ostial LAD stenosis. LAD is heavily calcified within the
vessel. Has luminal irregularities without obstructive high-grade stenosis. Left circumflex 90% ostial stenosis with moderate size OM1 and OM 2. RCA mild noncritical ostial stenosis and diffuse luminal irregularities.
Cardiac cath 04/16/2011: Luminal irregularities in LAD, circumflex, RCA. LAD has some calcium, EF 42%
Plan:
Thwkmscp09/18/2025 with fevers chills, rigor, shortness of breath. Concern for pneumonia and acute heart failure exacerbation
Acute hypoxic respiratory insufficiency secondary to right middle and lower lobe pneumonia on x-ray and chest CT 03/26/2025.
- Evidence of septic shock requiring IV Levophed currently at 2 mcg/kg/min. Wean as tolerated
- Continue antibiotics per primary team; blood cultures pending
- Wean high flow oxygen as tolerated
- Continue midodrine 15 mg 3 times daily for symptomatic hypotension
Acute heart failure with reduced ejection fraction
-proBNP 6800
-Continue to monitor and trend weight. Patient's weight is down over 20 pounds since initial admission in February.
-Given ongoing hypotension with midodrine GDMT has been very limited. Can reattempt when patient more stable and not in shock
Abnormal troponin,
-NSTEMI, s/p CABG x3 ALEXIS to LAD, GSV to D2, GSV to OM, ELAA 03/06/25
-Initial troponin 0.162, repeat 0.208. Continue to trend to peak. Suspect troponin nonischemic myocardial injury secondary to pneumonia, shock and acute hypoxic respiratory insufficiency
- Continue aspirin and Eliquis for graft patency. Continue atorvastatin.
Paroxysmal atrial fibrillation which is now persistent.
-Continue rate control with digoxin and low dose amiodarone. Would not increase amiodarone as patient has continued thrombus on echo 03/20/2025
-Patient did not tolerate beta-ankit on prior admission secondary to worsening hypotension
-Patient with known left apical thrombus. Most recent echocardiogram performed on 03/20/2025 continues to show thrombus. Continue anticoagulation with Eliquis 5 mg twice a day
- Digoxin level 0.6 on labs 03/26/2025
-He is chronically immunocompromised, prednisone for hypereosinophilic syndrome followed by Dr. Piero Garcia at [facility]. Patient was taken off methotrexate during last admission. He had telemed visit with Dr. Garcia during last admission with plan
to resume methotrexate 04/03.
HPI 03/26/2025:
80-year-old male with past medical history of asthma, paroxysmal atrial fibrillation, coronary artery disease status post CABG x 07/16/2024, ventricular tachycardia status post ICD 2010, cardiomyopathy/heart failure with reduced EF, COPD, peripheral
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 Piero Garcia at [facility] chronically
on low dose prednisone. Patient was recently hospitalized for prolonged hospitalization from 03/04/2025 to to 03/21/2025 for NSTEMI, coronary artery disease with left main disease for which he underwent CABG x 3 (ALEXIS to LAD, GSV to D2, GSV to OM,
ELAA 03/06/25). He was found to have reduced EF of 25 to 30% as well as inferoapical LV thrombus on echo presurgery. Patient was placed on Plavix and Eliquis at discharge. GDMT was significantly limited by hypotension requiring midodrine 15 mg 3
times daily. He was discharged to [facility].
Patient reports he had been rehabbing at [facility]. On the late evening of 03/25/2025 he started to feel unwell. He then developed chills and rigors as well as worsening shortness of breath with cough and fatigue. He was brought to emergency
department and was found to have acute hypoxic respiratory insufficiency requiring high flow oxygen at 12 L. He was also found to be hypotensive and required aggressive IV resuscitation and IV Levophed for blood pressure support. EKG demonstrated
atrial fibrillation with accelerated ventricular response. Chest x-ray showed right lower lobe pneumonia with bilateral pleural effusions.
Data Reviewed
-
EKG: Report Reviewed by me, Discussed with Physician and Discussed with Patient
Radiology: Report Reviewed by me, Discussed with Physician and Discussed with Patient
CT Scan: Report Reviewed by me, Discussed with Physician and Discussed with Patient
Medical Tests (Nuc Med, Echo etc): Report Reviewed by me, Discussed with Physician and Discussed with Patient
Labs: Labs Reviewed by me, Discussed with Physician and Discussed with Patient
Old Records: Reviewed
[2025-03-26 17:15] LABS: Glucose - Point of Care 87 mg/dl (70-99)
--- NOTE | 2025-03-26 17:31 | PHA.VAN.IN ---
Assessment
- Assessment
Renal Function: SCR Appears Elevated from baseline (0.7 - 0.8)
Concomitant Antimicrobials: cefepime
Plan
- Plan
Initial / Loading Dose: vanc 1500mg administered @ 1312
Maintenance Regimen: dosing by level
Monitoring: random level 03/27 0600
MRSA Screen: Ordered per protocol
Pharmacokinetics Vancomycin I
- -
Patient Age: 80
Patient Sex: Male
Vancomycin Day #: 1
Indication: Pulmonary/Respiratory
Requesting Provider: Dr. Bundy
Pertinent Antimicrobial Allergies:
levofloxacin/quinolones - rash
sulfa - hives, rash
penicillins - GI upset
Height / Weight:
Height 5 ft 9 in
Actual Weight 67.4 kg
Pertinent Past Medical History: Churg-Lemuel Syndrome on chronic prednisone
- Vital Signs / Lab Results
Temp Pulse Resp BP Pulse Ox
99.6 F 97 15 130/66 98
03/26/25 17:20 03/26/25 17:00 03/26/25 17:00 03/26/25 17:00 03/26/25 16:50
Lab Results - Hematology
03/26/25
10:15
WBC 16.5 H
Lab Results - Chemistry
03/26/25
10:15
BUN 21 H
Creatinine 1.0
Estimated Creat Clear 58
Albumin 3.1 L
03/26/25 03/26/25
10:15 14:03
Lactic Acid 1.8 1.4
Microbiology Results
03/26/25 10:15 Influenza Types A & B (CHUCK) - Final
Nasal Swab Negative for Influenza A & B, NAAT
Negative results must be combined with clinical observations
and patient history.
Nucleic Acid Amplification test (NAAT)performed on the
[employer] platform.
--- NOTE | 2025-03-26 17:49 | PTCARENOTE ---
pt aaox3. states no pain and breathing feels better. 11l midflow breath sounds course diminished. two old sergical site on left leg with steri strips. foam placed on sacrrum blanchable red
[2025-03-26] MEDS: ULTRAM 25 MG PO (18:07)
[2025-03-26] MEDS: SINGULAIR 10 MG PO (18:07)
[2025-03-26] MEDS: SOLU-CORTEF 50 MG IV (18:08)
[2025-03-26] MEDS: STERILE WATER FOR INJECTION 10 ML IV (18:08)
[2025-03-26] MEDS: MAXIPIME 1000 MG IV (18:08)
[2025-03-26 18:54] LABS: Troponin I 0.225 ng/ml
[2025-03-26] MEDS: COLACE 100 MG PO (19:40)
[2025-03-26] MEDS: ELIQUIS 5 MG PO (19:40)
[2025-03-26] MEDS: SYMBICORT 80/4.5 MCG INHALER 2 PUFF INH (19:47)
--- NOTE | 2025-03-26 20:03 | PTCARENOTE ---
Patient aao x3, able to make needs known. Affect friendly. NSR on the monitor with frequent PVCs, positive b/l RP and PP, trace b/l LE edema. Lung sounds diminished at b/l bases, clear to middle and upper lobes. 99% on 12L o2 via n/c. BS active x4,
currently eating dinner tray at this time. Takes meds crushed in applesauce as able. No difficulty swallowing noted. Urinal at bedside. Patient able to recount events of past few weeks and past 24 hours. R ac and L ac IVs patent. Patient noted to
have 2 incisions to LE, steri strips intact, distal incision with redness around incision and some clear/white drainage noted. Denies pain at this time. Will continue to monitor patient closely. Call gutierrez within reach, patient using appropriately.
[2025-03-26] MEDS: DESYREL 50 MG PO (21:37)
[2025-03-26] MEDS: MELATONIN 10 MG PO (21:37)
[2025-03-26] MEDS: LIPITOR 40 MG PO (21:37)
--- NOTE | 2025-03-26 23:09 | PTCARENOTE ---
RN assisted patient to bsc with assist x1, gait unsteady. Patient states he is stronger than he was this morning. Patient urinated 450ml, yumiko urine, foul smelling, unable to get UA at this time. Patient denies pain. Returned to bed with assist x1.
Hygiene provided. Assessment otherwise unchanged. Call gutierrez within reach. Will continue to monitor.
[2025-03-27] VITALS (47 sets, daily range): BP systolic 78–151; BP diastolic 48–130; BMI 21.5
[2025-03-27] MEDS: SOLU-CORTEF 50 MG IV ×4 (00:16→23:27)
[2025-03-27] MEDS: MAXIPIME 1000 MG IV ×5 (00:16→23:26)
[2025-03-27] MEDS: STERILE WATER FOR INJECTION 10 ML IV ×5 (00:17→23:27)
[2025-03-27 00:55] LABS: Troponin I 0.142 ng/ml
--- NOTE | 2025-03-27 02:57 | DOWNTIME ---
There was a [employer] Downtime on 03/27/2025 from 0100 to 03/27/2025 at 0255. Downtime documentation of patient's care, including medication administrations, has been reconciled in the electronic record per guidelines. Refer to the
patient's paper chart under the miscellaneous tab to see printed paper medication records and downtime forms.
[2025-03-27 03:06] LABS: Urine Character Clear (Clear)
[2025-03-27 03:07] LABS: Urine Red Blood Cell 0-2 /HPF (0-2); Urine Squamous Cell 0-2 /LPF (Few); Urine White Cell 0-2 /HPF (0-5)
--- NOTE | 2025-03-27 04:47 | PTCARENOTE ---
Patient assisted oob to bsc second time earlier this am, unsuccessful for bm. Patient denies constipation or pain. Assessment as documented. Call gutierrez within reach, will continue to monitor.
[2025-03-27 06:03] LABS: Hematocrit 33.0 % (39.0-52.0); Hemoglobin 10.6 g/dL (13.0-18.0); Mean Corp Hgb Conc. 32.1 g/dL (33.0-37.0); Mean Corpuscular Volume 102.8 fL (80.0-94.0); Platelet Count 456 10^3/uL (130-400); Red Cell Dist. Width 15.1 % (11.5-14.5)
[2025-03-27 06:25] LABS: Blood Urea Nitrogen 24 mg/dl (9-20); Calcium 8.4 mg/dl (8.4-10.2); Carbon Dioxide 24 mmol/L (22-30); Chloride 103 mmol/L (98-107); Estimated Creatinine Clearance 57 ml/min; Glucose 127 mg/dl (70-99); Magnesium 2.3 mg/dl (1.6-2.3); Potassium 4.5 mmol/L (3.5-5.1); Sodium 133 mmol/L (135-145); eGFR > 60.00
[2025-03-27 06:52] LABS: Troponin I 0.136 ng/ml
[2025-03-27] MEDS: SYMBICORT 80/4.5 MCG INHALER 2 PUFF INH ×2 (07:51→19:23)
[2025-03-27] MEDS: FOLVITE 1 MG PO (08:17)
[2025-03-27] MEDS: ASPIR LOW (ENTERIC COATED) 81 MG PO (08:18)
[2025-03-27] MEDS: PLAVIX 75 MG PO (08:18)
[2025-03-27] MEDS: PROTONIX 40 MG PO (08:18)
[2025-03-27] MEDS: PACERONE 200 MG PO (08:18)
[2025-03-27] MEDS: ELIQUIS 5 MG PO ×2 (08:18→20:51)
[2025-03-27] MEDS: FEOSOL 325 MG PO (08:19)
[2025-03-27] MEDS: COLACE 100 MG PO ×2 (08:19→20:51)
[2025-03-27] MEDS: VITAMIN D3 (cholecalciferol) 50 MCG PO (08:19)
[2025-03-27] MEDS: VITAMIN C 500 MG PO (08:19)
[2025-03-27] MEDS: MIRALAX PO (08:36)
--- NOTE | 2025-03-27 08:45 | PTCARENOTE ---
Received patient from environmental health aide, patient is extremely pleasant and cooperative, completely oriented. He is on 12L midflow with no dyspnea when talking. He is aflutter on monitor, soft pressures, midodrine to be administered this morning.
patient denies pain, assessment as charted in worklist, will review orders and call gutierrez within reach.
--- NOTE | 2025-03-27 10:26 | W.PN.CARDCBS ---
Today's Communication / Plan
-
Hold off on IV Lasix today while recovering from sepsis. Will reassess diuretics on a daily basis.
Continue Eliquis/Plavix. Stop aspirin.
Impression / Plan
-
PCP: Josh Valdez
Primary commissioned defence force officer: Dr. Stephens
Impression:
Presented 03/26/2025 with fevers chills, rigor, shortness of breath
Septic shock requiring pressors
Acute hypoxic respiratory insufficiency
Pneumonia
Leukocytosis
Acute heart failure with reduced ejection fraction
Hyponatremia
Abnormal troponin
Recent NSTEMI 02/25/2025
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
s/p CABG x3 ALEXIS to LAD, GSV to D2, GSV to OM, ELAA 03/06/25
Inferoapical LV thrombus by echo 03/04, still seen on echo 03/20/2025
Ischemic cardiomyopathy, EF 35%
Renal insufficiency
Prior history of mild cardiomyopathy
Status post ventricular tachycardia
Paroxysmal atrial fibrillation, new diagnosis this admission
Elevated LFT's post op
ICD 2010, [employer]onic single-chamber
PAD, mid right SFA occlusion and probable high-grade distal SFA stenosis
Hyper eosinophilia syndrome, on chronic steroid therapy
Churg-Lemuel syndrome
Spinal stenosis
Hyperthyroid storm
Migraines
Pancreatic cysts
Echo 03/20/2025: EF 35%. Mild global hypokinesis with akinesis of inferior apical and distal anterior wall. Large mobile apical thrombus present. Moderate MR. Mild TR. PAP 25 mmHg
Echo 03/04/2025: EF 25 to 30%, dilated LV with LAD distribution akinesis and hypokinesis of remaining mckeon, inferoapical LV thrombus present, MAC, aortic sclerosis, normal right heart
TTE: 01/15/2025: EF 40 to 45%, stage II diastolic dysfunction, basal and mid inferior, distal septal, and mid anterior septal akinesis, RV normal size and function
TTE 07/17/2024: EF 38% by Cardoza's method, 45% by visual estimation, global hypokinesis, normal RV size and function
Cardiac catheterization 03/04/2025: Left main: Ruptured plaque in distal left main extending into ostium of circumflex and LAD. 90% distal left main stenosis. LAD: Hazy eccentric 90% ostial LAD stenosis. LAD is heavily calcified within the
vessel. Has luminal irregularities without obstructive high-grade stenosis. Left circumflex 90% ostial stenosis with moderate size OM1 and OM 2. RCA mild noncritical ostial stenosis and diffuse luminal irregularities.
Cardiac cath 04/16/2011: Luminal irregularities in LAD, circumflex, RCA. LAD has some calcium, EF 42%
Plan:
Pshitlib62/18/2025 with fevers chills, rigor, shortness of breath. Concern for pneumonia and acute heart failure exacerbation
Acute hypoxic respiratory insufficiency secondary to right middle and lower lobe pneumonia on x-ray and chest CT 03/26/2025.
- Evidence of septic shock initially requiring IV Levophed
- Continue antibiotics per primary team; blood cultures pending
- Wean high flow oxygen as tolerated
- Continue midodrine 15 mg 3 times daily for symptomatic hypotension
Acute heart failure with reduced ejection fraction
-proBNP 6800
-Hold off on IV lasix today due to resolving septic shock and marginal BP
-Ok to continue maintenance dose of lasix 20 mg daily
-Continue to monitor and trend weight - ideally would have daily standing weights
Abnormal troponin,
-NSTEMI, s/p CABG x3 ALEXIS to LAD, GSV to D2, GSV to OM, ELAA 03/06/25
-Initial troponin 0.162 -> 0.208 -> 0.225 -> 0.142
-No need to trend further
-Suspect troponin nonischemic myocardial injury secondary to pneumonia, shock and acute hypoxic respiratory insufficiency
-Continue Plavix/Eliquis and atorvastatin - discussed with patient's primary commissioned defence force officer
Paroxysmal atrial fibrillation which is now persistent.
-Continue rate control with digoxin and low dose amiodarone
-Patient did not tolerate beta-ankit on prior admission secondary to worsening hypotension
-Patient with known left apical thrombus. Most recent echocardiogram performed on 03/20/2025 continues to show thrombus. Continue anticoagulation with Eliquis 5 mg twice a day
- Digoxin level 0.6 on labs 03/26/2025
-He is chronically immunocompromised, prednisone for hypereosinophilic syndrome followed by Dr. Piero Garcia at [facility]. Patient was taken off methotrexate during last admission. He had telemed visit with Dr. Garcia during last admission with plan
to resume methotrexate 04/03.
Discussed with patient's at bedside
HPI 03/26/2025:
80-year-old male with past medical history of asthma, paroxysmal atrial fibrillation, coronary artery disease status post CABG x 07/16/2024, ventricular tachycardia status post ICD 2010, cardiomyopathy/heart failure with reduced EF, COPD, peripheral
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 Piero Garcia at [facility] chronically
on low dose prednisone. Patient was recently hospitalized for prolonged hospitalization from 03/04/2025 to to 03/21/2025 for NSTEMI, coronary artery disease with left main disease for which he underwent CABG x 3 (ALEXIS to LAD, GSV to D2, GSV to OM,
ELAA 03/06/25). He was found to have reduced EF of 25 to 30% as well as inferoapical LV thrombus on echo presurgery. Patient was placed on Plavix and Eliquis at discharge. GDMT was significantly limited by hypotension requiring midodrine 15 mg 3
times daily. He was discharged to [facility].
Patient reports he had been rehabbing at [facility]. On the late evening of 03/25/2025 he started to feel unwell. He then developed chills and rigors as well as worsening shortness of breath with cough and fatigue. He was brought to emergency
department and was found to have acute hypoxic respiratory insufficiency requiring high flow oxygen at 12 L. He was also found to be hypotensive and required aggressive IV resuscitation and IV Levophed for blood pressure support. EKG demonstrated
atrial fibrillation with accelerated ventricular response. Chest x-ray showed right lower lobe pneumonia with bilateral pleural effusions.
Progress Note - Shell Press Operator
Subjective
Date of Service: March 27, 2025
NAOE. He tells me he slept well last night and feels significantly better today. Shaking chills have resolved. No chest pain, SOB or palpitations.
Objective
Labs:
03/27/25 05:39
03/27/25 05:39
Labs
Hgb 10.6 g/dL (13.0-18.0) L 03/27/25 05:39
Hct 33.0 % (39.0-52.0) L 03/27/25 05:39
Plt Count 456 10^3/uL (130-400) H 03/27/25 05:39
PT 19.2 Sec (11.4-14.6) H 03/26/25 10:15
INR 1.59 03/26/25 10:15
APTT 28.3 Sec (23.4-35.0) 03/26/25 10:15
Sodium 133 mmol/L (135-145) L 03/27/25 05:39
Potassium 4.5 mmol/L (3.5-5.1) 03/27/25 05:39
BUN 24 mg/dl (9-20) H 03/27/25 05:39
Creatinine 1.0 mg/dL (0.7-1.3) 03/27/25 05:39
Glucose 127 mg/dl (70-99) H 03/27/25 05:39
Digoxin 0.6 ng/ml (0.8-2.0) L 03/26/25 10:15
Troponins
03/26/25 03/26/25 03/27/25
10:15 18:20 00:24
Troponin I 0.208 H* 0.225 H* 0.142 H* D
03/27/25 03/27/25
05:39 10:15
Troponin I 0.136 H* Cancelled
Vital Signs and I&O:
Vital Signs
Temp Pulse Resp BP Pulse Ox
98.4 F 110 19 105/69 96
03/27/25 07:22 03/27/25 08:30 03/27/25 08:30 03/27/25 08:30 03/27/25 08:51
Vital Signs
Temp Pulse Resp BP Pulse Ox
98.4 F 110 19 105/69 96
03/27/25 07:22 03/27/25 08:30 03/27/25 08:30 03/27/25 08:30 03/27/25 08:51
Intake & Output
03/25/25 03/26/25 03/27/25 03/28/25
06:59 06:59 06:59 06:59
Intake Total 480 / 480 450 / 450
Output Total 550 / 550
Balance -70 / -70 450 / 450
Physical Exam
Physical Exam
Gen: NAD, AAOx3
HEENT: NC/AT, sclera anicteric
Neck: Elevated JVP
CV: Tachy, irregular, NL s1/s2
Lungs: No increased WOB on 6L NC
Abd: S/ND
Ext: No LE edema
Skin: Warm, dry
Neuro: Non-focal
--- NOTE | 2025-03-27 10:41 | PTCARENOTE ---
patient cleared by speech. ok for regular thins with pills crushed in applesauce.
[2025-03-27] MEDS: LASIX 20 MG PO (10:57)
--- NOTE | 2025-03-27 11:27 | W.PN.INTV ---
Today's Communication / Plan
Recommendations
Switch Hydrocortisone 50 mg IV from Q6H to Q8H
DC vancomycin- MRSA negative
Await blood cultures.
Not requiring pressors, monitor vitals
Regular thin diet
Hold Lasix- Cardiology following
Assessment
-
Assessment:
80-year-old male with a complex past medical history including chronic respiratory disease on long-term low-dose prednisone, recently off methotrexate and status post CABG x 3 on 03/06/2025 complicated by a prolonged postoperative ICU course
requiring multiple pressors. He has been at most rehab and now presents with acute onset chills, fatigue, productive cough and hypotension. Patient has acute hypoxic respiratory failure requiring 11 L of oxygen currently, and meeting criteria for
septic shock given blood pressure 76/44, heart rate 115, chest x-ray showing pneumonia.
Plan:
# Acute hypoxic respiratory failure
# Right middle lobe pneumonia possibly due to aspiration
# Suspected septic shock with possible concurrent cardiogenic shock
- Currently requiring 12 L nasal cannula, continue supplemental oxygen.
- CT chest 03/28/2025:Limited by artifacts as above. No central or segmental pulmonary embolus. Dense consolidation/atelectasis right lower lobe and right middle lobe which is suspicious for pneumonia. Small right pleural effusion. Minimal left
pleural effusion.
- WBC count 16.5 03/26/2025 --> increased to 19.9-likely due to stress dose steroids being given. Patient improving clinically.
- Lactate 03/26/2020 5:10 AM 1.8. Repeat lactate 1.4.
- Maintain MAP >65
- Patient initially on Levophed 03/26; currently not requiring pressors- BP 107/81.
- Cardiology recommends holding Lasix.
- Stress dose steroids started-hydrocortisone 50 mg IV Q6H 03/26 --> will change to hydrocortisone 50 mg IV Q8H 03/27
- Empirically treated with Cefepime + Vanco. MRSA screen negative, Vanco discontinued 03/27.
- Blood cultures pending
- Sputum culture shows possible contamination
- COVID/Flu negative
- Strep pneumo, Legionella negative
- VIDEO MACHINES MECHANIC consulted. Rec regular thins.
# Paroxysmal Atrial flutter- started post CABG
# Paroxysmal atrial fibrillation - new
# S/p CABG recently on 03/06/2025
# Chronic heart failure with reduced ejection fraction
- EKG showed atrial flutter
- Recent Echo showed EF 35%
- Continue amiodarone/digoxin for rate control
- Continue Eliquis 5 mg BID
- Hold Lasix
- Cardiology consulted. Rec holding Lasix and aspirin. Continue digoxin and
- Troponin elevated at 0.208 --> 0.225 --> 0.142 --> 0.136.
- Monitor for arrhythmia on telemetry
- Follows with Dr. Stephens cardiology
# Churg Lemuel syndrome
# FPC use of prednisone and methotrexate
- IV hydrocortisone started in ER
- Stress dose steroids
- Mtx dc'd 4 weeks ago
- Follows with Dr. Piero Garcai at [facility]. Plan to resume Mtx 04/06/25.
# History of peripheral arterial disease
Continue aspirin and Plavix
Code status: Full code
DVT prophylaxis: Eliquis
Diet: Regular thins
Subjective Dataa
Subjective Data
Date of Service:
Date of Service: March 27, 2025
Patient evaluated at bedside this morning. He states he feels much better than yesterday. No shortness of breath, chest pain, abdominal pain, fever, chills. He is still on 12 L of oxygen.
Chief Complaint: Dietitian Teaching Follow Up
Review of Systems
Cardiopulmonary: Dyspnea
Objective Data
Data Reviewed
Vital Signs / I&O / Oxygen:
Vital Signs
Temp Pulse Resp BP Pulse Ox
98.4 F 110 19 105/69 96
03/27/25 07:22 03/27/25 08:30 03/27/25 08:30 03/27/25 08:30 03/27/25 08:51
Intake and Output
03/26/25 03/27/25 03/28/25
06:59 06:59 06:59
Intake Total 480 / 480 450 / 450
Output Total 550 / 550
Balance -70 / -70 450 / 450
SaO2 96
Nasal Cannula flow liters per 12
minute
Physical Exam
General: Comfortable
HEENT: Normocephalic, Anicteric and Moist Mucous Membranes
Cardiovascular: S1-S2
Respiratory: Rhonchi and Other (Decreased lung sounds over mid to lower right lung villeda)
GI: Soft, Non Distended, Non Tender and Normal Bowel Sounds
Neurology: Awake and AO x 3
Skin: Warm
Labs/Micro/Reports
Lab Data
03/27/25 05:39
03/27/25 05:39
Microbiology
03/26/25 18:20 Sputum Respiratory Culture - Preliminary
Usual Respiratory Karol
03/26/25 18:20 Sputum Gram Stain - Preliminary
03/27/25 00:48 Urine Legionella Urinary Antigen - Final
Negative for Legionella pneumophila Serogroup 1 antigen.
A negative result does not rule out the possiblity of
Legionella infection due to other serogroups or species of
Legionella. Clinical correlation is recommended.
03/27/25 00:48 Urine Streptococcus pneumoniae Antigen (M - Final
Negative for Streptococcus pneumoniae antigen.
A negative result does not exclude infection with
Streptococcus pneumoniae. Clinical correlation is
recommended.
03/26/25 18:20 Nose Nasal Screen MRSA (PCR) - Final
MRSA not detected - performed by PCR methodology.
03/26/25 10:15 Nasal Swab Influenza Types A & B (CHUCK) - Final
Negative for Influenza A & B, NAAT
Negative results must be combined with clinical observations
and patient history.
Nucleic Acid Amplification test (NAAT)performed on the
[employer] ID NOW platform.
--- NOTE | 2025-03-27 11:41 | PTOTSP ---
Speech Therapy Evaluation:
Pt with chronic risk factors of dysphagia including Churg-Lemuel/Eosinophilic Granulomatosis with Polyangiitis (immunocompromised), COPD, CABG x3, cardiomyopathy, and asthma, acutely compounded by current medical illness in the setting of sepsis.
Sepsis presumed to be hospital acquired, however CT chest with findings of RML/RLL consolidations, therefore cannot definitively rule out aspiration. Despite this, oropharyngeal swallow appeared WFL at bedside. No overt s/sx of aspiration across
trials and pt without dysphagia hx.
Given above mentioned information, pt appears appropriate to continue oral diet as listed below. Would consider instrumental assessment if worsening in chest imaging, worsening respiratory status, or if concerns for aspiration arise with PO diet.
Recommend:
1. Regular solids and thin liquids
2. Medications crushed vs. whole in puree per pt preference
3. Strict aspiration and reflux precautions
4. SHARPLES MACHINE OPERATOR to follow to monitor tolerance of diet and determine if pt would benefit from instrumental assessment
[2025-03-27] MEDS: SENOKOT 17.2 MG PO (12:22)
[2025-03-27] MEDS: LANOXIN 125 MCG PO (12:22)
[2025-03-27] MEDS: FLAGYL 500 MG PO ×2 (12:23→20:51)
[2025-03-27] MEDS: SOLU-CORTEF IV (12:33)
--- NOTE | 2025-03-27 13:59 | W.PN.HOSP.TC ---
Today's Communication/Plan
-
Monitor vital signs and see plan
Wean oxygen as tolerated
Continue with antibiotic
Follow cultures
Continue Eliquis, Plavix
Assessment / Plan
Assessment / Plan
General: Conversant
HEENT: NormoCephalic and Anicteric
Respiratory: Decreased Breath Sounds,NC
Cardiac: S1/S2, Regular Rhythm, Tachycardia and Other (Presents of Defibrillator right chest )
GI: Soft, Non Tender and Non Distended
Musculoskeletal: Edema, Left Lower Extremity (2+) and Edema, Right Lower Extremity (2+)
Neuro: AO x 3
Psych: Calm
IMPRESSION:
Septic shock in the setting of hospital-acquired pneumonia
Acute hypoxic respiratory failure
Paroxysmal to persistent atrial fibrillation
Chronic heart failure with reduced ejection fraction, recent CABG x 3
Inferoapical LV thrombus by echo 03/04/25
Ischemic cardiomyopathy, EF 25 to 30%
PAD, mid right SFA occlusion and probable high-grade distal SFA stenosis
Hyper eosinophilia syndrome, on chronic steroid therapy
Churg-Lemuel syndrome
Long-term use of prednisone in the setting of Churg-Lemuel/eosinophilic granulomatous polyangiitis
History of peripheral artery disease
Chronic constipation
History of anemia
GERD
Pancreatic cyst
elevated troponin secondary to recent NSTEMI
PLAN:
# Septic shock in setting of hospital-acquired pneumonia
#Hypotensive
#Sinus tachycardia
Shock resolved, now off Levophed. MRSA negative. Discontinue vancomycin. Continue with cefepime for now. Add Flagyl for anaerobic coverage.
CT chest showing consolidation in the right lower and middle lobe which is more suspicious for bacterial pneumonia versus eosinophilic( reticular pattern)
Decrease stress dose steroid
strep pneumo and Legionella antigen neg
sputum culture pending
Follow cultures
#Acute hypoxic respiratory failure likely secondary to pneumonia
Currently on 12 L of nasal cannula, wean oxygen as tolerated
Paroxysmal to persistent atrial fibrillation
Started post CABG
Continue oral amiodarone and digoxin
Continue Eliquis
cardiology following
#Chronic heart failure with reduced ejection fraction in the setting of CABGx 3 on 03/06
#History of non ischemic cardiomyopathy
# ICD since 2010
Restarted Lasix
Previous echo 03/2025 shows ejection fraction of 35%
Cardiology following
Hyponatremia
Monitor
Long-term use of prednisone and MTX in the setting of Churg-Lemuel syndrome
Currently on stress dose steroid, once able to be weaned then can be put on low-dose prednisone outpatient dose
low-dose prednisone
Methotrexate has been discontinued for the past 4 weeks
History of PAD
Continue eliquis and Plavix
Chronic constipation
Continue bowel regime
History of anemia
Continue ferrous sulfate
GERD
Continue pantoprazole
DVT prophylaxis- Eliquis
CODE STATUS- full code.
I spent a total of 53 minutes with the patient or on the floor. More than 50% of this time involved counseling and coordination of care.
Anticipated Discharge: > 48 hours
Subjective/Interval History
-
Date of Service: March 27, 2025
Denies pain
Objective Data
-
Labs:
Laboratory Results
03/27/25
05:39
WBC 19.9 H
Hgb 10.6 L
Hct 33.0 L
Plt Count 456 H
Sodium 133 L
Potassium 4.5
Chloride 103
Carbon Dioxide 24
BUN 24 H
Creatinine 1.0
Glucose 127 H
Calcium 8.4
Vital Signs:
Vital Signs
Temp Pulse Resp BP Pulse Ox
98 F 118 19 133/93 94
03/27/25 11:00 03/27/25 13:15 03/27/25 13:15 03/27/25 13:00 03/27/25 13:15
I&O
03/26/25 03/27/25 03/28/25
06:59 06:59 06:59
Intake Total 480 / 480 450 / 450
Output Total 550 / 550
Balance -70 / -70 450 / 450
--- NOTE | 2025-03-27 16:13 | CM ---
Came from [facility]. Does not want to return. Wants in home HH RN, PT/OT. Wean O2. speech eval with rec for regular solids and thin liquids. IV/Cefepime and IV/Solu-Cortef. Spoke with patient and for HH preferences. They requested I speak with
their son, Maximiliano, hospitalist at [facility]. Spoke with Maximiliano and he is fine with in home services with [facility]. Discharge POC: [facility] for RN, PT/OT services. Referral placed.
[2025-03-27] MEDS: SINGULAIR 10 MG PO (17:48)
[2025-03-27] MEDS: MELATONIN 10 MG PO (22:02)
[2025-03-27] MEDS: DESYREL 50 MG PO ×2 (22:02→23:51)
[2025-03-27] MEDS: LIPITOR 40 MG PO (22:02)
--- NOTE | 2025-03-27 23:42 | PTCARENOTE ---
Patient aao x3 since start of shift, denies pain, able to make needs known. A flutter on the monitor with PVCs at times. Pox 98-100% on 5L MF, lungs clear throughout and diminished at b/l bases. BS active x4. Patient attempted to urinate,
unsuccessful. Bladder scanned for 253ml. RLE distal surgical site noted to have some redness, edges approximated, moderate amount of serous drainage noted. Wound cleansed with saline and gauze, covered with silver alginate, gauze and milan wrap.
Anne CARCAMO notified. Patient states he is unable to sleep and requesting prn trazodone. Will administer as ordered. Call gutierrez within reach, will continue to monitor patient closely.
[2025-03-28] VITALS (16 sets, daily range): BP systolic 90–141; BP diastolic 59–101; PULSE 85–117; O2SAT 96; BMI 21.2
[2025-03-28] MEDS: FLAGYL 500 MG PO (04:59)
[2025-03-28] MEDS: STERILE WATER FOR INJECTION 10 ML IV (05:10)
[2025-03-28] MEDS: MAXIPIME 1000 MG IV (05:10)
[2025-03-28 05:40] LABS: Hematocrit 26.9 % (39.0-52.0); Hemoglobin 8.5 g/dL (13.0-18.0); Mean Corp Hgb Conc. 31.6 g/dL (33.0-37.0); Mean Corpuscular Volume 100.0 fL (80.0-94.0); Nucleated Red Blood Cells % 0 % (-); Platelet Count 364 10^3/uL (130-400); Red Cell Dist. Width 14.8 % (11.5-14.5)
[2025-03-28 05:49] LABS: Blood Urea Nitrogen 37 mg/dl (9-20); Calcium 8.0 mg/dl (8.4-10.2); Carbon Dioxide 24 mmol/L (22-30); Chloride 105 mmol/L (98-107); Estimated Creatinine Clearance 51 ml/min; Glucose 126 mg/dl (70-99); Potassium 4.1 mmol/L (3.5-5.1); Sodium 131 mmol/L (135-145); eGFR > 60.00
[2025-03-28] MEDS: SYMBICORT 80/4.5 MCG INHALER 2 PUFF INH ×2 (07:37→18:52)
--- NOTE | 2025-03-28 08:00 | PTCARENOTE ---
recd [id number] handoff in room with previous RN. Tolerating present oxygen, reduced to 3l nc. verbalizing re: plans for the day.
[2025-03-28] MEDS: ELIQUIS 5 MG PO ×2 (08:03→19:25)
[2025-03-28] MEDS: VITAMIN C 500 MG PO (08:03)
[2025-03-28] MEDS: LASIX 20 MG PO (08:03)
[2025-03-28] MEDS: COLACE 100 MG PO ×2 (08:04→19:25)
[2025-03-28] MEDS: FEOSOL 325 MG PO (08:04)
[2025-03-28] MEDS: PROTONIX 40 MG PO (08:04)
[2025-03-28] MEDS: FOLVITE 1 MG PO (08:04)
[2025-03-28] MEDS: VITAMIN D3 (cholecalciferol) 50 MCG PO (08:04)
[2025-03-28] MEDS: MIRALAX PO (08:05)
[2025-03-28] MEDS: PLAVIX 75 MG PO (08:05)
[2025-03-28] MEDS: PACERONE 200 MG PO (08:05)
[2025-03-28] MEDS: SOLU-CORTEF 50 MG IV (08:12)
--- NOTE | 2025-03-28 09:40 | W.PN.CARDCBS ---
Addendum entered and electronically signed by Joan Dunn MD 03/28/25 10:53:
I saw and examined the patient.
The Publishing Manager's note was reviewed and I agree with the note.
Comment:
He is sitting in the chair and his is at the bedside. Feeling better overall. He is admitted with septic shock/pneumonia and acute hypoxic renal insufficiency in the setting of recent CABG. Known heart failure with reduced ejection fraction.
Defibrillator in place. He is chronically immunocompromised and on prednisone and for hypereosinophilic syndrome.
Oxygen in place. Cardiac irregularly irregular. Decreased breath sounds with crackles at the bases. +1 edema bilateral.
Plan at this time:
-Continue infection/antibiotic treatment per primary service
-Oxygen as needed
-Off of pressors and on midodrine. Wean as tolerates.
-Follow anemia.
-A-fib rate control. Simplify medicine as able.
-Continue anticoagulation.
-Telemetry reviewed
- Usual postop surgical care. Plavix per CT surgery.
- He is somewhat volume overloaded on exam. Initial proBNP was elevated.
-Would resume Lasix 20 mg oral and follow.
Original Note:
Today's Communication / Plan
-
remains in rate controlled afib. continue dig, amio, eliquis, plavix
continue po lasix 20mg daily
wean supp O2
wean midodrine as able
PT eval
Impression / Plan
-
PCP: Josh Valdez
Primary invas tech: Dr. Stephens
Impression:
Presented 03/26/2025 with fevers chills, rigor, shortness of breath
Septic shock requiring pressors
Acute hypoxic respiratory insufficiency
Pneumonia
Leukocytosis
Acute heart failure with reduced ejection fraction
Hyponatremia
Abnormal troponin
Recent NSTEMI 02/25/2025
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
s/p CABG x3 ALEXIS to LAD, GSV to D2, GSV to OM, ELAA 03/06/25
Inferoapical LV thrombus by echo 03/04, still seen on echo 03/20/2025
Ischemic cardiomyopathy, EF 35%
Renal insufficiency
Prior history of mild cardiomyopathy
Status post ventricular tachycardia
Paroxysmal atrial fibrillation, new diagnosis this admission
Elevated LFT's post op
ICD 2010, [employer] single-chamber
PAD, mid right SFA occlusion and probable high-grade distal SFA stenosis
Hyper eosinophilia syndrome, on chronic steroid therapy
Churg-Lemuel syndrome
Spinal stenosis
Hyperthyroid storm
Migraines
Pancreatic cysts
Echo 03/20/2025: EF 35%. Mild global hypokinesis with akinesis of inferior apical and distal anterior wall. Large mobile apical thrombus present. Moderate MR. Mild TR. PAP 25 mmHg
Echo 03/04/2025: EF 25 to 30%, dilated LV with LAD distribution akinesis and hypokinesis of remaining mckeon, inferoapical LV thrombus present, MAC, aortic sclerosis, normal right heart
TTE: 01/15/2025: EF 40 to 45%, stage II diastolic dysfunction, basal and mid inferior, distal septal, and mid anterior septal akinesis, RV normal size and function
TTE 07/17/2024: EF 38% by Cardoza's method, 45% by visual estimation, global hypokinesis, normal RV size and function
Cardiac catheterization 03/04/2025: Left main: Ruptured plaque in distal left main extending into ostium of circumflex and LAD. 90% distal left main stenosis. LAD: Hazy eccentric 90% ostial LAD stenosis. LAD is heavily calcified within the
vessel. Has luminal irregularities without obstructive high-grade stenosis. Left circumflex 90% ostial stenosis with moderate size OM1 and OM 2. RCA mild noncritical ostial stenosis and diffuse luminal irregularities.
Cardiac cath 04/16/2011: Luminal irregularities in LAD, circumflex, RCA. LAD has some calcium, EF 42%
Plan:
-recent CABG, discharged to [facility], presented back due to f/c, SOB.
-being treated for PNA, initially with evidence of shock requiring levo. blood culture negative
-now back on midodrine 15mg TID. reportedly resting BP 90s at baseline. will attempt to wean midodrine as able
-wean supp O2 as able
-proBNP 6800. continue po lasix 20mg daily. weight downtrending if accurate. Cr stable at 1.1
-remains in afib, rate controlled with PVCs on review of tele overnight. continue digoxin and low dose amiodarone. was not able to tolerate BB due to hypotension.
-continue eliquis for both afib and left apical thrombus as well as plavix
-trop peaked at 0.225 this admission, suspect nonischemic myocardial injury secondary to above
-He is chronically immunocompromised, prednisone for hypereosinophilic syndrome followed by Dr. Piero Garcia at [facility]. Patient was taken off methotrexate during last admission. He had telemed visit with Dr. Garcia during last admission with plan
to resume methotrexate 04/03.
-PT eval as he would like to go home upon DC
-d/w nursing
HPI 03/26/2025:
80-year-old male with past medical history of asthma, paroxysmal atrial fibrillation, coronary artery disease status post CABG x 07/16/2024, ventricular tachycardia status post ICD 2010, cardiomyopathy/heart failure with reduced EF, COPD, peripheral
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 Piero Garcia at [facility] chronically
on low dose prednisone. Patient was recently hospitalized for prolonged hospitalization from 03/04/2025 to to 03/21/2025 for NSTEMI, coronary artery disease with left main disease for which he underwent CABG x 3 (ALEXIS to LAD, GSV to D2, GSV to OM,
ELAA 03/06/25). He was found to have reduced EF of 25 to 30% as well as inferoapical LV thrombus on echo presurgery. Patient was placed on Plavix and Eliquis at discharge. GDMT was significantly limited by hypotension requiring midodrine 15 mg 3
times daily. He was discharged to [facility].
Patient reports he had been rehabbing at [facility]. On the late evening of 03/25/2025 he started to feel unwell. He then developed chills and rigors as well as worsening shortness of breath with cough and fatigue. He was brought to emergency
department and was found to have acute hypoxic respiratory insufficiency requiring high flow oxygen at 12 L. He was also found to be hypotensive and required aggressive IV resuscitation and IV Levophed for blood pressure support. EKG demonstrated
atrial fibrillation with accelerated ventricular response. Chest x-ray showed right lower lobe pneumonia with bilateral pleural effusions.
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
Subjective
Date of Service: March 28, 2025
denies CP. seems to have more energy today
Objective
Labs:
03/28/25 05:04
03/28/25 05:04
Labs
Hgb 8.5 g/dL (13.0-18.0) L 03/28/25 05:04
Hct 26.9 % (39.0-52.0) L 03/28/25 05:04
Plt Count 364 10^3/uL (130-400) D 03/28/25 05:04
PT 19.2 Sec (11.4-14.6) H 03/26/25 10:15
INR 1.59 03/26/25 10:15
APTT 28.3 Sec (23.4-35.0) 03/26/25 10:15
Sodium 131 mmol/L (135-145) L 03/28/25 05:04
Potassium 4.1 mmol/L (3.5-5.1) 03/28/25 05:04
BUN 37 mg/dl (9-20) H 03/28/25 05:04
Creatinine 1.1 mg/dL (0.7-1.3) 03/28/25 05:04
Glucose 126 mg/dl (70-99) H 03/28/25 05:04
Digoxin 0.6 ng/ml (0.8-2.0) L 03/26/25 10:15
Troponins
03/26/25 03/26/25 03/27/25
10:15 18:20 00:24
Troponin I 0.208 H* 0.225 H* 0.142 H* D
03/27/25 03/27/25
05:39 10:15
Troponin I 0.136 H* Cancelled
Vital Signs and I&O:
Vital Signs
Temp Pulse Resp BP Pulse Ox
98.2 F 83 18 102/70 97
03/28/25 08:00 03/28/25 08:05 03/28/25 07:45 03/28/25 08:05 03/28/25 07:45
Vital Signs
Temp Pulse Resp BP Pulse Ox
98.2 F 83 18 102/70 97
03/28/25 08:00 03/28/25 08:05 03/28/25 07:45 03/28/25 08:05 03/28/25 07:45
Intake & Output
03/26/25 03/27/25 03/28/25 03/29/25
07:59 07:59 07:59 07:59
Intake Total 480 / 930 930 / 930
Output Total 550 / 550 495 / 495
Balance -70 / 380 435 / 435
Physical Exam
Physical Exam
GEN: No distress, awake, alert, oriented x3. on supp O2
HEENT: supple, anicteric, mmm, eomi
LUNGS: CTA anterolaterally, no wheezes
CV: Irreg, S1/S2, no murmur
ABD: soft, BS+, NT/ND
EXT: No cyanosis, clubbing. trace edema of RLE, dressing in place
NEURO: Gross non-focal
SKIN: Warm, pink, dry. No rash
[2025-03-28] MEDS: TYLENOL 650 MG PO (10:25)
--- NOTE | 2025-03-28 10:35 | PN.CDI ---
CDI
- -
CDI:
Physician Documentation Request
Admit Date: 03/26/25 13:43
Dear Doctor,
Patient admitted for sepsis.
03/26 Cardiology PN: 'Acute heart failure with reduced ejection fraction -proBNP 6800 -Hold off on IV lasix today due to resolving septic shock and marginal BP'
03/27 Hospitalist PN: 'Chronic heart failure with reduced ejection fraction in the setting of CABGx 3 on 03/06'
Please provide further specificity regarding the most likely acuity of CHF you are evaluating, treating or monitoring.
Acute on chronic
Chronic
Other
Use of terms such as suspected, likely, concern for, or probable (associated with a specific diagnosis that is being evaluated, monitored, or treated as if it exists) are acceptable and can be coded in the inpatient setting, when documented at the
time of discharge.
Thank you,
Blanca Langford RN, BSN
CDI Specialist
Available via [employer] text
Please use your independent medical judgment in providing your response.
--- NOTE | 2025-03-28 10:41 | PN.CDI ---
CDI
- -
CDI:
Physician Documentation Request
Admit Date: 03/26/25 13:43
Dear Doctor,
03/27 Process Control Engineer PN: 'Concern for aspiration pneumonia -Reported difficulty swallowing pills and also reports an episode of coughing while attempting to eat scrambled eggs 4 days ago...Discontinue vancomycin. Continue with cefepime for now. Add
Flagyl for anaerobic coverage. CT chest showing consolidation in the right lower and middle lobe which is more suspicious for bacterial pneumonia versus eosinophilic( reticular pattern)'
03/27 Hospitalist PN: 'Septic shock in setting of hospital-acquired pneumonia'
03/26/25 18:20 Respiratory Culture - Final
Sputum Gram Stain - Final
Usual Respiratory Karol
Based on the above, could you clarify in the Progress Notes further specificity regarding the known, suspected or likely type of pneumonia you are treating (recognizing the specific organism may not be known)?
Examples
Aspiration Pneumonia
Staph Pneumonia - indicate if MRSA or MSSA
Strep Pneumonia - indicate if strep B, strep pneumoniae or other type
Gram negative Pneumonia - indicate if Pseudomonas, Klebsiella or other
Mycoplasma Pneumoniae
Viral Pneumonia - indicate parainfluenza, RSV, adenovirus, influenza (indicate type) etc.
Other organism - specify known or suspected type
Unable to determine
Other type
Use of terms such as suspected, likely, concern for, or probable (associated with a specific diagnosis that is being evaluated, monitored, or treated as if it exists) are acceptable and can be coded in the inpatient setting, when documented at the
time of discharge.
Thank you,
Blanca Langford RN, BSN
CDI Specialist
Available via [place] text
Please use your independent medical judgment in providing your response.
[2025-03-28] MEDS: UNASYN IV ×3 (11:41→21:26)
[2025-03-28] MEDS: LANOXIN 125 MCG PO (11:44)
[2025-03-28] MEDS: SENOKOT 17.2 MG PO (11:45)
--- NOTE | 2025-03-28 12:11 | W.PN.PUL3 ---
Today's Communication / Plan
-
- DC cefepime, switch to IV Unasyn
- DC IV hydrocortisone, transition to prednisone 10 mg daily, can be further be titrated to home dose of 7 mg daily over the next 2 to 3 days
- Continue to wean oxygen as tolerated, down to 3 L supplemental oxygen now
- Follow-up sputum cultures, chest x-ray in a.m.
- Stable for transfer out of ICU
- Pulmonary service will continue to follow along briefly
Assessment
-
80-year-old male with a complex past medical history including chronic respiratory disease on long-term low-dose prednisone, recently off methotrexate and status post CABG x 3 on 03/06/2025 complicated by a prolonged postoperative ICU course
requiring multiple pressors. He has been at most rehab and now presents with acute onset chills, fatigue, productive cough and hypotension. Patient has acute hypoxic respiratory failure requiring 11 L of oxygen currently, and meeting criteria for
septic shock given blood pressure 76/44, heart rate 115, chest x-ray showing pneumonia. Patient was admitted to ICU, started on broad-spectrum antibiotic and pressors. [employer] service was consulted for further recommendation
#1. Acute hypoxic respiratory failure
- Patient noted to have dense right middle and lower lobe pneumonia
- Continue supplemental O2 as needed, oxygen requirement declining. Down to 3 L now compared to 12 L on 03/27
- Patient chronically anticoagulated, not suggestive of pulmonary embolism
#2. Septic shock with right middle and lower lobe pneumonia
- Patient received 500 mL bolus and was subsequently started on Levophed, shock resolved, weaned off Levophed now
- MRSA screen negative, discontinued vancomycin,
- Clinically improving, sputum cultures suggesting usual tanvir. Aspiration is a concern. Discontinue cefepime and switch to Unasyn, subsequently can be transition to Augmentin
- Legionella, pneumococcal antigen negative, cultures have stayed negative so far
- Patient had been on stress dose steroids in view of chronic steroid dependence, transition to prednisone 10 mg daily
#3. Concern for aspiration pneumonia
- Reported difficulty swallowing pills and also reports an episode of coughing while attempting to eat scrambled eggs 4 days ago
- Aspiration precautions
- Speech therapy evaluation for further recommendations
#4. Right pleural effusion
- [id number] ultrasound performed 03/27, small simple effusion noted without any loculations. Not enough fluid for safe thoracentesis
- Known prior history of heart failure and trace pleural effusion, continue to monitor
- Resume p.o. Lasix
- Follow-up chest x-ray 03/29
Other medical diagnoses:
- History of coronary artery disease, s/p coronary bypass graft in 02/2025
- Paroxysmal atrial flutter, on chronic anticoagulation
- Chronic steroid use
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 Patient follows at [facility]. Methotrexate was scheduled to be resumed on 04/03.
- History of peripheral vascular disease
- Heart failure with reduced ejection fraction
Patient off pressors now, down to 3 L supplemental oxygen, hemodynamically stable. Stable for transfer out of ICU. Pulmonary service will continue to follow along briefly
Critical Care time 45 mins -- The patient is admitted for acute critical illness for the treatment of vital organ failure and/or prevention of further life-threatening conditions. Total care includes time spent in review of history, physical exam,
medications, hemodynamic/ventilator parameters, laboratory data, imaging and discussion with house staff, pharmacy, respiratory therapy, shirring tender, and nursing.
Updated patient and his at bedside
Subjective Data
-
Date of Service:
Date of Service: March 28, 2025
Subjective:
Patient comfortably sitting in bed in no acute distress. Clinically significantly improved, oxygen requirement down to 3 L compared to 12 L 24 hours ago.
Review of Systems
Genitourinary: Other (All 14 systems reviewed and negative except as stated above in the history of present illness.)
Objective Data
Data Reviewed
Vital Signs / I&O / Oxygen:
Vital Signs
Temp Pulse Resp BP Pulse Ox
98.2 F 95 17 102/70 95
03/28/25 08:00 03/28/25 11:44 03/28/25 09:30 03/28/25 08:05 03/28/25 09:45
Intake and Output
03/27/25 03/28/25 03/29/25
06:59 06:59 06:59
Intake Total 480 / 480 930 / 930
Output Total 550 / 550 495 / 495
Balance -70 / -70 435 / 435
SaO2 95
Nasal Cannula flow liters per 3
minute
Physical Exam
General: Comfortable
HEENT: Normocephalic
Cardiovascular: S1-S2
Respiratory: Clear and Other (Few inspiratory crackles in the right lung base)
GI: Soft and Non Distended
Neurology: Awake, Alert and Oriented
Skin: Warm
Labs/Micro/Reports
Lab Data
03/28/25 05:04
03/28/25 05:04
Microbiology
03/26/25 18:20 Sputum Respiratory Culture - Final
Usual Respiratory Tanvir
03/26/25 18:20 Sputum Gram Stain - Final
03/27/25 00:48 Urine Legionella Urinary Antigen - Final
Negative for Legionella pneumophila Serogroup 1 antigen.
A negative result does not rule out the possiblity of
Legionella infection due to other serogroups or species of
Legionella. Clinical correlation is recommended.
03/27/25 00:48 Urine Streptococcus pneumoniae Antigen (M - Final
Negative for Streptococcus pneumoniae antigen.
A negative result does not exclude infection with
Streptococcus pneumoniae. Clinical correlation is
recommended.
03/26/25 18:20 Nose Nasal Screen MRSA (PCR) - Final
MRSA not detected - performed by PCR methodology.
03/26/25 10:15 Nasal Swab Influenza Types A & B (CHUCK) - Final
Negative for Influenza A & B, NAAT
Negative results must be combined with clinical observations
and patient history.
Nucleic Acid Amplification test (NAAT)performed on the
[employer] platform.
--- NOTE | 2025-03-28 12:34 | W.PN.HOSP.TC ---
Today's Communication/Plan
-
Monitor vitals
See plan
PT evaluation, if plan is for him to go home eventually then will need home O2 evaluation
Wean oxygen as tolerated
On Lasix
Continue with antibiotic
Assessment / Plan
Assessment / Plan
General: Conversant
HEENT: NormoCephalic and Anicteric
Respiratory: Decreased Breath Sounds,NC
Cardiac: S1/S2, Regular Rhythm, Tachycardia and Other (Presents of Defibrillator right chest )
GI: Soft, Non Tender and Non Distended
Musculoskeletal: Edema, Left Lower Extremity (2+) and Edema, Right Lower Extremity (2+)
Neuro: AO x 3
Psych: Calm
IMPRESSION:
Septic shock in the setting of hospital-acquired pneumonia
Acute hypoxic respiratory failure
Paroxysmal to persistent atrial fibrillation
Acute on chronic heart failure with reduced ejection fraction, recent CABG x 3
Inferoapical LV thrombus by echo 03/04/25
Ischemic cardiomyopathy, EF 25 to 30%
PAD, mid right SFA occlusion and probable high-grade distal SFA stenosis
Hyper eosinophilia syndrome, on chronic steroid therapy
Churg-Lemuel syndrome
Long-term use of prednisone in the setting of Churg-Lemuel/eosinophilic granulomatous polyangiitis
History of peripheral artery disease
Chronic constipation
History of anemia
GERD
Pancreatic cyst
elevated troponin secondary to recent NSTEMI
PLAN:
# Septic shock in setting of hospital-acquired pneumonia
#Hypotensive
#Sinus tachycardia
Shock resolved, now off Levophed. MRSA negative. Discontinue vancomycin. Switch antibiotics to Unasyn
CT chest showing consolidation in the right lower and middle lobe which is more suspicious for bacterial pneumonia versus eosinophilic( reticular pattern). Given imaging suspect likely secondary to bacterial pneumonia
Decrease stress dose steroid, now on p.o. prednisone. Chronically on 7 mg prednisone
strep pneumo and Legionella antigen neg
sputum culture usual tanvir. Unable to determine the speciation of bacterial pneumonia
Follow cultures
#Acute hypoxic respiratory failure likely secondary to pneumonia
Currently on 5 L of nasal cannula, wean oxygen as tolerated
Paroxysmal to persistent atrial fibrillation
Started post CABG
Continue oral amiodarone and digoxin
Continue Eliquis
cardiology following
# Acute on chronic heart failure with reduced ejection fraction in the setting of CABGx 3 on 03/06
#History of non ischemic cardiomyopathy
# ICD since 2010
Restarted Lasix
Previous echo 03/2025 shows ejection fraction of 35%
Cardiology following
Hyponatremia
Monitor
Long-term use of prednisone and MTX in the setting of Churg-Lemuel syndrome
Currently on stress dose steroid, once able to be weaned then can be put on low-dose prednisone outpatient dose
low-dose prednisone
Methotrexate has been discontinued for the past 4 weeks
Left inguinal hernia
Patient usually reduce on his own, if unable to be reduced then will need surgery evaluation
History of PAD
Continue eliquis and Plavix
Chronic constipation
Continue bowel regime
History of anemia
Continue ferrous sulfate
GERD
Continue pantoprazole
DVT prophylaxis- Eliquis
CODE STATUS- full code.
Anticipated Discharge: 24 - 48 hours
Subjective/Interval History
-
Date of Service: March 28, 2025
Denies chest pain
Objective Data
-
Labs:
Laboratory Results
03/28/25
05:04
WBC 15.4 H
Hgb 8.5 L
Hct 26.9 L
Plt Count 364 D
Sodium 131 L
Potassium 4.1
Chloride 105
Carbon Dioxide 24
BUN 37 H
Creatinine 1.1
Glucose 126 H
Calcium 8.0 L
Vital Signs:
Vital Signs
Temp Pulse Resp BP Pulse Ox
98.3 F 95 17 102/70 95
11/20/25 12:12 03/28/25 11:44 03/28/25 09:30 03/28/25 08:05 03/28/25 09:45
I&O
03/27/25 03/28/25 03/29/25
06:59 06:59 06:59
Intake Total 480 / 480 930 / 930
Output Total 550 / 550 495 / 495
Balance -70 / -70 435 / 435
--- NOTE | 2025-03-28 13:02 | PTCARENOTE ---
ambulated to bathroom. ambulated earlier in hallway with PT. Still in chair, awaiting lunch. Tylenol earlier did help with comfort. Otherwise no change.
[2025-03-28] MEDS: STERILE WATER FOR INJECTION IV (13:09)
--- NOTE | 2025-03-28 14:43 | PTCARENOTE ---
approx 1230 pt rang, 'Can you help me stand up so I can reduce my hernia?' no pain, reports inguinal, small, has had 40 years, usually reduced easily. Took approx 30 min, stood up, hernia is L side. no distress, Dr. Petty in room earlier, and
aware. Instructed to report any issues or pain.
[2025-03-28] MEDS: DELTASONE 10 MG PO (16:25)
[2025-03-28] MEDS: SINGULAIR 10 MG PO (17:54)
--- NOTE | 2025-03-28 18:00 | PTCARENOTE ---
visiting with CT PA, dressing changed to RLE, silicone border foam and alginate. Appetite poor for dinner. ambulated half lap of ICU, tolerated. Room air, sats good.
[2025-03-28] MEDS: MELATONIN 10 MG PO (22:18)
[2025-03-28] MEDS: LIPITOR 40 MG PO (22:19)
[2025-03-28] MEDS: DESYREL 50 MG PO (22:20)
[2025-03-29] VITALS (9 sets, daily range): BP systolic 107–126; BP diastolic 60–89; PULSE 71–92; BMI 21.1
[2025-03-29 02:21] LABS: Hematocrit 28.7 % (39.0-52.0); Hemoglobin 8.8 g/dL (13.0-18.0); Mean Corp Hgb Conc. 30.7 g/dL (33.0-37.0); Mean Corpuscular Volume 103.2 fL (80.0-94.0); Nucleated Red Blood Cells % 0 % (-); Platelet Count 326 10^3/uL (130-400); Red Cell Dist. Width 14.6 % (11.5-14.5)
[2025-03-29 02:43] LABS: Blood Urea Nitrogen 37 mg/dl (9-20); Calcium 8.2 mg/dl (8.4-10.2); Carbon Dioxide 27 mmol/L (22-30); Chloride 106 mmol/L (98-107); Estimated Creatinine Clearance 56 ml/min; Glucose 114 mg/dl (70-99); Potassium 3.9 mmol/L (3.5-5.1); Sodium 136 mmol/L (135-145); eGFR > 60.00
[2025-03-29] MEDS: UNASYN IV ×4 (03:29→22:50)
--- NOTE | 2025-03-29 03:36 | PTCARENOTE ---
Pt. rec'd into room 2243 from ICU this shift AAOx3, VSS, both NSR and A-fib on the monitor. Lungs clear but diminished, some FORTUNE with ambulation, pulse ox on RA 97%. Pt. ambulating well with RW and assist x 1, gait is steady. Pt. resting quietly.
[2025-03-29] MEDS: TYLENOL 650 MG PO (05:26)
--- NOTE | 2025-03-29 08:00 | PTCARENOTE ---
Received pt from over night staff, VSS, NS on the monitor. Sternal incision intact healing well. Right calf corinna present and steri strips, dressing a little moist with serous drainage, some corinna removed by PA.
[2025-03-29] MEDS: SYMBICORT 80/4.5 MCG INHALER 2 PUFF INH ×2 (08:11→18:11)
[2025-03-29] MEDS: MIRALAX 17 GRAMS PO (08:27)
[2025-03-29] MEDS: COLACE 100 MG PO ×2 (08:30→20:20)
[2025-03-29] MEDS: FEOSOL 325 MG PO (08:30)
[2025-03-29] MEDS: ELIQUIS 5 MG PO ×2 (08:31→20:20)
[2025-03-29] MEDS: VITAMIN C 500 MG PO (08:31)
[2025-03-29] MEDS: PROTONIX 40 MG PO (08:31)
[2025-03-29] MEDS: FOLVITE 1 MG PO (08:31)
[2025-03-29] MEDS: LASIX 20 MG PO (08:31)
[2025-03-29] MEDS: PLAVIX 75 MG PO (08:31)
[2025-03-29] MEDS: PACERONE 200 MG PO (08:32)
[2025-03-29] MEDS: VITAMIN D3 (cholecalciferol) 50 MCG PO (08:32)
[2025-03-29] MEDS: DELTASONE 10 MG PO (08:32)
--- NOTE | 2025-03-29 08:52 | W.PN.CARDCBS ---
Addendum entered and electronically signed by Joan Dunn MD 03/29/25 12:23:
I saw and examined the patient.
The Combination Welder Apprentice's note was reviewed and I agree with the note.
Comment: Exam stable with irregularly irregular rhythm and 2/6 basal systolic murmur. Decreased breath sounds at the bases. +1 edema bilateral.
He presented with sepsis 03/26/2025. He required pressors transiently. He continues on antibiotics for pneumonia. Continues to do well. He is status post recent CABG. He has history of heart failure with reduced ejection fraction. He is mildly
volume overloaded. Further complex history defined below.
Impression:
Septic shock in recovery
Pneumonia
CABG x 3 with non-Q wave PR prior 03/06/2025
Heart failure with reduced ejection fraction
Atrial fibrillation
LV apical thrombus
Renal insufficiency
Immunocompromise state
Plan at this time:
Heart rates in atrial fibrillation are stable. Continue anticoagulation. Known left ventricle apical thrombus. No plan to cardiovert.
-Continue to follow telemetry
-Continue rate control (digoxin and amiodarone, follow carefully)
-Continue anticoagulation
Sepsis/pneumonia management per primary team/pulmonary
Low blood pressure.
-Wean midodrine as tolerated.
Heart failure with reduced ejection fraction
-Guideline directed medical therapy as tolerates difficult at this time given low blood pressure.
-Appears volume overload status post sepsis continue current dose of oral Lasix and will give 1 extra dose of Lasix 20 mg now.
Status post CABG
-Plavix per CT surgery
-Continue usual postop care
Chronic immunocompromise
Original Note:
Today's Communication / Plan
-
Check orthostatic vitals if negative attempt to wean midodrine to 10 mg 3 times daily
Continue antibiotics and steroids per primary service and pulmonary
Continue Plavix, Eliquis, dig, low-dose Amio and Lasix
Outpatient cardiology follow-up has been arranged
Impression / Plan
-
PCP: Josh Valdez
Primary information coder: Dr. Stephens
Impression:
Presented 03/26/2025 with fevers chills, rigor, shortness of breath
Septic shock requiring pressors
Acute hypoxic respiratory insufficiency
Pneumonia
Leukocytosis
Acute heart failure with reduced ejection fraction
Hyponatremia
Abnormal troponin
Recent NSTEMI 02/25/2025
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
s/p CABG x3 ALEXIS to LAD, GSV to D2, GSV to OM, ELAA 03/06/25
Inferoapical LV thrombus by echo 03/04, still seen on echo 03/20/2025
Ischemic cardiomyopathy, EF 35%
Renal insufficiency
Prior history of mild cardiomyopathy
Status post ventricular tachycardia
Paroxysmal atrial fibrillation, new diagnosis this admission
Elevated LFT's post op
ICD 2010, [employer]onic single-chamber
PAD, mid right SFA occlusion and probable high-grade distal SFA stenosis
Hyper eosinophilia syndrome, on chronic steroid therapy
Churg-Lemuel syndrome
Spinal stenosis
Hyperthyroid storm
Migraines
Pancreatic cysts
Echo 03/20/2025: EF 35%. Mild global hypokinesis with akinesis of inferior apical and distal anterior wall. Large mobile apical thrombus present. Moderate MR. Mild TR. PAP 25 mmHg
Echo 03/04/2025: EF 25 to 30%, dilated LV with LAD distribution akinesis and hypokinesis of remaining mckeon, inferoapical LV thrombus present, MAC, aortic sclerosis, normal right heart
TTE: 01/15/2025: EF 40 to 45%, stage II diastolic dysfunction, basal and mid inferior, distal septal, and mid anterior septal akinesis, RV normal size and function
TTE 07/17/2024: EF 38% by Cardoza's method, 45% by visual estimation, global hypokinesis, normal RV size and function
Cardiac catheterization 03/04/2025: Left main: Ruptured plaque in distal left main extending into ostium of circumflex and LAD. 90% distal left main stenosis. LAD: Hazy eccentric 90% ostial LAD stenosis. LAD is heavily calcified within the
vessel. Has luminal irregularities without obstructive high-grade stenosis. Left circumflex 90% ostial stenosis with moderate size OM1 and OM 2. RCA mild noncritical ostial stenosis and diffuse luminal irregularities.
Cardiac cath 04/16/2011: Luminal irregularities in LAD, circumflex, RCA. LAD has some calcium, EF 42%
Plan:
Presented 03/26/2025 with fevers chills, rigor, shortness of breath. Found to have septic shock requiring pressors, pneumonia. He is admitted with septic shock/pneumonia and acute hypoxic renal insufficiency in the setting of recent CABG. Known
heart failure with reduced ejection fraction. Defibrillator in place. He is chronically immunocompromised and on prednisone and for hypereosinophilic syndrome.
Acute hypoxic respiratory insufficiency secondary to right middle and lower lobe pneumonia on x-ray and chest CT 03/26/2025.
- Evidence of septic shock requiring IV Levophed which has been weaned off
- Continue antibiotics per pulmonary/primary team; blood cultures x 72 hours negative, negative sputum culture, negative flu, negative Legionella
- Required 12 L of oxygen high flow nasal cannula on admission. Currently off oxygen denies shortness of breath.
Acute heart failure with reduced ejection fraction
-proBNP 6800 on admission however patient's weight was down significantly compared to initial admission in February.
- Does not appear to be acutely volume overloaded on examination. Now back on Lasix 20 mg daily. Continue to monitor and trend weight.
-Replete potassium, 3.9
-Ongoing hypotension requiring midodrine GDMT has been very limited. Can reattempt when patient more stable if blood pressure allows
Abnormal troponin,
-NSTEMI, s/p CABG x3 ALEXIS to LAD, GSV to D2, GSV to OM, ELAA 03/06/25
- Peaked 0.225. Suspect troponin nonischemic myocardial injury secondary to pneumonia, shock and acute hypoxic respiratory insufficiency
- Continue Plavix and Eliquis for graft patency. Continue atorvastatin.
-Blood pressures improved. Would check orthostatic vitals. If negative orthostasis will attempt to wean midodrine to 10 mg 3 times daily
Paroxysmal atrial fibrillation which is now persistent.
-remains in afib, rate controlled with PVCs on review of tele overnight.
-Continue rate control with digoxin and low dose amiodarone. Would not increase amiodarone as patient has continued thrombus on echo 03/20/2025.
-Patient did not tolerate beta-ankit on prior admission secondary to worsening hypotension
-Patient with known left apical thrombus. Most recent echocardiogram performed on 03/20/2025 continues to show thrombus. Continue anticoagulation with Eliquis 5 mg twice a day
-Digoxin level 0.6 on labs 03/26/2025
He is chronically immunocompromised, prednisone for hypereosinophilic syndrome followed by Dr. Piero Garcia at [facility]. Patient was taken off methotrexate during last admission. He had telemed visit with Dr. Garcia during last admission with plan
to resume methotrexate 04/03.
Patient would like to go home upon DC. Appreciate PT/OT input. They are requesting 24-hour assistance with home PT/OT.
d/w nursing
HPI 03/26/2025:
80-year-old male with past medical history of asthma, paroxysmal atrial fibrillation, coronary artery disease status post CABG x 07/16/2024, ventricular tachycardia status post ICD 2010, cardiomyopathy/heart failure with reduced EF, COPD, peripheral
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 Piero Garcia at [facility] chronically
on low dose prednisone. Patient was recently hospitalized for prolonged hospitalization from 03/04/2025 to to 03/21/2025 for NSTEMI, coronary artery disease with left main disease for which he underwent CABG x 3 (ALEXIS to LAD, GSV to D2, GSV to OM,
ELAA 03/06/25). He was found to have reduced EF of 25 to 30% as well as inferoapical LV thrombus on echo presurgery. Patient was placed on Plavix and Eliquis at discharge. GDMT was significantly limited by hypotension requiring midodrine 15 mg 3
times daily. He was discharged to [facility].
Patient reports he had been rehabbing at [facility]. On the late evening of 03/25/2025 he started to feel unwell. He then developed chills and rigors as well as worsening shortness of breath with cough and fatigue. He was brought to emergency
department and was found to have acute hypoxic respiratory insufficiency requiring high flow oxygen at 12 L. He was also found to be hypotensive and required aggressive IV resuscitation and IV Levophed for blood pressure support. EKG demonstrated
atrial fibrillation with accelerated ventricular response. Chest x-ray showed right lower lobe pneumonia with bilateral pleural effusions.
Progress Note - Stogy Roller
Subjective
Date of Service: March 29, 2025
Patient seen and examined. Patient sitting comfortably in bed off oxygen. He reports yesterday he was able to ambulate around the unit using a walker without chest pain, shortness of breath or dizziness.
Objective
Labs:
03/29/25 02:06
03/29/25 02:06
Labs
Hgb 8.8 g/dL (13.0-18.0) L 03/29/25 02:06
Hct 28.7 % (39.0-52.0) L 03/29/25 02:06
Plt Count 326 10^3/uL (130-400) 03/29/25 02:06
PT 19.2 Sec (11.4-14.6) H 03/26/25 10:15
INR 1.59 03/26/25 10:15
APTT 28.3 Sec (23.4-35.0) 03/26/25 10:15
Sodium 136 mmol/L (135-145) 03/29/25 02:06
Potassium 3.9 mmol/L (3.5-5.1) 03/29/25 02:06
BUN 37 mg/dl (9-20) H 03/29/25 02:06
Creatinine 1.0 mg/dL (0.7-1.3) 03/29/25 02:06
Glucose 114 mg/dl (70-99) H 03/29/25 02:06
Digoxin 0.6 ng/ml (0.8-2.0) L 03/26/25 10:15
Troponins
03/26/25 03/26/25 03/27/25
10:15 18:20 00:24
Troponin I 0.208 H* 0.225 H* 0.142 H* D
03/27/25 03/27/25
05:39 10:15
Troponin I 0.136 H* Cancelled
Vital Signs and I&O:
Vital Signs
Temp Pulse Resp BP Pulse Ox
97.5 F 77 16 119/72 96
03/29/25 07:49 03/29/25 08:32 03/29/25 08:17 03/29/25 08:32 03/29/25 08:17
Vital Signs
Temp Pulse Resp BP Pulse Ox
97.5 F 77 16 119/72 96
03/29/25 07:49 03/29/25 08:32 03/29/25 08:17 03/29/25 08:32 03/29/25 08:17
Intake & Output
03/27/25 03/28/25 03/29/25 03/30/25
06:59 06:59 06:59 06:59
Intake Total 480 / 480 930 / 930 1320 / 1320
Output Total 550 / 550 495 / 495 325 / 325
Balance -70 / -70 435 / 435 995 / 995
Physical Exam
Physical Exam
GEN: No distress, awake, Ox3, sitting in bed
HEENT: supple, anicteric, mmm
LUNGS: CTA, no wheezes/rales, on room air
CV: Reg, S1/S2, no murmur, rub or gallop
ABD: soft, BS+, NT/ND
EXT: Trace edema right lower extremity, no edema left lower extremity. Most distal SVG harvest incision still with corinna in mild serosanguineous ooze, no evidence of infection
NEURO: Gross non-focal
SKIN: No rash, warm, dry, pink
--- NOTE | 2025-03-29 09:17 | W.PN.PUL.V3 ---
Today's Communication / Plan
-
Increase activity
Wean oxygen
Finite course of antibiotics
Outpatient radiographic follow-up
Outpatient pulmonary follow-up
Assessment
-
80-year-old male with a complex past medical history including chronic respiratory disease on long-term low-dose prednisone, recently off methotrexate and status post CABG x 3 on 03/06/2025 complicated by a prolonged postoperative ICU course
requiring multiple pressors. He has been at most rehab and now presents with acute onset chills, fatigue, productive cough and hypotension. Patient has acute hypoxic respiratory failure requiring 11 L of oxygen currently, and meeting criteria for
septic shock given blood pressure 76/44, heart rate 115, chest x-ray showing pneumonia. Patient was admitted to ICU, started on broad-spectrum antibiotic and pressors. Manager Licensing service was consulted for further recommendation
#1. Acute hypoxic respiratory failure
- Patient noted to have dense right middle and lower lobe pneumonia
- Continue supplemental O2 as needed, oxygen requirement declining-now on room air
Ambulate and assess discharge supplemental oxygen needs
- Patient chronically anticoagulated, not suggestive of pulmonary embolism
#2. Septic shock with right middle and lower lobe pneumonia
- Patient received 500 mL bolus and was subsequently started on Levophed, shock resolved, weaned off Levophed now
- MRSA screen negative, discontinued vancomycin,
- Clinically improving, sputum cultures suggesting usual tanvir. Aspiration is a concern. Discontinue cefepime and switch to Unasyn, subsequently can be transition to Augmentin-finished a finite course
- Legionella, pneumococcal antigen negative, cultures have stayed negative so far
- Patient had been on stress dose steroids in view of chronic steroid dependence, transition to prednisone 10 mg daily
#3. Concern for aspiration pneumonia
- Reported difficulty swallowing pills and also reports an episode of coughing while attempting to eat scrambled eggs 4 days ago
- Aspiration precautions
- Speech therapy evaluation noted-regular diet with thin liquids
#4. Right pleural effusion
- [id number] ultrasound performed 03/27, small simple effusion noted without any loculations. Not enough fluid for safe thoracentesis
- Known prior history of heart failure and trace pleural effusion, continue to monitor
- Resume p.o. Lasix
Chest x-ray 03/29/[id number] pleural effusion unchanged
Consider thoracentesis down the road if increases in size or patient becomes symptomatic
Other medical diagnoses:
- History of coronary artery disease, s/p coronary bypass graft in 02/2025
- Paroxysmal atrial flutter, on chronic anticoagulation
- Chronic steroid use
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 Patient follows at [facility]. Methotrexate was scheduled to be resumed on 04/03.
- History of peripheral vascular disease
- Heart failure with reduced ejection fraction
Reviewed with nursing
Stable from a pulmonary perspective-pulmonary will sign off-outpatient pulmonary follow-up is recommended-please call with questions
Subjective Data
-
Date of Service:
Date of Service: March 29, 2025
Chief Complaint: Pulmonary Follow Up and Dyspnea Follow Up
Subjective:
Feels better, less short of breath, on room air, no chest pain or abdominal pain
Review of Systems
General: Other ( per HPI)
Objective Data
Data Reviewed
Vital Signs / I&O:
Vital Signs
Temp Pulse Resp BP Pulse Ox
97.5 F 77 16 119/72 96
03/29/25 07:49 03/29/25 08:32 03/29/25 08:17 03/29/25 08:32 03/29/25 08:17
Intake and Output
03/28/25 03/29/25 03/30/25
06:59 06:59 06:59
Intake Total 930 / 930 1320 / 1320
Output Total 495 / 495 325 / 325
Balance 435 / 435 995 / 995
SaO2: 96
Nasal Cannula flow liters per minute: 2
Physical Exam
General: Respiratory Distress (n) and Comfortable
HEENT: Normocephalic
Cardiovascular: Regular Rhythm
Respiratory: Clear, Crackles (Rare basilar), Non-Labored Respirations, Accessory Resp Muscle Use (n), Stridor (n) and Other (Few inspiratory crackles in the right lung base)
GI: Soft, Non Distended and Non Tender
Neurology: Awake, Alert and No Motor Deficits
Skin: Warm, Good Color, Cyanosis (n) and Jaundice (n)
Labs/Micro/Reports
Lab Data
03/29/25 02:06
03/29/25 02:06
Microbiology
03/26/25 18:20 Sputum Respiratory Culture - Final
Usual Respiratory Tanvir
03/26/25 18:20 Sputum Gram Stain - Final
03/27/25 00:48 Urine Legionella Urinary Antigen - Final
Negative for Legionella pneumophila Serogroup 1 antigen.
A negative result does not rule out the possiblity of
Legionella infection due to other serogroups or species of
Legionella. Clinical correlation is recommended.
03/27/25 00:48 Urine Streptococcus pneumoniae Antigen (M - Final
Negative for Streptococcus pneumoniae antigen.
A negative result does not exclude infection with
Streptococcus pneumoniae. Clinical correlation is
recommended.
03/26/25 18:20 Nose Nasal Screen MRSA (PCR) - Final
MRSA not detected - performed by PCR methodology.
03/26/25 10:15 Nasal Swab Influenza Types A & B (CHUCK) - Final
Negative for Influenza A & B, NAAT
Negative results must be combined with clinical observations
and patient history.
Nucleic Acid Amplification test (NAAT)performed on the
[employer] platform.
--- NOTE | 2025-03-29 12:35 | W.PN.UPDATE ---
Update Note
Progress Note Update
Leg was examined with Dr. Wallace. 4 corinna were removed from the mid-lateral leg. Bottom lateral corinna remain. 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
[2025-03-29] MEDS: LANOXIN 125 MCG PO (12:48)
[2025-03-29] MEDS: SENOKOT 17.2 MG PO (12:48)
[2025-03-29] MEDS: LASIX 20 MG IV (12:49)
--- NOTE | 2025-03-29 12:57 | W.PN.HOSP.TC ---
Today's Communication/Plan
-
Monitor vital signs see plan
Will need home O2 evaluation prior to discharge
Continue with antibiotic
Extra dose Lasix given
Continue with prednisone
Monitor leukocytosis
Continue Eliquis, Plavix
Assessment / Plan
Assessment / Plan
General: Conversant
HEENT: NormoCephalic and Anicteric
Respiratory: Decreased Breath Sounds,NC
Cardiac: S1/S2, Regular Rhythm, Tachycardia and Other (Defibrillator right chest )
GI: Soft, Non Tender and Non Distended
Musculoskeletal: Edema, Left Lower Extremity (2+) and Edema, Right Lower Extremity (2+)
Neuro: AO x 3
Psych: Calm
IMPRESSION:
Septic shock in the setting of hospital-acquired pneumonia
Acute hypoxic respiratory failure
Paroxysmal to persistent atrial fibrillation
Acute on chronic heart failure with reduced ejection fraction, recent CABG x 3
Inferoapical LV thrombus by echo 03/04/25
Ischemic cardiomyopathy, EF 25 to 30%
PAD, mid right SFA occlusion and probable high-grade distal SFA stenosis
Hyper eosinophilia syndrome, on chronic steroid therapy
Churg-Lemuel syndrome
Long-term use of prednisone in the setting of Churg-Lemuel/eosinophilic granulomatous polyangiitis
History of peripheral artery disease
Chronic constipation
History of anemia
GERD
Pancreatic cyst
elevated troponin secondary to recent NSTEMI
PLAN:
# Septic shock in setting of hospital-acquired pneumonia
#Hypotensive
#Sinus tachycardia
Shock resolved, now off Levophed. MRSA negative. Discontinue vancomycin. Switched antibiotics to Unasyn
CT chest showing consolidation in the right lower and middle lobe which is more suspicious for bacterial pneumonia versus eosinophilic( reticular pattern). Given imaging suspect likely secondary to bacterial pneumonia
Decrease stress dose steroid, now on p.o. prednisone. Chronically on 7 mg prednisone
strep pneumo and Legionella antigen neg
sputum culture usual tanvir. Unable to determine the speciation of bacterial pneumonia
Follow cultures
#Acute hypoxic respiratory failure likely secondary to pneumonia
Now on room air, improving. Will need home O2 evaluation
Paroxysmal to persistent atrial fibrillation
Started post CABG
Continue oral amiodarone and digoxin
Continue Eliquis
cardiology following
# Acute on chronic heart failure with reduced ejection fraction in the setting of CABGx 3 on 03/06
#History of non ischemic cardiomyopathy
# ICD since 2010
Restarted Lasix; received extra dose 03/29
Previous echo 03/2025 shows ejection fraction of 35%
Cardiology following
Hyponatremia
Monitor
Long-term use of prednisone and MTX in the setting of Churg-Lemuel syndrome
Currently on stress dose steroid, once able to be weaned then can be put on low-dose prednisone outpatient dose
low-dose prednisone
Methotrexate has been discontinued for the past 4 weeks
Left inguinal hernia
Patient usually reduce on his own, if unable to be reduced then will need surgery evaluation
History of PAD
Continue eliquis and Plavix
Chronic constipation
Continue bowel regime
History of anemia
Continue ferrous sulfate
GERD
Continue pantoprazole
DVT prophylaxis- Eliquis
CODE STATUS- full code.
Anticipated Discharge: 24 - 48 hours
Subjective/Interval History
-
Date of Service: March 29, 2025
Denies chest pain
Objective Data
-
Labs:
Laboratory Results
03/29/25
02:06
WBC 13.8 H
Hgb 8.8 L
Hct 28.7 L
Plt Count 326
Sodium 136
Potassium 3.9
Chloride 106
Carbon Dioxide 27
BUN 37 H
Creatinine 1.0
Glucose 114 H
Calcium 8.2 L
Vital Signs:
Vital Signs
Temp Pulse Resp BP Pulse Ox
98 F 87 20 113/65 97
03/29/25 11:14 03/29/25 12:49 03/29/25 11:14 03/29/25 12:49 03/29/25 11:14
I&O
03/28/25 03/29/25 03/30/25
06:59 06:59 06:59
Intake Total 930 / 930 1320 / 1320
Output Total 495 / 495 325 / 325
Balance 435 / 435 995 / 995
--- NOTE | 2025-03-29 14:05 | CM ---
spoke to pt in room, he is off O2 and going on PO antibx, wants to go home, his son and will be there. [id number] set up as requested. plan is for dc to home possibly tomorrow if medically stable.
[2025-03-29] MEDS: SINGULAIR 10 MG PO (17:18)
[2025-03-29] MEDS: LIPITOR 40 MG PO (22:50)
[2025-03-29] MEDS: MELATONIN 10 MG PO (22:50)
[2025-03-29] MEDS: DESYREL 50 MG PO (22:50)
--- NOTE | 2025-03-29 23:49 | PTCARENOTE ---
assumed care of patient at the change of shift. AAOx3. denies any pain at this time. resting in the chair. walked in the hallway with the rolling walker. steady on his feet. SR on tele 70s-90s. LE edema noted/pitting. + pulses. surgical incisions
intact. RLE incision- small amount of drainage. JUAQUIN/corinna intact. reviewed plan of care with patient and verbalized understanding. sternal precautions maintained. call gutierrez within reach. makes needs known.
[2025-03-30] VITALS (11 sets, daily range): BP systolic 125–141; BP diastolic 75–107; PULSE 87; BMI 20.9
[2025-03-30 03:50] LABS: Hematocrit 30.4 % (39.0-52.0); Hemoglobin 9.4 g/dL (13.0-18.0); Mean Corp Hgb Conc. 30.9 g/dL (33.0-37.0); Mean Corpuscular Volume 101.0 fL (80.0-94.0); Nucleated Red Blood Cells % 0 % (-); Platelet Count 382 10^3/uL (130-400); Red Cell Dist. Width 14.8 % (11.5-14.5)
[2025-03-30 04:13] LABS: Blood Urea Nitrogen 30 mg/dl (9-20); Calcium 8.4 mg/dl (8.4-10.2); Carbon Dioxide 29 mmol/L (22-30); Chloride 104 mmol/L (98-107); Estimated Creatinine Clearance 55 ml/min; Glucose 86 mg/dl (70-99); Potassium 3.5 mmol/L (3.5-5.1); Sodium 138 mmol/L (135-145); eGFR > 60.00
[2025-03-30] MEDS: UNASYN IV ×4 (05:36→22:43)
--- NOTE | 2025-03-30 07:33 | W.PN.CARDCBS ---
Addendum entered and electronically signed by Ifeanyi Lara MD 03/30/25 09:33:
Patient seen and examined
Heart rates in the 80s and 90s noted
He feels relatively well today
Agree with CORKY Herring's note and assessment
Exam:
H&T normocephalic atraumatic
JVP 6
Cor regular without significant murmur
Lungs diminished but clear
Awake alert and oriented
Nonfocal neurologically
Remainder as per OCRKY Herring's note assessment
Impression:
Presented 03/26/2025 with fevers chills, rigor, shortness of breath
Septic shock requiring pressors
Acute hypoxic respiratory insufficiency
Pneumonia
Leukocytosis
Acute heart failure with reduced ejection fraction
Hyponatremia
Abnormal troponin
Recent NSTEMI 02/25/2025
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
s/p CABG x3 ALEXIS to LAD, GSV to D2, GSV to OM, ELAA 03/06/25Inferoapical LV thrombus by echo 03/04, still seen on echo 03/20/2025
Ischemic cardiomyopathy, EF 35%
Renal insufficiency
Prior history of mild cardiomyopathy
Status post ventricular tachycardia
Paroxysmal atrial fibrillation, new diagnosis this admission
Elevated LFT's post op
ICD 2010, Medtronic single-chamber
PAD, mid right SFA occlusion and probable high-grade distal SFA stenosis
Hyper eosinophilia syndrome, on chronic steroid therapy
Churg-Lemuel syndrome
Spinal stenosis
Hyperthyroid storm
Migraines
Pancreatic cysts
Echo 03/20/2025: EF 35%. Mild global hypokinesis with akinesis of inferior apical and distal anterior wall. Large mobile apical thrombus present. Moderate MR. Mild TR. PAP 25 mmHg
Echo 03/04/2025: EF 25 to 30%, dilated LV with LAD distribution akinesis and hypokinesis of remaining mckeon, inferoapical LV thrombus present, MAC, aortic sclerosis, normal right heart
TTE: 01/15/2025: EF 40 to 45%, stage II diastolic dysfunction, basal and mid inferior, distal septal, and mid anterior septal akinesis, RV normal size and function
TTE 07/17/2024: EF 38% by Cardoza's method, 45% by visual estimation, global hypokinesis, normal RV size and function
Cardiac catheterization 03/04/2025: Left main: Ruptured plaque in distal left main extending into ostium of circumflex and LAD. 90% distal left main stenosis. LAD: Hazy eccentric 90% ostial LAD stenosis. LAD is heavily calcified within the
vessel. Has luminal irregularities without obstructive high-grade stenosis. Left circumflex 90% ostial stenosis with moderate size OM1 and OM 2. RCA mild noncritical ostial stenosis and diffuse luminal irregularities.
Cardiac cath 04/16/2011: Luminal irregularities in LAD, circumflex, RCA. LAD has some calcium, EF 42%
Plan:
Presented 03/26/2025 with fevers chills, rigor, shortness of breath. Found to have septic shock requiring pressors, pneumonia. He is admitted with septic shock/pneumonia and acute hypoxic renal insufficiency in the setting of recent CABG. Known
heart failure with reduced ejection fraction. Defibrillator in place. He is chronically immunocompromised and on prednisone and for hypereosinophilic syndrome.
Acute hypoxic respiratory insufficiency secondary to right middle and lower lobe pneumonia on x-ray and chest CT 03/26/2025.
-Improving.
- Evidence of septic shock requiring IV Levophed which has been weaned off
- Continue antibiotics per pulmonary/primary team; blood cultures x 72 hours negative, negative sputum culture, negative flu, negative Legionella
- Required 12 L of oxygen high flow nasal cannula on admission. Currently off oxygen denies shortness of breath.
Acute heart failure with reduced ejection fraction
-proBNP 6800 on admission however patient's weight was down significantly compared to initial admission in February.
- Does not appear to be acutely volume overloaded on examination. Now back on Lasix 20 mg daily. Continue to monitor and trend weight.
-Replete potassium, 3.5
-Ongoing hypotension requiring midodrine GDMT has been very limited. Midodrine weaned to 10 mg 3 times daily on 03/29/2022. Blood pressure stable on lower dose. Continue to wean as able
Abnormal troponin,
-NSTEMI, s/p CABG x3 ALEXIS to LAD, GSV to D2, GSV to OM, ELAA 03/06/25
- Peaked 0.225. Suspect troponin nonischemic myocardial injury secondary to pneumonia, shock and acute hypoxic respiratory insufficiency
- Continue Plavix and Eliquis for graft patency. Continue atorvastatin.
Paroxysmal atrial fibrillation which is now persistent.
-remains in afib, rate controlled with PVCs on review of tele overnight.
-Continue rate control with digoxin and low dose amiodarone. Would not increase amiodarone as patient has continued thrombus on echo 03/20/2025. Digoxin levels reviewed. It is not ideal to have the patient on both amiodarone and digoxin but with
current thrombus noted we are trying to rate control him as best we can as atypical atrial flutter is difficult to rate control. Given that we do not have rhythm control options currently we will continue current regimen
-Patient did not tolerate beta-ankit on prior admission secondary to worsening hypotension
-Patient with known left apical thrombus. Most recent echocardiogram performed on 03/20/2025 continues to show thrombus. Continue anticoagulation with Eliquis 5 mg twice a day
-Digoxin level 0.6 on labs 03/26/2025
He is chronically immunocompromised, prednisone for hypereosinophilic syndrome followed by Dr. Piero Garcia at [facility]. Patient was taken off methotrexate during last admission. He had telemed visit with Dr. Garcia during last admission with plan
to resume methotrexate 04/03.
Patient would like to go home upon DC. Appreciate PT/OT input. They are requesting 24-hour assistance with home PT/OT. Outpatient cardiology follow up has been arranged. Hopeful discharge within next 24 hours
Original Note:
Today's Communication / Plan
-
Replete potassium
Continue reduced dose of midodrine at 10 mg 3 times daily
PT/OT
Continue Plavix, Eliquis, dig, low-dose Amio and Lasix
Outpatient cardiology follow-up has been arranged, hopeful discharge within next 24 hours
Impression / Plan
-
PCP: Josh Valdez
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
Impression:
Presented 03/26/2025 with fevers chills, rigor, shortness of breath
Septic shock requiring pressors
Acute hypoxic respiratory insufficiency
Pneumonia
Leukocytosis
Acute heart failure with reduced ejection fraction
Hyponatremia
Abnormal troponin
Recent NSTEMI 02/25/2025
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
s/p CABG x3 ALEXIS to LAD, GSV to D2, GSV to OM, ELAA 03/06/25
Inferoapical LV thrombus by echo 03/04, still seen on echo 03/20/2025
Ischemic cardiomyopathy, EF 35%
Renal insufficiency
Prior history of mild cardiomyopathy
Status post ventricular tachycardia
Paroxysmal atrial fibrillation, new diagnosis this admission
Elevated LFT's post op
ICD 2010, Medtronic single-chamber
PAD, mid right SFA occlusion and probable high-grade distal SFA stenosis
Hyper eosinophilia syndrome, on chronic steroid therapy
Churg-Lemuel syndrome
Spinal stenosis
Hyperthyroid storm
Migraines
Pancreatic cysts
Echo 03/20/2025: EF 35%. Mild global hypokinesis with akinesis of inferior apical and distal anterior wall. Large mobile apical thrombus present. Moderate MR. Mild TR. PAP 25 mmHg
Echo 03/04/2025: EF 25 to 30%, dilated LV with LAD distribution akinesis and hypokinesis of remaining mckeon, inferoapical LV thrombus present, MAC, aortic sclerosis, normal right heart
TTE: 01/15/2025: EF 40 to 45%, stage II diastolic dysfunction, basal and mid inferior, distal septal, and mid anterior septal akinesis, RV normal size and function
TTE 07/17/2024: EF 38% by Cardoza's method, 45% by visual estimation, global hypokinesis, normal RV size and function
Cardiac catheterization 03/04/2025: Left main: Ruptured plaque in distal left main extending into ostium of circumflex and LAD. 90% distal left main stenosis. LAD: Hazy eccentric 90% ostial LAD stenosis. LAD is heavily calcified within the
vessel. Has luminal irregularities without obstructive high-grade stenosis. Left circumflex 90% ostial stenosis with moderate size OM1 and OM 2. RCA mild noncritical ostial stenosis and diffuse luminal irregularities.
Cardiac cath 04/16/2011: Luminal irregularities in LAD, circumflex, RCA. LAD has some calcium, EF 42%
Plan:
Presented 03/26/2025 with fevers chills, rigor, shortness of breath. Found to have septic shock requiring pressors, pneumonia. He is admitted with septic shock/pneumonia and acute hypoxic renal insufficiency in the setting of recent CABG. Known
heart failure with reduced ejection fraction. Defibrillator in place. He is chronically immunocompromised and on prednisone and for hypereosinophilic syndrome.
Acute hypoxic respiratory insufficiency secondary to right middle and lower lobe pneumonia on x-ray and chest CT 03/26/2025.
-Improving.
- Evidence of septic shock requiring IV Levophed which has been weaned off
- Continue antibiotics per pulmonary/primary team; blood cultures x 72 hours negative, negative sputum culture, negative flu, negative Legionella
- Required 12 L of oxygen high flow nasal cannula on admission. Currently off oxygen denies shortness of breath.
Acute heart failure with reduced ejection fraction
-proBNP 6800 on admission however patient's weight was down significantly compared to initial admission in February.
- Does not appear to be acutely volume overloaded on examination. Now back on Lasix 20 mg daily. Continue to monitor and trend weight.
-Replete potassium, 3.5
-Ongoing hypotension requiring midodrine GDMT has been very limited. Midodrine weaned to 10 mg 3 times daily on 03/29/2022. Blood pressure stable on lower dose. Continue to wean as able
Abnormal troponin,
-NSTEMI, s/p CABG x3 ALEXIS to LAD, GSV to D2, GSV to OM, ELAA 03/06/25
- Peaked 0.225. Suspect troponin nonischemic myocardial injury secondary to pneumonia, shock and acute hypoxic respiratory insufficiency
- Continue Plavix and Eliquis for graft patency. Continue atorvastatin.
Paroxysmal atrial fibrillation which is now persistent.
-remains in afib, rate controlled with PVCs on review of tele overnight.
-Continue rate control with digoxin and low dose amiodarone. Would not increase amiodarone as patient has continued thrombus on echo 03/20/2025.
-Patient did not tolerate beta-ankit on prior admission secondary to worsening hypotension
-Patient with known left apical thrombus. Most recent echocardiogram performed on 03/20/2025 continues to show thrombus. Continue anticoagulation with Eliquis 5 mg twice a day
-Digoxin level 0.6 on labs 03/26/2025
He is chronically immunocompromised, prednisone for hypereosinophilic syndrome followed by Dr. Piero Garcia at [facility]. Patient was taken off methotrexate during last admission. He had telemed visit with Dr. Garcia during last admission with plan
to resume methotrexate 04/03.
Patient would like to go home upon DC. Appreciate PT/OT input. They are requesting 24-hour assistance with home PT/OT. Outpatient cardiology follow up has been arranged. Hopeful discharge within next 24 hours
d/w nursing
HPI 03/26/2025:
80-year-old male with past medical history of asthma, paroxysmal atrial fibrillation, coronary artery disease status post CABG x 07/16/2024, ventricular tachycardia status post ICD 2010, cardiomyopathy/heart failure with reduced EF, COPD, peripheral
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 Piero Garcia at [facility] chronically
on low dose prednisone. Patient was recently hospitalized for prolonged hospitalization from 03/04/2025 to to 03/21/2025 for NSTEMI, coronary artery disease with left main disease for which he underwent CABG x 3 (ALEXIS to LAD, GSV to D2, GSV to OM,
ELAA 03/06/25). He was found to have reduced EF of 25 to 30% as well as inferoapical LV thrombus on echo presurgery. Patient was placed on Plavix and Eliquis at discharge. GDMT was significantly limited by hypotension requiring midodrine 15 mg 3
times daily. He was discharged to [facility].
Patient reports he had been rehabbing at [facility]. On the late evening of 03/25/2025 he started to feel unwell. He then developed chills and rigors as well as worsening shortness of breath with cough and fatigue. He was brought to emergency
department and was found to have acute hypoxic respiratory insufficiency requiring high flow oxygen at 12 L. He was also found to be hypotensive and required aggressive IV resuscitation and IV Levophed for blood pressure support. EKG demonstrated
atrial fibrillation with accelerated ventricular response. Chest x-ray showed right lower lobe pneumonia with bilateral pleural effusions.
Progress Note - Relief Map Modeler
Subjective
Date of Service: March 30, 2025
Patient seen and examined. Patient resting comfortably in bed. Reports he got a good night of sleep. Last evening he was able to ambulate around the unit without chest pain, dizziness or lightheadedness. He is tolerating lower dose midodrine.
Objective
Labs:
03/30/25 03:01
03/30/25 03:01
Labs
Hgb 9.4 g/dL (13.0-18.0) L 03/30/25 03:01
Hct 30.4 % (39.0-52.0) L 03/30/25 03:01
Plt Count 382 10^3/uL (130-400) 03/30/25 03:01
PT 19.2 Sec (11.4-14.6) H 03/26/25 10:15
INR 1.59 03/26/25 10:15
APTT 28.3 Sec (23.4-35.0) 03/26/25 10:15
Sodium 138 mmol/L (135-145) 03/30/25 03:01
Potassium 3.5 mmol/L (3.5-5.1) 03/30/25 03:01
BUN 30 mg/dl (9-20) H 03/30/25 03:01
Creatinine 1.0 mg/dL (0.7-1.3) 03/30/25 03:01
Glucose 86 mg/dl (70-99) 03/30/25 03:01
Digoxin 0.6 ng/ml (0.8-2.0) L 03/26/25 10:15
Vital Signs and I&O:
Vital Signs
Temp Pulse Resp BP Pulse Ox
98.1 F 99 18 141/86 96
03/30/25 07:08 03/30/25 03:00 03/30/25 07:08 03/30/25 02:50 03/30/25 07:08
Vital Signs
Temp Pulse Resp BP Pulse Ox
98.1 F 99 18 141/86 96
03/30/25 07:08 03/30/25 03:00 03/30/25 07:08 03/30/25 02:50 03/30/25 07:08
Intake & Output
03/28/25 03/29/25 03/30/25 03/31/25
06:59 06:59 06:59 06:59
Intake Total 930 / 930 1320 / 1320 480 / 480
Output Total 495 / 495 325 / 325 900 / 900
Balance 435 / 435 995 / 995 -420 / -420
Physical Exam
Physical Exam
GEN: No distress, awake, Ox3, sitting in bed
HEENT: supple, anicteric, mmm
LUNGS: CTA, no wheezes/rales, on room air
CV: Reg, S1/S2, no murmur, rub or gallop
ABD: soft, BS+, NT/ND
EXT: Trace edema right lower extremity, no edema left lower extremity.
NEURO: Gross non-focal
SKIN: No rash, warm, dry, pink
[2025-03-30] MEDS: SYMBICORT 80/4.5 MCG INHALER 2 PUFF INH ×2 (08:11→19:20)
--- NOTE | 2025-03-30 09:29 | CON.CAR ---
Medical History
Allergies / Home Medications
Allergy/AdvReac Type Severity Reaction Status Date / Time
levofloxacin Allergy Rash Verified 03/04/25 01:49
Quinolones Allergy Rash Verified 03/04/25 01:49
Sulfa (Sulfonamide Allergy Hives, rash Verified 03/04/25 01:49
Antibiotics)
sulfasalazine Allergy Hives, rash Verified 03/04/25 01:49
amlodipine (From [facility]) AdvReac edema Verified 03/26/25 15:58
Penicillins AdvReac GI upset, Verified 03/26/25 15:58
vomiting
�Medication �Instructions �Recorded �Confirmed �Type
aspirin 81 mg tablet,delayed 81 mg PO DAILY Blood Clot 11/07/10 03/26/25 History
release Prevention/Tx
budesonide-formoterol HFA 80 2 puff inhalation R BID 10/26/19 03/26/25 History
mcg-4.5 mcg/actuation aerosol Lung/Breathing Issues
inhaler (Symbicort)
montelukast 10 mg tablet 10 mg PO QPM Allergies 10/26/19 03/26/25 History
prednisone 5 mg tablet 7 mg PO DAILY Anti-Inflammatory 10/26/19 03/26/25 History
cholecalciferol (vitamin D3) 50 50 mcg PO DAILY Supplement 04/18/23 03/26/25 History
mcg (2,000 unit) tablet (Vitamin
D3)
amiodarone 200 mg tablet (Pacerone) 200 mg PO DAILY Arrhythmia #0 tabs 03/21/25 03/26/25 Rx
clopidogrel 75 mg tablet 75 mg PO DAILY Blood clot 03/21/25 03/26/25 Rx
prevention/tx #0 tabs
digoxin 125 mcg (0.125 mg) tablet 125 mcg PO NOON Arrhythmia #0 tabs 03/21/25 03/26/25 Rx
ferrous sulfate 325 mg (65 mg 325 mg PO DAILY anemia #0 tabs 03/21/25 03/26/25 Rx
iron) tablet (FeroSul)
furosemide 20 mg tablet 20 mg PO DAILY Fluid 03/21/25 03/26/25 Rx
retention/Swelling #0 tabs
melatonin 5 mg tablet 10 mg (2 x 5 mg) PO HS insomnia #0 03/21/25 03/26/25 Rx
tabs
acetaminophen 325 mg tablet 650 mg PO Q6HPRN PRN MILD PAIN 03/26/25 03/26/25 History
(Tylenol)
apixaban 5 mg tablet (Eliquis) 5 mg PO BID Blood Clot 03/26/25 03/26/25 History
Prevention/Tx
ascorbic acid (vitamin C) 500 mg 500 mg PO DAILY Supplement 03/26/25 03/26/25 History
tablet (Vitamin C)
atorvastatin 40 mg tablet 40 mg PO HS High cholesterol 03/26/25 03/26/25 History
bisacodyl 10 mg rectal suppository 10 mg WI DAILYPRN PRN CONSTIPATION 03/26/25 03/26/25 History
(Dulcolax (bisacodyl))
bisacodyl 5 mg tablet,delayed 10 mg PO DAILYPRN PRN CONSTIPATION 03/26/25 03/26/25 History
release (Dulcolax (bisacodyl))
docusate sodium 100 mg capsule 100 mg PO BID Constipation 03/26/25 03/26/25 History
(Colace)
folic acid 1 mg tablet 1 mg PO DAILY Supplement 03/26/25 03/26/25 History
methotrexate sodium 2.5 mg tablet 22.5 mg PO WE Autoimmune Disorder 03/26/25 03/26/25 History
midodrine 5 mg tablet 15 mg PO TID for SBP<110 03/26/25 03/26/25 History
pantoprazole 40 mg tablet,delayed 40 mg PO DAILY Gastrointestinal 03/26/25 03/26/25 History
release Issue
polyethylene glycol 3350 17 gram 17 g PO DAILY Constipation 03/26/25 03/26/25 History
oral powder packet (Miralax)
sennosides 8.6 mg tablet (senna) 17.2 mg PO NOON Constipation 03/26/25 03/26/25 History
tramadol 50 mg tablet 25 mg PO Q6HPRN PRN MODERATE PAIN 03/26/25 03/26/25 History
trazodone 50 mg tablet 50 mg PO HS Sleep 03/26/25 03/26/25 History
trazodone 50 mg tablet 50 mg PO HSPRN PRN SLEEP 03/26/25 03/26/25 History
Physical Exam
Vital Signs
Temp Pulse Resp BP Pulse Ox
98.1 F 88 16 141/86 97
03/30/25 07:08 03/30/25 08:11 03/30/25 08:11 03/30/25 02:50 03/30/25 08:11
Lab Results
03/30/25 03:01
03/30/25 03:01
Troponin I Cancelled 03/27/25 10:15
Iio-D-Grbazsiwtii Pept 6800 pg/ml 03/26/25 10:15
Impression / Plan
-
PCP: Josh Valdez
Primary slack line yarder: Dr. Stephens
Impression:
Presented 03/26/2025 with fevers chills, rigor, shortness of breath
Septic shock requiring pressors
Acute hypoxic respiratory insufficiency
Pneumonia
Leukocytosis
Acute heart failure with reduced ejection fraction
Hyponatremia
Abnormal troponin
Recent NSTEMI 02/25/2025
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
s/p CABG x3 ALEXIS to LAD, GSV to D2, GSV to OM, ELAA 03/06/25
Inferoapical LV thrombus by echo 03/04, still seen on echo 03/20/2025
Ischemic cardiomyopathy, EF 35%
Renal insufficiency
Prior history of mild cardiomyopathy
Status post ventricular tachycardia
Paroxysmal atrial fibrillation, new diagnosis this admission
Elevated LFT's post op
ICD 2010, [employer] single-chamber
PAD, mid right SFA occlusion and probable high-grade distal SFA stenosis
Hyper eosinophilia syndrome, on chronic steroid therapy
Churg-Lemuel syndrome
Spinal stenosis
Hyperthyroid storm
Migraines
Pancreatic cysts
Echo 03/20/2025: EF 35%. Mild global hypokinesis with akinesis of inferior apical and distal anterior wall. Large mobile apical thrombus present. Moderate MR. Mild TR. PAP 25 mmHg
Echo 03/04/2025: EF 25 to 30%, dilated LV with LAD distribution akinesis and hypokinesis of remaining mckeon, inferoapical LV thrombus present, MAC, aortic sclerosis, normal right heart
TTE: 01/15/2025: EF 40 to 45%, stage II diastolic dysfunction, basal and mid inferior, distal septal, and mid anterior septal akinesis, RV normal size and function
TTE 07/17/2024: EF 38% by Cardoza's method, 45% by visual estimation, global hypokinesis, normal RV size and function
Cardiac catheterization 03/04/2025: Left main: Ruptured plaque in distal left main extending into ostium of circumflex and LAD. 90% distal left main stenosis. LAD: Hazy eccentric 90% ostial LAD stenosis. LAD is heavily calcified within the
vessel. Has luminal irregularities without obstructive high-grade stenosis. Left circumflex 90% ostial stenosis with moderate size OM1 and OM 2. RCA mild noncritical ostial stenosis and diffuse luminal irregularities.
Cardiac cath 04/16/2011: Luminal irregularities in LAD, circumflex, RCA. LAD has some calcium, EF 42%
Plan:
Presented 03/26/2025 with fevers chills, rigor, shortness of breath. Found to have septic shock requiring pressors, pneumonia. He is admitted with septic shock/pneumonia and acute hypoxic renal insufficiency in the setting of recent CABG. Known
heart failure with reduced ejection fraction. Defibrillator in place. He is chronically immunocompromised and on prednisone and for hypereosinophilic syndrome.
Acute hypoxic respiratory insufficiency secondary to right middle and lower lobe pneumonia on x-ray and chest CT 03/26/2025.
-Improving.
- Evidence of septic shock requiring IV Levophed which has been weaned off
- Continue antibiotics per pulmonary/primary team; blood cultures x 72 hours negative, negative sputum culture, negative flu, negative Legionella
- Required 12 L of oxygen high flow nasal cannula on admission. Currently off oxygen denies shortness of breath.
Acute heart failure with reduced ejection fraction
-proBNP 6800 on admission however patient's weight was down significantly compared to initial admission in February.
- Does not appear to be acutely volume overloaded on examination. Now back on Lasix 20 mg daily. Continue to monitor and trend weight.
-Replete potassium, 3.5
-Ongoing hypotension requiring midodrine GDMT has been very limited. Midodrine weaned to 10 mg 3 times daily on 03/29/2022. Blood pressure stable on lower dose. Continue to wean as able
Abnormal troponin,
-NSTEMI, s/p CABG x3 ALEXIS to LAD, GSV to D2, GSV to OM, ELAA 03/06/25
- Peaked 0.225. Suspect troponin nonischemic myocardial injury secondary to pneumonia, shock and acute hypoxic respiratory insufficiency
- Continue Plavix and Eliquis for graft patency. Continue atorvastatin.
Paroxysmal atrial fibrillation which is now persistent.
-remains in afib, rate controlled with PVCs on review of tele overnight.
-Continue rate control with digoxin and low dose amiodarone. Would not increase amiodarone as patient has continued thrombus on echo 03/20/2025.
-Patient did not tolerate beta-ankit on prior admission secondary to worsening hypotension
-Patient with known left apical thrombus. Most recent echocardiogram performed on 03/20/2025 continues to show thrombus. Continue anticoagulation with Eliquis 5 mg twice a day
-Digoxin level 0.6 on labs 03/26/2025
He is chronically immunocompromised, prednisone for hypereosinophilic syndrome followed by Dr. Piero Garcia at [facility]. Patient was taken off methotrexate during last admission. He had telemed visit with Dr. Garcia during last admission with plan
to resume methotrexate 04/03.
Patient would like to go home upon DC. Appreciate PT/OT input. They are requesting 24-hour assistance with home PT/OT. Outpatient cardiology follow up has been arranged. Hopeful discharge within next 24 hours
d/w nursing
[facility] 03/26/2025:
80-year-old male with past medical history of asthma, paroxysmal atrial fibrillation, coronary artery disease status post CABG x 07/16/2024, ventricular tachycardia status post ICD 2010, cardiomyopathy/heart failure with reduced EF, COPD, peripheral
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 Piero Garcia at [facility] chronically
on low dose prednisone. Patient was recently hospitalized for prolonged hospitalization from 03/04/2025 to to 03/21/2025 for NSTEMI, coronary artery disease with left main disease for which he underwent CABG x 3 (ALEXIS to LAD, GSV to D2, GSV to OM,
ELAA 03/06/25). He was found to have reduced EF of 25 to 30% as well as inferoapical LV thrombus on echo presurgery. Patient was placed on Plavix and Eliquis at discharge. GDMT was significantly limited by hypotension requiring midodrine 15 mg 3
times daily. He was discharged to [facility].
Patient reports he had been rehabbing at [facility]. On the late evening of 03/25/2025 he started to feel unwell. He then developed chills and rigors as well as worsening shortness of breath with cough and fatigue. He was brought to emergency
department and was found to have acute hypoxic respiratory insufficiency requiring high flow oxygen at 12 L. He was also found to be hypotensive and required aggressive IV resuscitation and IV Levophed for blood pressure support. EKG demonstrated
atrial fibrillation with accelerated ventricular response. Chest x-ray showed right lower lobe pneumonia with bilateral pleural effusions.
[2025-03-30] MEDS: DELTASONE 10 MG PO (09:34)
[2025-03-30] MEDS: PROTONIX 40 MG PO (09:34)
[2025-03-30] MEDS: PLAVIX 75 MG PO (09:35)
[2025-03-30] MEDS: FOLVITE 1 MG PO (09:35)
[2025-03-30] MEDS: LASIX 20 MG PO (09:36)
[2025-03-30] MEDS: VITAMIN D3 (cholecalciferol) 50 MCG PO (09:36)
[2025-03-30] MEDS: ELIQUIS 5 MG PO ×2 (09:36→20:17)
[2025-03-30] MEDS: COLACE 100 MG PO ×2 (09:37→20:17)
[2025-03-30] MEDS: FEOSOL 325 MG PO (09:37)
[2025-03-30] MEDS: KCL 40 MEQ PO (09:42)
[2025-03-30] MEDS: MIRALAX 17 GRAMS PO (10:06)
[2025-03-30] MEDS: PACERONE 200 MG PO (10:06)
[2025-03-30] MEDS: VITAMIN C 500 MG PO (10:07)
--- NOTE | 2025-03-30 12:30 | W.PN.HOSP.TC ---
Today's Communication/Plan
-
Monitor vitals
See plan
Continue with Lasix
Continue with antibiotic
Discussed with RN who will speak with director of casework department regarding discharge planning
Assessment / Plan
Assessment / Plan
General: Conversant
HEENT: NormoCephalic and Anicteric
Respiratory: Decreased Breath Sounds,NC
Cardiac: S1/S2, Regular Rhythm, Tachycardia and Other (Defibrillator right chest )
GI: Soft, Non Tender and Non Distended
Musculoskeletal: Edema, Left Lower Extremity (2+) and Edema, Right Lower Extremity (2+)
Neuro: AO x 3
Psych: Calm
IMPRESSION:
Septic shock in the setting of hospital-acquired pneumonia
Acute hypoxic respiratory failure
Paroxysmal to persistent atrial fibrillation
Acute on chronic heart failure with reduced ejection fraction, recent CABG x 3
Inferoapical LV thrombus by echo 03/04/25
Ischemic cardiomyopathy, EF 25 to 30%
PAD, mid right SFA occlusion and probable high-grade distal SFA stenosis
Hyper eosinophilia syndrome, on chronic steroid therapy
Churg-Lemuel syndrome
Long-term use of prednisone in the setting of Churg-Lemuel/eosinophilic granulomatous polyangiitis
History of peripheral artery disease
Chronic constipation
History of anemia
GERD
Pancreatic cyst
elevated troponin secondary to recent NSTEMI
PLAN:
# Septic shock in setting of hospital-acquired pneumonia
#Hypotensive
#Sinus tachycardia
Shock resolved, now off Levophed. MRSA negative. Discontinue vancomycin. Switched antibiotics to Unasyn
CT chest showing consolidation in the right lower and middle lobe which is more suspicious for bacterial pneumonia versus eosinophilic( reticular pattern). Given imaging suspect likely secondary to bacterial pneumonia
Decrease stress dose steroid, now on p.o. prednisone 10mg. Chronically on 7 mg prednisone
strep pneumo and Legionella antigen neg
sputum culture usual tanvir. Unable to determine the speciation of bacterial pneumonia
Follow cultures
#Acute hypoxic respiratory failure likely secondary to pneumonia
Now on room air, improving.
Paroxysmal to persistent atrial fibrillation
Started post CABG
Continue oral amiodarone and digoxin
Continue Eliquis
cardiology following
# Acute on chronic heart failure with reduced ejection fraction in the setting of CABGx 3 on 03/06
#History of non ischemic cardiomyopathy
# ICD since 2010
Restarted Lasix; received extra dose 03/29
Previous echo 03/2025 shows ejection fraction of 35%
Cardiology following
Hyponatremia
Monitor
Long-term use of prednisone and MTX in the setting of Churg-Lemuel syndrome
Currently on stress dose steroid, once able to be weaned then can be put on low-dose prednisone outpatient dose
low-dose prednisone
Methotrexate has been discontinued for the past 4 weeks
Left inguinal hernia
Patient usually reduce on his own, if unable to be reduced then will need surgery evaluation
History of PAD
Continue eliquis and Plavix
Chronic constipation
Continue bowel regime
History of anemia
Continue ferrous sulfate
GERD
Continue pantoprazole
DVT prophylaxis- Eliquis
CODE STATUS- full code.
PT/OT rec home health. Discussed with patient and spouse. Spouse does not feel comfortable without much help. Need director of casework department assistance. Discussed with RN
Anticipated Discharge: Within 24 hours
Subjective/Interval History
-
Date of Service: March 30, 2025
denies pain
Objective Data
-
Labs:
Laboratory Results
03/30/25
03:01
WBC 10.9 H
Hgb 9.4 L
Hct 30.4 L
Plt Count 382
Sodium 138
Potassium 3.5
Chloride 104
Carbon Dioxide 29
BUN 30 H
Creatinine 1.0
Glucose 86
Calcium 8.4
Vital Signs:
Vital Signs
Temp Pulse Resp BP Pulse Ox
98.2 F 87 18 125/88 99
03/30/25 11:05 03/30/25 11:19 03/30/25 11:05 03/30/25 11:19 03/30/25 11:05
I&O
03/29/25 03/30/25 03/31/25
06:59 06:59 06:59
Intake Total 1320 / 1320 480 / 480 480 / 480
Output Total 325 / 325 900 / 900
Balance 995 / 995 -420 / -420 480 / 480
[2025-03-30] MEDS: LANOXIN 125 MCG PO (13:03)
[2025-03-30] MEDS: SENOKOT PO (13:04)
[2025-03-30] MEDS: SINGULAIR 10 MG PO (17:27)
--- NOTE | 2025-03-30 18:23 | PTCARENOTE ---
pt continues to be sr on the monitor, hr in the 90s, vss. pt offers no complaints at this time. pt educated on plan of care and verbalized understanding. pt ambulated in halls and room and tolerated well. Pt worked with PT and used RW. pt resting in
bed comfortably. call gutierrez within reach.
[2025-03-30] MEDS: MELATONIN 10 MG PO (22:43)
[2025-03-30] MEDS: DESYREL 50 MG PO (22:43)
[2025-03-30] MEDS: LIPITOR 40 MG PO (22:43)
[2025-03-31 02:14] VITALS: BP 145/92
[2025-03-31 04:14] VITALS: BP 140/88
[2025-03-31] MEDS: UNASYN IV ×2 (04:47→09:58)
[2025-03-31 04:52] VITALS: BMI 21.0
--- NOTE | 2025-03-31 04:57 | PTCARENOTE ---
Received patient from [facility] at 1900. AAOx3, CASH, ambulatory with x1 assist and RW. SR on tele. +pulses, trace LE edema. Lungs clear on RA. 2 RLE incisions from previous cardiovascular procedure- scant serous drainage from lower incision site-
steri strips intact. VS trends documented in flowsheets. Assessment unchanged from previous. Fall precautions in place, continuing with plan of care.
[2025-03-31 05:22] LABS: Hematocrit 33.6 % (39.0-52.0); Hemoglobin 10.3 g/dL (13.0-18.0); Mean Corp Hgb Conc. 30.7 g/dL (33.0-37.0); Mean Corpuscular Volume 102.4 fL (80.0-94.0); Nucleated Red Blood Cells % 0 % (-); Platelet Count 392 10^3/uL (130-400); Red Cell Dist. Width 14.6 % (11.5-14.5)
[2025-03-31 05:33] LABS: Blood Urea Nitrogen 26 mg/dl (9-20); Calcium 8.8 mg/dl (8.4-10.2); Carbon Dioxide 30 mmol/L (22-30); Chloride 107 mmol/L (98-107); Estimated Creatinine Clearance 62 ml/min; Glucose 77 mg/dl (70-99); Potassium 3.7 mmol/L (3.5-5.1); Sodium 142 mmol/L (135-145); eGFR > 60.00
[2025-03-31] MEDS: TYLENOL 650 MG PO (06:31)
[2025-03-31 07:12] VITALS: BP 136/81
[2025-03-31] MEDS: SYMBICORT 80/4.5 MCG INHALER 2 PUFF INH (07:56)
[2025-03-31] MEDS: PROTONIX 40 MG PO (08:48)
[2025-03-31] MEDS: LASIX 20 MG PO (08:48)
[2025-03-31] MEDS: ELIQUIS 5 MG PO (08:49)
[2025-03-31] MEDS: FOLVITE 1 MG PO (08:49)
[2025-03-31] MEDS: COLACE 100 MG PO (08:49)
[2025-03-31] MEDS: PLAVIX 75 MG PO (08:49)
[2025-03-31] MEDS: DELTASONE 10 MG PO (08:49)
[2025-03-31] MEDS: VITAMIN D3 (cholecalciferol) 50 MCG PO (08:49)
[2025-03-31] MEDS: MIRALAX 17 GRAMS PO (08:49)
[2025-03-31] MEDS: VITAMIN C 500 MG PO (08:49)
[2025-03-31] MEDS: FEOSOL 325 MG PO (08:49)
[2025-03-31] MEDS: PACERONE 200 MG PO (08:49)
--- NOTE | 2025-03-31 10:49 | W.PN.HOSP.TC ---
Addendum entered and electronically signed by Juan C Petty MD 03/31/25 11:41:
Discussed with Dr. Lara from cardiology. Okay to go from cardiology standpoint
Time of discharge 38 minutes
Original Note:
Today's Communication/Plan
-
monitor vitals
see plan
PT
dc today if ok with cardiology from their standpoint
switch abx to PO
Assessment / Plan
Assessment / Plan
General: Conversant
HEENT: NormoCephalic and Anicteric
Respiratory: Decreased Breath Sounds,NC
Cardiac: S1/S2, Regular Rhythm, Tachycardia and Other (Defibrillator right chest )
GI: Soft, Non Tender and Non Distended
Musculoskeletal: Edema, Left Lower Extremity (2+) and Edema, Right Lower Extremity (2+)
Neuro: AO x 3
Psych: Calm
IMPRESSION:
Septic shock in the setting of hospital-acquired pneumonia
Acute hypoxic respiratory failure
Paroxysmal to persistent atrial fibrillation
Acute on chronic heart failure with reduced ejection fraction, recent CABG x 3
Inferoapical LV thrombus by echo 03/04/25
Ischemic cardiomyopathy, EF 25 to 30%
PAD, mid right SFA occlusion and probable high-grade distal SFA stenosis
Hyper eosinophilia syndrome, on chronic steroid therapy
Churg-Lemuel syndrome
Long-term use of prednisone in the setting of Churg-Lemuel/eosinophilic granulomatous polyangiitis
History of peripheral artery disease
Chronic constipation
History of anemia
GERD
Pancreatic cyst
elevated troponin secondary to recent NSTEMI
PLAN:
# Septic shock in setting of hospital-acquired pneumonia
#Hypotensive
#Sinus tachycardia
Shock resolved, now off Levophed. MRSA negative. Discontinue vancomycin. Switched antibiotics to Unasyn. change abx to PO augmentin to complete course through 04/03
CT chest showing consolidation in the right lower and middle lobe which is more suspicious for bacterial pneumonia versus eosinophilic( reticular pattern). Given imaging suspect likely secondary to bacterial pneumonia
Decrease stress dose steroid, now on p.o. prednisone 10mg. Chronically on 7 mg prednisone. Discussed with patient and he will see his twister in soon outpatient and if he is starting back on methotrexate then will wean himself on 7 mg
prednisone. If unable to take methotrexate then we will continue with 10 mg prednisone for now.
strep pneumo and Legionella antigen neg
sputum culture usual tanvir. Unable to determine the speciation of bacterial pneumonia
Follow cultures
#Acute hypoxic respiratory failure likely secondary to pneumonia
Now on room air, improving.
repeat CXR in 4 weeks
Paroxysmal to persistent atrial fibrillation
Started post CABG
Continue oral amiodarone and digoxin
Continue Eliquis
cardiology following
# Acute on chronic heart failure with reduced ejection fraction in the setting of CABGx 3 on 03/06
#History of non ischemic cardiomyopathy
# ICD since 2010
Restarted Lasix; received extra dose 03/29
Previous echo 03/2025 shows ejection fraction of 35%
Cardiology following
Hyponatremia
Monitor
Long-term use of prednisone and MTX in the setting of Churg-Lemuel syndrome
Currently on stress dose steroid, once able to be weaned then can be put on low-dose prednisone outpatient dose
low-dose prednisone
Methotrexate has been discontinued for the past 4 weeks
Left inguinal hernia
Patient usually reduce on his own, if unable to be reduced then will need surgery evaluation
History of PAD
Continue eliquis and Plavix
Chronic constipation
Continue bowel regime
History of anemia
Continue ferrous sulfate
GERD
Continue pantoprazole
DVT prophylaxis- Eliquis
CODE STATUS- full code.
PT/OT rec home health. Discussed with patient and RN. All set up for home per CM. rolling walker and commode prescription provided
Anticipated Discharge: Today
Subjective/Interval History
-
Date of Service: March 31, 2025
denies pain
Objective Data
-
Labs:
Laboratory Results
03/31/25
04:58
WBC 9.1
Hgb 10.3 L
Hct 33.6 L
Plt Count 392
Sodium 142
Potassium 3.7
Chloride 107
Carbon Dioxide 30
BUN 26 H
Creatinine 0.9
Glucose 77
Calcium 8.8
Vital Signs:
Vital Signs
Temp Pulse Resp BP Pulse Ox
97.5 F 86 16 136/81 96
03/31/25 07:12 03/31/25 10:00 03/31/25 07:59 03/31/25 07:12 03/31/25 07:59
I&O
03/30/25 03/31/25 04/01/25
06:59 06:59 06:59
Intake Total 480 / 480 960 / 960 100 / 100
Output Total 900 / 900
Balance -420 / -420 960 / 960 100 / 100
--- NOTE | 2025-03-31 10:55 | PTCARENOTE ---
Patient received at 0700. AO x3. NSR, trace edema. Right lower incisions draining small amount of clear drainage. 4 corinna intact with steri-strips, approximated. Right upper leg approximated with steri strips, sternal incision [employer], approximated
and healing. Assisted to the chair with rolling walker. Meds given crushed in applesauce. eating breakfast in chair. at bedside, call gutierrez in reach
--- NOTE | 2025-03-31 11:46 | W.DCSUMMARY ---
Discharge Summary
Discharge Data
Date of Admission: 03/26/25
Date of Discharge: 03/31/25
-
Pending Results: No
Hospital Course
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
pancreatic cyst, recent CABG came to the hospital from [facility] with septic shock secondary to pneumonia. Patient initially went to the ICU and was put on pressors. Patient blood pressure continued to improve over time and he was able to be
weaned off pressors. He was initially started on IV antibiotic which were later transitioned to p.o. antibiotics to complete a course upon discharge. He was instructed to get repeat chest x-ray outpatient. He was also initially started on stress
dose steroid which continue to wean and he was discharged on oral prednisone 10 mg daily. His oxygenation also continue to improve over time and he was able to be weaned off oxygen. While he was hospitalized he was found to have mild CHF
exacerbation and was treated with Lasix. Patient was also valued by physical therapy who recommended home health. Once his symptoms continue to improve, he was then discharged home with clear instructions to follow-up with all his physicians
outpatient.
Discharge Plan
-
Patient Disposition: Home with Home Care
Discharge Diagnosis/Procedures: Septic shock secondary to pneumonia
Acute hypoxic respiratory failure
Paroxysmal to persistent atrial fibrillation
Acute on chronic congestive heart failure with reduced ejection fraction
Condition: Fair
Diet: As tolerated
Activity: As tolerated
Driving Restrictions: As prior to admission
Bathing Restrictions: None
Others Tests: Repeat chest x-ray with primary care provider or pulmonary in 4 weeks
Referrals:
[facility] [Outside]
Referral Note: RN/PT/OT
Mendy Herring PA-C [Specified Professional Personl, Cardiology] - 04/16/25 9:00 am
Referral Note: You have cardiology follow-up with Mendy Herring PA-C on April 16 at 9 AM in [place] [place] If you are unable to make this appointment please call [phone] to reschedule-
Josh Valdez MD [Family Provider, [facility]] - in less than 1 week
Cuba Mahajan MD [Active, Pulmonary Medicine] - in one to two weeks
Referral Note: Pneumonia status post CABG
Kristian Wallace MD [Active, Cardiac Surgery] - 04/02/25 2:30 pm
Prescriptions:
New
midodrine 5 mg Tablet
10 mg PO TID@0800,1300,1800 Qty: 90 0RF
prednisone 10 mg Tablet
10 mg PO DAILY Qty: 20 0RF
amoxicillin-pot clavulanate 875-125 mg tablet
1 tab PO BID Qty: 6 0RF
Continued
montelukast 10 MG tablet
10 mg PO QPM
budesonide-formoterol [Symbicort] 1 PUFF HFA aerosol inhaler
2 puff inhalation R BID
cholecalciferol (vitamin D3) [Vitamin D3] 50 mcg (2,000 unit) Tablet
50 mcg PO DAILY
ferrous sulfate [FeroSul] 325 mg (65 mg iron) Tablet
325 mg PO DAILY Qty: 0 0RF
melatonin 5 mg Tablet
10 mg PO HS Qty: 0 0RF
sennosides [senna] 8.6 mg Tablet
17.2 mg PO NOON
acetaminophen [Tylenol] 325 mg Tablet
650 mg PO Q6HPRN PRN (Reason: MILD PAIN)
trazodone 50 mg Tablet
50 mg PO HSPRN PRN (Reason: SLEEP)
polyethylene glycol 3350 [Miralax] 17 gram Powder In Packet
17 g PO DAILY
bisacodyl [Dulcolax (bisacodyl)] 10 mg Suppository
10 mg [place] DAILYPRN PRN (Reason: CONSTIPATION)
docusate sodium [Colace] 100 mg Capsule
100 mg PO BID
folic acid 1 mg Tablet
1 mg PO DAILY
bisacodyl [Dulcolax (bisacodyl)] 5 mg Tablet,Delayed Release (Dr/Ec)
10 mg PO DAILYPRN PRN (Reason: CONSTIPATION)
ascorbic acid (vitamin C) [Vitamin C] 500 mg tablet
500 mg PO DAILY
trazodone 50 mg Tablet
50 mg PO HS Qty: 14 0RF
amiodarone [Pacerone] 200 mg Tablet
200 mg PO DAILY Qty: 30 0RF
clopidogrel 75 mg Tablet
75 mg PO DAILY Qty: 30 0RF
pantoprazole 40 mg tablet,delayed release (DR/EC)
40 mg PO DAILY Qty: 30 0RF
digoxin 125 mcg (0.125 mg) Tablet
125 mcg PO NOON Qty: 30 0RF
furosemide 20 mg Tablet
20 mg PO DAILY Qty: 30 0RF
Eliquis 5 mg Tablet
5 mg PO BID Qty: 60 0RF
Changed
atorvastatin 40 mg tablet
40 mg PO HS Qty: 30 0RF
Held
prednisone 5 MG tablet
7 mg PO DAILY
Hold Instructions: Restart when weaned down from 10 mg
methotrexate sodium 2.5 mg Tablet
22.5 mg PO WE
Hold Instructions: Until instructed to take by your surgeon and rheumatology
Discontinued
aspirin 81 MG tablet,delayed release (DR/EC)
81 mg PO DAILY
midodrine 5 mg tablet
15 mg PO TID
tramadol 50 mg tablet
25 mg PO Q6HPRN PRN (Reason: MODERATE PAIN)
Discharge Orders:
Discharge Patient (As Directed); Ordered 03/31/25
Ordered By: Juan C Petty
Care Plan Goals
Care Plan Goals:
Problem: Readiness for enhanced knowledge related to diagnosis and treatment plan
Goal: Understand your diagnosis and treatment plan needs, including medications if applicable.
Instructions: Know your diagnosis, underlying causes and treatment plan options, including medications if applicable. Consult with your health care team to learn about your diagnosis and treatment plan, including medications if applicable.
Discharge Date and Time
Discharge Date/Time: 03/31/25 14:30
Print Language: MALTESE
[2025-03-31 12:08] VITALS: PULSE 86
[2025-03-31 12:23] VITALS: BP 124/76
[2025-03-31 12:25] VITALS: PULSE 86
[2025-03-31] MEDS: LANOXIN 125 MCG PO (12:29)
[2025-03-31] MEDS: SENOKOT 17.2 MG PO (12:29)
--- NOTE | 2025-03-31 13:51 | PTCARENOTE ---
Patient discharged to home. Instructions reviewed, verbalized understanding. IV and telemetry removed. Patient assisted to main lobby and assisted into his spouses car.
== END 2025-03-31 14:30 | disposition home health service (06) | DRG 871 ==
LOC: IVU 13:43
PROVIDERS: Nurse Practitioner Primary Care; Physician Assistant Medical; Student in an Organized Health Care Education/Training Program; ADMITTING PHYSICIAN Hospitalist; ATTENDING PHYSICIAN Internal Medicine; CONSULT PHYSICIAN Internal Medicine; EMERGENCY PHYSICIAN Emergency Medicine; FAMILY PHYSICIAN Family Medicine; OTHER PHYSICIAN Internal Medicine Interventional Cardiology
DX: A41.9 Sepsis, unspecified organism (principal); I50.23 Acute on chronic systolic (congestive) heart failure; J18.9 Pneumonia, unspecified organism; J96.01 Acute respiratory failure with hypoxia; R65.21 Severe sepsis with septic shock; I5A Non-ischemic myocardial injury (non-traumatic); J98.11 Atelectasis; E87.1 Hypo-osmolality and hyponatremia; I48.19 Other persistent atrial fibrillation; I48.92 Unspecified atrial flutter; M30.1 Polyarteritis with lung involvement [Churg-Strauss]; D72.119 Hypereosinophilic syndrome [HES], unspecified; E05.90 Thyrotoxicosis, unspecified without thyrotoxic crisis or storm; G43.909 Migraine, unspecified, not intractable, without status migrainosus; G47.00 Insomnia, unspecified; I48.0 Paroxysmal atrial fibrillation; D64.9 Anemia, unspecified; I25.10 Atherosclerotic heart disease of native coronary artery without angina pectoris; I25.5 Ischemic cardiomyopathy; K21.9 Gastro-esophageal reflux disease without esophagitis; K59.09 Other constipation; I25.2 Old myocardial infarction; Z11.52 Encounter for screening for COVID-19; Z79.01 Long term (current) use of anticoagulants; Z79.02 Long term (current) use of antithrombotics/antiplatelets; Z79.51 Long term (current) use of inhaled steroids; Z79.52 Long term (current) use of systemic steroids; Z79.82 Long term (current) use of aspirin; Z79.899 Other long term (current) drug therapy; Z87.01 Personal history of pneumonia (recurrent); Z95.1 Presence of aortocoronary bypass graft; Z95.810 Presence of automatic (implantable) cardiac defibrillator
CPT/HCPCS: 71045; 71275; 80048; 80053; 80162; 81003; 81015; 82962; 83605; 83735; 83880; 84484; 85025; 85027; 85610; 85730; 87070; 87205; 87449; 87502; 87641; 87811; 87899; 92526; 92610; 93005; 93289; 94640; 96365; 96366; 96375; 97116; 97163; 97167; 97530; 97535; 99291; Q9967

== ENCOUNTER 2025-05-06 09:55 | Emergency (ER) | payer MEDICARE, OTHER, SELFPAY ==
[2025-05-06 09:57] VITALS: BP 165/99
--- NOTE | 2025-05-06 10:19 | ED.GENMED ---
History of Present Illness
General
Chief Complaint: Breathing Problem
Time Seen by Provider: 05/06/25 10:19
History of Present Illness
History of Present Illness:
FOCUSED PAST MEDICAL HISTORY
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
REVIEW OF OLD RECORDS
- Was admitted from [facility] with septic shock secondary to pneumonia 03/26/2025 he was on pressors at that time and IV antibiotics.
- CT 03/26/2025 showed no definite PE but did show dense consolidation right lower lobe and right middle lobe suspicious for pneumonia
Note:
CHIEF COMPLAINT(S)
Hemoptysis and shortness of breath.
HISTORY OF PRESENT ILLNESS
The patient is a 80-year-old male with a history of recent coronary artery bypass graft surgery in February and a history of pneumonia complicated by septic shock. The patient reports that around , he began to feel unusually tired and
subsequently developed shortness of breath, which initially was mild. Approximately three days ago, the patient experienced an episode of hemoptysis, coughing up dark blood with some cath lab-colored blood, which occurred in a single event. This
episode recurred two days ago and again this morning at 5 AM, with each event involving just one episode of coughing up blood. The most recent episode produced brighter red blood. The patient confirms these episodes were coughing up blood, not
vomiting. The patient is prescribed Eliquis (apixaban) and Plavix (clopidogrel), which he continues to take. He was previously admitted for evaluation, during which a computed tomography scan revealed no pulmonary embolism but signs of pneumonia. He
mentions that he does not feel as severely ill as during his previous hospital admission but experiences significant fatigue, impacting his daily activities, such as preparing breakfast.
PAST MEDICAL AND SURIGICAL HISTORY
Coronary artery bypass graft in February.
CHRONIC MEDICAL CONDITIONS SIGNIFICANTLY AFFECTING CARE
- History of atrial thrombus.
- Previous septic shock secondary to pneumonia.
SOCIAL HISTORY
The patient denies any caffeine and recreational drugs usage.
MEDICATIONS
The patient is currently taking apixaban (Eliquis) and clopidogrel (Plavix).
REVIEW OF SYSTEMS
- Respiratory: Shortness of breath, episodes of hemoptysis.
- General: Fatigue.
PHYSICAL EXAM
General: Appears alert, no acute distress.
Skin: Warm, dry.
Head: Normocephalic, atraumatic.
Neck: Supple, trachea midline.
Eyes, Ears, Nose, Mouth, and Throat: Oral mucosa moist.
Cardiovascular: Normal peripheral perfusion, No edema.
Respiratory: Decreased breath sounds with rales at the bases, respirations are non-labored.
Gastrointestinal: Abdomen nondistended.
Back: Normal range of motion, normal alignment.
Musculoskeletal: Normal range of motion, normal strength.
Neurological: Alert and oriented to person, place, time, and situation, No focal neurological deficit observed.
Psychiatric: Cooperative, appropriate mood & affect.
PROBLEM LIST
Acute:
- Hemoptysis
- Fatigue
- Shortness of breath
Chronic:
- History of atrial thrombus
- Previous pneumonia with septic shock
PLAN
1. Conduct blood work.
2. Perform a computed tomography scan to assess current status for potential pneumonic changes or complications.
3. Initiate a breathing treatment to evaluate its effectiveness on symptoms.
4. Continue monitoring for any further episodes of hemoptysis or changes in respiratory status.
DIFFERENTIAL DIAGNOSIS
The Differential Diagnosis includes, in no particular order and is not limited to:
1. Pulmonary embolism
2. Pneumonia
3. Heart failure exacerbation
4. Acute bronchitis
5. Lung malignancy
6. Pulmonary hypertension
7. Tuberculosis
8. Coagulopathy due to anticoagulant therapy
9. Bronchiectasis
10. Aspiration pneumonia
RADIOLOGY
- CT chest obtained
EKG
- Sinus 106, left axis deviation, nonspecific abnormality not significantly changed from 03/26/2025
LABS
- White count 12.9, hemoglobin 11.1 which is improved from prior, potassium slightly low at 3.3, BNP 7030
SUMMARY OF ENCOUNTER
The patient presented to the emergency department with hemoptysis and shortness of breath. Following assessment, it was determined that the patient may benefit from an antibiotic regimen for possible pneumonia. Due to a history of intolerance to
penicillin-based antibiotics, cephalexin (Cephalexin) was prescribed. Communication was also made with Dr. Sue, and it was determined that the patient will follow up with pulmonology as an outpatient for further management.
DISPOSITION
Discharge
ASSESSMENT
Hemoptysis; possible pneumonia
PLAN
The patient is to be discharged with a prescription for cephalexin to cover possible pneumonia. Follow-up with pulmonology as an outpatient has been arranged for further care.
PATIENT EDUCATION AND COUNSELING
The patient was advised regarding the prescribed antibiotic, including the importance of completing the course of antibiotics as prescribed. The patient was also counseled on the signs and symptoms that would require immediate return to the
emergency department, such as worsening shortness of breath or increased hemoptysis.
FOLLOW-UP INSTRUCTIONS
The patient is advised to follow up with pulmonology as an outpatient as arranged.
MEDICATION RECONCILIATION
Cephalexin prescribed for possible pneumonia.
MEDICAL DECISION MAKING
-Number and Complexity of Problems Addressed: Chronic conditions affecting care include a history of atrial thrombus, previous pneumonia with septic shock. The differential diagnosis considered includes hemoptysis, fatigue, shortness of breath.
-Data:
The patients care was discussed with Dr. Sue to coordinate follow-up with pulmonology.
-Risk: Prescription medication was prescribed, specifically cephalexin, due to the patients intolerance to penicillin-based antibiotics.
DIAGNOSIS
- Hemoptysis (R04.2)
- Pneumonia versus pneumonia
- History of Churg-Lemuel syndrome
UPDATE
- Chest CT suggests pneumonia/pneumonitis
- Discussed with Dr. Sue-agrees with antibiotics and outpatient follow-up
- Patient is well-appearing and feels very comfortable going home.
- Patient is on Eliquis and Plavix; will have him hold next dose of Eliquis
Past History
Past History
ED Past Medical History: Asthma, CAD, COPD, HTN, Hypercholesterolemia, Valvular disease, Hyperthyroidism and Other (Pneumonia, Hypereosinophilia)
ED Past Surgical History: Cardiac (AICD), Tonsilectomy and Other
Social History
Tobacco: Non-smoker
Alcohol: Occasional
Drug: None
Personal:
Living: with family
Employment: Retired
Family History
Family History: Other (Noncontributory)
Phy Exam
Physical Exam
Physical Exam:
See HPI
Scores
Heart Failure Risk
Heart Failure Risk Score: Not Applicable
Course
Orders/Labs/Results
Orders:
Orders
05/06/25 10:02
Electrocardiogram (*1) Urgent
Reason for Study: Shortness of Breath
EKG- Treatment ONCE
05/06/25 10:38
CT Chest With Iv Contrast Urgent
Comment:
Reason For Exam: hemoptysis; abnormal CT in past
05/06/25 10:42
Complete Blood Count/With Diff Urgent
Comprehensive Metabolic Panel Urgent
Digoxin Urgent
05/06/25 10:45
NT-proBNP Urgent
Influenza A+B Rapid Molecular Urgent
FROY Source: Nasal Swab
Specimen Description:
Abnormal Lab Results
05/06/25
10:42
WBC 12.9 H 10^3/uL
(4.8-10.8)
RBC 3.59 L 10^6/uL
(4.70-6.10)
Hgb 11.1 L g/dL
(13.0-18.0)
Hct 34.6 L %
(39.0-52.0)
MCV 96.4 H fL
(80.0-94.0)
MCHC 32.1 L g/dL
(33.0-37.0)
RDW 16.2 H %
(11.5-14.5)
Abs Immat Gran (auto) 0.1 H 10^3/uL
(0-0.05)
Absolute Neuts (auto) 9.1 H 10^3/uL
(1.4-6.5)
Absolute Monos (auto) 1.1 H 10^3/uL
(0.1-0.6)
Immature Gran % 0.6 H %
(0-0.5)
Lymphocytes % 15.8 L %
(20.5-51.1)
Potassium 3.3 L mmol/L
(3.5-5.1)
BUN 26 H mg/dl
(9-20)
Glucose 104 H mg/dl
(70-99)
Total Protein 6.2 L g/dl
(6.3-8.2)
Digoxin < 0.4 L ng/ml
(0.8-2.0)
05/06/25 10:42
05/06/25 10:42
Vital Signs
Initial and Last Documented VS:
Initial Vital Signs
Temp Pulse Resp BP Pulse Ox
36.4 C 111 20 165/99 97
05/06/25 09:57 05/06/25 09:57 05/06/25 09:57 05/06/25 09:57 05/06/25 09:57
Last Documented Vital Signs
Temp Pulse Resp BP Pulse Ox
36.4 C 82 15 131/80 93
05/06/25 09:57 05/06/25 12:00 05/06/25 12:00 05/06/25 12:00 05/06/25 12:00
*Pulse Oximetry
SaO2: 97
Oxygen Mode of Delivery: Room air
Patient hypoxic: no
*Critical Care Note
Total Time (30-74mins, 75-104mins- exclusive of procedures): Not Applicable
ED Attending Note
-
Portions of this chart may have been created with voice recognition software.� Occasional wrong word or��sound alike� substitutions may have occurred due to the inherent limitations of voice recognition software.
Discharge Plan
Departure
Patient Disposition: Home (Routine Discharge)
Date of Disposition: 05/06/25
Time of Disposition: 13:49
Patient with high blood pressure during this ER visit?: Yes
Discharge Problem:
Churg-Lemuel syndrome, Pneumonitis
Instructions: Pneumonia in adults, Pneumonitis
Prescriptions:
New
cefuroxime axetil 500 mg tablet
500 mg PO BID Qty: 14 0RF
No Action
prednisone 5 MG tablet
7 mg PO DAILY
montelukast 10 MG tablet
10 mg PO QPM
budesonide-formoterol [Symbicort] 1 PUFF HFA aerosol inhaler
2 puff inhalation R BID
cholecalciferol (vitamin D3) [Vitamin D3] 50 mcg (2,000 unit) Tablet
50 mcg PO DAILY
ferrous sulfate [FeroSul] 325 mg (65 mg iron) Tablet
325 mg PO DAILY Qty: 0 0RF
melatonin 5 mg Tablet
10 mg PO HS Qty: 0 0RF
sennosides [senna] 8.6 mg Tablet
17.2 mg PO NOON
acetaminophen [Tylenol] 325 mg Tablet
650 mg PO Q6HPRN PRN (Reason: MILD PAIN)
trazodone 50 mg Tablet
50 mg PO HSPRN PRN (Reason: SLEEP)
polyethylene glycol 3350 [Miralax] 17 gram Powder In Packet
17 g PO DAILY
methotrexate sodium 2.5 mg Tablet
22.5 mg PO WE
bisacodyl [Dulcolax (bisacodyl)] 10 mg Suppository
10 mg [place] DAILYPRN PRN (Reason: CONSTIPATION)
docusate sodium [Colace] 100 mg Capsule
100 mg PO BID
folic acid 1 mg Tablet
1 mg PO DAILY
bisacodyl [Dulcolax (bisacodyl)] 5 mg Tablet,Delayed Release (Dr/Ec)
10 mg PO DAILYPRN PRN (Reason: CONSTIPATION)
ascorbic acid (vitamin C) [Vitamin C] 500 mg tablet
500 mg PO DAILY
midodrine 5 mg Tablet
10 mg PO TID@0800,1300,1800 Qty: 90 0RF
prednisone 10 mg Tablet
10 mg PO DAILY Qty: 20 0RF
atorvastatin 40 mg tablet
40 mg PO HS Qty: 30 0RF
trazodone 50 mg Tablet
50 mg PO HS Qty: 14 0RF
amiodarone [Pacerone] 200 mg Tablet
200 mg PO DAILY Qty: 30 0RF
clopidogrel 75 mg Tablet
75 mg PO DAILY Qty: 30 0RF
pantoprazole 40 mg tablet,delayed release (DR/EC)
40 mg PO DAILY Qty: 30 0RF
digoxin 125 mcg (0.125 mg) Tablet
125 mcg PO NOON Qty: 30 0RF
furosemide 20 mg Tablet
20 mg PO DAILY Qty: 30 0RF
Eliquis 5 mg Tablet
5 mg PO BID Qty: 60 0RF
amoxicillin-pot clavulanate 875-125 mg tablet
1 tab PO BID Qty: 6 0RF
Referrals:
Josh Valdez MD [Family Provider, Family Practice]
Cuba Mahajan MD [Active, Pulmonary Medicine]
Activity Restrictions/Additional Instructions:
Your CAT scan shows signs of pneumonia/pneumonitis. We can place you back on antibiotics. I sent a prescription for cefuroxime to your pharmacy. I spoke to Dr. Sue with Dr Mahajan -please follow-up with their office. Hold next dose of
Eliquis. Return if worse or other concerns.
Interventions
Interventions:
*General Assessment Last Done: 05/06/25 10:54
*Neglect/Abuse Screening Last Done: 05/06/25 09:57
*ED COVID-19 Vaccine History Last Done: 05/06/25 10:54
*ED Influenza Vaccine History Last Done: 05/06/25 10:54
[facility] Fall Risk Assessment Tool Last Done: 05/06/25 10:54
*Risk Screen - Suicide (C-SSRS) Last Done: 05/06/25 09:57
ED- Cardiac Assessment Last Done: 05/06/25 10:54
ED- Pulmonary Assessment Last Done: 05/06/25 10:54
Discharge Date and Time
Print Language: NEPALESE
[2025-05-06 10:45] VITALS: BMI 19.8
[2025-05-06 11:02] LABS: Hematocrit 34.6 % (39.0-52.0); Hemoglobin 11.1 g/dL (13.0-18.0); Mean Corp Hgb Conc. 32.1 g/dL (33.0-37.0); Mean Corpuscular Volume 96.4 fL (80.0-94.0); Nucleated Red Blood Cells % 0.2 % (-); Platelet Count 325 10^3/uL (130-400); Red Cell Dist. Width 16.2 % (11.5-14.5)
[2025-05-06 11:20] LABS: ALT (SGPT) 29 U/L (0-50); AST (SGOT) 29 U/L (17-59); Albumin 3.6 g/dl (3.5-5.0); Alkaline Phosphatase 71 U/L (38-126); Blood Urea Nitrogen 26 mg/dl (9-20); Calcium 8.8 mg/dl (8.4-10.2); Carbon Dioxide 28 mmol/L (22-30); Chloride 103 mmol/L (98-107); Estimated Creatinine Clearance 58 ml/min; Glucose 104 mg/dl (70-99); Potassium 3.3 mmol/L (3.5-5.1); Sodium 136 mmol/L (135-145); Total Protein 6.2 g/dl (6.3-8.2); eGFR > 60.00
[2025-05-06 11:25] LABS: Digoxin < 0.4 ng/ml (0.8-2.0)
[2025-05-06 11:36] VITALS: BP 120/90
[2025-05-06 12:00] VITALS: BP 131/80
[2025-05-06 12:58] VITALS: BP 135/79
[2025-05-06 13:00] VITALS: BP 129/79
[2025-05-06 14:00] VITALS: BP 129/78
== END 2025-05-06 14:10 | disposition home or self-care (01) ==
LOC: EMR 09:55
PROVIDERS: EMERGENCY PHYSICIAN Emergency Medicine; FAMILY PHYSICIAN Family Medicine
DX: M30.1 Polyarteritis with lung involvement [Churg-Strauss] (principal); J98.4 Other disorders of lung; I25.10 Atherosclerotic heart disease of native coronary artery without angina pectoris; I11.0 Hypertensive heart disease with heart failure; R04.2 Hemoptysis; D64.9 Anemia, unspecified; D72.119 Hypereosinophilic syndrome [HES], unspecified; I50.9 Heart failure, unspecified; I25.5 Ischemic cardiomyopathy; I48.91 Unspecified atrial fibrillation; Z95.1 Presence of aortocoronary bypass graft
CPT/HCPCS: 99285; 71260; 80053; 80162; 83880; 85025; 87502; 93005; Q9967